=== PATIENT | male | born 1950 | race African-American/Black ===

== ENCOUNTER 2023-11-21 18:35 | Inpatient (IN) | payer MEDICARE ==
[~2023-11-21] VITALS: Ht 182.9 cm; Wt 102.8 kg
[2023-11-21 12:21] VITALS: BP 132/59; PULSE 77; RESP 17; TEMP 97.6; O2SAT 94
[~2023-11-21 18:35] MED LIST: AML5T PO; ASPI1TAB20 PO; ATOR-507 PO; BRIM0.2S17 LEFTEYE; CARV6.2551 PO; CLOP75TA70 PO; DORZ2SOL18 EACHEYE; DOXY-286 PO; GABA-339 PO; INS7030I SC; INSU100I69 SC; INSU50IN6 SC; METF-1145 PO; METO25TA93 PO; MID10T PO; PANT40TA2 PO; SIMV20TA20 PO; TORS20TA20 PO; VALS40TA2 PO
[2023-11-21 19:03] VITALS: PULSE 76; RESP 18; O2SAT 93
[2023-11-21] MEDS: IPRATROPIUM BROM 0.5 MG/2.5ML INH SOL NEB ONE (19:11)
[2023-11-21] MEDS: ALBUTEROL SULF 2.5 MG/0.5ML(0.5%) NEB SOLN NEB ONE (19:11)
[2023-11-21 19:33] LABS: Basophils # (auto) 0.1 10 ^3/uL (0-0.2); Eosinophils # (auto) 0.4 10 ^3/uL (0-0.8); Hemoglobin 8.6 g/dL (13.5-17.5); Lymphocytes # (auto) 1.1 10 ^3/uL (0.4-5.4)
[2023-11-21 19:34] LABS: Basophils % (auto) 1.1 % (0.0-2.0); Eosinophils % (auto) 6.4 % (0.0-7.0); Mean Corpuscular Hemoglobin 25.8 pg (28.0-32.0); Mean Corpuscular Hgb Conc. 31.8 g/dL (32.0-36.0); Mean Corpuscular Volume 81.2 fL (80.0-100.0); Monocytes # (auto) 0.3 10 ^3/uL (0-1.3); Monocytes % (auto) 5.2 % (0.0-12.0); Neutrophils # (auto) 4.8 10 ^3/uL (1.6-8.6); Neutrophils % (auto) 71.3 % (37.0-80.0); Nucleated Red Blood Cells % 0.2 %; Platelet Count (auto) 281 10^3/uL (140-450); Red Blood Cells 3.32 10^6/uL (4.5-5.90); Red Cell Distribution Width 18.8 % (11.8-14.3); White Blood Cell 6.7 10^3/uL (4.4-10.8)
[2023-11-21] MEDS: NITROGLYCERIN 2% OINT 1GM PKG TD ONE (19:35)
[2023-11-21 19:51] LABS: Alanine Aminotransferase 27 U/L (7-40); Alkaline Phosphatase 118 U/L (46-116); Anion Gap 11 (5-15); BUN/Creatinine Ratio 30.1 (10.0-20.0); Blood Urea Nitrogen 50 mg/dL (9-23); Calcium 8.4 mg/dL (8.7-10.4); Carbon Dioxide 21 mmol/L (20-30); Chloride 107 mmol/L (98-107); Glucose 203 mg/dL (74-106); Potassium 4.3 mmol/L (3.5-5.1); Sodium 139 mmol/L (136-145)
[2023-11-21 19:52] LABS: Albumin 3.9 g/dL (3.2-4.8); Aspartate Aminotransferase 15 U/L (13-40); Bilirubin, Total 0.4 mg/dL (0.2-1.0)
[2023-11-21 19:54] LABS: INR 1.03 (0.9-1.15); Partial Thromboplastin Time 28.2 SEC (24.5-34.5); Prothrombin Time 10.9 sec (9.3-11.8)
[2023-11-21] MEDS: methylPREDNISolone SOD SUCC 125 MG/2 ML VL IV ONE (19:55)
[2023-11-21] MEDS: levoFLOXacin 750MG 150 ML IV ONE (19:56)
[2023-11-21] MEDS: FUROSEMIDE 40 MG/4 ML VIAL IV ONE (20:30)
[2023-11-21 22:00] VITALS: PULSE 77; RESP 17; O2SAT 99
[2023-11-21] MEDS ORDERED: DEXTROSE (50%) 50ML SYRG IV PRN (22:00)
[2023-11-21] MEDS: ATORVASTATIN 20 MG TAB PO SCH (22:00)
[2023-11-21] MEDS: ACCU-CHEK COMFORT CURVE STRIP VI SCH (22:00)
[2023-11-21] MEDS: METOPROLOL TARTRATE 25 MG TAB PO SCH (22:00)
[2023-11-21] MEDS ORDERED: MORPHINE SULFATE INJ 2 MG/ml SYRG IV PRN (22:00)
[2023-11-21] MEDS: InsuLIN REG 1unit/0.01ml Soln (100units/ml) SC SCH (22:00)
[2023-11-21] MEDS: CARVEDILOL 3.125 MG TAB PO SCH (22:00)
[2023-11-21] MEDS ORDERED: NITROGLYCERIN 0.4 MG SL TAB SL PRN (22:00)
[2023-11-21 22:11] VITALS: BP 116/50; PULSE 98; RESP 24; O2SAT 92
[2023-11-22] VITALS (12 sets, daily range): BP systolic 107–132; BP diastolic 59–77; PULSE 69–81; RESP 18–24; TEMP 97.5–98.3; O2SAT 93–97
[2023-11-22 00:59] LABS: Urine Bacteria None Seen /hpf (None Seen)
[2023-11-22 01:14] LABS: Urine Blood Negative /uL (Negative); Urine Clarity Clear (Clear); Urine Color Light-Yellow (Yellow); Urine Hyaline Cast MANY /lpf (0 - 2); Urine Protein, UAD TRACE (Negative); Urine Specific Gravity 1.012 (1.001-1.035); Urine Urobilinogen Normal (Negative); Urine WBC <1 /hpf (0 - 3)
[2023-11-22] MEDS: ACETAMINOPHEN 325 MG TAB PO PRN (01:49)
[2023-11-22] MEDS: IPRATROPIUM BROM 0.5 MG/2.5ML INH SOL NEB PRN (06:17)
[2023-11-22] MEDS: ALBUTEROL SULF 2.5 MG/0.5ML(0.5%) NEB SOLN NEB PRN (06:17)
[2023-11-22] MEDS: FUROSEMIDE 20 MG/2 ML VIAL IV SCH ×2 (06:24→17:45)
[2023-11-22] MEDS: PANTOPRAZOLE 40 MG TAB PO SCH (06:24)
[2023-11-22 07:10] LABS: Basophils # (auto) 0 10 ^3/uL (0-0.2); Eosinophils # (auto) 0 10 ^3/uL (0-0.8); Hemoglobin 9.2 g/dL (13.5-17.5); Monocytes # (auto) 0 10 ^3/uL (0-1.3); Neutrophils # (auto) 3.6 10 ^3/uL (1.6-8.6)
[2023-11-22 07:12] LABS: Basophils % (auto) 0.4 % (0.0-2.0); Hematocrit 29.4 % (41.0-53.0); Lymphocytes # (auto) 0.3 10 ^3/uL (0.4-5.4); Lymphocytes % (auto) 8.4 % (10.0-50.0); Mean Corpuscular Hemoglobin 25.4 pg (28.0-32.0); Mean Corpuscular Hgb Conc. 31.3 g/dL (32.0-36.0); Mean Corpuscular Volume 81.1 fL (80.0-100.0); Monocytes % (auto) 1.1 % (0.0-12.0); Neutrophils % (auto) 90.1 % (37.0-80.0); Nucleated Red Blood Cells % 0.1 %; Platelet Count (auto) 297 10^3/uL (140-450); Red Blood Cells 3.62 10^6/uL (4.5-5.90); Red Cell Distribution Width 19.3 % (11.8-14.3)
[2023-11-22 07:26] LABS: Alanine Aminotransferase 26 U/L (7-40); Alkaline Phosphatase 113 U/L (46-116); Anion Gap 9 (5-15); Aspartate Aminotransferase 11 U/L (13-40); BUN/Creatinine Ratio 29.7 (10.0-20.0); Blood Urea Nitrogen 52 mg/dL (9-23); Calcium 8.6 mg/dL (8.7-10.4); Carbon Dioxide 22 mmol/L (20-30); Chloride 107 mmol/L (98-107); Glucose 281 mg/dL (74-106); Potassium 4.6 mmol/L (3.5-5.1); Sodium 138 mmol/L (136-145)
[2023-11-22 07:27] LABS: Bilirubin, Total 0.4 mg/dL (0.2-1.0); Total Protein 7.4 g/dL (5.7-8.2)
[2023-11-22] MEDS: CLOPIDOGREL BISULFATE 75 MG TAB PO SCH (10:00)
[2023-11-22] MEDS ORDERED: levoFLOXacin 500MG 100 ML IV SCH (10:00)
[2023-11-22] MEDS: amLODIPine BESYLATE 5 MG TAB PO SCH (10:01)
[2023-11-22] MEDS: cefTRIAXone 1GM/50ML D5W 50 ML IV ONE (18:00)
[2023-11-22] MEDS: ASPirin 81 mg TAB PO ONE (18:01)
[2023-11-22] MEDS: ENOXAPARIN SOD 40 MG/0.4 ML SYRINGE SC ONE (18:02)
[2023-11-22] MEDS: DOXYCYCLINE 100MG/250ML 250 ML IV ONE (18:53)
[2023-11-22] MEDS: MUPIROCIN 2% OINT 15gm or 22gm FOR MRSA NARES EACHNOSTRI SCH (22:00)
[2023-11-22] MEDS: DOXYCYCLINE 100MG/250ML 250 ML IV SCH (22:13)
[2023-11-22] MEDS: METOPROLOL TARTRATE 25 MG TAB PO SCH (22:15)
[2023-11-23] VITALS (16 sets, daily range): BP systolic 110–136; BP diastolic 50–81; PULSE 64–80; RESP 17–28; TEMP 97.4–98.1; O2SAT 92–99
[2023-11-23 02:59] LABS: COVID19 ANTIGEN SOFIA FIA NEGATIVE (NEGATIVE)
[2023-11-23 03:00] LABS: Rapid Influenza A Negative (Negative); Rapid Influenza B Negative (Negative)
[2023-11-23 06:05] LABS: Basophils # (auto) 0.1 10 ^3/uL (0-0.2); Lymphocytes # (auto) 0.8 10 ^3/uL (0.4-5.4); Monocytes # (auto) 0.6 10 ^3/uL (0-1.3); Red Cell Distribution Width 18.8 % (11.8-14.3); White Blood Cell 8.3 10^3/uL (4.4-10.8)
[2023-11-23 06:08] LABS: Basophils % (auto) 0.8 % (0.0-2.0); Eosinophils # (auto) 0.2 10 ^3/uL (0-0.8); Eosinophils % (auto) 2.2 % (0.0-7.0); Hematocrit 28.2 % (41.0-53.0); Hemoglobin 9.3 g/dL (13.5-17.5); Lymphocytes % (auto) 10.1 % (10.0-50.0); Mean Corpuscular Hemoglobin 26.9 pg (28.0-32.0); Mean Corpuscular Hgb Conc. 32.9 g/dL (32.0-36.0); Mean Corpuscular Volume 81.7 fL (80.0-100.0); Neutrophils # (auto) 6.6 10 ^3/uL (1.6-8.6); Neutrophils % (auto) 79.9 % (37.0-80.0); Nucleated Red Blood Cells % 0.2 %; Platelet Count (auto) 307 10^3/uL (140-450); Red Blood Cells 3.45 10^6/uL (4.5-5.90)
[2023-11-23 06:17] LABS: Anion Gap 6 (5-15); Carbon Dioxide 24 mmol/L (20-30); Chloride 110 mmol/L (98-107); Potassium 4.4 mmol/L (3.5-5.1); Sodium 140 mmol/L (136-145)
[2023-11-23 06:18] LABS: Calcium 9.1 mg/dL (8.7-10.4)
[2023-11-23 06:23] LABS: Blood Urea Nitrogen 54 mg/dL (9-23)
[2023-11-23 06:24] LABS: Magnesium 2.4 mg/dL (1.6-2.6)
[2023-11-23 06:37] LABS: Glucose 152 mg/dL (74-106)
[2023-11-23] MEDS: ONDANSETRON HCL 4 MG/2 ML VIAL IV PRN (09:00)
[2023-11-23] MEDS: cefTRIAXone 1GM/50ML D5W 50 ML IV SCH (09:00)
[2023-11-23] MEDS: ENOXAPARIN SOD 40 MG/0.4 ML SYRINGE SC SCH (10:12)
[2023-11-23] MEDS: ASPirin 81 mg TAB PO SCH (10:14)
[2023-11-23] MEDS: INSULIN LANTUS (GLARGINE) 1 /0.01ml (100units/ml) SC SCH (10:48)
[2023-11-23] MEDS: FUROSEMIDE 40 MG/4 ML VIAL IV SCH (14:55)
[2023-11-23] MEDS: metOLazone 5 MG TAB PO ONE (14:56)
[2023-11-23] MEDS ORDERED: FUROSEMIDE 40 MG/4 ML VIAL IV SCH (18:00)
[2023-11-23] MEDS: DOCUSATE SOD 100 MG CAP PO ONE (18:05)
[2023-11-23] MEDS: methylPREDNISolone SOD SUCC 40 MG/ML VL IV PRN (18:06)
[2023-11-23] MEDS: ALBUTEROL SULF 2.5 MG/0.5ML(0.5%) NEB SOLN NEB SCH (21:59)
[2023-11-23] MEDS: IPRATROPIUM BROM 0.5 MG/2.5ML INH SOL NEB SCH (22:00)
[2023-11-24] VITALS (22 sets, daily range): BP systolic 103–143; BP diastolic 42–93; PULSE 71–98; RESP 16–20; TEMP 97–98.3; O2SAT 10–99
[2023-11-24 05:49] LABS: Basophils # (auto) 0 10 ^3/uL (0-0.2); Basophils % (auto) 0.3 % (0.0-2.0); Eosinophils # (auto) 0 10 ^3/uL (0-0.8); Hemoglobin 9.6 g/dL (13.5-17.5); Lymphocytes # (auto) 0.2 10 ^3/uL (0.4-5.4); Monocytes # (auto) 0.1 10 ^3/uL (0-1.3); Nucleated Red Blood Cells % 0.1 %
[2023-11-24 05:51] LABS: Anion Gap 10 (5-15); Carbon Dioxide 25 mmol/L (20-30); Chloride 105 mmol/L (98-107); Potassium 3.7 mmol/L (3.5-5.1); Sodium 140 mmol/L (136-145)
[2023-11-24 05:52] LABS: Calcium 8.9 mg/dL (8.7-10.4)
[2023-11-24 05:54] LABS: Hematocrit 29.7 % (41.0-53.0); Lymphocytes % (auto) 3.8 % (10.0-50.0); Mean Corpuscular Hemoglobin 26.4 pg (28.0-32.0); Mean Corpuscular Hgb Conc. 32.4 g/dL (32.0-36.0); Mean Corpuscular Volume 81.4 fL (80.0-100.0); Neutrophils # (auto) 5.4 10 ^3/uL (1.6-8.6); Neutrophils % (auto) 94.9 % (37.0-80.0); Platelet Count (auto) 316 10^3/uL (140-450); Red Blood Cells 3.65 10^6/uL (4.5-5.90); Red Cell Distribution Width 18.8 % (11.8-14.3); White Blood Cell 5.7 10^3/uL (4.4-10.8)
[2023-11-24 05:57] LABS: BUN/Creatinine Ratio 32.2 (10.0-20.0); Blood Urea Nitrogen 58 mg/dL (9-23)
[2023-11-24 06:07] LABS: Glucose 302 mg/dL (74-106)
[2023-11-24] MEDS ORDERED: BRIMONIDINE 0.2% OPTH Soln 5ml EACHEYE ONE (10:15)
[2023-11-24] MEDS ORDERED: DORZOLAMIDE HCL 2% OPTH(EYE) SOL 10ML EACHEYE ONE (10:15)
[2023-11-24] MEDS: BRIMONIDINE 0.2% OPTH Soln 5ml EACHEYE SCH (10:32)
[2023-11-24] MEDS: DORZOLAMIDE HCL 2% OPTH(EYE) SOL 10ML EACHEYE SCH (10:33)
[2023-11-24] MEDS: INSULIN LANTUS (GLARGINE) 1 /0.01ml (100units/ml) SC ONE (11:18)
[2023-11-24] MEDS: IRON SUCROSE COMPLEX 100 ML IV SCH (12:00)
[2023-11-24] MEDS: metOLazone 5 MG TAB PO ONE (16:36)
[2023-11-24] MEDS ORDERED: DEXTROSE (50%) 50ML SYRG IV PRN (17:15)
[2023-11-24] MEDS: ACCU-CHEK COMFORT CURVE STRIP VI SCH (21:40)
[2023-11-24] MEDS: InsuLIN REG 1unit/0.01ml Soln (100units/ml) SC SCH (21:49)
[2023-11-25] VITALS (23 sets, daily range): BP systolic 110–138; BP diastolic 55–85; PULSE 65–119; RESP 18–21; TEMP 97.3–98.2; O2SAT 93–99
[2023-11-25] MEDS: InsuLIN REG 1unit/0.01ml Soln (100units/ml) SC SCH ×3 (06:25→22:25)
[2023-11-25] MEDS: metOLazone 5 MG TAB PO ONE (09:24)
[2023-11-25] MEDS: INSULIN LANTUS (GLARGINE) 1 /0.01ml (100units/ml) SC SCH (09:34)
[2023-11-25] MEDS ORDERED: INSULIN LANTUS (GLARGINE) 1 /0.01ml (100units/ml) SC SCH (10:00)
[2023-11-25 10:59] LABS: Chloride 100 mmol/L (98-107); Potassium 3.3 mmol/L (3.5-5.1)
[2023-11-25 11:00] LABS: Anion Gap 13 (5-15); Carbon Dioxide 22 mmol/L (20-30)
[2023-11-25 11:00] LABS: Base Excess -1.3 mmol/L (-2.0-3.0)
[2023-11-25 11:01] LABS: Calcium 9.2 mg/dL (8.7-10.4)
[2023-11-25 11:05] LABS: Glucose 244 mg/dL (74-106)
[2023-11-25 11:06] LABS: BUN/Creatinine Ratio 34.5 (10.0-20.0); Blood Urea Nitrogen 51 mg/dL (9-23); Magnesium 2.1 mg/dL (1.6-2.6)
[2023-11-25 11:07] LABS: Sodium 135 mmol/L (136-145)
[2023-11-25] MEDS: methylPREDNISolone SOD SUCC 40 MG/ML VL IV SCH (12:11)
[2023-11-25] MEDS: PANTOPRAZOLE 40 MG/10 ML VIAL INJ IV SCH (12:11)
[2023-11-25] MEDS ORDERED: POTASSIUM CHLORIDE 40 MEQ, LIDOCAINE 1% (LOCAL ANESTH.) 4 ML in SODIUM CHL 0.9% 250 ML IV ONE (15:45)
[2023-11-25] MEDS ORDERED: DEXTROSE (50%) 50ML SYRG IV PRN (15:45)
[2023-11-25] MEDS: INSULIN LANTUS (GLARGINE) 1 /0.01ml (100units/ml) SC ONE (15:45)
[2023-11-25] MEDS: ACCU-CHEK COMFORT CURVE STRIP VI SCH (16:23)
[2023-11-25] MEDS: POTASSIUM EFFERVESENT TAB 25 MEQ PO ONE (16:34)
[2023-11-25] MEDS: ENOXAPARIN SOD 100 MG/1 ML SYRINGE SC SCH (17:49)
[2023-11-25] MEDS: ATORVASTATIN 20 MG TAB PO SCH (21:51)
[2023-11-26] VITALS (21 sets, daily range): BP systolic 116–149; BP diastolic 57–63; PULSE 75–104; RESP 18–22; TEMP 97.9–98.3; O2SAT 94–100
[2023-11-26 06:26] LABS: Anion Gap 12 (5-15); Carbon Dioxide 20 mmol/L (20-30); Chloride 98 mmol/L (98-107); Potassium 3.6 mmol/L (3.5-5.1)
[2023-11-26 06:27] LABS: Calcium 9.2 mg/dL (8.7-10.4)
[2023-11-26 06:32] LABS: BUN/Creatinine Ratio 26.9 (10.0-20.0); Glucose 225 mg/dL (74-106)
[2023-11-26 06:33] LABS: Magnesium 2.4 mg/dL (1.6-2.6)
[2023-11-26 06:34] LABS: Blood Urea Nitrogen 39 mg/dL (9-23); Sodium 130 mmol/L (136-145)
[2023-11-26 06:57] LABS: Basophils # (auto) 0 10 ^3/uL (0-0.2); Basophils % (auto) 0.3 % (0.0-2.0); Eosinophils # (auto) 0 10 ^3/uL (0-0.8); Eosinophils % (auto) 0.4 % (0.0-7.0); Hematocrit 32.4 % (41.0-53.0); Hemoglobin 10.5 g/dL (13.5-17.5); Lymphocytes # (auto) 0.9 10 ^3/uL (0.4-5.4); Mean Corpuscular Hemoglobin 27.5 pg (28.0-32.0); Mean Corpuscular Hgb Conc. 32.2 g/dL (32.0-36.0); Mean Corpuscular Volume 85.4 fL (80.0-100.0); Monocytes # (auto) 0.5 10 ^3/uL (0-1.3); Neutrophils # (auto) 3.9 10 ^3/uL (1.6-8.6); Neutrophils % (auto) 72.3 % (37.0-80.0); Nucleated Red Blood Cells % 0.4 %; Platelet Count (auto) 297 10^3/uL (140-450); Red Cell Distribution Width 19.3 % (11.8-14.3); White Blood Cell 5.4 10^3/uL (4.4-10.8)
[2023-11-26] MEDS ORDERED: INSULIN LANTUS (GLARGINE) 1 /0.01ml (100units/ml) SC SCH (10:00)
[2023-11-26] MEDS: INSULIN LANTUS (GLARGINE) 1 /0.01ml (100units/ml) SC SCH (12:36)
[2023-11-26 18:49] LABS: Base Excess 3.9 mmol/L (-2.0-3.0)
[2023-11-27] VITALS (13 sets, daily range): BP systolic 129–135; BP diastolic 61–70; PULSE 59–87; RESP 16–18; TEMP 98–98.6; O2SAT 96–100
[2023-11-27 06:07] LABS: Anion Gap 9 (5-15); Carbon Dioxide 31 mmol/L (20-30); Chloride 93 mmol/L (98-107); Potassium 3.2 mmol/L (3.5-5.1); Sodium 133 mmol/L (136-145)
[2023-11-27 06:08] LABS: Calcium 9.6 mg/dL (8.7-10.4)
[2023-11-27 06:13] LABS: BUN/Creatinine Ratio 35.6 (10.0-20.0); Glucose 230 mg/dL (74-106)
[2023-11-27 06:14] LABS: Basophils # (auto) 0 10 ^3/uL (0-0.2); Eosinophils # (auto) 0 10 ^3/uL (0-0.8); Eosinophils % (auto) 0.2 % (0.0-7.0); Hemoglobin 10.8 g/dL (13.5-17.5); Lymphocytes # (auto) 0.9 10 ^3/uL (0.4-5.4); Neutrophils # (auto) 3.9 10 ^3/uL (1.6-8.6); Nucleated Red Blood Cells % 0.3 %
[2023-11-27 06:18] LABS: Basophils % (auto) 0.1 % (0.0-2.0); Hematocrit 32.4 % (41.0-53.0); Lymphocytes % (auto) 15.9 % (10.0-50.0); Mean Corpuscular Hemoglobin 26.6 pg (28.0-32.0); Mean Corpuscular Hgb Conc. 33.4 g/dL (32.0-36.0); Mean Corpuscular Volume 79.6 fL (80.0-100.0); Monocytes # (auto) 0.6 10 ^3/uL (0-1.3); Monocytes % (auto) 11.4 % (0.0-12.0); Neutrophils % (auto) 72.4 % (37.0-80.0); Platelet Count (auto) 315 10^3/uL (140-450); Red Blood Cells 4.07 10^6/uL (4.5-5.90); Red Cell Distribution Width 18.9 % (11.8-14.3); White Blood Cell 5.4 10^3/uL (4.4-10.8)
[2023-11-27 06:22] LABS: Blood Urea Nitrogen 58 mg/dL (9-23)
[2023-11-27] MEDS: INSULIN LANTUS (GLARGINE) 1 /0.01ml (100units/ml) SC SCH (10:00)
[2023-11-27] MEDS ORDERED: METO25TA93 PO (10:13)
[2023-11-27] MEDS ORDERED: MAGN400T40 PO (10:13)
[2023-11-27] MEDS ORDERED: FURO40TA4 PO (10:13)
[2023-11-27] MEDS ORDERED: LACT10PA2 PO (10:13)
[2023-11-27] MEDS ORDERED: INSU100I70 SC (10:13)
[2023-11-27] MEDS ORDERED: PRED20TA2 PO (10:13)
[2023-11-27] MEDS ORDERED: POTA-36 PO (10:13)
[2023-11-27] MEDS ORDERED: APIX5TAB PO (10:13)
[2023-11-27] MEDS ORDERED: ATOR40TA52 PO (10:13)
[2023-11-27] MEDS ORDERED: LEVA3NEB IN (10:13)
[2023-11-27] MEDS ORDERED: EMPA1TAB PO (10:13)
[2023-11-27] MEDS ORDERED: DULA1INJ SC (10:13)
[2023-11-27] MEDS ORDERED: LINA5TAB PO (10:13)
[2023-11-27] MEDS ORDERED: UMEC1AER IN (10:13)
[2023-11-27] MEDS ORDERED: METF-489 PO (10:14)
[2023-11-27] MEDS: POTASSIUM CHL 20 Meq TABLET PO ONE ×2 (10:19→10:20)
[2023-11-27] MEDS: FUROSEMIDE 40 MG/4 ML VIAL IV SCH (12:48)
[2023-11-27] MEDS: methylPREDNISolone SOD SUCC 40 MG/ML VL IV SCH (12:48)
== END 2023-11-27 17:04 | disposition home health service (06) | DRG 177 ==
LOC: ER 18:35 → EDBD 18:35 → TELE-EAST 22:07 → TELE 22:07 → TELE-EAST 23:46
PROVIDERS: ADMIT Internal Medicine; ATTEND Emergency Medicine
PROC: 5A0935A Assistance with Respiratory Ventilation, Less than 24 Consecutive Hours, High Flow/Velocity Cannula (ICD-10-PCS; principal; 2023-11-23)
PROC: 5A0935A Assistance with Respiratory Ventilation, Less than 24 Consecutive Hours, High Flow/Velocity Cannula (ICD-10-PCS; 2023-11-25)
DX: J15.69 Pneumonia due to other Gram-negative bacteria (principal); I50.23 Acute on chronic systolic (congestive) heart failure; J96.01 Acute respiratory failure with hypoxia; I13.0 Hypertensive heart and chronic kidney disease with heart failure and stage 1 through stage 4 chronic kidney disease, or unspecified chronic kidney disease; J44.1 Chronic obstructive pulmonary disease with (acute) exacerbation; J44.0 Chronic obstructive pulmonary disease with (acute) lower respiratory infection; N17.9 Acute kidney failure, unspecified; J15.9 Unspecified bacterial pneumonia; N18.9 Chronic kidney disease, unspecified; E11.22 Type 2 diabetes mellitus with diabetic chronic kidney disease; E11.51 Type 2 diabetes mellitus with diabetic peripheral angiopathy without gangrene; E78.5 Hyperlipidemia, unspecified; I48.91 Unspecified atrial fibrillation; Z20.822 Contact with and (suspected) exposure to COVID-19; E87.6 Hypokalemia; K59.00 Constipation, unspecified; I25.10 Atherosclerotic heart disease of native coronary artery without angina pectoris; E11.42 Type 2 diabetes mellitus with diabetic polyneuropathy; D50.9 Iron deficiency anemia, unspecified; Z95.1 Presence of aortocoronary bypass graft; Z99.81 Dependence on supplemental oxygen; Z88.0 Allergy status to penicillin; Z98.61 Coronary angioplasty status
CPT/HCPCS: 36415; 36600; 71045; 71250; 76604; 76705; 76775; 80048; 80053; 81001; 82728; 82805; 82962; 83036; 83540; 83550; 83605; 83735; 83880; 83930; 84443; 84484; 85025; 85045; 85610; 85730; 87081; 87426; 87804; 93005; 93306; 94640; 99291; G0378; J1756; J1815; J1956; J2001; J2405; J2470; J3490

== ENCOUNTER 2024-04-26 12:16 | Inpatient (IN) | payer MEDICARE ==
[~2024-04-26] VITALS: Ht 180.3 cm; Wt 103.0 kg
[~2024-04-26 12:16] MED LIST changes: +APIX5TAB PO; -ASPI1TAB20 PO; -ATOR-507 PO; +ATOR40TA52 PO; -CARV6.2551 PO; -DORZ2SOL18 EACHEYE; -DOXY-286 PO; +DULA1INJ SC; +EMPA1TAB PO; +FURO40TA4 PO; -GABA-339 PO; -INS7030I SC; -INSU100I69 SC; +INSU100I70 SC; -INSU50IN6 SC; +LACT10PA2 PO; +LEVA3NEB IN; +LINA5TAB PO; +MAGN400T40 PO; -METF-1145 PO; +METF-489 PO; -MID10T PO; -PANT40TA2 PO; +POTA-36 PO; +PRED20TA2 PO; -SIMV20TA20 PO; -TORS20TA20 PO; +UMEC1AER IN; -VALS40TA2 PO
--- NOTE | 2024-04-26 12:38 | ED.PDOC ---
History of Present Illness HPI Comments 73 year old male presents to the ED with a chief complaint of bilateral leg swelling. Patient states he has been experiencing swelling "for a while" is not able to state exact time. Patient has been treated at different ED but does not notice improvement. He states he changes dressing on his own, does not have a home health nurse. PMHx NV, CHF, CAD, COPD, HTN, DM, HLD. Denies chest pain, shortness of breath, dizziness, headache, blurry vision, fever, nausea, vomiting. No other symptoms or modifying factors present at this time. Chief Complaint: Wound Check Time Seen by MD: 12:13 Primary Care Provider: UNKNOWN Reviewed Notes: Medications, Allergies Allergies: Coded Allergies: Penicillins (Verified Allergy, Unknown, 04/01/23) Home Meds Active Scripts Metformin Hydrochloride (METFORMIN HCL ER) 500 Mg Tab, 1 TAB PO DAILY for 30 Days, #30 TAB 2 Refills Prov[facility] 11/27/23 Linagliptin Base (TRADJENTA) 5 Mg Tab, 1 TAB PO DAILY for 30 Days, #30 TAB 2 [facility]/27/23 Insulin Glargine-Yfgn (Insulin Glargine) 100 Unit/Ml Inj, 30 UNIT SC DAILY for 30 Days, #1 INJ 2 Refills Prov:[facility] 11/27/23 Dulaglutide (Trulicity) 0.75 Mg/0.5 Ml Inj, 0.75 MG SC QWEEKLY for 30 Days, #1 INJ 2 [facility] 11/27/23 Empagliflozin (Jardiance) 10 Mg Tab, 10 MG PO DAILY for 30 Days, #30 TAB 2 Refills Prov:[facility] 11/27/23 Apixaban Base (ELIQUIS) 5 Mg Tab, 5 MG PO BID for 30 Days, #60 TAB 2 Refills Prov:[facility] 11/27/23 Lactulose (Lactulose) 10 Gm Naif, 10 GM PO DAILY PRN for 7 Days, #1 PACK 0 Refills Prov:[facility] 11/27/23 Umeclidinium-Vilanterol (Anoro Ellipta 62.5-25 Mcg/INH) 1 Aer Aer, 1 AER IN DAILY for 30 Days, #1 AER 2 Refills Prov:[facility] 11/27/23 Levalbuterol HCl (Levalbuterol) 1.25 Mg/0.5 Ml Neb, 1.25 MG IN BID PRN for 30 Days, #2 INH 2 Refills Prov:[facility] 11/27/23 Atorvastatin Calcium (ATORVASTATIN CALCIUM) 40 Mg Tab, 80 MG PO DAILY for 30 Days, #60 TAB 2 Refills Prov:[facility] 11/27/23 Metoprolol Succinate (Metoprolol Succinate Er) 25 Mg Tab, 12.5 MG PO DAILY for 30 Days, #15 TAB 2 Refills Prov:[facility] 11/27/23 Magnesium Oxide (MAGNESIUM OXIDE) 400 Mg Tab, 1 TAB PO DAILY PRN for 30 Days, #30 TAB 0 Refills Prov:[facility] 11/27/23 Potassium Chloride (POTASSIUM CHLORIDE CR) 10 Meq Tb, 1 TAB PO DAILY PRN for 30 Days, #30 TAB 0 Refills Prov:[facility] 11/27/23 Furosemide (Furosemide) 40 Mg Tab, 40 MG PO BID PRN for 30 Days, #60 TAB 0 Refills Prov:[facility] 11/27/23 Prednisone (Prednisone) 20 Mg Tab, 20 MG PO DAILY for 2 Days, #2 MG 0 Refills Prov:[facility] 11/27/23 Reported Medications Brimonidine Tartrate (Brimonidine Tartrate) 0.2 % Daria, 1 DROP LEFTEYE TID for 30 Days, #10 3 Refills 11/24/23 Clopidogrel Bisulfate (CLOPIDOGREL) 75 Mg Tab, 1 TAB PO DAILY for 30 Days, #30 11/24/23 Amlodipine Besylate (NORVASC TABLET) 5 Mg Tb, 1 TAB PO BID for 30 Days 04/02/23 Information Source: Patient Mode of Arrival: Ambulatory Severity: Moderate Timing: Months Duration: Intermittent Prehospital treatment: None Past Medical History PAST MEDICAL HISTORY: CAD, CKF, COPD, DM, HTN, NV Surgical History: CABG, PTCA Family History Family History: Reviewed,noncontributory to illness Social History Smoker: Non-Smoker Alcohol: Denies ETOH Use Drugs: Denies Drug Use Lives In: [facility] Musculoskeletal: reports: others (bilateral leg swelling) Physical Exam General Appearance: Moderate Distress HEENT: Normal ENT Inspection, Pharynx Normal, TMs Normal Neck: Full Range of Motion, Non-Tender, Normal, Normal Inspection Respiratory: Chest Non-Tender, Lungs Clear, No Accessory Muscle Use, No Respiratory Distress, Normal Breath Sounds Cardiovascular: No Edema, No JVD, No Murmur, No Gallop, Normal Peripheral Pulses, Regular Rate/Rhythm Breast Exam: Deferred Gastrointestinal: No Organomegaly, Non Tender, No Pulsatile Mass, Normal Bowel Sounds, Soft Genitalia: Deferred Pelvic: Deferred Rectal: Deferred Extremities: No calf tenderness, Normal capillary refill, Normal inspection, Normal range of motion, Non-tender, No pedal edema Musculoskeletal : Apperance: Normal Neurologic: Alert, field marketing director II-XII nml as Tested, No Motor Deficits, Normal Affect, Normal Mood, No Sensory Deficits Cerebellar Function: Normal Reflexes: Normal Skin: Dry, Normal Color, Warm Peripheral Pulses: 3+ Radial (R), 3+ Radial (L) Lymphatic: No Adenopathy Was a procedure done? Was a procedure done?: No Differential Dx Considerations may include: Cellulitis Osteomyelitis X-Ray, Labs, Meds, VS Vital Signs Date Time Temp Pulse Resp B/P (MAP) Pulse Ox O2 Delivery O2 Flow Rate FiO2 04/26/24 12:28 98.2 60 18 112/56 (74) 98 Lab Test 04/26/24 13:35 Range/Units White Blood Count 8.9 4.4-10.8 10^3/uL Red Blood Count 3.62 L 4.5-5.90 10^6/uL Hemoglobin 9.0 L 13.5-17.5 g/dL Hematocrit 28.8 L 41.0-53.0 % Mean Corpuscular Volume 79.6 L 80.0-100.0 fL Mean Corpuscular Hemoglobin 24.8 L 28.0-32.0 pg Mean Corpuscular Hemoglobin Concent 31.1 L 32.0-36.0 g/dL Red Cell Distribution Width 24.8 H 11.8-14.3 % Platelet Count 294 140-450 10^3/uL Mean Platelet Volume 7.5 6.9-10.8 fL Neutrophils (%) (Auto) 85.1 H 37.0-80.0 % Lymphocytes (%) (Auto) 8.5 L 10.0-50.0 % Monocytes (%) (Auto) 4.3 0.0-12.0 % Eosinophils (%) (Auto) 1.7 0.0-7.0 % Basophils (%) (Auto) 0.4 0.0-2.0 % Neutrophils # (Auto) 7.6 1.6-8.6 10 ^3/uL Lymphocytes # (Auto) 0.8 0.4-5.4 10 ^3/uL Monocytes # (Auto) 0.4 0-1.3 10 ^3/uL Eosinophils # (Auto) 0.1 0-0.8 10 ^3/uL Basophils # (Auto) 0 0-0.2 10 ^3/uL Nucleated Red Blood Cells 0.1 % Sodium Level 142 136-145 mmol/L Potassium Level 5.6 *H 3.5-5.1 mmol/L Chloride Level 112 H 98-107 mmol/L Carbon Dioxide Level 22 20-31 mmol/L Anion Gap 8 5-15 Blood Urea Nitrogen 50 H 9-23 mg/dL Creatinine 1.26 0.700-1.30 mg/dL Glomerular Filtration Rate Calc 60 >90 mL/min BUN/Creatinine Ratio 39.7 H 10.0-20.0 Serum Glucose 155 H 74-106 mg/dL Lactic Acid Level 1.9 0.4-2.0 mmol/L Calcium Level 8.9 8.7-10.4 mg/dL Patient alert. Has a infection of bilateral feet. Sepsis workup. Blood pressure within normal limits. He is on oxygen. Establish intravenous access. Was given vancomycin. Was given clindamycin. Explained to the patient. Continue cardiac monitoring. Chest x-ray reviewed does show congestion. [place] [id number] Ph: [phone] DIAGNOSTIC IMAGING Diagnostic Imaging Report : [id number] Signed PATIENT: JON FRANKEL ACCT: [id number] UNIT: [id number] : 1950 LOC: ER ROOM / BED: / AGE / SEX: 73 / M ADM STATUS: REG ER SERVICE 1252 ORDERING PHYSICIAN: NATY LAKHANI MD PROCEDURE(s): CXRP - CHEST PORTABLE REASON: sob ORDER NUMBER(s): [id number], ACCESSION NUMBER(s): [id number] XY CHEST PORTABLE, HISTORY: sob COMPARISON: XY CHEST XRAY 1 VIEW on DOS: 11/26/23, XY CHEST PORTABLE on DOS: 11/21/23, XY CHEST PORTABLE on DOS: 04/02/23 XY CHEST XRAY 1 VIEW on DOS: 11/26/23, XY CHEST PORTABLE on DOS: 11/21/23, XY CHEST PORTABLE on DOS: 04/02/23 TECHNICAL DATA: 1 view of the chest was obtained. FINDINGS: Lines and tubes: None Cardiomediastinal silhouette: Enlarged Pulmonary vasculature: Prominent Lung expansion: normal Lung airspace: normal Lung interstitium: normal Pleura: normal Pneumothorax: no Bones: Unremarkable Other: no IMPRESSION: Cardiomegaly with mild pulmonary congestion. ATED BY: MCKAY COVARRUBIAS MD DICTATED DATE/TIME: 04/26/241313 SIGNED BY: MCKAY COVARRUBIAS MD SIGNED DATE/TIME: 04/26/241313 CC: Time of 1ST Reevaluation: 12:43 Reevaluation 1ST: Unchanged Patient Education/Counseling: Diagnosis, Treatment, Prognosis Family Education/Counseling: No Family Present Additional Information The following tests were ordered, and results were reviewed by me: BLOOD CULTURE, LA W/ REFLEX, CBC, XY CHEST, UA, BMP I reviewed and agreed with the following test results read by other providers: XY CHEST I discussed treatment and results with medical personnel and patient Departure 1 Departure Time of Disposition: 13:27 Impression: Primary Impression: Sepsis, unspecified organism Qualified Codes: A41.9 - Sepsis, unspecified organism Additional Impressions: Uncontrolled diabetes mellitus Qualified Codes: E13.65 - Other specified diabetes mellitus with hyper glycemia Diastolic heart failure Qualified Codes: I50.33 - Acute on chronic diastolic (congestive) heart failure Hyperkalemia Disposition: ADMITTED INPATIENT Admit to: Med Surg Condition: Guarded Critical Care Note Critical Care Time?: Yes (90 min-critical care time only) Critical care comment: Sepsis hyperkalemia Stability Stability form required: No Heart Score Heart Score: Heart Score Response (Comments) Value History Slightly Suspicious 0 EKG Normal 0 Age >65 2 Risk Factors >3 or Hx ASHD 2 Troponin Normal limit 0 Total 4 I personally scribed for NATY LAKHANI MD ([email or web address]) on 04/26/24 at 12:38. Electronically submitted by Idalia Doll ([email or web address]). I personally scribed for NATY LAKHANI MD ([email or web address]) on 04/26/24 at 13:12. Electronically submitted by Idalia Doll ([email or web address]). I personally scribed for NATY LAKHANI MD ([email or web address]) on 04/26/24 at 13:49. Electronically submitted by Idalia Doll ([email or web address]). NATY LAKHANI MD Apr 26, 2024 12:38
--- NOTE | 2024-04-26 13:17 | DVH ---
XY CHEST PORTABLE, HISTORY: sob COMPARISON: XY CHEST XRAY 1 VIEW on DOS: 11/26/23, XY CHEST PORTABLE on DOS: 11/21/23, XY CHEST PORTABLE on DOS: 04/02/23 XY CHEST XRAY 1 VIEW on DOS: 11/26/23, XY CHEST PORTABLE on DOS: 11/21/23, XY CHEST PORTABLE on DOS: 03/24 TECHNICAL DATA: 1 view of the chest was obtained. FINDINGS: Lines and tubes: None Cardiomediastinal silhouette: Enlarged Pulmonary vasculature: Prominent Lung expansion: normal Lung airspace: normal Lung interstitium: normal Pleura: normal Pneumothorax: no Bones: Unremarkable Other: no IMPRESSION: Cardiomegaly with mild pulmonary congestion.
[2024-04-26 14:01] LABS: Eosinophils % (auto) 1.7 % (0.0-7.0); Lymphocytes # (auto) 0.8 10 ^3/uL (0.4-5.4); Monocytes # (auto) 0.4 10 ^3/uL (0-1.3); Nucleated Red Blood Cells % 0.1 %; White Blood Cell 8.9 10^3/uL (4.4-10.8)
[2024-04-26 14:04] LABS: Basophils # (auto) 0 10 ^3/uL (0-0.2); Basophils % (auto) 0.4 % (0.0-2.0); Eosinophils # (auto) 0.1 10 ^3/uL (0-0.8); Hematocrit 28.8 % (41.0-53.0); Lymphocytes % (auto) 8.5 % (10.0-50.0); Mean Corpuscular Hemoglobin 24.8 pg (28.0-32.0); Mean Corpuscular Hgb Conc. 31.1 g/dL (32.0-36.0); Mean Corpuscular Volume 79.6 fL (80.0-100.0); Monocytes % (auto) 4.3 % (0.0-12.0); Neutrophils # (auto) 7.6 10 ^3/uL (1.6-8.6); Neutrophils % (auto) 85.1 % (37.0-80.0); Platelet Count (auto) 294 10^3/uL (140-450); Red Blood Cells 3.62 10^6/uL (4.5-5.90); Red Cell Distribution Width 24.8 % (11.8-14.3)
[2024-04-26 14:16] LABS: Sodium 142 mmol/L (136-145)
[2024-04-26 14:17] LABS: Anion Gap 8 (5-15); Calcium 8.9 mg/dL (8.7-10.4); Carbon Dioxide 22 mmol/L (20-31)
[2024-04-26 14:22] LABS: BUN/Creatinine Ratio 39.7 (10.0-20.0)
[2024-04-26 14:28] LABS: Chloride 112 mmol/L (98-107)
[2024-04-26 14:29] LABS: Blood Urea Nitrogen 50 mg/dL (9-23); Glucose 155 mg/dL (74-106); Potassium 5.6 mmol/L (3.5-5.1)
[2024-04-26] MEDS: ALBUTEROL SULF 2.5 MG/0.5ML(0.5%) NEB SOLN NEB ONE (15:11)
[2024-04-26] MEDS: SODIUM ZIRCONIUM CYCL 10 GM PAK PO ONE (16:49)
[2024-04-26] MEDS: VANCOMYCIN 1GM/250ML KIT 250 ML IV ONE (16:50)
[2024-04-26] MEDS: CLINDAMYCIN 600MG IV 50 ML IV ONE (18:47)
[2024-04-26] MEDS ORDERED: ACETAMINOPHEN 325 MG TAB PO PRN (19:00)
[2024-04-26] MEDS ORDERED: DEXTROSE (50%) 50ML SYRG IV PRN (19:00)
[2024-04-26] MEDS: CALCIUM GLUC 1,000mg/50ml-NS 50 ML IV ONE (22:18)
[2024-04-26] MEDS: SODIUM BICARB 8.4% 50Meq/50ml SYR INJ IV ONE (22:19)
[2024-04-26] MEDS: DEXTROSE (50%) 50ML SYRG IV ONE (22:19)
[2024-04-26] MEDS: FUROSEMIDE 20 MG/2 ML VIAL IV ONE (22:20)
[2024-04-26] MEDS: InsuLIN REG 1unit/0.01ml Soln (100units/ml) IV ONE (22:20)
--- NOTE | 2024-04-26 22:36 | DVHHP2 ---
History of Present Illness Reason for Visit: Shortness for breath History of Present Illness 73-year-old male with a history of congestive heart failure presents for evaluation of bilateral lower extremity swelling. Patient reports a one-week history of worsening bilateral lower extremity swelling with associated shortness for breath and chest tightness. Denies fever or chills. He states there is clear fluid seeping from wounds on bilateral lower extremities. Past Medical History Hypertension, mi, diabetes mellitus, COPD, chronic kidney disease, CAD Past Surgical History CABG and PTCA Family History Noncontributory Smoke: No ALCOHOL: none Drugs: None Lives: with Family Review of Systems Review of Systems Review of systems are currently negative otherwise addressed in HPI. Allergies: Coded Allergies: Penicillins (Verified Allergy, Unknown, 04/01/23) Medications Current Medications Medications Dose Ordered Sig/Erik Route Start Time Stop Time Status Last Admin Dose Admin Albuterol 2.5 mg Q6HPRN PRN NEB 04/26/24 19:00 Clopidogrel Bisulfate 75 mg DAILY PO 04/27/24 10:00 Amlodipine Besylate 5 mg DAILY PO 04/27/24 10:00 Apixaban 5 mg BID PO 04/26/24 22:00 Atorvastatin Calcium 80 mg HS PO 04/26/24 22:00 Empaglifozin 10 mg DAILY PO 04/27/24 10:00 Metoprolol Succinate 12.5 mg DAILY PO 04/27/24 10:00 Diagnostic Test (Pha) 1 strip Q6HR 04/27/24 00:00 Insulin Human Regular Q6HR SC 04/27/24 00:00 Dextrose 50 ml UD PRN IV 04/26/24 19:00 Ondansetron HCl 4 mg Q4HP PRN IV 04/26/24 19:00 Acetaminophen 650 mg Q6HP PRN PO 04/26/24 19:00 Exam Vital Signs Vital Signs Date Time Temp Pulse Resp B/P (MAP) Pulse Ox O2 Delivery O2 Flow Rate FiO2 04/26/24 22:26 98.5 71 18 94/59 (71) 95 98.5 04/26/24 16:12 Room Air 04/26/24 15:21 0 21 Exam Gen: 73-year-old male in mild distress. Skin: Warm, dry, normal color and texture, no rash. HEENT: Normocephalic atraumatic, mucous membranes moist and pink. Neck: Cervical and supraclavicular nodes normal without enlargement, trachea is midline, thyroid gland is normal without masses. Pulmonary: Clear to auscultation and percussion bilaterally. Cardiac: Regular rate and rhythm. No murmur Abdomen: Soft, nontender, nondistended, bowel sounds present all 4 quadrants, no guarding, no rigidity, no organomegaly. Extremities: No cyanosis, clubbing, bilateral lower extremity plus two edema weeping ulcers Neuro: Cranial nerves II through XII grossly intact, normal affect and speech, no focal motor deficits. Labs/Xrays ORDERING PHYSICIAN: ALONZO VILLA RESIDENT PROCEDURE(s): ECIDC - ECHO 2D MODE CARDIAC DOP REASON: chf ORDER NUMBER(s): [id number], ACCESSION NUMBER(s): [id number] APPROVED REPORT EXAM: Two-dimensional and M-mode echocardiogram with Doppler and color Doppler. Blood Pressure: 116/61 mmHg INDICATION chf DIMENSIONS LVDd 5.5 (3.8-5.7cm) LA (2D) 4.5 (1.9-4.0cm) Aortic Root 2.9 (2.0- 3.7cm) LVDs 4.3 (2.5-4.0cm) LA (MM) (1.9-4.0cm) Aortic Cusp Exc 1.6 (1.5- 2.0cm) EF (%) 42.3 (55-70%) Rt. Atrium 3.8 (1.9-4.0cm) Asc. Aorta cm IVSd 0.7 (0.7-1.1cm) RV (D) 4.8 (1.8-2.4cm) PWd 1.0 (0.7-1.1cm) Mitral Valve Mitral Mitral Stenosis E wave 0.95m/s MV Mean GR. mmHg A wave 0.60m/s MV Peak GR. 50mmHg E/A ratio 1.6 2D MVA cm2 DECEL Time 135ms PRESS 1/2 Time ms Aortic Valve Aortic Valve Aortic Stenosis V1 0.90m/s AO Mean GR. 2mmHg V2 1.18m/s AO Peak GR. 6mmHg Pulmonic Valve V2 0.65m/s Tricuspid Valve TR Velocity 1.85m/s RVSP 23mmHg Other Information Technically limited study due to body habitus. Conclusion SEVERE HYPOKINESIS OF ENTIRE LV ANTERIOR WALL AND APICAL WALL LV EJECTION FRACTION IS 35% AND IS REDUCED NORAML VALVES NO EFFUSION RVSP OF 23 MM OF HG SIGNED BY: HÉCTOR MARION MD SIGNED DATE/TIME: 11/22/23 1615 CC: ORDERING PHYSICIAN: NATY LAKHANI MD PROCEDURE(s): CXRP - CHEST PORTABLE REASON: sob ORDER NUMBER(s): [id number], ACCESSION NUMBER(s): [id number] XY CHEST PORTABLE, HISTORY: sob COMPARISON: XY CHEST XRAY 1 VIEW on DOS: 11/26/23, XY CHEST PORTABLE on DOS: 11/21/23, XY CHEST PORTABLE on DOS: 04/02/23 XY CHEST XRAY 1 VIEW on DOS: 11/26/23, XY CHEST PORTABLE on DOS: 11/21/23, XY CHEST PORTABLE on DOS: 04/02/23 TECHNICAL DATA: 1 view of the chest was obtained. FINDINGS: Lines and tubes: None Cardiomediastinal silhouette: Enlarged Pulmonary vasculature: Prominent Lung expansion: normal Lung airspace: normal Lung interstitium: normal Pleura: normal Pneumothorax: no Bones: Unremarkable Other: no IMPRESSION: Cardiomegaly with mild pulmonary congestion. Labs Test 04/26/24 18:40 04/26/24 13:35 Range/Units Potassium Level 4.3 3.5-5.1 mmol/L White Blood Count 8.9 4.4-10.8 10^3/uL Red Blood Count 3.62 L 4.5-5.90 10^6/uL Hemoglobin 9.0 L 13.5-17.5 g/dL Hematocrit 28.8 L 41.0-53.0 % Mean Corpuscular Volume 79.6 L 80.0-100.0 fL Mean Corpuscular Hemoglobin 24.8 L 28.0-32.0 pg Mean Corpuscular Hemoglobin Concent 31.1 L 32.0-36.0 g/dL Red Cell Distribution Width 24.8 H 11.8-14.3 % Platelet Count 294 140-450 10^3/uL Mean Platelet Volume 7.5 6.9-10.8 fL Neutrophils (%) (Auto) 85.1 H 37.0-80.0 % Lymphocytes (%) (Auto) 8.5 L 10.0-50.0 % Monocytes (%) (Auto) 4.3 0.0-12.0 % Eosinophils (%) (Auto) 1.7 0.0-7.0 % Basophils (%) (Auto) 0.4 0.0-2.0 % Neutrophils # (Auto) 7.6 1.6-8.6 10 ^3/uL Lymphocytes # (Auto) 0.8 0.4-5.4 10 ^3/uL Monocytes # (Auto) 0.4 0-1.3 10 ^3/uL Eosinophils # (Auto) 0.1 0-0.8 10 ^3/uL Basophils # (Auto) 0 0-0.2 10 ^3/uL Nucleated Red Blood Cells 0.1 % Sodium Level 142 136-145 mmol/L Chloride Level 112 H 98-107 mmol/L Carbon Dioxide Level 22 20-31 mmol/L Anion Gap 8 5-15 Blood Urea Nitrogen 50 H 9-23 mg/dL Creatinine 1.26 0.700-1.30 mg/dL Glomerular Filtration Rate Calc 60 >90 mL/min BUN/Creatinine Ratio 39.7 H 10.0-20.0 Serum Glucose 155 H 74-106 mg/dL Lactic Acid Level 1.9 0.4-2.0 mmol/L Calcium Level 8.9 8.7-10.4 mg/dL Assessment/Plan Assessment/Plan Assessment On chronic congestive heart failure Uncontrolled diabetes mellitus Hyperkalemia Venous stasis lower extremity ulcers History of [place] Status post CABG Plan Admit the patient to [facility] to the hospitalist Resume home medications Clindamycin Wound consult pending Continue treatment per orders. Plan discussed with: Patient My Orders Orders - ANNE MARIE BREWSTER AGACNGiovanny Procedure Category Date Status Time Albuterol Medneb PHA 04/26/24 In Process (Ventolin Medneb) 19:00 Clopidogrel Bisulfate PHA 04/27/24 In Process (Plavix) 10:00 Amlodipine Tablet PHA 04/27/24 In Process (Norvasc Tablet) 10:00 Apixaban (Eliquis) PHA 04/26/24 In Process 22:00 Atorvastatin (Lipitor) PHA 04/26/24 In Process 22:00 Empagliflozin PHA 04/27/24 In Process (Jardiance) 10:00 Metoprolol Xl PHA 04/27/24 In Process Succinate (Toprol Xl) 10:00 Basic Metabolic Panel LAB 04/27/24 Verified 04:00 Glucose Blood PHA 04/27/24 In Process (Accu-Chek Comfort 00:00 Insulin R (Human) PHA 04/27/24 In Process (Insulin R) 00:00 Dextrose 50% Syringe PHA 04/26/24 In Process 19:00 Admit ADMIT 04/26/24 Transmitted 18:54 Ondansetron Hcl PHA 04/26/24 In Process (Zofran) 19:00 Complete Blood Count LAB 04/27/24 Verified 04:00 Cardiac DIET 04/27/24 Transmitted Diet-2gna,Lofat,Lochol Breakfast Condition: Stable [place] 04/26/24 In Process 18:54 Acetaminophen Tablet PHA 04/26/24 In Process (Tylenol Tablet) 19:00 Bedrest With Bathroom [place] 04/26/24 In Process Privileg 18:54 * Wound Consult CONS 04/26/24 Verified B-Type Natriuretic LAB 04/26/24 Verified Peptide 22:31 Clindamycin Ivpb PHA 04/27/24 Verified Cleocin 06:00 Date of Service: Apr 26, 2024 Billing Provider: ANNE MARIE BREWSTER Common Visit Codes: [id number] INP/OBS CARE (HIGH) ANNE MARIE BREWSTER Apr 26, 2024 22:36
[2024-04-26] MEDS: APIXABAN 5 MG TAB PO SCH (22:46)
[2024-04-26] MEDS: ATORVASTATIN 20 MG TAB PO SCH (22:46)
[2024-04-26 22:53] VITALS: BP 94/59; PULSE 71; RESP 18; TEMP 98.5; O2SAT 95
[2024-04-26 23:00] VITALS: BP 108/53; PULSE 72; RESP 19; O2SAT 96
[2024-04-26 23:01] VITALS: RESP 16; O2SAT 98
[2024-04-27] VITALS (17 sets, daily range): BP systolic 91–111; BP diastolic 43–76; PULSE 68–90; RESP 17–24; TEMP 97.3–98.4; O2SAT 93–100
[2024-04-27] MEDS: ACCU-CHEK COMFORT CURVE STRIP VI SCH (00:06)
[2024-04-27] MEDS: InsuLIN REG 1unit/0.01ml Soln (100units/ml) SC SCH (00:07)
[2024-04-27 00:47] LABS: Urine Bacteria None Seen /hpf (None Seen)
[2024-04-27 01:01] LABS: Urine Blood Negative /uL (Negative); Urine Clarity Clear (Clear); Urine Color Light-Yellow (Yellow); Urine Protein, UAD TRACE (Negative); Urine Specific Gravity 1.018 (1.001-1.035); Urine Squamous Epithelial Cell FEW /hpf (<5); Urine Urobilinogen Normal (Negative); Urine WBC 2 /HPF (0-3)
[2024-04-27] MEDS: ALBUTEROL SULF 2.5 MG/0.5ML(0.5%) NEB SOLN NEB PRN (03:49)
[2024-04-27] MEDS: CLINDAMYCIN 600MG IV 50 ML IV SCH (05:21)
[2024-04-27 08:39] LABS: Basophils # (auto) 0.1 10 ^3/uL (0-0.2); Basophils % (auto) 0.8 % (0.0-2.0); Eosinophils # (auto) 0.1 10 ^3/uL (0-0.8); Eosinophils % (auto) 1.2 % (0.0-7.0); Hematocrit 26.8 % (41.0-53.0); Hemoglobin 8.1 g/dL (13.5-17.5); Lymphocytes # (auto) 0.5 10 ^3/uL (0.4-5.4); Lymphocytes % (auto) 5.3 % (10.0-50.0); Mean Corpuscular Hemoglobin 24.2 pg (28.0-32.0); Mean Corpuscular Hgb Conc. 30.3 g/dL (32.0-36.0); Mean Corpuscular Volume 79.7 fL (80.0-100.0); Monocytes # (auto) 0.4 10 ^3/uL (0-1.3); Monocytes % (auto) 4.6 % (0.0-12.0); Neutrophils # (auto) 8.1 10 ^3/uL (1.6-8.6); Neutrophils % (auto) 88.1 % (37.0-80.0); Nucleated Red Blood Cells % 0.1 %; Platelet Count (auto) 250 10^3/uL (140-450); Red Blood Cells 3.36 10^6/uL (4.5-5.90); Red Cell Distribution Width 24.7 % (11.8-14.3); White Blood Cell 9.3 10^3/uL (4.4-10.8)
[2024-04-27] MEDS: EMPAGLIFLOZIN 10 MG TAB PO SCH (08:52)
[2024-04-27] MEDS: CLOPIDOGREL BISULFATE 75 MG TAB PO SCH (08:52)
[2024-04-27] MEDS: amLODIPine BESYLATE 5 MG TAB PO SCH (08:55)
[2024-04-27] MEDS: METOPROLOL SUCCINATE XL 50 MG TAB PO SCH (08:55)
[2024-04-27 09:06] LABS: Anion Gap 9 (5-15); Potassium 4.9 mmol/L (3.5-5.1)
[2024-04-27 09:07] LABS: Calcium 8.7 mg/dL (8.7-10.4)
[2024-04-27 09:12] LABS: BUN/Creatinine Ratio 35.3 (10.0-20.0)
[2024-04-27 09:19] LABS: Blood Urea Nitrogen 47 mg/dL (9-23); Carbon Dioxide 19 mmol/L (20-31); Chloride 108 mmol/L (98-107); Glucose 292 mg/dL (74-106); Sodium 136 mmol/L (136-145)
--- NOTE | 2024-04-27 15:13 | DVHPN2 ---
Reviewed: Care Plan, H&P, Labs, Medications, Previous Orders, Radiology Changes from previous H/P or p: No Changes Objective Vitals Vital Signs Date Time Temp Pulse Resp B/P (MAP) Pulse Ox O2 Delivery O2 Flow Rate FiO2 04/27/24 13:00 98.1 84 20 104/76 (85) 93 98.1 04/27/24 09:47 Nasal Cannula 1.0 04/27/24 09:47 24 Intake/Output Intake and Output 04/27/24 07:00 Intake Total 1150 ml Output Total 200 ml Balance 950 ml Intake Oral 800 ml IV Total 350 ml Output Urine Total 200 ml Medications Current Medications Medications Dose Ordered Sig/Erik Route Start Time Stop Time Status Last Admin Dose Admin Albuterol 2.5 mg Q6HPRN PRN NEB 04/26/24 19:00 04/27/24 15:08 2.5 MG Clopidogrel Bisulfate 75 mg DAILY PO 04/27/24 10:00 04/27/24 08:52 75 MG Amlodipine Besylate 5 mg DAILY PO 04/27/24 10:00 04/27/24 08:55 5 MG Apixaban 5 mg BID PO 04/26/24 22:00 04/27/24 08:53 5 MG Atorvastatin Calcium 80 mg HS PO 04/26/24 22:00 04/26/24 22:46 80 MG Empaglifozin 10 mg DAILY PO 04/27/24 10:00 04/27/24 08:52 10 MG Metoprolol Succinate 12.5 mg DAILY PO 04/27/24 10:00 Diagnostic Test (Pha) 1 strip Q6HR 04/27/24 00:00 04/27/24 12:35 1 STRIP Insulin Human Regular Q6HR SC 04/27/24 00:00 04/27/24 12:35 6 UNITS Dextrose 50 ml UD PRN IV 04/26/24 19:00 Ondansetron HCl 4 mg Q4HP PRN IV 04/26/24 19:00 Acetaminophen 650 mg Q6HP PRN PO 04/26/24 19:00 Clindamycin Phosphate 50 ml @ 50 mls/hr Q8HR IV 04/27/24 06:00 04/27/24 05:21 50 MLS/HR Laboratory Results Laboratory Tests 04/27/24 07:24 Chemistry Test 04/27/24 07:24 Calcium Level 8.7 mg/dL (8.7-10.4) Urinalysis Test 04/26/24 23:07 Urine Color Light-yellow (Yellow) Urine Clarity Clear (Clear) Urine pH 5.0 (5.0-9.0) Urine Specific [place] 1.018 (1.001-1.035) Urine Protein Trace (Negative) H Urine Ketones Negative (Negative) Urine Blood Negative /uL (Negative) Urine Nitrite Negative (Negative) Urine Bilirubin Negative (Negative) Urine Urobilinogen Normal mg/dL (Negative) Urine Leukocyte Esterase Negative /uL (Negative) Urine RBC 1 /hpf (0 - 3) Urine Microscopic WBC 2 /HPF (0-3) Urine Squamous Epithelial Cells Few /hpf (<5) Urine Bacteria None seen /hpf (None Seen) Urine Glucose 1+ mg/dL (Normal) H Microbiology Microbiology Date/Time Source Procedure Growth Status 04/27/24 00:06 Nose MRSA Screen - Final Methicillin Resistant S.aureus Complete 04/26/24 13:35 Blood Blood Culture - Preliminary NO GROWTH AFTER 24 HOURS OF INCUBATION. Resulted Labs and/or images reviewed: Labs reviewed by me, Image(s) reviewed by me Assessment/Plan Assessment/Plan Acute hypoxic respiratory failure oxygen by nasal cannula Acute decompensated HFrEF, EF 35% Lasix 40 mg IV b.i.d., cardiology consult for Dr. Rodriguez Acute severe Strickland exacerbation: Med neb History of coronary artery disease status post PTCA Bilateral peripheral arterial disease status post iliac thrombectomy and stent placement AFib Hypertension Hypercholesterolemia Uncontrolled diabetes: Insulin sliding scale Diabetic peripheral neuropathy Severe Malnutrition Chronic Bilateral diabetic foot ulcers: Old cultures wound consult consult for Dr. Esteban Time spent 65 minutes Patient is full code Advanced care planning time 20 Plan discussed with: Patient Date of Service: Apr 27, 2024 Billing Provider: ELI FANG MD Common Visit Codes: [id number] CARE 30-74 MIN ELI FANG MD Apr 27, 2024 15:13
[2024-04-27] MEDS: FUROSEMIDE 40 MG/4 ML VIAL IV ONE (15:55)
[2024-04-27] MEDS: BRIMONIDINE 0.2% OPTH Soln 5ml EACHEYE SCH (16:06)
[2024-04-27] MEDS: DORZOLAMIDE HCL 2% OPTH(EYE) SOL 10ML LEFTEYE SCH (16:06)
--- NOTE | 2024-04-27 21:42 | DVHINCON2 ---
Date of service: Apr 27, 2024 Referring Physician Prateek Reason for Consultation CHF exacerbation History of Present Illness This is a 73 year old male with a PMH of CAD, CKF, COPD, DM, HTN, [place] who presented to the ED with complaints of bilateral leg swelling. Patient states he has been experiencing swelling "for a while" is not able to state exact time. Patient has been treated at different ED but does not notice improvement. He states he changes dressing on his own, does not have a home health nurse. Chest x-ray shows cardiomegaly with mild pulmonary congestion. HGB 9, HCT 28.8, K 5.6, BUN 50, BNP 1401. Patient was admitted to the hospital. Troponin today returned elevated at 1145 > 1089. I am asked to consult on this patient. Allergies: Coded Allergies: Penicillins (Verified Allergy, Unknown, 04/01/23) Home Meds Active Scripts Metformin Hydrochloride (METFORMIN HCL ER) 500 Mg Tab, 1 TAB PO DAILY for 30 Days, #30 TAB 2 Refills Prov:[facility]ZO [facility] 11/27/23 Linagliptin Base (TRADJENTA) 5 Mg Tab, 1 TAB PO DAILY for 30 Days, #30 TAB 2 Refills Prov:VILLAMIKE GarciaU [facility] 11/27/23 Insulin Glargine-Yfgn (Insulin Glargine) 100 Unit/Ml Inj, 30 UNIT SC DAILY for 30 Days, #1 INJ 2 Refills Prov:[facility]ALONZO [facility] 11/27/23 Dulaglutide (Trulicity) 0.75 Mg/0.5 Ml Inj, 0.75 MG SC QWEEKLY for 30 Days, #1 INJ 2 Refills Prov:[facility]ALONZO [facility] 11/27/23 Empagliflozin (Jardiance) 10 Mg Tab, 10 MG PO DAILY for 30 Days, #30 TAB 2 [facility] 11/27/23 Apixaban Base (ELIQUIS) 5 Mg Tab, 5 MG PO BID for 30 Days, #60 TAB 2 Refills Prov:[facility] 11/27/23 Lactulose (Lactulose) 10 Gm Naif, 10 GM PO DAILY PRN for 7 Days, #1 PACK 0 Refills Prov:ALONZO VILLA [facility] 11/27/23 Umeclidinium-Vilanterol (Anoro Ellipta 62.5-25 Mcg/INH) 1 Aer Aer, 1 AER IN DAILY for 30 Days, #1 AER 2 Refills Prov:ALONZO VILLA [facility] 11/27/23 Levalbuterol HCl (Levalbuterol) 1.25 Mg/0.5 Ml Neb, 1.25 MG IN BID PRN for 30 Days, #2 INH 2 [facility] 11/27/23 Atorvastatin Calcium (ATORVASTATIN CALCIUM) 40 Mg Tab, 80 MG PO DAILY for 30 Days, #60 TAB 2 [facility] 11/27/23 Metoprolol Succinate (Metoprolol Succinate Er) 25 Mg Tab, 12.5 MG PO DAILY for 30 Days, #15 TAB 2 Refills Prov:[facility] 11/27/23 Magnesium Oxide (MAGNESIUM OXIDE) 400 Mg Tab, 1 TAB PO DAILY PRN for 30 Days, #30 TAB 0 [facility] 11/27/23 Potassium Chloride (POTASSIUM CHLORIDE CR) 10 Meq Tb, 1 TAB PO DAILY PRN for 30 Days, #30 TAB 0 [facility] 11/27/23 Furosemide (Furosemide) 40 Mg Tab, 40 MG PO BID PRN for 30 Days, #60 TAB 0 Refills Prov:[facility] 11/27/23 Prednisone (Prednisone) 20 Mg Tab, 20 MG PO DAILY for 2 Days, #2 MG 0 Refills Prov:[facility] 11/27/23 Reported Medications Brimonidine Tartrate (Brimonidine Tartrate) 0.2 % Daria, 1 DROP LEFTEYE TID for 30 Days, #10 3 Refills 11/24/23 Clopidogrel Bisulfate (CLOPIDOGREL) 75 Mg Tab, 1 TAB PO DAILY for 30 Days, #30 11/24/23 Amlodipine Besylate (NORVASC TABLET) 5 Mg Tb, 1 TAB PO BID for 30 Days 04/02/23 Current Medications Current Medications Medications (Trade) Dose Ordered Sig/Erik Route PRN Reason Start Time Stop Time Status Last Admin Albuterol (Ventolin Medneb) 2.5 mg Q6HPRN PRN NEB SHORTNESS OF BREATH 04/26/24 19:00 04/27/24 15:08 Clopidogrel Bisulfate (Plavix) 75 mg DAILY PO 04/27/24 10:00 04/27/24 08:52 Amlodipine Besylate (Norvasc Tablet) 5 mg DAILY PO 04/27/24 10:00 04/27/24 08:55 Apixaban (Eliquis) 5 mg BID PO 04/26/24 22:00 04/27/24 08:53 Atorvastatin Calcium (Lipitor) 80 mg HS PO 04/26/24 22:00 04/26/24 22:46 Empaglifozin (Jardiance) 10 mg DAILY PO 04/27/24 10:00 04/27/24 08:52 Metoprolol Succinate (Toprol Xl) 12.5 mg DAILY PO 04/27/24 10:00 Diagnostic Test (Pha) (Accu-Chek Comfort Curve T) 1 strip Q6HR 04/27/24 00:00 04/27/24 12:35 Insulin Human Regular (InsuLIN R) Q6HR SC 04/27/24 00:00 04/27/24 12:35 Dextrose 50 ml UD PRN IV Blood Sugar LESS THAN 60 04/26/24 19:00 Ondansetron HCl (Zofran) 4 mg Q4HP PRN IV NAUSEA / VOMITING 04/26/24 19:00 Acetaminophen (Tylenol Tablet) 650 mg Q6HP PRN PO PAIN SCALE 1-3 OR TEMP>100.4 04/26/24 19:00 Clindamycin Phosphate 50 ml @ 50 mls/hr Q8HR IV 04/27/24 06:00 04/27/24 15:52 Furosemide (Lasix Injection) 40 mg BIDD IV 04/28/24 06:00 Dorzolamide HCl (Trusopt 2% Opthalmic) 1 drop BIDPC LEFTEYE 04/27/24 16:00 04/27/24 16:06 Brimonidine Tartrate (ALPHAGAN 0.2% OPTH Soln) 1 drop TID EACHEYE 04/27/24 16:00 04/27/24 16:06 Review of Systems Review of systems are currently negative otherwise addressed in HPI. Vital Signs Vital Signs Date Time Temp Pulse Resp B/P (MAP) Pulse Ox O2 Delivery O2 Flow Rate FiO2 04/27/24 17:00 98.4 87 20 109/53 (71) 95 98.4 04/27/24 15:08 Room Air 0.0 04/27/24 15:08 21 Physical Exam GENERAL: Awake, alert, oriented. LUNGS: Clear. CARDIOVASCULAR: Heart sounds are good. ABDOMEN: Soft. EXT: Bilateral lower extremity 2+ edema with weeping ulcers. Labs/Diagnostic Data Labs Test 04/27/24 17:15 04/27/24 16:12 04/27/24 07:24 04/26/24 23:07 Range/Units Troponin I High Sensitivity 1145 *H </=54 ng/L POC Glucose 112 H 70-106 mg/dl White Blood Count 9.3 4.4-10.8 10^3/uL Red Blood Count 3.36 L 4.5-5.90 10^6/uL Hemoglobin 8.1 L 13.5-17.5 g/dL Hematocrit 26.8 L 41.0-53.0 % Mean Corpuscular Volume 79.7 L 80.0-100.0 fL Mean Corpuscular Hemoglobin 24.2 L 28.0-32.0 pg Mean Corpuscular Hemoglobin Concent 30.3 L 32.0-36.0 g/dL Red Cell Distribution Width 24.7 H 11.8-14.3 % Platelet Count 250 140-450 10^3/uL Mean Platelet Volume 7.8 6.9-10.8 fL Neutrophils (%) (Auto) 88.1 H 37.0-80.0 % Lymphocytes (%) (Auto) 5.3 L 10.0-50.0 % Monocytes (%) (Auto) 4.6 0.0-12.0 % Eosinophils (%) (Auto) 1.2 0.0-7.0 % Basophils (%) (Auto) 0.8 0.0-2.0 % Neutrophils # (Auto) 8.1 1.6-8.6 10 ^3/uL Lymphocytes # (Auto) 0.5 0.4-5.4 10 ^3/uL Monocytes # (Auto) 0.4 0-1.3 10 ^3/uL Eosinophils # (Auto) 0.1 0-0.8 10 ^3/uL Basophils # (Auto) 0.1 0-0.2 10 ^3/uL Nucleated Red Blood Cells 0.1 % Sodium Level 136 # 136-145 mmol/L Potassium Level 4.9 3.5-5.1 mmol/L Chloride Level 108 H 98-107 mmol/L Carbon Dioxide Level 19 L 20-31 mmol/L Anion Gap 9 5-15 Blood Urea Nitrogen 47 H 9-23 mg/dL Creatinine 1.33 H 0.700-1.30 mg/dL Glomerular Filtration Rate Calc 56 >90 mL/min BUN/Creatinine Ratio 35.3 H 10.0-20.0 Serum Glucose 292 #H 74-106 mg/dL Calcium Level 8.7 8.7-10.4 mg/dL Urine Color Light-yellow Yellow Urine Clarity Clear Clear Urine pH 5.0 5.0-9.0 Urine Specific [place] 1.018 1.001-1.035 Urine Protein Trace H Negative Urine Ketones Negative Negative Urine Blood Negative Negative /uL Urine Nitrite Negative Negative Urine Bilirubin Negative Negative Urine Urobilinogen Normal Negative mg/dL Urine Leukocyte Esterase Negative Negative /uL Urine RBC 1 0 - 3 /hpf Urine Microscopic WBC 2 0-3 /HPF Urine Squamous Epithelial Cells Few <5 /hpf Urine Bacteria None seen None Seen /hpf Urine Glucose 1+ H Normal mg/dL Test 04/26/24 13:35 Range/Units Lactic Acid Level 1.9 0.4-2.0 mmol/L B-Type Natriuretic Peptide 1401.57 0-100 pg/mL Microbiology Date/Time Source Procedure Growth Status 04/27/24 00:06 Nose MRSA Screen - Final Methicillin Resistant S.aureus Complete 04/26/24 13:35 Blood Blood Culture - Preliminary NO GROWTH AFTER 24 HOURS OF INCUBATION. Resulted Assessment Acute hypoxic respiratory failure. Acute decompensated HFrEF, EF 35%. Elevated troponin. History of coronary artery disease status post PTCA. Bilateral peripheral arterial disease status post iliac thrombectomy and stent placement. A Fib. Hypertension. Hypercholesterolemia. Uncontrolled diabetes. Diabetic peripheral neuropathy. Severe malnutrition. Chronic bilateral diabetic foot ulcers. Plan/Recommendation I agree with your ongoing assessment and care of plan. Amlodipine. Eliquis. Lipitor, Plavix, Metoprolol. Diuretics with Lasix. IV antibiotics as ordered. Additional plan as per the hospital course. A total of 45 minutes was spent reviewing the patient record, examining the patient, making a diagnostic and therapeutic plan, discussing this plan with medical personnel, following up on diagnostic studies and following the patient for clinical stability excluding any and all procedures. At least 50% of this time was spent in direct, [id number] contact. Plan discussed with: Patient HÉCTOR MARION MD Apr 27, 2024 18:29
[2024-04-28] VITALS (19 sets, daily range): BP systolic 97–111; BP diastolic 41–54; PULSE 65–85; RESP 18–22; TEMP 97.5–98.3; O2SAT 92–100
[2024-04-28 05:36] LABS: Basophils # (auto) 0.1 10 ^3/uL (0-0.2); Eosinophils # (auto) 0.2 10 ^3/uL (0-0.8); Eosinophils % (auto) 2.3 % (0.0-7.0); Hematocrit 26.3 % (41.0-53.0); Monocytes # (auto) 0.4 10 ^3/uL (0-1.3); White Blood Cell 8.8 10^3/uL (4.4-10.8)
[2024-04-28 05:39] LABS: Basophils % (auto) 0.9 % (0.0-2.0); Hemoglobin 8.2 g/dL (13.5-17.5); Lymphocytes # (auto) 0.7 10 ^3/uL (0.4-5.4); Lymphocytes % (auto) 8.1 % (10.0-50.0); Mean Corpuscular Hemoglobin 24.3 pg (28.0-32.0); Mean Corpuscular Hgb Conc. 31.1 g/dL (32.0-36.0); Mean Corpuscular Volume 78.1 fL (80.0-100.0); Monocytes % (auto) 4.7 % (0.0-12.0); Neutrophils # (auto) 7.4 10 ^3/uL (1.6-8.6); Nucleated Red Blood Cells % 0.1 %; Platelet Count (auto) 281 10^3/uL (140-450); Red Blood Cells 3.37 10^6/uL (4.5-5.90)
[2024-04-28 05:43] LABS: Red Cell Distribution Width 24.1 % (11.8-14.3)
[2024-04-28 05:45] LABS: Alanine Aminotransferase 21 U/L (7-40); Albumin 3.5 g/dL (3.2-4.8); Alkaline Phosphatase 101 U/L (46-116); Anion Gap 9 (5-15); Aspartate Aminotransferase 15 U/L (13-40); BUN/Creatinine Ratio 33.3 (10.0-20.0); Bilirubin, Total 0.3 mg/dL (0.2-1.0); Calcium 8.9 mg/dL (8.7-10.4); Carbon Dioxide 21 mmol/L (20-31); Potassium 4.8 mmol/L (3.5-5.1); Sodium 138 mmol/L (136-145); Total Protein 6.5 g/dL (5.7-8.2)
[2024-04-28 05:50] LABS: Blood Urea Nitrogen 46 mg/dL (9-23); Chloride 108 mmol/L (98-107); Glucose 165 mg/dL (74-106)
[2024-04-28] MEDS: FUROSEMIDE 40 MG/4 ML VIAL IV SCH (06:00)
[2024-04-28 08:43] LABS: Anisocytosis Slight; Hypochromia Slight; Platelet Estimate Adequate
--- NOTE | 2024-04-28 09:48 | DVH ---
CHEST RADIOGRAPH Indication: RESPIRATORY FAILURE, WHEEZING Technique: Single frontal view of the chest was obtained COMPARISON: XY CHEST PORTABLE on DOS: 04/26/24, XY CHEST XRAY 1 VIEW on DOS: 11/26/23, XY CHEST PORTABLE on DOS: 11/21/23, XY CHEST PORTABLE on DOS: 04/02/23 FINDINGS: Lines and Tubes: None Lungs: Diffuse increased interstitial prominence. Pleura: No effusion. No pneumothorax. Cardiomediastinal contours: Cardiomegaly. Bones: Unremarkable IMPRESSION: Diffuse increased interstitial prominence may represent pulmonary vascular congestion . This is slig htly increased since 04/26/2024.
--- NOTE | 2024-04-28 13:52 | DVHPN2 ---
Reviewed: Care Plan, H&P, Labs, Medications, Previous Orders, Radiology Changes from previous H/P or p: No Changes Objective Vitals Vital Signs Date Time Temp Pulse Resp B/P (MAP) Pulse Ox O2 Delivery O2 Flow Rate FiO2 04/28/24 11:20 104/49 04/28/24 11:19 80 04/28/24 09:01 97.5 18 94 97.5 04/28/24 08:51 Nasal Cannula* 1 24 Intake/Output Intake and Output 04/28/24 07:00 Intake Total 1270 ml Output Total 1050 ml Balance 220 ml Intake Oral 1120 ml IV Total 150 ml Output Urine Total 1050 ml Medications Current Medications Medications Dose Ordered Sig/Erik Route Start Time Stop Time Status Last Admin Dose Admin Albuterol 2.5 mg Q6HPRN PRN NEB 04/26/24 19:00 04/28/24 08:51 2.5 MG Clopidogrel Bisulfate 75 mg DAILY PO 04/27/24 10:00 04/28/24 11:22 75 MG Amlodipine Besylate 5 mg DAILY PO 04/27/24 10:00 04/28/24 11:20 5 MG Apixaban 5 mg BID PO 04/26/24 22:00 04/28/24 11:22 5 MG Atorvastatin Calcium 80 mg HS PO 04/26/24 22:00 04/27/24 22:31 80 MG Empaglifozin 10 mg DAILY PO 04/27/24 10:00 04/28/24 12:18 10 MG Metoprolol Succinate 12.5 mg DAILY PO 04/27/24 10:00 04/28/24 11:19 12.5 MG Diagnostic Test (Pha) 1 strip Q6HR 04/27/24 00:00 04/28/24 12:09 1 STRIP Insulin Human Regular Q6HR SC 04/27/24 00:00 04/28/24 12:21 4 UNITS Dextrose 50 ml UD PRN IV 04/26/24 19:00 Ondansetron HCl 4 mg Q4HP PRN IV 04/26/24 19:00 Acetaminophen 650 mg Q6HP PRN PO 04/26/24 19:00 Clindamycin Phosphate 50 ml @ 50 mls/hr Q8HR IV 04/27/24 06:00 04/28/24 06:16 50 MLS/HR Furosemide 40 mg BIDD IV 04/28/24 06:00 Dorzolamide HCl 1 drop BIDPC LEFTEYE 04/27/24 16:00 04/28/24 11:17 1 DROP Brimonidine Tartrate 1 drop TID EACHEYE 04/27/24 16:00 04/28/24 06:09 1 DROP Laboratory Results Laboratory Tests 04/28/24 05:12 Chemistry Test 04/28/24 05:12 Albumin 3.5 g/dL (3.2-4.8) Calcium Level 8.9 mg/dL (8.7-10.4) Total Protein 6.5 g/dL (5.7-8.2) LFT Test 04/28/24 05:12 Alanine Aminotransferase (ALT) 21 U/L (7-40) Alkaline Phosphatase 101 U/L (46-116) Aspartate Amino Transferase (AST) 15 U/L (13-40) Total Bilirubin 0.3 mg/dL (0.2-1.0) Urinalysis Test 04/26/24 23:07 Urine Color Light-yellow (Yellow) Urine Clarity Clear (Clear) Urine pH 5.0 (5.0-9.0) Urine Specific [place] 1.018 (1.001-1.035) Urine Protein Trace (Negative) H Urine Ketones Negative (Negative) Urine Blood Negative /uL (Negative) Urine Nitrite Negative (Negative) Urine Bilirubin Negative (Negative) Urine Urobilinogen Normal mg/dL (Negative) Urine Leukocyte Esterase Negative /uL (Negative) Urine RBC 1 /hpf (0 - 3) Urine Microscopic WBC 2 /HPF (0-3) Urine Squamous Epithelial Cells Few /hpf (<5) Urine Bacteria None seen /hpf (None Seen) Urine Glucose 1+ mg/dL (Normal) H Microbiology Microbiology Date/Time Source Procedure Growth Status 04/27/24 00:06 Nose MRSA Screen - Final Methicillin Resistant S.aureus Complete 04/26/24 13:35 Blood Blood Culture - Preliminary NO GROWTH AFTER 24 HOURS OF INCUBATION. Resulted Labs and/or images reviewed: Labs reviewed by me, Image(s) reviewed by me Assessment/Plan Assessment/Plan Acute hypoxic respiratory failure oxygen by nasal cannula Acute decompensated HFrEF, EF 35% Lasix 40 mg IV b.i.d., cardiology consult for Dr. Rodriguez appreciated Acute severe COPD exacerbation: Med neb History of coronary artery disease status post PTCA Bilateral peripheral arterial disease status post iliac thrombectomy and stent placement AFib Hypertension Hypercholesterolemia Uncontrolled diabetes: Insulin sliding scale Diabetic peripheral neuropathy Severe Malnutrition Chronic Bilateral diabetic foot ulcers: Wound cultures wound consult consult for Dr. Esteban Time spent 55 minutes Patient is full code Advanced care planning time 20 mts Plan discussed with: Patient My Orders Orders - ELI FANG MD Procedure Category Date Status Time Furosemide Injection PHA 04/28/24 In Process (Lasix Injection) 06:00 *Podiatry Consult CONS 04/27/24 Transmitted Carlito([facility]) 15:29 * Cardiology Consult CONS 04/27/24 Transmitted 15:34 Complete Blood Count LAB 04/29/24 Verified 05:00 Complete Blood Count LAB 04/30/24 Verified 05:00 Complete Blood Count LAB 05/01/24 Verified 05:00 Complete Blood Count LAB 05/02/24 Verified 05:00 Complete Blood Count LAB 05/03/24 Verified 05:00 Comprehensive LAB 04/29/24 Verified Metabolic Panel 05:00 Comprehensive LAB 04/30/24 Verified Metabolic Panel 05:00 Comprehensive LAB 05/01/24 Verified Metabolic Panel 05:00 Comprehensive LAB 05/02/24 Verified Metabolic Panel 05:00 Comprehensive LAB 05/03/24 Verified Metabolic Panel 05:00 Dorzolamide 2% PHA 04/27/24 In Process Opthalmic (Trusopt 2% 16:00 Brimonidine 0.2% Opth PHA 04/27/24 In Process Soln (Alphagan 0.2 16:00 Cleanse Wound With ALLYSON 04/27/24 In Process Wound Clean 16:30 * Dietary Consult CONS 04/27/24 Transmitted 16:30 Wound Culture W/ Gs AMRIT 04/28/24 In Process 11:44 Wound Culture W/ Gs AMRIT 04/28/24 In Process 11:45 Date of Service: Apr 28, 2024 Billing Provider: ELI FANG MD Common Visit Codes: [id number] INP/OBS CARE(HIGH) ELI FANG MD Apr 28, 2024 13:52
--- NOTE | 2024-04-28 15:40 | DVHPN2 ---
Progress Note - Dictate Date Seen: Apr 28, 2024 Medical Necessity Reason Pt with a Central, PICC or Fol: No Subjective Patient was seen and evaluated in follow up. Patient is complaining of SOB and BLE swelling. Patient is on 2 LPM NC. HGB 8.2, HCT 26.3, BUN 46, WANT AD RECEIVER 1.38, GLUC 221. Chest x-ray shows diffuse increased interstitial prominence may represent pulmonary vascular congestion . T vital signs Vital Sign Date Time Temp Pulse Resp B/P (MAP) Pulse Ox O2 Delivery O2 Flow Rate FiO2 04/28/24 11:20 104/49 04/28/24 11:19 80 04/28/24 09:01 97.5 18 94 97.5 04/28/24 08:51 Nasal Cannula* 1 24 Total Intake and Output 04/27/24 04/27/24 04/28/24 15:00 23:00 07:00 Intake Total 820 ml 450 ml Output Total 800 ml 250 ml Balance 20 ml 200 ml medications Current Medications Medications Dose Ordered Sig/Erik Route Start Time Stop Time Status Last Admin Dose Admin Albuterol 2.5 mg Q6HPRN PRN NEB 04/26/24 19:00 04/28/24 08:51 2.5 MG Clopidogrel Bisulfate 75 mg DAILY PO 04/27/24 10:00 04/28/24 11:22 75 MG Amlodipine Besylate 5 mg DAILY PO 04/27/24 10:00 04/28/24 11:20 5 MG Apixaban 5 mg BID PO 04/26/24 22:00 04/28/24 11:22 5 MG Atorvastatin Calcium 80 mg HS PO 04/26/24 22:00 04/27/24 22:31 80 MG Empaglifozin 10 mg DAILY PO 04/27/24 10:00 04/28/24 12:18 10 MG Metoprolol Succinate 12.5 mg DAILY PO 04/27/24 10:00 04/28/24 11:19 12.5 MG Diagnostic Test (Pha) 1 strip Q6HR 04/27/24 00:00 04/28/24 12:09 1 STRIP Insulin Human Regular Q6HR SC 04/27/24 00:00 04/28/24 12:21 4 UNITS Dextrose 50 ml UD PRN IV 04/26/24 19:00 Ondansetron HCl 4 mg Q4HP PRN IV 04/26/24 19:00 Acetaminophen 650 mg Q6HP PRN PO 04/26/24 19:00 Clindamycin Phosphate 50 ml @ 50 mls/hr Q8HR IV 04/27/24 06:00 04/28/24 06:16 50 MLS/HR Furosemide 40 mg BIDD IV 04/28/24 06:00 Dorzolamide HCl 1 drop BIDPC LEFTEYE 04/27/24 16:00 04/28/24 11:17 1 DROP Brimonidine Tartrate 1 drop TID EACHEYE 04/27/24 16:00 04/28/24 06:09 1 DROP objective GENERAL: Awake, alert, oriented. LUNGS: Clear. CARDIOVASCULAR: Heart sounds are good. ABDOMEN: Soft. EXT: Bilateral lower extremity 2+ edema with weeping ulcers. laboratory and microbiology Laboratory Tests 04/28/24 05:12 Test 04/28/24 05:12 Range/Units Serum Glucose 165 #H 74-106 mg/dL Problem List Acute hypoxic respiratory failure. Acute decompensated HFrEF, EF 35%. Elevated troponin. History of coronary artery disease status post PTCA. Bilateral peripheral arterial disease status post iliac thrombectomy and stent placement. A Fib. Hypertension. Hypercholesterolemia. Uncontrolled diabetes. Diabetic peripheral neuropathy. Severe malnutrition. Chronic bilateral diabetic foot ulcers. Assessment/Plan Continued all current supportive medical care. Amlodipine. Eliquis. Lipitor, Plavix, Metoprolol. Diuretics with Lasix. IV antibiotics as ordered. Additional plan as per the hospital course. Plan discussed with: Patient HÉCTOR MARION MD Apr 28, 2024 14:15
--- NOTE | 2024-04-28 16:48 | DVHINCON2 ---
Date Seen: Apr 28, 2024 Reason for Consultation Bilateral leg wounds History of Present Illness 73-year-old male with a history of congestive heart failure presents for evaluation of bilateral lower extremity swelling. Patient reports a one-week history of worsening bilateral lower extremity swelling with associated shortness for breath and chest tightness. Denies fever or chills. He states there is clear fluid seeping from wounds on bilateral lower extremities. Past Medical History See H&P Past Surgical History See H&P Allergies: Coded Allergies: Penicillins (Verified Allergy, Unknown, 04/01/23) Home Meds Active Scripts Metformin Hydrochloride (METFORMIN HCL ER) 500 Mg Tab, 1 TAB PO DAILY for 30 Days, #30 TAB 2 Refills Prov:ALONZO VILLA [facility] 11/27/23 Linagliptin Base (TRADJENTA) 5 Mg Tab, 1 TAB PO DAILY for 30 Days, #30 TAB 2 Refills Prov:ALONZO VILLA [facility] 11/27/23 Insulin Glargine-Yfgn (Insulin Glargine) 100 Unit/Ml Inj, 30 UNIT SC DAILY for 30 Days, #1 INJ 2 Refills Prov:ALONZO VILLA [facility] 11/27/23 Dulaglutide (Trulicity) 0.75 Mg/0.5 Ml Inj, 0.75 MG SC QWEEKLY for 30 Days, #1 INJ 2 Refills Prov:ALONZO VILLA [facility] 11/27/23 Empagliflozin (Jardiance) 10 Mg Tab, 10 MG PO DAILY for 30 Days, #30 TAB 2 [facility]23 Apixaban Base (ELIQUIS) 5 Mg Tab, 5 MG PO BID for 30 Days, #60 TAB 2 Refills Prov:ALONZO VILLA [facility] 11/27/23 Lactulose (Lactulose) 10 Gm Naif, 10 GM PO DAILY PRN for 7 Days, #1 PACK 0 [facility]/23 Umeclidinium-Vilanterol (Anoro Ellipta 62.5-25 Mcg/INH) 1 Aer Aer, 1 AER IN DAILY for 30 Days, #1 AER 2 Refills Prov:ALONZO VILLA [facility] 11/27/23 Levalbuterol HCl (Levalbuterol) 1.25 Mg/0.5 Ml Neb, 1.25 MG IN BID PRN for 30 Days, #2 INH 2 Refills Prov:ALONZO VILL[facility] 11/27/23 Atorvastatin Calcium (ATORVASTATIN CALCIUM) 40 Mg Tab, 80 MG PO DAILY for 30 Days, #60 TAB 2 Refills Prov:ALONZO VILLA [facility] 11/27/23 Metoprolol Succinate (Metoprolol Succinate Er) 25 Mg Tab, 12.5 MG PO DAILY for 30 Days, #15 TAB 2 Refills Prov:ALONZO VILLA [facility] 11/27/23 Magnesium Oxide (MAGNESIUM OXIDE) 400 Mg Tab, 1 TAB PO DAILY PRN for 30 Days, #30 TAB 0 Refills Prov:ALONZO VILLA [facility] 11/27/23 Potassium Chloride (POTASSIUM CHLORIDE CR) 10 Meq Tb, 1 TAB PO DAILY PRN for 30 Days, #30 TAB 0 Refills Prov:ALONZO VILLA [facility] 11/27/23 Furosemide (Furosemide) 40 Mg Tab, 40 MG PO BID PRN for 30 Days, #60 TAB 0 [facility] 11/27/23 Prednisone (Prednisone) 20 Mg Tab, 20 MG PO DAILY for 2 Days, #2 MG 0 Refills Prov:ALONZO VILL[facility] 11/27/23 Reported Medications Brimonidine Tartrate (Brimonidine Tartrate) 0.2 % Daria, 1 DROP LEFTEYE TID for 30 Days, #10 3 Refills 11/24/23 Clopidogrel Bisulfate (CLOPIDOGREL) 75 Mg Tab, 1 TAB PO DAILY for 30 Days, #30 11/24/23 Amlodipine Besylate (NORVASC TABLET) 5 Mg Tb, 1 TAB PO BID for 30 Days 04/02/23 Current Medications Current Medications Medications (Trade) Dose Ordered Sig/Erik Route PRN Reason Start Time Stop Time Status Last Admin Furosemide (Lasix Injection) 40 mg BIDD IV 04/28/24 06:00 Vital Signs Vital Signs Date Time Temp Pulse Resp B/P (MAP) Pulse Ox O2 Delivery O2 Flow Rate FiO2 04/28/24 15:01 84 22 100 04/28/24 14:56 Nasal Cannula* 2 28 04/28/24 13:00 98.3 111/50 (70) 98.3 Physical Exam DERMATOLOGIC EXAM: - Skin is dry and cool to the touch dry bilaterally. - Nails 1-5 of the bilateral foot are thickened, discolored, dystrophic, and tender to palpate with subungual debris - Hair loss noted to bilateral feet - multiple venous ulcers on bilateral lower extremity with serous drainage VASCULAR EXAM: - DP and PT pulses are palpable bilaterally. - ATHLETIC COORDINATOR is brisk to all digits. - Feet are cool to touch compared to lower legs bilaterally. NEUROLOGIC EXAM: - Normal light touch sensation to the superficial peroneal, deep peroneal, sural, saphenous, and tibial nerve branches. - Protective sensation is diminished as tested with a 5.07 10g [place] bilaterally. MUSCULOSKELETAL EXAM: - No gross deformities - Muscle strength is 5/5 and active motion is pain-free and symmetrical bilaterally - No pain or crepitation with passive range of motion bilaterally to all major pedal joints Labs/Diagnostic Data Labs Test 04/28/24 11:58 04/28/24 05:12 04/27/24 21:00 04/26/24 23:07 Range/Units POC Glucose 221 H 70-106 mg/dl White Blood Count 8.8 4.4-10.8 10^3/uL Red Blood Count 3.37 L 4.5-5.90 10^6/uL Hemoglobin 8.2 L 13.5-17.5 g/dL Hematocrit 26.3 L 41.0-53.0 % Mean Corpuscular Volume 78.1 L 80.0-100.0 fL Mean Corpuscular Hemoglobin 24.3 L 28.0-32.0 pg Mean Corpuscular Hemoglobin Concent 31.1 L 32.0-36.0 g/dL Red Cell Distribution Width 24.1 H 11.8-14.3 % Platelet Count 281 140-450 10^3/uL Mean Platelet Volume 7.5 6.9-10.8 fL Neutrophils (%) (Auto) 84.0 H 37.0-80.0 % Lymphocytes (%) (Auto) 8.1 L 10.0-50.0 % Monocytes (%) (Auto) 4.7 0.0-12.0 % Eosinophils (%) (Auto) 2.3 0.0-7.0 % Basophils (%) (Auto) 0.9 0.0-2.0 % Neutrophils # (Auto) 7.4 1.6-8.6 10 ^3/uL Lymphocytes # (Auto) 0.7 0.4-5.4 10 ^3/uL Monocytes # (Auto) 0.4 0-1.3 10 ^3/uL Eosinophils # (Auto) 0.2 0-0.8 10 ^3/uL Basophils # (Auto) 0.1 0-0.2 10 ^3/uL Nucleated Red Blood Cells 0.1 % Platelet Estimate Adequate Hypochromasia (manual) Slight Anisocytosis (manual) Slight Microcytosis Slight Sodium Level 138 136-145 mmol/L Potassium Level 4.8 3.5-5.1 mmol/L Chloride Level 108 H 98-107 mmol/L Carbon Dioxide Level 21 20-31 mmol/L Anion Gap 9 5-15 Blood Urea Nitrogen 46 H 9-23 mg/dL Creatinine 1.38 H 0.700-1.30 mg/dL Glomerular Filtration Rate Calc 54 >90 mL/min BUN/Creatinine Ratio 33.3 H 10.0-20.0 Serum Glucose 165 #H 74-106 mg/dL Calcium Level 8.9 8.7-10.4 mg/dL Total Bilirubin 0.3 0.2-1.0 mg/dL Aspartate Amino Transferase (AST) 15 13-40 U/L Alanine Aminotransferase (ALT) 21 7-40 U/L Alkaline Phosphatase 101 46-116 U/L Total Protein 6.5 5.7-8.2 g/dL Albumin 3.5 3.2-4.8 g/dL Troponin I High Sensitivity 1037 *H </=54 ng/L Urine Color Light-yellow Yellow Urine Clarity Clear Clear Urine pH 5.0 5.0-9.0 Urine Specific [place] 1.018 1.001-1.035 Urine Protein Trace H Negative Urine Ketones Negative Negative Urine Blood Negative Negative /uL Urine Nitrite Negative Negative Urine Bilirubin Negative Negative Urine Urobilinogen Normal Negative mg/dL Urine Leukocyte Esterase Negative Negative /uL Urine RBC 1 0 - 3 /hpf Urine Microscopic WBC 2 0-3 /HPF Urine Squamous Epithelial Cells Few <5 /hpf Urine Bacteria None seen None Seen /hpf Urine Glucose 1+ H Normal mg/dL Test 04/26/24 13:35 Range/Units Lactic Acid Level 1.9 0.4-2.0 mmol/L B-Type Natriuretic Peptide 1401.57 0-100 pg/mL Microbiology Date/Time Source Procedure Growth Status 04/28/24 11:00 Leg Left Gram Stain - Final Resulted 04/28/24 11:00 Leg Left Wound Culture Pending Resulted 04/26/24 13:35 Blood Blood Culture - Preliminary NO GROWTH AFTER 48 HOURS OF INCUBATION. Resulted Problems(with codes): (1) Prerenal azotemia (2) Diabetes mellitus (3) Peripheral neuropathy (4) Physical deconditioning (5) Lower extremity weakness (6) CHF (congestive heart failure) (7) Pneumonia (8) COPD exacerbation (9) Hyperkalemia (10) Diastolic heart failure (11) Uncontrolled diabetes mellitus (12) Sepsis, unspecified organism Plan/Recommendation ASSESSMENT: Patient is a 73 year old seen on the floor for a worsening bilateral ulcer PLAN: - The patients chart was reviewed, clinical findings were discussed with the patient, the etiologies of the conditions were discussed in detail, and a treatment plan was agreed to at this time, with both oral and written instructions provided. - reviewed advanced imaging - reviwed labs - wounds appear to be superficial at this point - patients would benefit from compression therapy - will wrap his legs tomorrow - no surgical intervention at this point All questions were answered and concerns addressed to the patient's satisfaction. The patient was given the phone number to the clinic and was told how to make contact with the clinic should any concerns or questions arise. Patient understands that if any questions or concerns arise prior to the next appointment, we should be contacted immediately. FOLLOW-UP: Continue to follow while inpatient Plan discussed with: Patient Date of Service: Apr 28, 2024 Billing Provider: LUTHER SAUL DPM Common Visit Codes: CONSULT ONLY Consultation Codes: [id number] CONSULT <80MIN LUTHER SAUL DPM Apr 28, 2024 16:48
[2024-04-29] VITALS (16 sets, daily range): BP systolic 93–114; BP diastolic 33–77; PULSE 69–82; RESP 16–21; TEMP 96.8–97.9; O2SAT 73–100
[2024-04-29] MEDS: ONDANSETRON HCL 4 MG/2 ML VIAL IV PRN (01:35)
[2024-04-29 08:11] LABS: Basophils # (auto) 0.1 10 ^3/uL (0-0.2); Eosinophils # (auto) 0.1 10 ^3/uL (0-0.8); White Blood Cell 8.4 10^3/uL (4.4-10.8)
[2024-04-29 08:15] LABS: Basophils % (auto) 0.6 % (0.0-2.0); Eosinophils % (auto) 1.3 % (0.0-7.0); Hematocrit 26.9 % (41.0-53.0); Hemoglobin 8.3 g/dL (13.5-17.5); Lymphocytes # (auto) 0.7 10 ^3/uL (0.4-5.4); Lymphocytes % (auto) 8.9 % (10.0-50.0); Mean Corpuscular Hemoglobin 24.5 pg (28.0-32.0); Mean Corpuscular Volume 78.8 fL (80.0-100.0); Monocytes # (auto) 0.5 10 ^3/uL (0-1.3); Monocytes % (auto) 5.4 % (0.0-12.0); Neutrophils % (auto) 83.8 % (37.0-80.0); Nucleated Red Blood Cells % 0.4 %; Platelet Count (auto) 296 10^3/uL (140-450); Red Blood Cells 3.41 10^6/uL (4.5-5.90); Red Cell Distribution Width 24.3 % (11.8-14.3)
[2024-04-29 08:25] LABS: Alanine Aminotransferase 28 U/L (7-40); Albumin 3.7 g/dL (3.2-4.8); Anion Gap 10 (5-15); Aspartate Aminotransferase 27 U/L (13-40); BUN/Creatinine Ratio 33.1 (10.0-20.0); Carbon Dioxide 21 mmol/L (20-31); Chloride 107 mmol/L (98-107); Sodium 138 mmol/L (136-145)
[2024-04-29 08:26] LABS: Bilirubin, Total 0.5 mg/dL (0.2-1.0); Total Protein 6.7 g/dL (5.7-8.2)
[2024-04-29 08:30] LABS: Alkaline Phosphatase 160 U/L (46-116); Blood Urea Nitrogen 49 mg/dL (9-23); Glucose 136 mg/dL (74-106); Potassium 5.2 mmol/L (3.5-5.1)
[2024-04-29] MEDS: ALBUTEROL SULF 2.5 MG/0.5ML(0.5%) NEB SOLN NEB PRN (10:26)
--- NOTE | 2024-04-29 12:01 | DVH ---
CLINICAL INDICATION: 73 years old, Male; Rule out osteomyelitis. COMPARISON: MRI MRI L FOOT WO CONTRAST on DOS: 04/05/23 TECHNIQUE: Multiplanar, multisequence MRI of the left foot was performed without intravenous contrast . Contrast: None. INTERPRETATION: Bones: No evidence of acute fracture. There is no marrow replacing process to suggest osteomyelitis. Degenerative changes in the metatarsophalangeal joints in the midfoot. Hammertoe deformities noted. Soft tissues: There is diffuse intramuscular T2 hyperintensity. There is dorsal soft tissue edema. No fluid collection. No high-grade tendon or ligament injury. IMPRESSION: 1. No evidence of osteomyelitis. 2. Dorsal soft tissue edema which may reflect cellulitis in the appropriate clinical setting. 3. T2 hyperintensity throughout the intrinsic muscles of the foot which may reflect denervation or my ositis. HS:Y
--- NOTE | 2024-04-29 12:06 | DVH ---
CLINICAL INDICATION: 73 years old, Male; Ruled out osteomyelitis. COMPARISON: MRI of the right foot dated 04/05/2023 TECHNIQUE: Multiplanar, multisequence MRI of the right foot was performed without intravenous contras t. Contrast: None. INTERPRETATION: Bones: No evidence of acute fracture. There is no marrow replacing process to suggest osteomyelitis. Resection of the great toe proximal and distal phalanx. Forefoot and midfoot arthrosis. Soft tissues: There is dorsal soft tissue swelling. There is no fluid collection. There is T2 hyperi ntensity within the intrinsic muscles of the foot. No high-grade tendon or ligament injury. IMPRESSION: 1. No evidence of osteomyelitis in the right foot. 2. Dorsal soft tissue edema which may reflect cellulitis. 3. Degenerative changes in the forefoot and midfoot. HS:Y
--- NOTE | 2024-04-29 12:27 | DVHPN2 ---
Reviewed: Care Plan, H&P, Labs, Medications, Previous Orders, Radiology Changes from previous H/P or p: No Changes Objective Vitals Vital Signs Date Time Temp Pulse Resp B/P (MAP) Pulse Ox O2 Delivery O2 Flow Rate FiO2 04/29/24 10:32 75 16 100 04/29/24 10:26 Nasal Cannula 1.0 04/29/24 10:26 24 04/29/24 10:07 114/58 04/29/24 09:00 97.5 97.5 Intake/Output Intake and Output 04/29/24 07:00 Intake Total 1450 ml Output Total 1400 ml Balance 50 ml Intake Oral 1400 ml IV Total 50 ml Output Urine Total 1400 ml # Bowel Movements 1 Medications Current Medications Medications Dose Ordered Sig/Erik Route Start Time Stop Time Status Last Admin Dose Admin Clopidogrel Bisulfate 75 mg DAILY PO 04/27/24 10:00 04/29/24 10:07 75 MG Amlodipine Besylate 5 mg DAILY PO 04/27/24 10:00 04/29/24 10:07 5 MG Apixaban 5 mg BID PO 04/26/24 22:00 04/29/24 10:07 5 MG Atorvastatin Calcium 80 mg HS PO 04/26/24 22:00 04/28/24 22:27 80 MG Empaglifozin 10 mg DAILY PO 04/27/24 10:00 04/29/24 10:07 10 MG Metoprolol Succinate 12.5 mg DAILY PO 04/27/24 10:00 04/29/24 10:07 12.5 MG Diagnostic Test (Pha) 1 strip Q6HR 04/27/24 00:00 04/29/24 11:50 1 STRIP Insulin Human Regular Q6HR SC 04/27/24 00:00 04/29/24 11:50 3 UNITS Dextrose 50 ml UD PRN IV 04/26/24 19:00 Ondansetron HCl 4 mg Q4HP PRN IV 04/26/24 19:00 04/29/24 01:35 4 MG Acetaminophen 650 mg Q6HP PRN PO 04/26/24 19:00 Clindamycin Phosphate 50 ml @ 50 mls/hr Q8HR IV 04/27/24 06:00 04/29/24 06:28 50 MLS/HR Furosemide 40 mg BIDD IV 04/28/24 06:00 04/29/24 06:11 40 MG Dorzolamide HCl 1 drop BIDPC LEFTEYE 04/27/24 16:00 04/29/24 10:06 1 DROP Brimonidine Tartrate 1 drop TID EACHEYE 04/27/24 16:00 04/29/24 06:12 1 DROP Albuterol 2.5 mg Q4HPRN PRN NEB 04/29/24 08:45 04/29/24 10:26 2.5 MG Laboratory Results Laboratory Tests 04/29/24 07:13 Chemistry Test 04/29/24 07:13 Albumin 3.7 g/dL (3.2-4.8) Calcium Level 9.0 mg/dL (8.7-10.4) Total Protein 6.7 g/dL (5.7-8.2) LFT Test 04/29/24 07:13 Alanine Aminotransferase (ALT) 28 U/L (7-40) Alkaline Phosphatase 160 U/L (46-116) H Aspartate Amino Transferase (AST) 27 U/L (13-40) Total Bilirubin 0.5 mg/dL (0.2-1.0) Urinalysis Test 04/26/24 23:07 Urine Color Light-yellow (Yellow) Urine Clarity Clear (Clear) Urine pH 5.0 (5.0-9.0) Urine Specific [place] 1.018 (1.001-1.035) Urine Protein Trace (Negative) H Urine Ketones Negative (Negative) Urine Blood Negative /uL (Negative) Urine Nitrite Negative (Negative) Urine Bilirubin Negative (Negative) Urine Urobilinogen Normal mg/dL (Negative) Urine Leukocyte Esterase Negative /uL (Negative) Urine RBC 1 /hpf (0 - 3) Urine Microscopic WBC 2 /HPF (0-3) Urine Squamous Epithelial Cells Few /hpf (<5) Urine Bacteria None seen /hpf (None Seen) Urine Glucose 1+ mg/dL (Normal) H Microbiology Microbiology Date/Time Source Procedure Growth Status 04/28/24 11:00 Leg Left Gram Stain - Final Resulted 04/28/24 11:00 Leg Left Wound Culture Pending Resulted 04/26/24 13:35 Blood Blood Culture - Preliminary NO GROWTH AFTER 48 HOURS OF INCUBATION. Resulted Labs and/or images reviewed: Labs reviewed by me, Image(s) reviewed by me Assessment/Plan Assessment/Plan Acute hypoxic respiratory failure oxygen by nasal cannula Acute decompensated HFrEF, EF 35% Lasix 40 mg IV b.i.d., cardiology consult for Dr. Rodriguez appreciated Acute severe COPD exacerbation: Med neb History of coronary artery disease status post PTCA Bilateral peripheral arterial disease status post iliac thrombectomy and stent placement AFib MRSA screen positive: Bactroban screen ointment Hypertension Hypercholesterolemia Kidney injury secondary to dehydration: IV fluids Acute hyperkalemia potassium 5.2: Lokelma Uncontrolled diabetes: Insulin sliding scale Diabetic peripheral neuropathy Severe Malnutrition Chronic Bilateral diabetic foot ulcers: Wound cultures pending, wound consult consult for Dr. Esteban appreciated, no surgical intervention MRI bilateral feet negative for osteomyelitis, shows cellulitis Time spent 55 minutes Patient is full code Advanced care planning time 20 mts Plan discussed with: Patient My Orders Orders - ELI FANG MD Procedure Category Date Status Time Albuterol Medneb PHA 04/29/24 In Process (Ventolin Medneb) 08:45 Mri R Foot Wo Contrast MRI 04/29/24 Resulted 17:34 Mri L Foot Wo Contrast MRI 04/29/24 Resulted 17:34 Mupirocin 2% Oint PHA 04/29/24 Verified Mrsa Nares (Bactroban 22:00 Date of Service: Apr 29, 2024 Billing Provider: ELI FANG MD Common Visit Codes: [id number] INP/OBS CARE(HIGH) ELI FANG MD Apr 29, 2024 12:27
[2024-04-29] MEDS ORDERED: SODIUM CHLORIDE 0.9% 1,000 ML IV SCH (12:30)
[2024-04-29] MEDS: ALBUTEROL SULF 2.5 MG/0.5ML(0.5%) NEB SOLN NEB SCH (12:30)
--- NOTE | 2024-04-29 13:26 | DVHPN2 ---
Progress Note - Dictate Date Seen: Apr 29, 2024 Medical Necessity Reason Pt with a Central, PICC or Fol: No Subjective Patient was seen and evaluated in follow up. Patient is complaining of BLE swelling and drainage. Patient is on 1 LPM NC. HGB 8.3, HCT 26.9, K 5.2, BUN 49, PROFESSOR OF MUSICOLOGY 1.48. Right foot MRI shows no evidence of osteomyelitis in the right foot, dorsal soft tissue edema which may reflect cellulitis, degenerative changes in the forefoot and midfoot. Left foot MRI shows no evidence of osteomyelitis, dorsal soft tissue edema which may reflect cellulitis in the appropriate clinical setting. T2 hyperintensity throughout the intrinsic muscles of the foot which may reflect denervation or myositis. vital signs Vital Sign Date Time Temp Pulse Resp B/P (MAP) Pulse Ox O2 Delivery O2 Flow Rate FiO2 04/29/24 10:32 75 16 100 04/29/24 10:26 Nasal Cannula 1.0 04/29/24 10:26 24 04/29/24 10:07 114/58 04/29/24 09:00 97.5 97.5 Total Intake and Output 04/28/24 04/28/24 04/29/24 15:00 23:00 07:00 Intake Total 850 ml 600 ml Output Total 400 ml 1000 ml Balance 450 ml -400 ml medications Current Medications Medications Dose Ordered Sig/Erik Route Start Time Stop Time Status Last Admin Dose Admin Clopidogrel Bisulfate 75 mg DAILY PO 04/27/24 10:00 04/29/24 10:07 75 MG Amlodipine Besylate 5 mg DAILY PO 04/27/24 10:00 04/29/24 10:07 5 MG Apixaban 5 mg BID PO 04/26/24 22:00 04/29/24 10:07 5 MG Atorvastatin Calcium 80 mg HS PO 04/26/24 22:00 04/28/24 22:27 80 MG Empaglifozin 10 mg DAILY PO 04/27/24 10:00 04/29/24 10:07 10 MG Metoprolol Succinate 12.5 mg DAILY PO 04/27/24 10:00 04/29/24 10:07 12.5 MG Diagnostic Test (Pha) 1 strip Q6HR 04/27/24 00:00 04/29/24 11:50 1 STRIP Insulin Human Regular Q6HR SC 04/27/24 00:00 04/29/24 11:50 3 UNITS Dextrose 50 ml UD PRN IV 04/26/24 19:00 Ondansetron HCl 4 mg Q4HP PRN IV 04/26/24 19:00 04/29/24 01:35 4 MG Acetaminophen 650 mg Q6HP PRN PO 04/26/24 19:00 Clindamycin Phosphate 50 ml @ 50 mls/hr Q8HR IV 04/27/24 06:00 04/29/24 06:28 50 MLS/HR Furosemide 40 mg BIDD IV 04/28/24 06:00 04/29/24 06:11 40 MG Dorzolamide HCl 1 drop BIDPC LEFTEYE 04/27/24 16:00 04/29/24 10:06 1 DROP Brimonidine Tartrate 1 drop TID EACHEYE 04/27/24 16:00 04/29/24 06:12 1 DROP Albuterol 2.5 mg Q4HPRN PRN NEB 04/29/24 08:45 04/29/24 10:26 2.5 MG Mupirocin 1 applic BID EACHNOSTRI 04/29/24 22:00 05/04/24 21:59 UNV objective GENERAL: Awake, alert, oriented. LUNGS: Clear. CARDIOVASCULAR: Heart sounds are good. ABDOMEN: Soft. EXT: Bilateral lower extremity 2+ edema with weeping ulcers. laboratory and microbiology Laboratory Tests 04/29/24 07:13 Test 04/29/24 07:13 Range/Units Serum Glucose 136 H 74-106 mg/dL Problem List Acute hypoxic respiratory failure. Acute decompensated HFrEF, EF 35%. Elevated troponin. History of coronary artery disease status post PTCA. Bilateral peripheral arterial disease status post iliac thrombectomy and stent placement. A Fib. Hypertension. Hypercholesterolemia. Uncontrolled diabetes. Diabetic peripheral neuropathy. Severe malnutrition. Chronic bilateral diabetic foot ulcers. Assessment/Plan Continued all current supportive medical care. Amlodipine. Eliquis. Lipitor, Plavix, Metoprolol. Diuretics with Lasix. IV antibiotics as ordered. Additional plan as per the hospital course. Dietary Evaluation Review Comments: For promoting wound healing, recommend supplement his CCHO-60 diet with Clinimix that provides 42.5 g protein in amino acids form and 510 kcal for energy Expected Outcomes/Goals: better controlled DM and healed wound and Plan discussed with: Patient HÉCTOR MARION MD Apr 29, 2024 12:19
[2024-04-29] MEDS: SODIUM ZIRCONIUM CYCL 10 GM PAK PO ONE (14:30)
[2024-04-29] MEDS: SODIUM CHLORIDE 0.9% 1,000 ML IV ONE (14:30)
--- NOTE | 2024-04-29 17:21 | DVHPN2 ---
Subjective 73-year-old male with a history of congestive heart failure presents for evaluation of bilateral lower extremity swelling. Patient reports a one-week history of worsening bilateral lower extremity swelling with associated shortness for breath and chest tightness. Denies fever or chills. He states there is clear fluid seeping from wounds on bilateral lower extremities. Reviewed: Care Plan, H&P, Labs, Medications, Previous Orders, Radiology Changes from previous H/P or p: No Changes Objective Vitals Vital Signs Date Time Temp Pulse Resp B/P (MAP) Pulse Ox O2 Delivery O2 Flow Rate FiO2 04/29/24 13:50 78 16 100 04/29/24 13:44 Nasal Cannula 1.0 04/29/24 13:44 24 04/29/24 10:07 114/58 04/29/24 09:00 97.5 97.5 Intake/Output Intake and Output 04/29/24 07:00 Intake Total 1450 ml Output Total 1400 ml Balance 50 ml Intake Oral 1400 ml IV Total 50 ml Output Urine Total 1400 ml # Bowel Movements 1 Exam DERMATOLOGIC EXAM: - Skin is dry and cool to the touch dry bilaterally. - Nails 1-5 of the bilateral foot are thickened, discolored, dystrophic, and tender to palpate with subungual debris - Hair loss noted to bilateral feet - multiple venous ulcers on bilateral lower extremity with serous drainage VASCULAR EXAM: - DP and PT pulses are palpable bilaterally. - STUNNER AND SHACKLER is brisk to all digits. - Feet are cool to touch compared to lower legs bilaterally. NEUROLOGIC EXAM: - Normal light touch sensation to the superficial peroneal, deep peroneal, sural, saphenous, and tibial nerve branches. - Protective sensation is diminished as tested with a 5.07 10g [place] bilaterally. MUSCULOSKELETAL EXAM: - No gross deformities - Muscle strength is 5/5 and active motion is pain-free and symmetrical bilaterally - No pain or crepitation with passive range of motion bilaterally to all major pedal joints Medications Current Medications Medications Dose Ordered Sig/Erik Route Start Time Stop Time Status Last Admin Dose Admin Clopidogrel Bisulfate 75 mg DAILY PO 04/27/24 10:00 04/29/24 10:07 75 MG Amlodipine Besylate 5 mg DAILY PO 04/27/24 10:00 04/29/24 10:07 5 MG Apixaban 5 mg BID PO 04/26/24 22:00 04/29/24 10:07 5 MG Atorvastatin Calcium 80 mg HS PO 04/26/24 22:00 04/28/24 22:27 80 MG Empaglifozin 10 mg DAILY PO 04/27/24 10:00 04/29/24 10:07 10 MG Metoprolol Succinate 12.5 mg DAILY PO 04/27/24 10:00 04/29/24 10:07 12.5 MG Diagnostic Test (Pha) 1 strip Q6HR 04/27/24 00:00 04/29/24 11:50 1 STRIP Insulin Human Regular Q6HR SC 04/27/24 00:00 04/29/24 11:50 3 UNITS Dextrose 50 ml UD PRN IV 04/26/24 19:00 Ondansetron HCl 4 mg Q4HP PRN IV 04/26/24 19:00 04/29/24 01:35 4 MG Acetaminophen 650 mg Q6HP PRN PO 04/26/24 19:00 Clindamycin Phosphate 50 ml @ 50 mls/hr Q8HR IV 04/27/24 06:00 04/29/24 14:30 50 MLS/HR Furosemide 40 mg BIDD IV 04/28/24 06:00 04/29/24 06:11 40 MG Dorzolamide HCl 1 drop BIDPC LEFTEYE 04/27/24 16:00 04/29/24 10:06 1 DROP Brimonidine Tartrate 1 drop TID EACHEYE 04/27/24 16:00 04/29/24 14:30 1 DROP Mupirocin 1 applic BID EACHNOSTRI 04/29/24 22:00 05/04/24 21:59 Albuterol 2.5 mg Q4HR NEB 04/29/24 12:30 04/29/24 13:44 2.5 MG Laboratory Results Laboratory Tests 04/29/24 07:13 Chemistry Test 04/29/24 07:13 Albumin 3.7 g/dL (3.2-4.8) Calcium Level 9.0 mg/dL (8.7-10.4) Total Protein 6.7 g/dL (5.7-8.2) LFT Test 04/29/24 07:13 Alanine Aminotransferase (ALT) 28 U/L (7-40) Alkaline Phosphatase 160 U/L (46-116) H Aspartate Amino Transferase (AST) 27 U/L (13-40) Total Bilirubin 0.5 mg/dL (0.2-1.0) Urinalysis Test 04/26/24 23:07 Urine Color Light-yellow (Yellow) Urine Clarity Clear (Clear) Urine pH 5.0 (5.0-9.0) Urine Specific [place] 1.018 (1.001-1.035) Urine Protein Trace (Negative) H Urine Ketones Negative (Negative) Urine Blood Negative /uL (Negative) Urine Nitrite Negative (Negative) Urine Bilirubin Negative (Negative) Urine Urobilinogen Normal mg/dL (Negative) Urine Leukocyte Esterase Negative /uL (Negative) Urine RBC 1 /hpf (0 - 3) Urine Microscopic WBC 2 /HPF (0-3) Urine Squamous Epithelial Cells Few /hpf (<5) Urine Bacteria None seen /hpf (None Seen) Urine Glucose 1+ mg/dL (Normal) H Microbiology Microbiology Date/Time Source Procedure Growth Status 04/28/24 11:00 Leg Left Gram Stain - Final Resulted 04/28/24 11:00 Leg Left Wound Culture - Preliminary Resulted 04/26/24 13:35 Blood Blood Culture - Preliminary NO GROWTH AFTER 72 HOURS OF INCUBATION. Resulted Assessment/Plan Assessment/Plan ASSESSMENT: Patient is a 73 year old seen on the floor for a worsening bilateral ulcer PLAN: - The patients chart was reviewed, clinical findings were discussed with the patient, the etiologies of the conditions were discussed in detail, and a treatment plan was agreed to at this time, with both oral and written instructions provided. - reviewed advanced imaging - reviwed labs - wounds appear to be superficial at this point - patients would benefit from compression therapy - a 4 layer compression wrap was use on bilateral lower extremities - can be left for approximately 3-7 days - we will re-evaluate in a few days if he is still here All questions were answered and concerns addressed to the patient's satisfaction. The patient was given the phone number to the clinic and was told how to make contact with the clinic should any concerns or questions arise. Patient understands that if any questions or concerns arise prior to the next appointment, we should be contacted immediately. FOLLOW-UP: Continue to follow while inpatient Plan discussed with: Patient My Orders Orders - LUTHER SAUL DPM Procedure Category Date Status Time Communication Order ORDERS 04/29/24 Transmitted 17:00 Apply: [place] 04/29/24 In Process 17:00 Problem List: (1) Hyperkalemia (2) Diastolic heart failure (3) Uncontrolled diabetes mellitus (4) Sepsis, unspecified organism (5) Prerenal azotemia (6) Diabetes mellitus (7) CHF (congestive heart failure) (8) Peripheral neuropathy (9) Pneumonia (10) Physical deconditioning (11) COPD exacerbation (12) Lower extremity weakness Date of Service: Apr 29, 2024 Billing Provider: LUTHER SAUL DPM Common Visit Codes: [id number] INP/OBS CARE(HIGH) LUTHER SAUL DPM Apr 29, 2024 17:21
[2024-04-29] MEDS: MUPIROCIN 2% OINT 15gm or 22gm FOR MRSA NARES EACHNOSTRI SCH (22:17)
[2024-04-30] VITALS (17 sets, daily range): BP systolic 99–108; BP diastolic 42–64; PULSE 73–79; RESP 15–20; TEMP 97.3–98.2; O2SAT 90–100
[2024-04-30 08:47] LABS: Alanine Aminotransferase 36 U/L (7-40); Anion Gap 11 (5-15); BUN/Creatinine Ratio 27.4 (10.0-20.0); Calcium 9.1 mg/dL (8.7-10.4); Chloride 103 mmol/L (98-107); Potassium 4.7 mmol/L (3.5-5.1)
[2024-04-30 08:48] LABS: Albumin 3.7 g/dL (3.2-4.8); Aspartate Aminotransferase 28 U/L (13-40); Bilirubin, Total 0.4 mg/dL (0.2-1.0); Total Protein 6.7 g/dL (5.7-8.2)
[2024-04-30 08:51] LABS: Eosinophils # (auto) 0.1 10 ^3/uL (0-0.8); Eosinophils % (auto) 1.1 % (0.0-7.0); Hemoglobin 8.1 g/dL (13.5-17.5); Monocytes # (auto) 0.4 10 ^3/uL (0-1.3); Neutrophils # (auto) 6.6 10 ^3/uL (1.6-8.6); Nucleated Red Blood Cells % 0.4 %
[2024-04-30 08:53] LABS: Basophils # (auto) 0.1 10 ^3/uL (0-0.2); Basophils % (auto) 0.7 % (0.0-2.0); Hematocrit 25.9 % (41.0-53.0); Lymphocytes # (auto) 0.5 10 ^3/uL (0.4-5.4); Lymphocytes % (auto) 6.9 % (10.0-50.0); Mean Corpuscular Hemoglobin 24.7 pg (28.0-32.0); Mean Corpuscular Hgb Conc. 31.3 g/dL (32.0-36.0); Mean Corpuscular Volume 78.9 fL (80.0-100.0); Monocytes % (auto) 4.9 % (0.0-12.0); Neutrophils % (auto) 86.4 % (37.0-80.0); Platelet Count (auto) 302 10^3/uL (140-450); Red Blood Cells 3.28 10^6/uL (4.5-5.90); Red Cell Distribution Width 24.3 % (11.8-14.3); White Blood Cell 7.6 10^3/uL (4.4-10.8)
[2024-04-30 08:56] LABS: Alkaline Phosphatase 181 U/L (46-116); Blood Urea Nitrogen 43 mg/dL (9-23); Carbon Dioxide 19 mmol/L (20-31); Glucose 168 mg/dL (74-106); Sodium 133 mmol/L (136-145)
--- NOTE | 2024-04-30 11:37 | DVHPN2 ---
Reviewed: Care Plan, H&P, Labs, Medications, Previous Orders, Radiology Changes from previous H/P or p: No Changes Objective Vitals Vital Signs Date Time Temp Pulse Resp B/P (MAP) Pulse Ox O2 Delivery O2 Flow Rate FiO2 04/30/24 09:57 78 108/64 04/30/24 09:31 16 100 04/30/24 09:25 Nasal Cannula* 2 28 04/30/24 09:00 98.2 98.2 Intake/Output Intake and Output 04/30/24 07:00 Intake Total 1505 ml Output Total 2350 ml Balance -845 ml Intake Oral 1180 ml IV Total 325 ml Output Urine Total 2350 ml Medications Current Medications Medications Dose Ordered Sig/Erik Route Start Time Stop Time Status Last Admin Dose Admin Clopidogrel Bisulfate 75 mg DAILY PO 04/27/24 10:00 04/30/24 09:56 75 MG Amlodipine Besylate 5 mg DAILY PO 04/27/24 10:00 04/30/24 09:57 5 MG Apixaban 5 mg BID PO 04/26/24 22:00 04/30/24 09:56 5 MG Atorvastatin Calcium 80 mg HS PO 04/26/24 22:00 04/29/24 22:16 80 MG Empaglifozin 10 mg DAILY PO 04/27/24 10:00 04/30/24 09:56 10 MG Metoprolol Succinate 12.5 mg DAILY PO 04/27/24 10:00 04/30/24 09:57 12.5 MG Diagnostic Test (Pha) 1 strip Q6HR 04/27/24 00:00 04/30/24 05:53 1 STRIP Insulin Human Regular Q6HR SC 04/27/24 00:00 04/30/24 06:40 3 UNITS Dextrose 50 ml UD PRN IV 04/26/24 19:00 Ondansetron HCl 4 mg Q4HP PRN IV 04/26/24 19:00 04/29/24 18:27 4 MG Acetaminophen 650 mg Q6HP PRN PO 04/26/24 19:00 Furosemide 40 mg BIDD IV 04/28/24 06:00 04/29/24 17:42 40 MG Dorzolamide HCl 1 drop BIDPC LEFTEYE 04/27/24 16:00 04/30/24 09:56 1 DROP Brimonidine Tartrate 1 drop TID EACHEYE 04/27/24 16:00 04/30/24 05:51 1 DROP Mupirocin 1 applic BID EACHNOSTRI 04/29/24 22:00 05/04/24 21:59 04/29/24 22:17 1 APPLIC Albuterol 2.5 mg Q4HR NEB 04/29/24 12:30 04/30/24 09:25 2.5 MG Ertapenem 1 gm/ Sodium Chloride 50 ml @ 100 mls/hr DAILY IV 05/01/24 10:00 UNV Laboratory Results Laboratory Tests 04/30/24 07:45 Chemistry Test 04/30/24 07:45 Albumin 3.7 g/dL (3.2-4.8) Calcium Level 9.1 mg/dL (8.7-10.4) Total Protein 6.7 g/dL (5.7-8.2) LFT Test 04/30/24 07:45 Alanine Aminotransferase (ALT) 36 U/L (7-40) Alkaline Phosphatase 181 U/L (46-116) H Aspartate Amino Transferase (AST) 28 U/L (13-40) Total Bilirubin 0.4 mg/dL (0.2-1.0) Urinalysis Test 04/26/24 23:07 Urine Color Light-yellow (Yellow) Urine Clarity Clear (Clear) Urine pH 5.0 (5.0-9.0) Urine Specific [place] 1.018 (1.001-1.035) Urine Protein Trace (Negative) H Urine Ketones Negative (Negative) Urine Blood Negative /uL (Negative) Urine Nitrite Negative (Negative) Urine Bilirubin Negative (Negative) Urine Urobilinogen Normal mg/dL (Negative) Urine Leukocyte Esterase Negative /uL (Negative) Urine RBC 1 /hpf (0 - 3) Urine Microscopic WBC 2 /HPF (0-3) Urine Squamous Epithelial Cells Few /hpf (<5) Urine Bacteria None seen /hpf (None Seen) Urine Glucose 1+ mg/dL (Normal) H Microbiology Microbiology Date/Time Source Procedure Growth Status 04/28/24 11:00 Leg Left Gram Stain - Final Resulted 04/28/24 11:00 Leg Left Wound Culture - Preliminary Resulted 04/26/24 13:35 Blood Blood Culture - Preliminary NO GROWTH AFTER 72 HOURS OF INCUBATION. Resulted Labs and/or images reviewed: Labs reviewed by me, Image(s) reviewed by me Assessment/Plan Assessment/Plan Acute hypoxic respiratory failure oxygen by nasal cannula Acute decompensated HFrEF, EF 35% Lasix 40 mg IV b.i.d., cardiology consult for Dr. Rodriguez appreciated Acute severe COPD exacerbation: Med neb History of coronary artery disease status post PTCA Bilateral peripheral arterial disease status post iliac thrombectomy and stent placement AFib MRSA screen positive: Bactroban screen ointment Hypertension Hypercholesterolemia Kidney injury secondary to dehydration: IV fluids Acute hyperkalemia potassium 5.2: Lokelma Uncontrolled diabetes: Insulin sliding scale Diabetic peripheral neuropathy Severe Malnutrition Chronic Bilateral diabetic foot ulcers: Wound cultures growing Providencia stuartii, DC clindamycin start Invanz 1 g IV daily for four weeks, wound consult consult for Dr. Esteban appreciated, no surgical intervention compression dressings applied MRI bilateral feet negative for osteomyelitis, shows cellulitis Time spent 55 minutes Patient is full code Advanced care planning time 20 mts Plan discussed with: Patient My Orders Orders - ELI FANG MD Procedure Category Date Status Time Mupirocin 2% Oint PHA 04/29/24 In Process Mrsa Nares (Bactroban 22:00 Albuterol Medneb PHA 04/29/24 In Process (Ventolin Medneb) 12:30 Insert Midline ORDERS 04/30/24 Transmitted 11:28 Pt Request For Service PT 04/30/24 Logged 11:28 Ertapenem Sod Inj PHA 04/30/24 Logged (Invanz) 11:45 Ertapenem Sod Inj PHA 05/01/24 Logged (Invanz) 10:00 * Customer Technical Services Manager CONS 04/30/24 Transmitted Consult Date of Service: Apr 30, 2024 Billing Provider: ELI FANG MD Common Visit Codes: [id number] CARE 30-74 MIN ELI FANG MD Apr 30, 2024 11:37
--- NOTE | 2024-04-30 11:42 | DVHDS2 ---
Discharge Summary Date of Admission Apr 26, 2024 at 18:54 Date of Discharge: Apr 30, 2024 Admitting Diagnosis Foot infection both feet Wounds: Bilateral superficial wounds both feet Labs/Diagnostic Data: Laboratory Results Test 04/30/24 07:45 04/29/24 23:02 04/28/24 05:12 04/27/24 21:00 White Blood Count 7.6 10^3/uL (4.4-10.8) Red Blood Count 3.28 10^6/uL (4.5-5.90) Hemoglobin 8.1 g/dL (13.5-17.5) Hematocrit 25.9 % (41.0-53.0) Mean Corpuscular Volume 78.9 fL (80.0-100.0) Mean Corpuscular Hemoglobin 24.7 pg (28.0-32.0) Mean Corpuscular Hemoglobin Concent 31.3 g/dL (32.0-36.0) Red Cell Distribution Width 24.3 % (11.8-14.3) Platelet Count 302 10^3/uL (140-450) Mean Platelet Volume 7.7 fL (6.9-10.8) Neutrophils (%) (Auto) 86.4 % (37.0-80.0) Lymphocytes (%) (Auto) 6.9 % (10.0-50.0) Monocytes (%) (Auto) 4.9 % (0.0-12.0) Eosinophils (%) (Auto) 1.1 % (0.0-7.0) Basophils (%) (Auto) 0.7 % (0.0-2.0) Neutrophils # (Auto) 6.6 10 ^3/uL (1.6-8.6) Lymphocytes # (Auto) 0.5 10 ^3/uL (0.4-5.4) Monocytes # (Auto) 0.4 10 ^3/uL (0-1.3) Eosinophils # (Auto) 0.1 10 ^3/uL (0-0.8) Basophils # (Auto) 0.1 10 ^3/uL (0-0.2) Nucleated Red Blood Cells 0.4 % Sodium Level 133 mmol/L (136-145) Potassium Level 4.7 mmol/L (3.5-5.1) Chloride Level 103 mmol/L (98-107) Carbon Dioxide Level 19 mmol/L (20-31) Anion Gap 11 (5-15) Blood Urea Nitrogen 43 mg/dL (9-23) Creatinine 1.57 mg/dL (0.700-1.30) Glomerular Filtration Rate Calc 46 mL/min (>90) BUN/Creatinine Ratio 27.4 (10.0-20.0) Serum Glucose 168 mg/dL (74-106) Calcium Level 9.1 mg/dL (8.7-10.4) Total Bilirubin 0.4 mg/dL (0.2-1.0) Aspartate Amino Transferase (AST) 28 U/L (13-40) Alanine Aminotransferase (ALT) 36 U/L (7-40) Alkaline Phosphatase 181 U/L (46-116) Total Protein 6.7 g/dL (5.7-8.2) Albumin 3.7 g/dL (3.2-4.8) POC Glucose 159 mg/dl (70-106) Platelet Estimate Adequate Hypochromasia (manual) Slight Anisocytosis (manual) Slight Microcytosis Slight Troponin I High Sensitivity 1037 ng/L (</=54) Test 04/26/24 23:07 04/26/24 13:35 Urine Color Light-yellow (Yellow) Urine Clarity Clear (Clear) Urine pH 5.0 (5.0-9.0) Urine Specific [place] 1.018 (1.001-1.035) Urine Protein Trace (Negative) Urine Ketones Negative (Negative) Urine Blood Negative /uL (Negative) Urine Nitrite Negative (Negative) Urine Bilirubin Negative (Negative) Urine Urobilinogen Normal mg/dL (Negative) Urine Leukocyte Esterase Negative /uL (Negative) Urine RBC 1 /hpf (0 - 3) Urine Microscopic WBC 2 /HPF (0-3) Urine Squamous Epithelial Cells Few /hpf (<5) Urine Bacteria None seen /hpf (None Seen) Urine Glucose 1+ mg/dL (Normal) Lactic Acid Level 1.9 mmol/L (0.4-2.0) B-Type Natriuretic Peptide 1401.57 pg/mL (0-100) Other Laboratory Tests 04/30/24 07:45 Brief Hx & Hospital Course: 73-year-old male with multiple medical problems including CHF COPD coronary artery disease status post stents bilateral peripheral arterial disease status post iliac thrombectomy and stent placement AFib hypotension hypercholesterolemia uncontrolled diabetes diabetic neuropathy vasculopathy came in complaining of nonhealing bilateral diabetic foot ulcers. Patient also has a shortness of breaths secondary to the systolic congestive heart failure. Ejection fraction 35 percent placed on Lasix 40 mg IV b.i.d. cardiology consult by Dr. Rodriguez patient feels better . MRSA screen positive Bactroban nasal ointment applied. Patient was started on clindamycin for his bilateral diabetic foot infection MRI of the feet showed no osteomyelitis seen by podiatric Dr. Esteban applied pressure dressings. No surgical intervention needed. Wound cultures grew Providencia stuartii and placement Invanz 1 g IV daily for four weeks Patient will be discharged to half-way facility. Patient agreeable to the patient Consults/Reason for consult Podiatry Dr. Esteban Cardiology Dr. Rodriguez Operations or Procedures MRI of the feet Condition at Discharge: Fair Final Diagnosis/Problems List Acute hypoxic respiratory failure oxygen by nasal cannula Acute decompensated HFrEF, EF 35% Lasix 40 mg IV b.i.d., cardiology consult for Dr. Rodriguez appreciated Acute severe COPD exacerbation: Med neb History of coronary artery disease status post PTCA Bilateral peripheral arterial disease status post iliac thrombectomy and stent placement AFib MRSA screen positive: Bactroban screen ointment Hypertension Hypercholesterolemia Kidney injury secondary to dehydration: IV fluids Acute hyperkalemia potassium 5.2: Lokelma Uncontrolled diabetes: Insulin sliding scale Diabetic peripheral neuropathy Severe Malnutrition Chronic Bilateral diabetic foot ulcers: Wound cultures growing Providencia stuartii, DC clindamycin start Invanz 1 g IV daily for four weeks, wound consult consult for Dr. Esteban appreciated, no surgical intervention compression dressings applied MRI bilateral feet negative for osteomyelitis, shows cellulitis [facility]charge Disposition[facility] Facility Discharge Instruct/Medications Diet: Cardiac 2g Na,low cholest Activity: Light activity Follow Up/Referral: Follow up with the senior care Medications: Invanz 1 g IV daily for four weeks for bilateral foot infection 39 (Time taken for discharge summary 39 minutes) Discharge Statement: "Patient was advised to return to the ER or call 911 if any headaches, dizziness, shortness of breath, chest pain, abdominal pain, bleeding, fevers, or worsening of medical condition. Patient was counseled about treatment plan, medications, possible side effects, patientverbalized understanding. All questions were answered to the best of my ability. This discharge took greater then 30 minutes in planning, reviewing documentation, counseling the patient, and discussing with other team members." ASSESSMENT ASSESSMENT Hospital Course Marginal improvement Assessment Acute hypoxic respiratory failure oxygen by nasal cannula Acute decompensated HFrEF, EF 35% Lasix 40 mg IV b.i.d., cardiology consult for Dr. Rodriguez appreciated Acute severe COPD exacerbation: Med neb History of coronary artery disease status post PTCA Bilateral peripheral arterial disease status post iliac thrombectomy and stent placement AFib MRSA screen positive: Bactroban screen ointment Hypertension Hypercholesterolemia Kidney injury secondary to dehydration: IV fluids Acute hyperkalemia potassium 5.2: Lokelma Uncontrolled diabetes: Insulin sliding scale Diabetic peripheral neuropathy Severe Malnutrition Chronic Bilateral diabetic foot ulcers: Wound cultures growing Providencia stuartii, DC clindamycin start Invanz 1 g IV daily for four weeks, wound consult consult for Dr. Esteban appreciated, no surgical intervention compression dressings applied MRI bilateral feet negative for osteomyelitis, shows cellulitis Date of Service: Apr 30, 2024 Billing Provider: ELI FANG MD Common Visit Codes: [id number] DISCH DAY >30min ELI FANG MD Apr 30, 2024 11:42
[2024-04-30] MEDS: ERTAPENEM SOD INJ 1 GM in SODIUM CHL 0.9% 50 ML IV ONE (13:17)
--- NOTE | 2024-04-30 23:08 | DVHPN2 ---
Progress Note - Dictate Date Seen: Apr 30, 2024 Medical Necessity Reason Pt with a Central, PICC or Fol: No Subjective Patient was seen and evaluated in follow up. Patient has no new complaints at this time. Patient denies any cardiac symptoms. Patient is cardiac stable for discharge. vital signs Vital Sign Date Time Temp Pulse Resp B/P (MAP) Pulse Ox O2 Delivery O2 Flow Rate FiO2 04/30/24 09:57 78 108/64 04/30/24 09:31 16 100 04/30/24 09:25 Nasal Cannula* 2 28 04/30/24 09:00 98.2 98.2 Total Intake and Output 04/29/24 04/29/24 04/30/24 15:00 23:00 07:00 Intake Total 975 ml 530 ml Output Total 1200 ml 1150 ml Balance -225 ml -620 ml medications Current Medications Medications Dose Ordered Sig/Erik Route Start Time Stop Time Status Last Admin Dose Admin Clopidogrel Bisulfate 75 mg DAILY PO 04/27/24 10:00 04/30/24 09:56 75 MG Amlodipine Besylate 5 mg DAILY PO 04/27/24 10:00 04/30/24 09:57 5 MG Apixaban 5 mg BID PO 04/26/24 22:00 04/30/24 09:56 5 MG Atorvastatin Calcium 80 mg HS PO 04/26/24 22:00 04/29/24 22:16 80 MG Empaglifozin 10 mg DAILY PO 04/27/24 10:00 04/30/24 09:56 10 MG Metoprolol Succinate 12.5 mg DAILY PO 04/27/24 10:00 04/30/24 09:57 12.5 MG Diagnostic Test (Pha) 1 strip Q6HR 04/27/24 00:00 04/30/24 05:53 1 STRIP Insulin Human Regular Q6HR SC 04/27/24 00:00 04/30/24 06:40 3 UNITS Dextrose 50 ml UD PRN IV 04/26/24 19:00 Ondansetron HCl 4 mg Q4HP PRN IV 04/26/24 19:00 04/29/24 18:27 4 MG Acetaminophen 650 mg Q6HP PRN PO 04/26/24 19:00 Furosemide 40 mg BIDD IV 04/28/24 06:00 04/29/24 17:42 40 MG Dorzolamide HCl 1 drop BIDPC LEFTEYE 04/27/24 16:00 04/30/24 09:56 1 DROP Brimonidine Tartrate 1 drop TID EACHEYE 04/27/24 16:00 04/30/24 05:51 1 DROP Mupirocin 1 applic BID EACHNOSTRI 04/29/24 22:00 05/04/24 21:59 04/29/24 22:17 1 APPLIC Albuterol 2.5 mg Q4HR NEB 04/29/24 12:30 04/30/24 09:25 2.5 MG Ertapenem 1 gm/ Sodium Chloride 50 ml @ 100 mls/hr DAILY IV 05/01/24 10:00 objective GENERAL: Awake, alert, oriented. LUNGS: Clear. CARDIOVASCULAR: Heart sounds are good. ABDOMEN: Soft. EXT: Bilateral lower extremity 2+ edema with weeping ulcers. laboratory and microbiology Laboratory Tests 04/30/24 07:45 Test 04/30/24 07:45 Range/Units Serum Glucose 168 H 74-106 mg/dL Problem List Acute hypoxic respiratory failure. Acute decompensated HFrEF, EF 35%. Elevated troponin. History of coronary artery disease status post PTCA. Bilateral peripheral arterial disease status post iliac thrombectomy and stent placement. A Fib. Hypertension. Hypercholesterolemia. Uncontrolled diabetes. Diabetic peripheral neuropathy. Severe malnutrition. Chronic bilateral diabetic foot ulcers. Assessment/Plan Continued all current supportive medical care. Amlodipine. Eliquis. Lipitor, Plavix, Metoprolol. Diuretics with Lasix. IV antibiotics as ordered. Additional plan as per the hospital course. Dietary Evaluation Review Comments: For promoting wound healing, recommend supplement his CCHO-60 diet with Clinimix that provides 42.5 g protein in amino acids form and 510 kcal for energy Expected Outcomes/Goals: better controlled DM and healed wound and Plan discussed with: Patient HÉCTOR MARION MD Apr 30, 2024 12:30
[2024-05-01] MEDS ORDERED: ERTAPENEM SOD INJ 1 GM in SODIUM CHL 0.9% 50 ML IV SCH (10:00)
== END 2024-04-30 20:00 | DRG 637 ==
LOC: ER 12:18 → OVERFLOW 18:54 → WEST WING 22:58
PROVIDERS: ADMIT Nurse Practitioner; ATTEND Family Medicine
PROC: 05HA33Z Insertion of Infusion Device into Left Brachial Vein, Percutaneous Approach (ICD-10-PCS; principal; 2024-04-30)
PROC: B54NZZA Ultrasonography of Left Upper Extremity Veins, Guidance (ICD-10-PCS; 2024-04-30)
DX: E11.621 Type 2 diabetes mellitus with foot ulcer (principal); E43 Unspecified severe protein-calorie malnutrition; J96.01 Acute respiratory failure with hypoxia; I50.23 Acute on chronic systolic (congestive) heart failure; I13.0 Hypertensive heart and chronic kidney disease with heart failure and stage 1 through stage 4 chronic kidney disease, or unspecified chronic kidney disease; J44.1 Chronic obstructive pulmonary disease with (acute) exacerbation; J44.0 Chronic obstructive pulmonary disease with (acute) lower respiratory infection; L97.529 Non-pressure chronic ulcer of other part of left foot with unspecified severity; E11.65 Type 2 diabetes mellitus with hyperglycemia; E87.5 Hyperkalemia; E11.42 Type 2 diabetes mellitus with diabetic polyneuropathy; N18.9 Chronic kidney disease, unspecified; E11.22 Type 2 diabetes mellitus with diabetic chronic kidney disease; E11.51 Type 2 diabetes mellitus with diabetic peripheral angiopathy without gangrene; E86.0 Dehydration; I25.10 Atherosclerotic heart disease of native coronary artery without angina pectoris; I87.8 Other specified disorders of veins; E78.00 Pure hypercholesterolemia, unspecified; I48.91 Unspecified atrial fibrillation; L97.519 Non-pressure chronic ulcer of other part of right foot with unspecified severity; Z95.1 Presence of aortocoronary bypass graft; I25.2 Old myocardial infarction; Z88.0 Allergy status to penicillin; Z79.4 Long term (current) use of insulin; Z79.899 Other long term (current) drug therapy; Z68.31 Body mass index [BMI] 31.0-31.9, adult; Z95.5 Presence of coronary angioplasty implant and graft
CPT/HCPCS: 36415; 71045; 73718; 80048; 80053; 81001; 82962; 83605; 83880; 84132; 84484; 85025; 87040; 87077; 87081; 87186; 87205; 94640; 99291; 99292; G0378; J1335; J1815; J2405; J3490

== ENCOUNTER 2024-05-27 18:14 | Inpatient (IN) | payer MEDICARE ==
[~2024-05-27] VITALS: Ht 180.3 cm; Wt 91.7 kg
[~2024-05-27 18:14] MED LIST changes: +ALBU108A5 IN; +ATOR-507 PO; -BRIM0.2S17 LEFTEYE; +BRIM0.2S17 OP; +FURO1TAB77 PO; +GABA-1250 PO; +MAGN241.6 PO; +METF-372 PO; +PANT40TA57 PO; +POTA-211 PO; +PRED10TA PO; +SENN8.6T83 PO
--- NOTE | 2024-05-27 18:35 | ED.PDOC ---
History of Present Illness HPI Comments 74-year-old male came to emergency room by EMS for shortness a breath/dizziness. Per EMS, patient picked up at a group home facility, has history of hypertension, diabetes, dyslipidemia, CKD, CHF, COPD, chronic bilateral foot ulcers, status post cardiac stents. He is on home oxygen at 4 liters/minute. Was noted by caregivers that patient has been short of breath and dizzy. Noted also slurring of speech x1.5 day. No facial asymmetry noted. 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 Allergies: Coded Allergies: Penicillins (Verified Allergy, Unknown, 04/01/23) Home Meds Active Scripts Metformin Hydrochloride (METFORMIN HCL ER) 500 Mg Tab, 1 TAB PO DAILY for 30 Days, #30 TAB 2 Refills Prov:ALONZO VILLA [facility] 11/27/23 Linagliptin Base (TRADJENTA) 5 Mg Tab, 1 TAB PO DAILY for 30 Days, #30 TAB 2 [facility] 11/27/23 Insulin Glargine-Yfgn (Insulin Glargine) 100 Unit/Ml Inj, 30 UNIT SC DAILY for 30 Days, #1 INJ 2 Refills Prov:[facility] 11/27/23 Dulaglutide (Trulicity) 0.75 Mg/0.5 Ml Inj, 0.75 MG SC QWEEKLY for 30 Days, #1 INJ 2 Refills Prov:[facility] 11/27/23 Empagliflozin (Jardiance) 10 Mg Tab, 10 MG PO DAILY for 30 Days, #30 TAB 2 Refills Prov[facility] 11/27/23 Apixaban Base (ELIQUIS) 5 Mg Tab, 5 MG PO BID for 30 Days, #60 TAB 2 [facility] Lactulose (Lactulose) 10 Gm Naif, 10 GM PO DAILY PRN for 7 Days, #1 PACK 0 [facility] 11/27/23 Umeclidinium-Vilanterol (Anoro Ellipta 62.5-25 Mcg/INH) 1 Aer Aer, 1 AER IN DAILY for 30 Days, #1 AER 2 Refills Prov:ALONZO VILLA 11/27/23 Levalbuterol HCl (Levalbuterol) 1.25 Mg/0.5 Ml Neb, 1.25 MG IN BID PRN for 30 Days, #2 INH 2 Refills Prov:ALONZO VILLA [facility] 11/27/23 Atorvastatin Calcium (ATORVASTATIN CALCIUM) 40 Mg Tab, 80 MG PO DAILY for 30 Days, #60 TAB 2 Refills Prov:ALONZO VILLA [facility] 11/27/23 Metoprolol Succinate (Metoprolol Succinate Er) 25 Mg Tab, 12.5 MG PO DAILY for 30 Days, #15 TAB 2 Refills Prov:AOLNZO VILLA [facility] 11/27/23 Magnesium Oxide (MAGNESIUM OXIDE) 400 Mg Tab, 1 TAB PO DAILY PRN for 30 Days, #30 TAB 0 Refills Prov:ALONZO VILLA [facility] 11/27/23 Potassium Chloride (POTASSIUM CHLORIDE CR) 10 Meq Tb, 1 TAB PO DAILY PRN for 30 Days, #30 TAB 0 Refills Prov:ALONZO VILLA [facility] 11/27/23 Furosemide (Furosemide) 40 Mg Tab, 40 MG PO BID PRN for 30 Days, #60 TAB 0 Refills Prov:ALONZO VILLA [facility] 11/27/23 Prednisone (Prednisone) 20 Mg Tab, 20 MG PO DAILY for 2 Days, #2 MG 0 Refills Prov:ALONZO VILLA [facility] 11/27/23 Reported Medications Brimonidine Tartrate (Brimonidine Tartrate) 0.2 % Daria, 1 DROP LEFTEYE TID for 30 Days, #10 3 Refills 11/24/23 Clopidogrel Bisulfate (CLOPIDOGREL) 75 Mg Tab, 1 TAB PO DAILY for 30 Days, #30 11/24/23 Amlodipine Besylate (NORVASC TABLET) 5 Mg Tb, 1 TAB PO BID for 30 Days 04/02/23 Information Source: Patient, Emergency Med Personnel Mode of Arrival: EMS Severity: Moderate Timing: Hours Duration: Since onset Prehospital treatment: 12 Lead EKG, Accucheck, Oxygen Review of Systems REVIEW OF SYSTEMS: No fever, no chills, or fatigue HEENT: No sore throat, no earache, no congestion, no neck pain. Cardiac: No chest pain. No palpitations. Lungs: (+) shortness of breath, (+) cough. GI: No nausea, no vomiting, no diarrhea, no constipation, no abdominal pain : No dysuria, frequency, or urgency. No hematuria. Musculoskeletal: No joint pain , no joint swelling, no extremity edema. Skin: No rash, no itching. Neuro: No headache, (+) dizziness, no weakness (+) slurred speech Vital Signs Vital Signs Date Time Temp Pulse Resp B/P (MAP) Pulse Ox O2 Delivery O2 Flow Rate FiO2 05/27/24 21:58 116/70 05/27/24 20:25 18 95 Nasal Cannula* 5 40 05/27/24 19:30 97.0 75 97.0 Physical Exam General: Awake, alert and oriented. No acute distress. Skin: Skin in warm, dry and intact. Appropriate color for ethnicity. Nailbeds pink with no cyanosis. HEENT: The head is normocephalic and atraumatic. Conjunctivae are clear without exudates or hemorrhage. Sclera is non-icteric. EOM are intact. No signs of nystagmus. Eyelids are normal in appearance without swelling or lesions. Oral mucosa is pink and moist Neck: The neck is supple with normal range of motion. No JVD. Cardiac: Heart rate and rhythm are normal. No murmurs, gallops, or rubs are auscultated. Respiratory: No signs of respiratory distress. Lung sounds are clear in all lobes bilaterally without rales, ronchi, or wheezes. Abdominal: Abdomen is soft, non-tender with distention. Bowel sounds are present and normoactive in all four quadrants. Extremities: LE with RAPHAEL boot in place Neurological: The patient is awake, alert and oriented to person, place, and time with normal speech. Speech is clear. There is no facial asymmetry. Psychiatric: Appropriate mood and affect. Good judgement and insight. No visual or auditory hallucinations. Past Medical History PAST MEDICAL HISTORY: Anemia, CAD, CHF, CKF, COPD, DM, GERD, HTN, [place] Past Medical History (Other): Chronic bilateral diabetic foot ulcers Surgical History: PTCA Family History Family History: Reviewed,noncontributory to illness Social History Smoker: Non-Smoker Alcohol: Denies ETOH Use Drugs: Denies Drug Use Lives In: [facility] Was a procedure done? Was a procedure done?: No Differential Dx Considerations may include: Anemia, electrolyte imbalance, congestive heart failure, COPD, pneumonia, sepsis, urinary tract infection, CVA, ACS, PE, other X-Ray, Labs, Meds, VS Vital Signs Date Time Temp Pulse Resp B/P (MAP) Pulse Ox O2 Delivery O2 Flow Rate FiO2 05/27/24 21:58 116/70 05/27/24 20:25 18 95 Nasal Cannula* 5 40 05/27/24 20:25 95 Nasal Cannula* 5 40 05/27/24 19:30 Nasal Cannula* 6 44 05/27/24 19:30 97.0 75 12 100/49 (66) 95 97.0 05/27/24 18:20 98.8 75 20 106/58 (74) 94 Lab Test 05/27/24 19:32 05/27/24 18:38 Range/Units Troponin I High Sensitivity 21 22 </=54 ng/L White Blood Count 4.1 L 4.4-10.8 10^3/uL Red Blood Count 3.71 L 4.5-5.90 10^6/uL Hemoglobin 8.4 L 13.5-17.5 g/dL Hematocrit 28.0 L 41.0-53.0 % Mean Corpuscular Volume 75.4 L 80.0-100.0 fL Mean Corpuscular Hemoglobin 22.5 L 28.0-32.0 pg Mean Corpuscular Hemoglobin Concent 29.9 L 32.0-36.0 g/dL Red Cell Distribution Width 24.3 H 11.8-14.3 % Platelet Count 114 L 140-450 10^3/uL Mean Platelet Volume 8.6 6.9-10.8 fL Neutrophils (%) (Auto) 73.9 37.0-80.0 % Lymphocytes (%) (Auto) 15.2 10.0-50.0 % Monocytes (%) (Auto) 7.6 0.0-12.0 % Eosinophils (%) (Auto) 2.2 0.0-7.0 % Basophils (%) (Auto) 1.1 0.0-2.0 % Neutrophils # (Auto) 3.0 1.6-8.6 10 ^3/uL Lymphocytes # (Auto) 0.6 0.4-5.4 10 ^3/uL Monocytes # (Auto) 0.3 0-1.3 10 ^3/uL Eosinophils # (Auto) 0.1 0-0.8 10 ^3/uL Basophils # (Auto) 0 0-0.2 10 ^3/uL Nucleated Red Blood Cells 1.3 % Sodium Level 148 H 136-145 mmol/L Potassium Level 3.9 3.5-5.1 mmol/L Chloride Level 110 H 98-107 mmol/L Carbon Dioxide Level 28 20-31 mmol/L Anion Gap 10 5-15 Blood Urea Nitrogen 47 H 9-23 mg/dL Creatinine 1.71 H 0.700-1.30 mg/dL Glomerular Filtration Rate Calc 41 >90 mL/min BUN/Creatinine Ratio 27.5 H 10.0-20.0 Serum Glucose 86 74-106 mg/dL Lactic Acid Level 1.6 0.4-2.0 mmol/L Calcium Level 8.8 8.7-10.4 mg/dL Total Bilirubin 0.6 0.2-1.0 mg/dL Aspartate Amino Transferase (AST) 22 13-40 U/L Alanine Aminotransferase (ALT) 25 7-40 U/L Alkaline Phosphatase 122 H 46-116 U/L B-Type Natriuretic Peptide 1535.13 0-100 pg/mL Total Protein 6.4 5.7-8.2 g/dL Albumin 3.4 3.2-4.8 g/dL Current Medications Medications (Trade) Dose Ordered Sig/Erik Route Start Time Stop Time Status Last Admin Albuterol (Ventolin Medneb) 2.5 mg ONCE ONCE NEB 05/27/24 20:00 05/27/24 20:01 DC 05/27/24 20:25 Furosemide (Lasix Injection) 20 mg ONCE ONCE IV 05/27/24 21:15 05/27/24 21:16 DC 05/27/24 21:58 CT HEAD WITHOUT CONTRAST INDICATION: SLURRED SPEECH/DIZZINESS COMPARISON: None TECHNIQUE: CT of the head without intravenous contrast. RADIATION DOSE: CTDIvol: 61.12 mGy, DLP: 1101.95 mGy*cm FINDINGS: There is no evidence of intracranial hemorrhage, infarct, extra-axial collection, mass effect, midline shift, herniation or hydrocephalus. The ventricles, sulci and cisterns are age appropriate. The lazo-white differentiation is preserved. Visualized paranasal sinuses and mastoid air cells are clear. Soft tissues and osseous structures are unremarkable. IMPRESSION: No acute intracranial abnormality. CHEST RADIOGRAPH Indication: sob Technique: Single frontal view of the chest was obtained COMPARISON: XY CHEST XRAY 1 VIEW on DOS: 04/28/24, XY CHEST PORTABLE on DOS: 04/26/24, XY CHEST XRAY 1 VIEW on DOS: 11/26/23, XY CHEST PORTABLE on DOS: 11/21/23, XY CHEST PORTABLE on DOS: 04/02/23 FINDINGS: Lines and Tubes: None Lungs: Moderate interstitial pulmonary edema. Pleura: Small bilateral effusions. No pneumothorax. Cardiomediastinal contours: Cardiomegaly Bones: Unremarkable IMPRESSION: 1. Moderate interstitial pulmonary edema. 2. Small bilateral effusions. Time of 1ST Reevaluation: 18:28 Reevaluation 1ST: Unchanged Patient Education/Counseling: Diagnosis, Treatment Family Education/Counseling: No Family Present Departure 1 Departure Time of Disposition: 21:05 Impression: Primary Impression: CHF (congestive heart failure) Additional Impressions: Hypernatremia ANIVAL (acute kidney injury) Pulmonary edema Pleural effusion Disposition: ADMITTED INPATIENT Condition: Stable Comments 74-year-old male who presents to the emergency department with report of shortness of breath. He was noted to have slurred speech by correction staff which started 1-1/2 days ago. No slurred speech or neuro deficit noted on arrival to the emergency department. Extensive evaluation was performed in attempt to identify or rule out: (See differential diagnosis section) The following tests were ordered, and results were reviewed by me: (See diagnostic results section) The following test were independently interpreted by me: EKG, chest x-ray I reviewed and agreed with the following test results read by other providers: Chest x-ray I reviewed the following notes from the pt's past medical encounters: (None available at this time) Additional information was gathered from interviewing the following independent historians: EMS personnel Discussion of management or test interpretation with external physician/other qualified health care coordinator: N/A Addressed an acute or chronic illness that poses a threat to life or bodily function: Congestive heart failure, pulmonary edema, pleural effusion Decision regarding hospitalization or escalation of hospital level of care: Risk and benefits of admission for further treatment of patient's condition was considered. Due to patient's current clinical condition, high risk of decline and poor outcome if discharged and need for further inpatient management and monitoring, patient will be admitted to the hospital. Drug therapy requiring intensive monitoring for toxicity: IV furosemide Parenteral controlled substances: N/A Decision regarding elective major surgery with identified patient or procedure risk factors: N/A Decision regarding emergency major surgery: N/A Decision not to resuscitate or to de-escalate care because of poor prognosis: N/A Diagnosis or treatment significantly limited by social determinants of health: N/A Critical Care Note Critical Care Time?: No Stability Stability form required: No Heart Score Heart Score: Heart Score Response (Comments) Value History Moderate Suspicious 1 EKG Repolarization Disturb 1 Age >65 2 Risk Factors >3 or Hx ASHD 2 Troponin Normal limit 0 Total 6 I personally scribed for THIAGO WORKMAN MD ([email or web address]) on 05/27/24 at 18:34. Electronically submitted by David Grady ([employer]). I personally scribed for THIAGO WORKMAN MD ([email or web address]) on 05/27/24 at 21:02. Electronically submitted by David Grady ([employer]). THIAGO WORKMAN MD May 27, 2024 18:34
[2024-05-27 18:55] LABS: Eosinophils # (auto) 0.1 10 ^3/uL (0-0.8); Hemoglobin 8.4 g/dL (13.5-17.5); Nucleated Red Blood Cells % 1.3 %; White Blood Cell 4.1 10^3/uL (4.4-10.8)
[2024-05-27 18:57] LABS: Basophils # (auto) 0 10 ^3/uL (0-0.2); Basophils % (auto) 1.1 % (0.0-2.0); Eosinophils % (auto) 2.2 % (0.0-7.0); Lymphocytes # (auto) 0.6 10 ^3/uL (0.4-5.4); Lymphocytes % (auto) 15.2 % (10.0-50.0); Mean Corpuscular Hemoglobin 22.5 pg (28.0-32.0); Mean Corpuscular Hgb Conc. 29.9 g/dL (32.0-36.0); Mean Corpuscular Volume 75.4 fL (80.0-100.0); Monocytes # (auto) 0.3 10 ^3/uL (0-1.3); Monocytes % (auto) 7.6 % (0.0-12.0); Neutrophils % (auto) 73.9 % (37.0-80.0); Platelet Count (auto) 114 10^3/uL (140-450); Red Blood Cells 3.71 10^6/uL (4.5-5.90); Red Cell Distribution Width 24.3 % (11.8-14.3)
[2024-05-27 19:27] LABS: Alanine Aminotransferase 25 U/L (7-40); Albumin 3.4 g/dL (3.2-4.8); Anion Gap 10 (5-15); Aspartate Aminotransferase 22 U/L (13-40); BUN/Creatinine Ratio 27.5 (10.0-20.0); Bilirubin, Total 0.6 mg/dL (0.2-1.0); Calcium 8.8 mg/dL (8.7-10.4); Carbon Dioxide 28 mmol/L (20-31); Glucose 86 mg/dL (74-106); Potassium 3.9 mmol/L (3.5-5.1); Total Protein 6.4 g/dL (5.7-8.2)
[2024-05-27 19:31] LABS: Alkaline Phosphatase 122 U/L (46-116); Blood Urea Nitrogen 47 mg/dL (9-23); Chloride 110 mmol/L (98-107); Sodium 148 mmol/L (136-145)
--- NOTE | 2024-05-27 20:23 | DVH ---
CT HEAD WITHOUT CONTRAST INDICATION: SLURRED SPEECH/DIZZINESS COMPARISON: None TECHNIQUE: CT of the head without intravenous contrast. RADIATION DOSE: CTDIvol: 61.12 mGy, DLP: 1101.95 mGy*cm FINDINGS: There is no evidence of intracranial hemorrhage, infarct, extra-axial collection, mass effect, midli ne shift, herniation or hydrocephalus. The ventricles, sulci and cisterns are age appropriate. The lazo-white differentiation is preserved. Visualized paranasal sinuses and mastoid air cells are ermias r. Soft tissues and osseous structures are unremarkable. IMPRESSION: No acute intracranial abnormality.
[2024-05-27] MEDS: ALBUTEROL SULF 2.5 MG/0.5ML(0.5%) NEB SOLN NEB ONE (20:25)
--- NOTE | 2024-05-27 20:26 | DVH ---
CHEST RADIOGRAPH Indication: sob Technique: Single frontal view of the chest was obtained COMPARISON: XY CHEST XRAY 1 VIEW on DOS: 04/28/24, XY CHEST PORTABLE on DOS: 04/26/24, XY CHEST XRAY 1 EW on DOS: 11/26/23, XY CHEST PORTABLE on DOS: 11/21/23, XY CHEST PORTABLE on DOS: 04/02/23 FINDINGS: Lines and Tubes: None Lungs: Moderate interstitial pulmonary edema. Pleura: Small bilateral effusions. No pneumothorax. Cardiomediastinal contours: Cardiomegaly Bones: Unremarkable IMPRESSION: 1. Moderate interstitial pulmonary edema. 2. Small bilateral effusions.
[2024-05-27] MEDS: FUROSEMIDE 20 MG/2 ML VIAL IV ONE (21:58)
[2024-05-27] MEDS ORDERED: DOCUSATE SOD 100 MG CAP PO PRN (22:45)
[2024-05-27] MEDS ORDERED: HYDROcodone-ACET 5/325MG TAB PO PRN (22:45)
[2024-05-27] MEDS ORDERED: ONDANSETRON HCL 4 MG/2 ML VIAL IV PRN (22:45)
[2024-05-27] MEDS ORDERED: NITROGLYCERIN 0.4 MG SL TAB SL PRN (23:00)
[2024-05-27] MEDS ORDERED: DEXTROSE (50%) 50ML SYRG IV PRN (23:00)
[2024-05-27] MEDS ORDERED: MORPHINE SULFATE INJ 2 MG/ml SYRG IV PRN (23:00)
--- NOTE | 2024-05-27 23:00 | DVHHP2 ---
History of Present Illness Reason for Visit: Acute exacerbation of congestive heart failure History of Present Illness The patient is a 74-year-old male residing [facility] past medical history including CHF, COPD, DM, [place], and hypertension who presented to [facility] ED with complaint of dizziness. Patient reports symptoms progressively get worse with shortness of breaths, increased work of breathing, getting worse that prompted this visit. Patient was seen and evaluated in the ED, laboratory data shows WBC 4.1, hemoglobin 8.4, hematocrit 28.0, platelets 114, sodium 148, potassium 3.9, BUN 47, creatinine 1.71, GFR 41, glucose 86, troponin 22, BNP 1535.13, blood pressure 116/70, heart rate 75, temperature 97.6 F, O2 saturation 95% on oxygen. Chest x-ray revealing moderate interstitial pulmonary edema, small bilateral effusions. Patient was started on IV Lasix, please see medication orders section in the computer. On my assessment, patient denied chest pain, no headache, no dizziness, no diaphoresis, no abdominal pain, no diarrhea, no nausea, no vomiting, no fever, no chills. Patient was admitted for further evaluation and medical management. Past Medical History Anemia, CAD, CHF, CKF, COPD, DM, GERD, HTN, [place], Chronic bilateral diabetic foot ulcers Past Surgical History PTCA Family History Reviewed, noncontributory to the management of this case. Past Social History The patient lives at home, denies smoking, alcohol or illicit drugs abuse. Review of Systems Constitutional: Yes: Weakness; No: Fever, Chills, Sweats, Malaise, Other Eyes: No: Pain, Vision change, Conjunctivae inflammation, Eyelid inflammation, Other, Redness ENT: No: Ear pain, Ear discharge, Nose pain, Nose discharge, Nose congestion, Mouth pain, Mouth swelling, Throat pain, Throat swelling, Other Respiratory: Shortness of breath, Other (SOB at rest); No: Cough, Dry, SOB with excertion, Wheezing, Hemoptysis, Pleuritic Pain, Sputum, Wheezing Cardiovascular: No: Chest Pain, Palpitations, Orthopnea, Paroxysmal Noc. Dyspnea, Edema, Lt Headedness, Other Gastrointestinal: No: Nausea, Vomiting, Abdominal Pain, Diarrhea, Constipation, Melena, Hematochezia, Other Genitourinary: No Dysuria, No Frequency, No Incontinence, No Hematuria, No Retention, No Other Musculoskeletal: No: other, neck pain, shoulder pain, arm pain, back pain, hand pain, leg pain, foot pain Skin: No: Rash, Lesions, Jaundice, Bruising, Other Neurological: No: Weakness, Numbness, Incoordination, Change in speech, Confusion, Seizures, Other Allergies: Coded Allergies: Penicillins (Verified Allergy, Unknown, 04/01/23) Medications Current Medications Medications Dose Ordered Sig/Erik Route Start Time Stop Time Status Last Admin Dose Admin Atorvastatin Calcium 20 mg HS PO 05/28/24 22:00 Clopidogrel Bisulfate 75 mg DAILY PO 05/28/24 10:00 UNV Furosemide 40 mg DAILY IV 05/28/24 10:00 UNV Albuterol 2.5 mg Q4HPRN PRN NEB 05/27/24 22:45 Carvedilol 3.125 mg Q12HR PO 05/28/24 10:00 UNV Sodium Chloride 10 ml Q8HR IV 05/28/24 06:00 UNV Acetaminophen/ Hydrocodone Bitart 1 tab Q4HP PRN PO 05/27/24 22:45 UNV Ondansetron HCl 4 mg Q4HP PRN IV 05/27/24 22:45 UNV Docusate Sodium 100 mg BIDPRN PRN PO 05/27/24 22:45 UNV Acetaminophen 650 mg Q6HP PRN PO 05/27/24 22:45 Diagnostic Test (Pha) 1 strip ACHS 05/28/24 07:00 UNV Insulin Human Regular ACHS SC 05/28/24 07:00 UNV Dextrose 50 ml UD PRN IV 05/27/24 23:00 UNV Exam Vital Signs Vital Signs Date Time Temp Pulse Resp B/P (MAP) Pulse Ox O2 Delivery O2 Flow Rate FiO2 05/27/24 21:58 116/70 05/27/24 20:25 18 95 Nasal Cannula* 5 40 05/27/24 19:30 97.0 75 97.0 General Appearance: Alert, Oriented X3, Cooperative, No acute distress HEENT: Atraumatic, PERRLA, EOMI, Mucous membr. moist/pink Respiratory: Normal air movement, Other (Diminished breath sounds) Cardiovascular: Regular rate, Normal S1, Normal S2, No murmurs Abdominal: Normal bowel sounds, Soft, No tenderness, No hepatospenomegaly, No masses Extremities: No clubbing, No cyanosis, No edema, Normal pulses, No tenderness/swelling Skin: No rashes, No breakdown, No significant lesion Neuro: Normal speech, Normal tone, Sensation intact, Cranial nerves 3-12 NL, Reflexes 2+ Psych/Mental Status: Mental status NL, Mood NL Labs/Xrays Labs Test 05/27/24 19:32 05/27/24 18:38 Range/Units Troponin I High Sensitivity 21 </=54 ng/L White Blood Count 4.1 L 4.4-10.8 10^3/uL Red Blood Count 3.71 L 4.5-5.90 10^6/uL Hemoglobin 8.4 L 13.5-17.5 g/dL Hematocrit 28.0 L 41.0-53.0 % Mean Corpuscular Volume 75.4 L 80.0-100.0 fL Mean Corpuscular Hemoglobin 22.5 L 28.0-32.0 pg Mean Corpuscular Hemoglobin Concent 29.9 L 32.0-36.0 g/dL Red Cell Distribution Width 24.3 H 11.8-14.3 % Platelet Count 114 L 140-450 10^3/uL Mean Platelet Volume 8.6 6.9-10.8 fL Neutrophils (%) (Auto) 73.9 37.0-80.0 % Lymphocytes (%) (Auto) 15.2 10.0-50.0 % Monocytes (%) (Auto) 7.6 0.0-12.0 % Eosinophils (%) (Auto) 2.2 0.0-7.0 % Basophils (%) (Auto) 1.1 0.0-2.0 % Neutrophils # (Auto) 3.0 1.6-8.6 10 ^3/uL Lymphocytes # (Auto) 0.6 0.4-5.4 10 ^3/uL Monocytes # (Auto) 0.3 0-1.3 10 ^3/uL Eosinophils # (Auto) 0.1 0-0.8 10 ^3/uL Basophils # (Auto) 0 0-0.2 10 ^3/uL Nucleated Red Blood Cells 1.3 % Sodium Level 148 H 136-145 mmol/L Potassium Level 3.9 3.5-5.1 mmol/L Chloride Level 110 H 98-107 mmol/L Carbon Dioxide Level 28 20-31 mmol/L Anion Gap 10 5-15 Blood Urea Nitrogen 47 H 9-23 mg/dL Creatinine 1.71 H 0.700-1.30 mg/dL Glomerular Filtration Rate Calc 41 >90 mL/min BUN/Creatinine Ratio 27.5 H 10.0-20.0 Serum Glucose 86 74-106 mg/dL Lactic Acid Level 1.6 0.4-2.0 mmol/L Calcium Level 8.8 8.7-10.4 mg/dL Total Bilirubin 0.6 0.2-1.0 mg/dL Aspartate Amino Transferase (AST) 22 13-40 U/L Alanine Aminotransferase (ALT) 25 7-40 U/L Alkaline Phosphatase 122 H 46-116 U/L B-Type Natriuretic Peptide 1535.13 0-100 pg/mL Total Protein 6.4 5.7-8.2 g/dL Albumin 3.4 3.2-4.8 g/dL PATIENT: JON FRANKEL ACCT: [id number] UNIT: [id number] : 1950 LOC: ER ROOM / BED: / AGE / SEX: 74 / M ADM STATUS: REG ER SERVICE 1826 ORDERING PHYSICIAN: THIAGO WORKMAN MD PROCEDURE(s): HWOCT - HEAD WITHOUT CONTRAST REASON: SLURRED SPEECH/DIZZINESS ORDER NUMBER(s): [id number], ACCESSION NUMBER(s): [id number] CT HEAD WITHOUT CONTRAST INDICATION: SLURRED SPEECH/DIZZINESS COMPARISON: None TECHNIQUE: CT of the head without intravenous contrast. RADIATION DOSE: CTDIvol: 61.12 mGy, DLP: 1101.95 mGy*cm FINDINGS: There is no evidence of intracranial hemorrhage, infarct, extra-axial collection, mass effect, midline shift, herniation or hydrocephalus. The ventricles, sulci and cisterns are age appropriate. The lazo-white differentiation is preserved. Visualized paranasal sinuses and mastoid air cells are clear. Soft tissues and osseous structures are unremarkable. IMPRESSION: No acute intracranial abnormality. ORDERING PHYSICIAN: THIAGO WORKMAN MD PROCEDURE(s): CXR1 - CHEST XRAY 1 VIEW REASON: sob ORDER NUMBER(s): [id number], ACCESSION NUMBER(s): [id number] CHEST RADIOGRAPH Indication: sob Technique: Single frontal view of the chest was obtained COMPARISON: XY CHEST XRAY 1 VIEW on DOS: 04/28/24, XY CHEST PORTABLE on DOS: 04/26/24, XY CHEST XRAY 1 VIEW on DOS: 11/26/23, XY CHEST PORTABLE on DOS: 11/21/23, XY CHEST PORTABLE on DOS: 04/02/23 FINDINGS: Lines and Tubes: None Lungs: Moderate interstitial pulmonary edema. Pleura: Small bilateral effusions. No pneumothorax. Cardiomediastinal contours: Cardiomegaly Bones: Unremarkable IMPRESSION: 1. Moderate interstitial pulmonary edema. 2. Small bilateral effusions. Assessment/Plan Assessment/Plan Acute exacerbation of congestive heart failure Pleural effusion Hypernatremia ANIVAL (acute kidney injury) Pulmonary edema Plan 1. Admit to telemetry unit 2. Breathing treatment 3. Pain control management 4. Management of fluids and electrolytes 5. Consultation for Cardiology 6. Diagnostic tests chest x-ray 7. DVT prophylaxis-on Plavix 8. Repeat labs CBC, CMP in a.m. 9. Continue with current medical management 10. Treatment plan discussed with patient and RN. Patient verbalized understanding. Plan discussed with: Patient, Other (RN) My Orders Orders - SREEDHAR ESTRELLA DNP Procedure Category Date Status Time Consistent DIET 05/28/24 Transmitted Carb(Ccho)Diabetes Breakfast Atorvastatin (Lipitor) PHA 05/28/24 In Process 22:00 Clopidogrel Bisulfate PHA 05/28/24 Logged (Plavix) 10:00 Furosemide Injection PHA 05/28/24 Logged (Lasix Injection) 10:00 Albuterol Medneb PHA 05/27/24 In Process (Ventolin Medneb) 22:45 *Dr. Sara Angel -Da CONS 05/27/24 Transmitted Rosario 22:40 * Cardiology Consult CONS 05/27/24 Transmitted 22:40 Carvedilol Tablet PHA 05/28/24 Logged (Coreg Tablet) 10:00 Allergies ALLYSON 05/27/24 In Process 22:40 Code Status CODE 05/27/24 Transmitted 22:40 Sodium Chloride Lock PHA 05/28/24 Logged (Saline Lock Ns) 06:00 Oxygen Per Hour RT 05/27/24 Transmitted 22:40 Hydrocodone-Acet PHA 05/27/24 Logged 5/325mg Tab ([place] 22:45 Ondansetron Hcl PHA 05/27/24 Logged (Zofran) 22:45 Docusate Sodium PHA 05/27/24 Logged Capsule (Colace 22:45 Complete Blood Count LAB 05/28/24 Verified 04:00 Comprehensive LAB 05/28/24 Verified Metabolic Panel 04:00 Echo 2d Mode Cardiac US 05/27/24 Logged DOP 22:40 Condition: Serious ALLYSON 05/27/24 In Process 22:40 Acetaminophen Tablet PHA 05/27/24 In Process (Tylenol Tablet) 22:45 Bedrest With Bathroom ALLYSON 05/27/24 In Process Privileg 22:40 Sequential ALLYSON 05/27/24 In Process Compression Device Glucose Blood PHA 05/28/24 Logged (Accu-Chek Comfort 07:00 Insulin R (Human) PHA 05/28/24 Logged (Insulin R) 07:00 Dextrose 50% Syringe PHA 05/27/24 Logged 23:00 Problem List: (1) Acute exacerbation of congestive heart failure (2) Hypernatremia (3) Pleural effusion (4) Pulmonary edema (5) ANIVAL (acute kidney injury) Date of Service: May 27, 2024 Billing Provider: SREEDHAR ESTRELLA DNP Common Visit Codes: 80364-[id number] INP/OBS CARE (HIGH) SREEDHAR ESTRELLA DNP May 27, 2024 23:00
[2024-05-27 23:54] VITALS: O2SAT 93
[2024-05-28] VITALS (11 sets, daily range): BP systolic 97–110; BP diastolic 50–64; PULSE 61–90; RESP 12–20; TEMP 91.6–97; O2SAT 88–97
[2024-05-28] MEDS: ALBUTEROL SULF 2.5 MG/0.5ML(0.5%) NEB SOLN NEB PRN (04:49)
[2024-05-28 05:40] LABS: Eosinophils # (auto) 0.1 10 ^3/uL (0-0.8); Hemoglobin 8.1 g/dL (13.5-17.5); Mean Corpuscular Volume 76.2 fL (80.0-100.0); Monocytes # (auto) 0.3 10 ^3/uL (0-1.3); Red Cell Distribution Width 24.7 % (11.8-14.3)
[2024-05-28 05:41] LABS: Basophils # (auto) 0.1 10 ^3/uL (0-0.2); Basophils % (auto) 1.3 % (0.0-2.0); Eosinophils % (auto) 2.9 % (0.0-7.0); Hematocrit 26.4 % (41.0-53.0); Lymphocytes # (auto) 0.7 10 ^3/uL (0.4-5.4); Lymphocytes % (auto) 16.1 % (10.0-50.0); Mean Corpuscular Hemoglobin 23.3 pg (28.0-32.0); Mean Corpuscular Hgb Conc. 30.5 g/dL (32.0-36.0); Monocytes % (auto) 6.6 % (0.0-12.0); Neutrophils % (auto) 73.1 % (37.0-80.0); Nucleated Red Blood Cells % 1.5 %; Platelet Count (auto) 104 10^3/uL (140-450); Red Blood Cells 3.46 10^6/uL (4.5-5.90); White Blood Cell 4.1 10^3/uL (4.4-10.8)
[2024-05-28 05:57] LABS: Alanine Aminotransferase 24 U/L (7-40); Anion Gap 8 (5-15); Aspartate Aminotransferase 23 U/L (13-40); BUN/Creatinine Ratio 23.7 (10.0-20.0); Calcium 8.8 mg/dL (8.7-10.4); Carbon Dioxide 27 mmol/L (20-31); Potassium 3.6 mmol/L (3.5-5.1); Total Protein 6.7 g/dL (5.7-8.2)
[2024-05-28 05:58] LABS: Albumin 3.4 g/dL (3.2-4.8); Bilirubin, Total 0.5 mg/dL (0.2-1.0)
[2024-05-28 06:21] LABS: Alkaline Phosphatase 117 U/L (46-116); Blood Urea Nitrogen 42 mg/dL (9-23); Chloride 112 mmol/L (98-107); Glucose 112 mg/dL (74-106); Sodium 147 mmol/L (136-145)
[2024-05-28] MEDS: SODIUM CHLOR 0.9% PF (SALINE LOCK) 10ML VIAL/SYR IV SCH (06:49)
[2024-05-28] MEDS: LORazepam 2MG/ML-1ML VIAL IV PRN (06:59)
[2024-05-28] MEDS: InsuLIN REG 1unit/0.01ml Soln (100units/ml) SC SCH (07:00)
[2024-05-28] MEDS: ACCU-CHEK COMFORT CURVE STRIP VI SCH (07:02)
[2024-05-28] MEDS: FUROSEMIDE 40 MG/4 ML VIAL IV SCH (10:00)
[2024-05-28] MEDS: CLOPIDOGREL BISULFATE 75 MG TAB PO SCH (12:53)
[2024-05-28] MEDS: CARVEDILOL 3.125 MG TAB PO SCH (12:54)
[2024-05-28 14:05] LABS: Base Excess -0.3 mmol/L (-2.0-3.0)
--- NOTE | 2024-05-28 14:37 | DVHPN2 ---
Assessment/Plan Assessment/Plan Progress note 74 yo M with COPD HFrEF IDDM preiously admitted for cellulitis and diabetic foot on home iv abx invanz admitted for ams and heart failure exacerbation Physical exam somnolent, oriented x2 JVD jawline crackles diffuse s1 s2 rrr abdomen soft LE with alyssa bandage, cannot eval edema labs ekg imaging reviewed assessment and plan acute on chronic hypoxic respiratory failure COPD group E with exacerbation acute on chronic systolic heart failure ICM CAD s/p MELISSA PAD s/p iliac stents ANIVAL VMN Afib on eliquis HTN HLD IDDM foot ulcers and celulitis on invanz at home HFrEF EF 35% ANIVAL VMN cover with vanc and nae MRSA swab maintain spo2 >88 (pulse ox seems to be undermeasuring) resume juanita emeds hold anti htn c/w lasix maintain -2L monitor cr strict i o christina c/w AC avoid BEERS medication delirium prevaution diet cardiac dvt ppx on AC critical care time 45 mintues Plan discussed with: Patient, Spouse My Orders Orders - ARNIE ARREOLA MD Procedure Category Date Status Time Abg W/ Co-Ox RT 05/28/24 Logged 13:50 Date of Service: May 28, 2024 Billing Provider: ARNIE ARREOLA MD Common Visit Codes: [id number] CARE 30-74 MIN ARNIE ARREOLA MD May 28, 2024 14:36
[2024-05-28] MEDS: FUROSEMIDE 40 MG/4 ML VIAL IV ONE (15:29)
[2024-05-28] MEDS: methylPREDNISolone SOD SUCC 125 MG/2 ML VL IV ONE (15:29)
[2024-05-28] MEDS: ATORVASTATIN 20 MG TAB PO SCH (21:43)
[2024-05-28] MEDS: LINEZOLID 600MG/300ML 300 ML IV SCH (21:43)
[2024-05-28] MEDS: MEROPENEM 1GM IVPB 50 ML IV SCH (21:44)
[2024-05-28] MEDS: ENOXAPARIN SOD 100 MG/1 ML SYRINGE SC SCH (21:44)
[2024-05-29] VITALS (10 sets, daily range): BP systolic 104–144; BP diastolic 56–66; PULSE 72–89; RESP 15–20; TEMP 96.8–99.4; O2SAT 93–99
[2024-05-29 07:08] LABS: Anion Gap 11 (5-15); Carbon Dioxide 23 mmol/L (20-31)
[2024-05-29 07:14] LABS: BUN/Creatinine Ratio 25.8 (10.0-20.0)
[2024-05-29 07:15] LABS: Blood Urea Nitrogen 48 mg/dL (9-23); Calcium 8.6 mg/dL (8.7-10.4); Chloride 115 mmol/L (98-107); Glucose 128 mg/dL (74-106); Magnesium 2.7 mg/dL (1.6-2.6); Potassium 3.5 mmol/L (3.5-5.1); Sodium 149 mmol/L (136-145)
[2024-05-29 07:28] LABS: Phosphorus 5.8 mg/dL (2.4-5.1)
[2024-05-29 07:34] LABS: Hemoglobin 8.5 g/dL (13.5-17.5); Red Blood Cells 3.73 10^6/uL (4.5-5.90); White Blood Cell 2.7 10^3/uL (4.4-10.8)
[2024-05-29 07:36] LABS: Hematocrit 28.3 % (41.0-53.0); Mean Corpuscular Hemoglobin 22.7 pg (28.0-32.0); Mean Corpuscular Hgb Conc. 29.9 g/dL (32.0-36.0); Mean Corpuscular Volume 75.9 fL (80.0-100.0); Platelet Count (auto) 117 10^3/uL (140-450)
[2024-05-29 07:39] LABS: Red Cell Distribution Width 25.2 % (11.8-14.3)
[2024-05-29 07:40] LABS: Basophils % (manual) 0 (0.0-2.0); Blast Cells 0; Eosinophils % (manual) 0 (0-7); Metamyelocytes % 0; Myelocytes % 0; Promyelocytes % 0; Reactive Lymphocytes 0
[2024-05-29 08:20] LABS: Anisocytosis Moderate; Band Neutrophils % (manual) 2; Lymphocytes % (manual) 10 (10.0-50.0); Monocytes % (manual) 2 (0-12)
[2024-05-29 08:21] LABS: Hypochromia Moderate; Ovalocytes FEW; Platelet Estimate Decreased; Tear Drop Cells FEW
[2024-05-29] MEDS: predniSONE 20 MG TAB PO SCH (10:03)
--- NOTE | 2024-05-29 12:26 | DVHSR ---
APPROVED REPORT EXAM: LIMITED Two-dimensional and M-mode echocardiogram with Doppler and color Doppler. Blood Pressure: 95/62 mmHg INDICATION CHF exacerbation, unspecified RISK FACTORS Height: 5'11, Weight: 220 DIMENSIONS LVDd4.9 (3.8-5.7cm)LA (2D)5.0 (1.9-4.0cm)Aortic Root3.3 (2.0-3.7cm) LVDs3.8 (2.5-4.0cm)LA (MM) (1.9-4.0cm)Aortic Cusp Exc1.5 (1.5-2.0cm) EF (%) 25.0 (55-70%)Rt. Atrium4.9 (1.9-4.0cm)Asc. Aorta3.1 cm IVSd0.9 (0.7-1.1cm)RV (D)4.7 (1.8-2.4cm) PWd1.0 (0.7-1.1cm) Mitral Valve MitralMitral Stenosis E wave0.90m/sMV Mean GR.mmHg A wave0.59m/sMV Peak GR.52mmHg E/A ratio1.52D MVAcm2 DECEL [id number] 1/2 Timems Aortic Valve Aortic ValveAortic Stenosis V10.72m/Jevon Mean GR.2mmHg V20.99m/Jevon Peak GR.4mmHg LVOT Diameter2.2 (1.8-2.4cm)Doppler AVA2.76cm2 Pulmonic Valve V20.66m/s Tricuspid Valve TR Velocity2.61m/s [id number] Other Information Quality : Technically LimitedRhythm : Technically limited study due to pt moving my arm and moving Conclusion lvef 50% by visual estimate normal rv function left atrium enlarged no severe valve abnormalities noted normal pericardium aortic sclerosis
--- NOTE | 2024-05-29 13:16 | DVHPN2 ---
Subjective The patient is seen and examined at bedside. No complaint today. Minimal shortness for breath Reviewed: Care Plan, H&P, Labs, Medications, Previous Orders, Radiology Changes from previous H/P or p: No Changes Eyes: No Pain, No Vision change, No Conjunctivae inflammation, No Eyelid inflammation, No Other, No Redness ENT: No Ear pain, No Ear discharge, No Nose pain, No Nose discharge, No Nose congestion, No Mouth pain, No Mouth swelling, No Throat pain, No Throat swelling, No Other Cardiovascular: No Chest Pain, No Palpitations, No Orthopnea, No Paroxysmal Noc. Dyspnea, No Edema, No Lt Headedness, No Other Respiratory: No Cough, No Dry; Shortness of breath; No SOB with excertion, No Wheezing, No Hemoptysis, No Pleuritic Pain, No Sputum; Other (SOB at rest) Gastrointestinal: No Nausea, No Vomiting, No Abdominal Pain, No Diarrhea, No Constipation, No Melena, No Hematochezia, No Other Genitourinary: No Dysuria, No Frequency, No Incontinence, No Hematuria, No Retention, No Other Musculoskeletal: No other, No neck pain, No shoulder pain, No arm pain, No back pain, No hand pain, No leg pain, No foot pain Skin: No Rash, No Lesions, No Jaundice, No Bruising, No Other Objective Vitals Vital Signs Date Time Temp Pulse Resp B/P (MAP) Pulse Ox O2 Delivery O2 Flow Rate FiO2 05/29/24 08:00 80 18 94 Oxymizer 5 N/A 05/29/24 05:00 99.4 113/64 (80) 99.4 Intake/Output Intake and Output 05/29/24 07:00 Intake Total 350 ml Output Total 900 ml Balance -550 ml Intake IV Total 350 ml Output Urine Total 900 ml General Appearance: Alert, Oriented X3, Cooperative, No acute distress HEENT: Atraumatic, PERRLA, EOMI, Mucous membr. moist/pink Neck: Supple Lungs: Clear to auscultation, Normal air movement Cardiovascular: Regular rate, Normal S1, Normal S2, No murmurs, Gallops, Rubs Abdomen: Normal bowel sounds, Soft, No tenderness Neuro: Cranial nerves 3-12 NL Psych/Mental Status: Mental status NL Medications Current Medications Medications Dose Ordered Sig/Erik Route Start Time Stop Time Status Last Admin Dose Admin Atorvastatin Calcium 20 mg HS PO 05/28/24 22:00 05/28/24 21:43 20 MG Clopidogrel Bisulfate 75 mg DAILY PO 05/28/24 10:00 05/29/24 10:04 75 MG Albuterol 2.5 mg Q4HPRN PRN NEB 05/27/24 22:45 05/28/24 04:49 2.5 MG Sodium Chloride 10 ml Q8HR IV 05/28/24 06:00 05/29/24 05:19 10 ML Acetaminophen 650 mg Q6HP PRN PO 05/27/24 22:45 Diagnostic Test (Pha) 1 strip ACHS 05/28/24 07:00 05/29/24 12:03 1 STRIP Insulin Human Regular ACHS SC 05/28/24 07:00 05/29/24 12:04 2 UNITS Dextrose 50 ml UD PRN IV 05/27/24 23:00 Enoxaparin Sodium 100 mg Q12HR SC 05/28/24 22:00 05/29/24 10:04 100 MG Meropenem 50 ml @ 17 mls/hr Q12HR IV 05/28/24 22:00 05/29/24 10:02 17 MLS/HR Linezolid 300 ml @ 150 mls/hr Q12HR IV 05/28/24 22:00 05/29/24 10:03 150 MLS/HR Prednisone 40 mg DAILY PO 05/29/24 10:00 06/02/24 09:59 05/29/24 10:03 40 MG Laboratory Results Laboratory Tests 05/29/24 06:19 Chemistry Test 05/29/24 06:19 Calcium Level 8.6 mg/dL (8.7-10.4) L Magnesium Level 2.7 mg/dL (1.6-2.6) H Phosphorus Level 5.8 mg/dL (2.4-5.1) H Blood Gas Results Test 05/28/24 13:51 Arterial Blood pH 7.367 (7.350-7.450) FiO2 % 64.0 Labs and/or images reviewed: Labs reviewed by me Assessment/Plan Assessment/Plan acute on chronic hypoxic respiratory failure COPD with exacerbation acute on chronic systolic heart failure ICM CAD s/p MELISSA PAD s/p iliac stents ANIVAL VMN Afib on eliquis HTN HLD IDDM foot ulcers and celulitis on invanz at home HFrEF EF 35% ANIVAL VMN Continuing current management. Continuing with Lasix IV. Continuing to monitor strict in and out. Continuing with nebulizer. Continuing with IV antibiotic Merrem and Zyvox. Continuing with steroids. Continuing sliding scale insulin. Continuing with Eliquis. Continuing with hypertensive medication. This medical document was created using an electronic medical record system with [employer] computerized dictation system. Although this document has been carefully reviewed, there may still be some phonetic and typographical errors. These areas are purely typographical due to imperfections of the software programs, and do not reflect any compromise in the patient's medical care. Plan discussed with: Patient Date of Service: May 29, 2024 Billing Provider: CLIFF ROBERTSON MD Common Visit Codes: [id number] INP/OBS CARE(HIGH) CLIFF ROBERTSON MD May 29, 2024 13:16
[2024-05-29] MEDS: ACETAMINOPHEN 325 MG TAB PO PRN (21:38)
[2024-05-30] VITALS (12 sets, daily range): BP systolic 109–126; BP diastolic 50–68; PULSE 57–78; RESP 18–22; TEMP 97.5–98.4; O2SAT 91–98
--- NOTE | 2024-05-30 12:58 | DVHPN2 ---
Subjective The patient is seen and examined at bedside. Complain of shortness for breath. Reviewed: Care Plan, H&P, Labs, Medications, Previous Orders, Radiology Changes from previous H/P or p: No Changes Eyes: No Pain, No Vision change, No Conjunctivae inflammation, No Eyelid inflammation, No Other, No Redness ENT: No Ear pain, No Ear discharge, No Nose pain, No Nose discharge, No Nose congestion, No Mouth pain, No Mouth swelling, No Throat pain, No Throat swelling, No Other Cardiovascular: No Chest Pain, No Palpitations, No Orthopnea, No Paroxysmal Noc. Dyspnea, No Edema, No Lt Headedness, No Other Respiratory: No Cough, No Dry; Shortness of breath; No SOB with excertion, No Wheezing, No Hemoptysis, No Pleuritic Pain, No Sputum; Other (SOB at rest) Gastrointestinal: No Nausea, No Vomiting, No Abdominal Pain, No Diarrhea, No Constipation, No Melena, No Hematochezia, No Other Genitourinary: No Dysuria, No Frequency, No Incontinence, No Hematuria, No Retention, No Other Musculoskeletal: No other, No neck pain, No shoulder pain, No arm pain, No back pain, No hand pain, No leg pain, No foot pain Skin: No Rash, No Lesions, No Jaundice, No Bruising, No Other Objective Vitals Vital Signs Date Time Temp Pulse Resp B/P (MAP) Pulse Ox O2 Delivery O2 Flow Rate FiO2 05/30/24 08:01 78 18 94 Oxymizer 5 N/A 05/30/24 05:00 97.7 113/51 (71) 97.7 Intake/Output Intake and Output 05/30/24 07:00 Intake Total 1350 ml Output Total 1400 ml Balance -50 ml Intake Oral 650 ml IV Total 700 ml Output Urine Total 1400 ml General Appearance: Alert, Oriented X3, Cooperative, No acute distress HEENT: Atraumatic, PERRLA, EOMI, Mucous membr. moist/pink Neck: Supple Lungs: Clear to auscultation, Normal air movement Cardiovascular: Regular rate, Normal S1, Normal S2, No murmurs, Gallops, Rubs Abdomen: Normal bowel sounds, Soft, No tenderness Neuro: Cranial nerves 3-12 NL Psych/Mental Status: Mental status NL Medications Current Medications Medications Dose Ordered Sig/Erik Route Start Time Stop Time Status Last Admin Dose Admin Atorvastatin Calcium 20 mg HS PO 05/28/24 22:00 05/29/24 21:37 20 MG Clopidogrel Bisulfate 75 mg DAILY PO 05/28/24 10:00 05/30/24 10:40 75 MG Albuterol 2.5 mg Q4HPRN PRN NEB 05/27/24 22:45 05/28/24 04:49 2.5 MG Sodium Chloride 10 ml Q8HR IV 05/28/24 06:00 05/30/24 05:28 10 ML Acetaminophen 650 mg Q6HP PRN PO 05/27/24 22:45 05/29/24 21:38 650 MG Diagnostic Test (Pha) 1 strip ACHS 05/28/24 07:00 05/30/24 12:09 1 STRIP Insulin Human Regular ACHS SC 05/28/24 07:00 05/30/24 12:09 3 UNITS Dextrose 50 ml UD PRN IV 05/27/24 23:00 Enoxaparin Sodium 100 mg Q12HR SC 05/28/24 22:00 05/30/24 10:40 100 MG Meropenem 50 ml @ 17 mls/hr Q12HR IV 05/28/24 22:00 05/30/24 10:41 17 MLS/HR Linezolid 300 ml @ 150 mls/hr Q12HR IV 05/28/24 22:00 05/30/24 10:41 150 MLS/HR Prednisone 40 mg DAILY PO 05/29/24 10:00 06/02/24 09:59 05/30/24 10:40 40 MG Laboratory Results Laboratory Tests 05/29/24 06:19 Microbiology Microbiology Date/Time Source Procedure Growth Status 05/28/24 15:41 Nose MRSA Screen - Final Complete Labs and/or images reviewed: Labs reviewed by me Assessment/Plan Assessment/Plan acute on chronic hypoxic respiratory failure COPD with exacerbation acute on chronic systolic heart failure ICM CAD s/p MELISSA PAD s/p iliac stents ANIVAL VMN Afib on eliquis HTN HLD IDDM foot ulcers and celulitis on invanz at home HFrEF EF 35% ANIVAL VMN Continuing current management. Continuing with Lasix IV. Continuing to monitor strict in and out. Continuing with nebulizer. Continuing with IV antibiotic Merrem and Zyvox. Continuing with steroids. Continuing sliding scale insulin. Continuing with Eliquis. Continuing with hypertensive medication. Continuing wound care This medical document was created using an electronic medical record system with [employer] computerized dictation system. Although this document has been carefully reviewed, there may still be some phonetic and typographical errors. These areas are purely typographical due to imperfections of the software programs, and do not reflect any compromise in the patient's medical care. Plan discussed with: Patient My Orders Orders - CLIFF ROBERTSON MD Procedure Category Date Status Time Cleanse Wound With ALLYSON 05/29/24 In Process Wound Clean 11:00 Apply Barrier Cream ALLYSON 05/29/24 In Process 11:00 * Dietary Consult CONS 05/29/24 Transmitted 16:29 Date of Service: May 30, 2024 Billing Provider: CLIFF ROBERTSON MD Common Visit Codes: [id number] INP/OBS CARE(HIGH) CLIFF ROBERTSON MD May 30, 2024 12:58
[2024-05-31] VITALS (20 sets, daily range): BP systolic 103–109; BP diastolic 56–62; PULSE 53–106; RESP 18–24; TEMP 91.3–97.9; O2SAT 90–99
[2024-05-31 11:54] LABS: Basophils # (auto) 0 10 ^3/uL (0-0.2); Eosinophils # (auto) 0 10 ^3/uL (0-0.8); Hemoglobin 7.5 g/dL (13.5-17.5); Platelet Count (auto) 101 10^3/uL (140-450); Red Blood Cells 3.17 10^6/uL (4.5-5.90); White Blood Cell 4.9 10^3/uL (4.4-10.8)
[2024-05-31 11:57] LABS: Eosinophils % (auto) 0.2 % (0.0-7.0); Hematocrit 24.9 % (41.0-53.0); Lymphocytes # (auto) 0.5 10 ^3/uL (0.4-5.4); Lymphocytes % (auto) 9.6 % (10.0-50.0); Mean Corpuscular Hemoglobin 23.6 pg (28.0-32.0); Mean Corpuscular Volume 78.7 fL (80.0-100.0); Monocytes # (auto) 0.3 10 ^3/uL (0-1.3); Monocytes % (auto) 6.3 % (0.0-12.0); Neutrophils # (auto) 4.1 10 ^3/uL (1.6-8.6); Neutrophils % (auto) 83.9 % (37.0-80.0); Red Cell Distribution Width 25.8 % (11.8-14.3)
[2024-05-31 12:06] LABS: Alanine Aminotransferase 18 U/L (7-40); Albumin 3.2 g/dL (3.2-4.8); Alkaline Phosphatase 103 U/L (46-116); Anion Gap 6 (5-15); Aspartate Aminotransferase 20 U/L (13-40); BUN/Creatinine Ratio 33.3 (10.0-20.0); Bilirubin, Total 0.4 mg/dL (0.2-1.0); Calcium 8.7 mg/dL (8.7-10.4); Carbon Dioxide 28 mmol/L (20-31); Potassium 3.8 mmol/L (3.5-5.1); Sodium 148 mmol/L (136-145); Total Protein 6.3 g/dL (5.7-8.2)
[2024-05-31 12:07] LABS: Blood Urea Nitrogen 60 mg/dL (9-23); Chloride 114 mmol/L (98-107); Glucose 253 mg/dL (74-106)
[2024-05-31 12:23] LABS: Urine Bacteria None Seen /hpf (None Seen)
[2024-05-31 12:49] LABS: Urine Amorphous Crystal FEW /hpf (None Seen); Urine Blood 3+ /uL (Negative); Urine Mucus FEW (None Seen); Urine Protein, UAD 2+ (Negative); Urine Specific Gravity 1.007 (1.001-1.035); Urine Squamous Epithelial Cell None Seen /hpf (<5); Urine Urobilinogen Normal (Negative); Urine WBC 29 /HPF (0-3); Urine pH 5.5 (5.0-9.0)
[2024-05-31 12:51] LABS: Urine Clarity Cloudy (Clear); Urine Color Red (Yellow)
--- NOTE | 2024-05-31 14:15 | DVHPN2 ---
Assessment/Plan Assessment/Plan Progress note 74 yo M with COPD HFrEF IDDM preiously admitted for cellulitis and diabetic foot on home iv abx invanz admitted for ams and heart failure exacerbation seen today during rounds. still confused, per family not baseline. c/w abx. hypothermic started on last hugger, no other vitals concern Physical exam somnolent, oriented x2 JVD jawline crackles diffuse s1 s2 rrr abdomen soft LE with alyssa bandage, cannot eval edema labs ekg imaging reviewed assessment and plan acute on chronic hypoxic respiratory failure COPD group E with exacerbation acute on chronic systolic heart failure ICM CAD s/p MELISSA PAD s/p iliac stents ANIVAL VMN Afib on eliquis HTN HLD IDDM foot ulcers and celulitis on invanz at home HFrEF EF 35% gross hematuria cover with vanc and nae MRSA swab maintain spo2 >88 (pulse ox seems to be undermeasuring) resume juanita emeds hold anti htn c/w lasix maintain -2L monitor cr strict i o christina c/w AC avoid BEERS medication delirium prevaution follow UA, if persists will start CBI, send PSA diet cardiac dvt ppx on AC Plan discussed with: Patient My Orders Orders - ARNIE ARREOLA MD Procedure Category Date Status Time Blood Culture AMRIT 05/31/24 In Process 11:10 Date of Service: May 31, 2024 Billing Provider: ARNIE ARREOLA MD Common Visit Codes: [id number] INP/OBS CARE(HIGH) ARNIE ARREOLA MD May 31, 2024 14:15
[2024-06-01] VITALS (92 sets, daily range): BP systolic 88–131; BP diastolic 45–74; PULSE 60–97; RESP 16–60; TEMP 97.5–99; O2SAT 91–100
[2024-06-01] MEDS: MEROPENEM 1GM IVPB 50 ML IV SCH (00:51)
[2024-06-01] MEDS: MIDAZOLAM HCL 5 MG/ML-1ML VIAL ONE (02:02)
[2024-06-01] MEDS: MIDAZOLAM DRIP 50 mg/50mL 50 ML IV ONE (02:05)
[2024-06-01] MEDS: NOREPINEPHRINE 8 MG/250ML KIT 250 ML IV ONE (03:25)
[2024-06-01 03:36] LABS: Basophils # (auto) 0.1 10 ^3/uL (0-0.2); Eosinophils # (auto) 0 10 ^3/uL (0-0.8); Monocytes # (auto) 0.4 10 ^3/uL (0-1.3)
[2024-06-01 03:39] LABS: Basophils % (auto) 0.7 % (0.0-2.0); Eosinophils % (auto) 0.3 % (0.0-7.0); Hematocrit 25.3 % (41.0-53.0); Hemoglobin 7.7 g/dL (13.5-17.5); Lymphocytes # (auto) 1.6 10 ^3/uL (0.4-5.4); Lymphocytes % (auto) 17.8 % (10.0-50.0); Mean Corpuscular Hemoglobin 23.5 pg (28.0-32.0); Mean Corpuscular Hgb Conc. 30.4 g/dL (32.0-36.0); Mean Corpuscular Volume 77.2 fL (80.0-100.0); Monocytes % (auto) 4.7 % (0.0-12.0); Neutrophils % (auto) 76.5 % (37.0-80.0); Nucleated Red Blood Cells % 1.1 %; Platelet Count (auto) 126 10^3/uL (140-450); Red Blood Cells 3.27 10^6/uL (4.5-5.90); White Blood Cell 9.2 10^3/uL (4.4-10.8)
--- NOTE | 2024-06-01 03:39 | RESUS ---
CODE BLUE ASSESSSMENT History of Events History of Events: 74-year-old male came to emergency room by EMS for shortness a breath/dizziness. Per EMS, [facility], has history of hypertension, diabetes, dyslipidemia, CKD, CHF, COPD, chronic bilateral foot ulcers, status post cardiac stents. He is on home oxygen at 4 liters/minute. Was noted by caregivers that patient has been short of breath and dizzy. Noted also slurring of speech x1.5 day. No facial asymmetry noted. Blood sugar was 108, and saturating 96% at 4 liters/minute. Pt has been hypothermic since yesterday with periods of confusion, pt becomes agitated and pulls oxygen off. tonight pt pulled oxygen off and was found apnic. Initial Information Date: Jun 01, 2024 Time: [place]rest[place] Witnessed: No CPR started initial time: CPR started by whom: Hospital Staff Pre-Hospital Care: ACLS Type of arrest: Cardiac, Respiratory, Adult, Unwitnessed Spontaneous Respirations: No Pulse Present: No Monitoring: ECG, Pulse Oximetry, Telemetry Crash Cart Opened and Supplies: Yes Airway Ventilation Breathing at Onset: Apneic O2 Sat by Pulse Oximetry: 0 Oxygen Delivery Method: Ambu-Bag Time of first Assisted Ventila: : Intubation Time: Intubation Size: 8.0 cuffed Intubated by: NEY Intubation Attempts: 1 Intubated orally: Yes Intubated Nasaly: No Tube secured at: 24 CO2 indicator used: Yes Confirmation: Auscultation, Exhaled CO2, Chest X-ray Suctioning (Oral/Tracheal): No Circulation Circulation : Time: Pulse Rate (adult): 0 Blood Pressure Systolic: 0 Blood Pressure Diastolic: 0 Temperature (Fahrenheit): 97.6 Procedure - IV Procedure - IV : IV start time: IV Side: Left IV Location: Upper Arm Anterior IV Catheter Type: Mid-line IV Line Care: Saline Flush Comment PREVIOUSLY PLACED Medications & Response Medications and Responses : Medication Time: ADULT Medications Given ADULT: Epinephrine 1 mg, Sodium Bacarbinate 50 meq Route of Administration: IV Heart Rate: 0 EKG Rhythm: Asystole Blood Pressure Systolic: 0 Blood Pressure Diastolic: 0 Respiratory Rate: 0 O2 Sat by Pulse Oximetry: 0 EKG Rhythm: Asystole Comment PULSE CHECK AT 0256 ROSC, BP 151/80 HR 110 SAT 93% Pacing Pacer Pads Applied and Pacing: Yes Procedure - Strickland Catheter Urinary Catheter Type/Location: Uretheral (Strickland) Comment: PREVIOUSLY PLACED Nurses Notes [place] Coma Scale Eye Opening: None (1) [place] Coma Scale Verbal: None (1) [place] Coma Scale Motor: None (1) Pupil Reaction: Sluggish Bedside Blood Glucose: 125 EKG Rhythm: Sinus Tachycardia Time Code Ended Time Code Ended: 02:55 Post Arrest Status: Ventilated Outcome of code: Successful Family notified: Yes Attending called: Yes Code Team Present: NEY POWER PLANT INSPECTOR, JAS RN HS, NATALEE PIECE JOBBER CHARGE, REI PLANT OPERATIONS COORDINATOR, CONNER RN, MAURO RT, MERRY RT. Post Resuscitation Neurologica Pupil Size: 3 ROSC Time of ROSC: 02:55 Pt Meets Criteria for Therapeu: No Therapeutic Hyperthermia Start: No JAS ANDERSON Jun 01, 2024 03:39
[2024-06-01 03:43] LABS: Red Cell Distribution Width 25.4 % (11.8-14.3)
--- NOTE | 2024-06-01 03:45 | DVH ---
CHEST RADIOGRAPH Indication: S/P INTUBATION Technique: Single frontal view of the chest was obtained Comparison: XY CHEST XRAY 1 VIEW on DOS: 05/27/24, XY CHEST XRAY 1 VIEW on DOS: 04/28/24, XY CHEST PORTAB LE on DOS: 04/26/24 IMPRESSION: The heart appears prominent in size. Bilateral interstitial and alveolar airspace opacities have wors ened. Endotracheal tube tip in satisfactory position. No sizable effusion or pneumothorax.
[2024-06-01 03:52] LABS: INR 1.14 (0.9-1.15); Partial Thromboplastin Time 30.2 SEC (24.5-34.5); Prothrombin Time 11.9 sec (9.3-11.8)
[2024-06-01 04:01] LABS: Base Excess 0.2 mmol/L (-2.0-3.0)
[2024-06-01] MEDS: MIDAZOLAM DRIP 50 mg/50mL 50 ML IV SCH (04:58)
[2024-06-01] MEDS: NOREPINEPHRINE 8 MG/250ML KIT 250 ML IV SCH (05:01)
[2024-06-01 05:22] LABS: Alanine Aminotransferase 23 U/L (7-40); Albumin 2.9 g/dL (3.2-4.8); Alkaline Phosphatase 120 U/L (46-116); Anion Gap 11 (5-15); Aspartate Aminotransferase 34 U/L (13-40); BUN/Creatinine Ratio 37.7 (10.0-20.0); Blood Urea Nitrogen 66 mg/dL (9-23); Calcium 8.4 mg/dL (8.7-10.4); Carbon Dioxide 25 mmol/L (20-31); Chloride 113 mmol/L (98-107); Glucose 163 mg/dL (74-106); Potassium 3.7 mmol/L (3.5-5.1); Sodium 149 mmol/L (136-145); Total Protein 5.6 g/dL (5.7-8.2)
[2024-06-01 05:23] LABS: Bilirubin, Total 0.6 mg/dL (0.2-1.0)
[2024-06-01 07:05] LABS: Lactic Acid w/Reflex 2.2 mmol/L (0.4-2.0)
[2024-06-01 08:12] LABS: Platelet Estimate Decreased
[2024-06-01 08:13] LABS: Anisocytosis Moderate; Hypochromia Moderate; Ovalocytes FEW; Tear Drop Cells FEW
[2024-06-01] MEDS: PROPOFOL 100 ML IV SCH (09:00)
--- NOTE | 2024-06-01 09:07 | CONS ---
Pharmacy Clinical Information: CQM HF. Patient became hemodynamically unstable (code blue), and was subsequ ently intubated. The most recent hemoglobin A1c that [facility] has a record of is 8.8% on 11/22/23; a more recent level might be beneficial to draw to assess the severity of the diabetes and whether another agent should be considered. Patient is also on an SGLT2-I which will also decrease A1c. Initiating metformin may not be an option as patient eGFR is is between 30 and 45 and currently has elevated lactic acid levels. Adding another antihyperglycemic medication should be done at the discretion of the primary care provider. EMMA ALVA PHARMACIST Jun 01, 2024 09:07
--- NOTE | 2024-06-01 10:18 | DVHPN2 ---
Assessment/Plan Assessment/Plan Progress note 74 yo M with COPD HFrEF IDDM preiously admitted for cellulitis and diabetic foot on home iv abx invanz admitted for ams and heart failure exacerbation seen today during rounds. overnight became confused, removed oxymizer, became hypoxic and had PEA arrest?, down time 2 minutes with 1 epi to ROSC. Intubated and sedated, on mechanical ventilation. Physical exam sedated and intubated, on mechanical ventilation mechanical breath soudns L pupil with defect, seems baseline cough + gag + s1 s2 rrr abdomen soft LE with alyssa bandage, cannot eval edema labs ekg imaging reviewed assessment and plan acute on chronic hypoxic respiratory failure req mechanical ventilation distributive shock COPD group E with exacerbation acute on chronic systolic heart failure ICM CAD s/p MELISSA PAD s/p iliac stents ANIVAL VMN Afib on eliquis HTN HLD IDDM foot ulcers and celulitis on invanz at home HFrEF EF 35% gross hematuria resolving likely traumatic c/w mechanical vent c/w pressor maintain map >70 c/w sedation meintain RAAS -3 prop and fent c/w with linezolid and nae MRSA swab maintain spo2 >90 hold anti htn c/w lasix maintain -1L monitor cr strict i o christina c/w therapeutic lovenox avoid BEERS medication delirium precaution diet jevity dvt ppx on AC gi ppx protonix critical care time 87 minutes Plan discussed with: Spouse My Orders Orders - ARNIE ARREOLA MD Procedure Category Date Status Time Blood Culture AMRIT 05/31/24 In Process 11:10 Vitamin B1 (Thiamine) LAB 05/31/24 In Process 14:17 Meropenem 1gm Ivpb PHA 06/01/24 In Process (Merrem 1gm/ Ns) 01:00 Furosemide Injection PHA 06/01/24 In Process (Lasix Injection) 10:00 *Consult CONS 06/01/24 Transmitted / 08:54 Propofol (Diprivan) PHA 06/01/24 In Process 09:00 Date of Service: Jun 01, 2024 Billing Provider: ARNIE ARREOLA MD Common Visit Codes: [id number] CARE 30-74 MIN, [id number] CARE-EACH +30MIN ARNIE ARREOLA MD Jun 01, 2024 10:18
[2024-06-01] MEDS ORDERED: ATROPINE SULF 1 MG/10ml SYR IV ONE (10:42)
--- NOTE | 2024-06-01 11:03 | ECG ---
[facility] Test Date: 2024-06-01 Test Time: 03:31:13 Pat Name: JON FRANKEL Department: icu Room: [address] [place] [address] A Gender: M Disease Case Manager: RYAN : 1950 Requested By: ANNE MARIE BREWSTER Order Number: [id number] Reading MD: Acosta Meléndez Measurements Intervals Patten Rate: 93 P: 22 NC: 210 QRS: 76 QRSD: 101 T: -11 QT: 392 QTc: 488 Interpretive Statements Sinus rhythm Borderline prolonged NC interval Anterior infarct, old Minimal ST depression, anterolateral leads Baseline wander in lead(s) V3 Electronically Signed On 06-02-2024 16:31:09 PDT by Acosta Meléndez Please click the below link to view image of tracing.
[2024-06-01] MEDS: FUROSEMIDE 40 MG/4 ML VIAL IV SCH (11:05)
[2024-06-01] MEDS: fentaNYL Drip 2500mCg/250mlNS 250 ML IV SCH (11:21)
--- NOTE | 2024-06-01 20:01 | DVHNC2 ---
Intubation Indication: Respiratory Insufficiency, Altered Mental Status, Airway Protection Prep: Preoxygenation Pretreated with: Analgesia, Sedation Medicated with: Succinylcholine Intubation Approach: Orotracheal Informed consent obtained: No (Emergent intubation) Risks/benefits/alt described: No Date of Service: Jun 01, 2024 Billing Provider: ANNE MARIE BREWSTER Common Visit Codes: PROCEDURE ONLY Procedure Codes: [id number] ANNE MARIE BREWSTER Jun 01, 2024 20:01
[2024-06-01] MEDS: methylPREDNISolone SOD SUCC 40 MG/ML VL IV SCH (21:09)
--- NOTE | 2024-06-01 23:40 | DVHINCON2 ---
Date of service: Jun 01, 2024 Referring Physician Bob Bhatt MD Reason for Consultation Acute on chronic hypoxic respiratory failure requiring mechanical ventilator, COPD. History of Present Illness A 74-year-old man who resides at [facility] with multiple past medical history including COPD, CHF, diabetes mellitus, IA, and hypertension who presented to ED on 05/27/24 with complaint of dizziness. Patient reported symptoms progressively worsening with shortness of breath, increased work of breathing, getting worse that prompted this visit. ED workup shows WBC 4.1, hemoglobin 8.4, hematocrit 28.0, platelets 114, sodium 148, potassium 3.9, BUN 47, creatinine 1.71, GFR 41, glucose 86, troponin 22, BNP 1535.13. Vitals notable for BP 116/70, heart rate 75, temperature 97.6 F, O2 saturation 95% on oxygen. Chest x-ray revealing moderate interstitial pulmonary edema and small bilateral effusions. Patient was admitted for further care. Pulmonary consultation is requested for evaluation and management of acute on chronic hypoxic respiratory failure requiring vent. Review of Systems: 14-point review of systems negative unless otherwise noted above. Past Medical History: COPD, anemia, CAD, CHF, chronic kidney disease, DM, GERD, hypertension, IA, chronic bilateral diabetic foot ulcers Past Surgical History: PTCA Medications: Reviewed. Allergies: Penicillins. Family History: No family history of premature CAD. No family history of lung disorders. Social History: Nonsmoker. No alcohol or illicit drug use. Allergies: Coded Allergies: Penicillins (Verified Allergy, Unknown, 04/01/23) Home Meds Reported Medications Prednisone (Prednisone) 10 Mg Tab, 1 TAB PO DAILY for 30 Days, #30 05/31/24 Gabapentin (Gabapentin) 300 Mg Cap, 1 CAP PO TID for 30 Days, #90 05/31/24 Pantoprazole Sodium Sesquihydr (Pantoprazole Sodium Dr) 40 Mg Tab, 1 TAB PO DAILY for 30 Days, #30 05/31/24 Senna (Senna-Time) 8.6 Mg Tab, 1 TAB PO BID PRN for FOR CONSTIPATION for 50 Days, #100 05/31/24 Albuterol Sulfate (Albuterol Sulfate Hfa) 108 Mcg/Act Aer, 2 PUFF IN Q4HR PRN for 30 Days, #17 05/31/24 Potassium Chloride (Klor-Con 10) 10 Meq Tab, 1 TAB PO DAILY for 30 Days, #30 05/31/24 Metoprolol Succinate (Metoprolol Succinate Er) 25 Mg Tab, 0.5 TAB PO DAILY for 30 Days, #15 05/31/24 Metformin Hydrochloride (Metformin Hcl) 1,000 Mg Tab, 1 TAB PO BID for 30 Days, #60 05/31/24 Magnesium Oxide (mg Supplement (Magnesium-Oxide) 400 Mg Tab, 1 TAB PO DAILY for 30 Days, #30 05/31/24 Furosemide (Furosemide 80 mg) 1 Tab Tab, 1 TAB PO BID for 30 Days, #60 05/31/24 Empagliflozin (Jardiance) 10 Mg Tab, 1 TAB PO QAM for 30 Days, #30 05/31/24 Atorvastatin Calcium (Lipitor) 40 Mg Tab, 1 TAB PO DAILY for 30 Days, #30 05/31/24 Brimonidine Tartrate (Brimonidine Tartrate) 0.2 % Daria, 1 DROP OP Q8HR for 30 Days, #10 3 Refills INSTILL 1 DROP INTO AFFECTED EYE EVERY 8 HOURS. 11/24/23 Clopidogrel Bisulfate (CLOPIDOGREL) 75 Mg Tab, 1 TAB PO DAILY for 30 Days, #30 11/24/23 Current Medications Current Medications Medications (Trade) Dose Ordered Sig/Erik Route PRN Reason Start Time Stop Time Status Last Admin Meropenem 50 ml @ 17 mls/hr Q12H IV 06/01/24 01:00 06/01/24 13:24 Midazolam HCl 50 ml @ 1 mls/hr Q24H IV 06/01/24 03:15 06/01/24 08:58 DC 06/01/24 04:58 Fentanyl Citrate 250 ml @ 2.5 mls/hr Q24H IV 06/01/24 03:15 06/01/24 11:21 Norepinephrine Bitartrate 250 ml @ 3.75 mls/hr Q24H IV 06/01/24 04:30 06/01/24 05:01 Furosemide (Lasix Injection) 40 mg DAILY IV 06/01/24 10:00 06/01/24 11:05 Propofol 100 ml @ 3.057 mls/ hr Q24H IV 06/01/24 09:00 06/01/24 16:58 Methylprednisolone Sodium Succinate (Solu Medrol) 40 mg BID IV 06/01/24 22:00 06/01/24 21:09 Pantoprazole Sodium (Protonix) 40 mg DAILY IV 06/02/24 10:00 Vital Signs Vital Signs Date Time Temp Pulse Resp B/P (MAP) Pulse Ox O2 Delivery O2 Flow Rate FiO2 06/01/24 22:45 98.1 65 18 126/66 (86) 98 208.6 06/01/24 22:17 30 06/01/24 20:00 Mechanical Ventilator+ 06/01/24 08:00 0 Physical Exam Gen.: Patient lying in bed in medical ICU. Sedated, intubated on mechanical ventilator. Head: Normocephalic, atraumatic. Eyes: PERRLA. Ears: Normal external anatomy. Throat: Endotracheal tube and orogastric tube in place. Neck: Supple, trachea midline. Chest: Transmitted breath sounds bilaterally. Decreased air entry bilaterally. No wheezing. Bibasilar crackles. Cardiovascular: Positive S1, positive S2. Regular rate and rhythm. Abdomen: Positive bowel sounds in all 4 quadrants. Soft, nontender, nondistended. : Strickland in place. Normal external genitalia. Rectal: Deferred. Skin: Warm, dry. Intact. Extremities: 2+ radial pulses bilaterally. No lower extremity edema. Neuro: Sedated. Labs/Diagnostic Data Labs Test 06/01/24 21:07 06/01/24 11:02 06/01/24 03:39 06/01/24 03:22 Range/Units POC Glucose 132 H 70-106 mg/dl Lactic Acid Level 1.7 0.4-2.0 mmol/L Blood Gas Specimen Type Arterial Blood Gas Sample Site Left radial Blood Gas Patient Temperature 37.0 Arterial Blood Date Drawn [id number] Arterial Blood pH 7.416 7.350-7.450 Arterial Blood Partial Pressure CO2 39.4 35.0-48.0 mmHg Arterial Blood Partial Pressure O2 182.0 H 83.0-108.0 mmHg Arterial Blood HCO3 24.8 21.0-28.0 mmol/L Arterial Blood Oxygen Saturation 99.4 H 94.0-98.0 % Arterial Blood Base Excess 0.2 -2.0-3.0 mmol/L Arterial Blood Oxyhemoglobin 97.2 94.0-98.0 % Arterial Blood Carboxyhemoglobin 1.9 H 0.5-1.5 % Arterial Blood Methemoglobin 0.3 0.0-1.5 % Kit Test Modified Blood Gas Total Hemoglobin 8.10 L 13.5-17.5 g/dL Blood Gas Set Respiration Rate 18.0 Blood Gas Modality Vent - ac FiO2 % 100.0 Blood Gas Tidal Volume 550.0 Blood Gas PEEP or CPAP 5.0 White Blood Count 9.2 # 4.4-10.8 10^3/uL Red Blood Count 3.27 L 4.5-5.90 10^6/uL Hemoglobin 7.7 L 13.5-17.5 g/dL Hematocrit 25.3 L 41.0-53.0 % Mean Corpuscular Volume 77.2 L 80.0-100.0 fL Mean Corpuscular Hemoglobin 23.5 L 28.0-32.0 pg Mean Corpuscular Hemoglobin Concent 30.4 L 32.0-36.0 g/dL Red Cell Distribution Width 25.4 H 11.8-14.3 % Platelet Count 126 L 140-450 10^3/uL Mean Platelet Volume 8.3 6.9-10.8 fL Neutrophils (%) (Auto) 76.5 37.0-80.0 % Lymphocytes (%) (Auto) 17.8 10.0-50.0 % Monocytes (%) (Auto) 4.7 0.0-12.0 % Eosinophils (%) (Auto) 0.3 0.0-7.0 % Basophils (%) (Auto) 0.7 0.0-2.0 % Neutrophils # (Auto) 7.0 1.6-8.6 10 ^3/uL Lymphocytes # (Auto) 1.6 0.4-5.4 10 ^3/uL Monocytes # (Auto) 0.4 0-1.3 10 ^3/uL Eosinophils # (Auto) 0 0-0.8 10 ^3/uL Basophils # (Auto) 0.1 0-0.2 10 ^3/uL Nucleated Red Blood Cells 1.1 % Platelet Estimate Decreased Hypochromasia (manual) Moderate Anisocytosis (manual) Moderate Microcytosis Slight Tear Drop Cells Few Ovalocytes Few Prothrombin Time 11.9 H 9.3-11.8 sec Prothrombin Time INR 1.14 0.9-1.15 Activated Partial Thromboplast Time 30.2 24.5-34.5 SEC Sodium Level 149 H 136-145 mmol/L Potassium Level 3.7 3.5-5.1 mmol/L Chloride Level 113 H 98-107 mmol/L Carbon Dioxide Level 25 20-31 mmol/L Anion Gap 11 5-15 Blood Urea Nitrogen 66 H 9-23 mg/dL Creatinine 1.75 H 0.700-1.30 mg/dL Glomerular Filtration Rate Calc 40 >90 mL/min BUN/Creatinine Ratio 37.7 H 10.0-20.0 Serum Glucose 163 H 74-106 mg/dL Calcium Level 8.4 L 8.7-10.4 mg/dL Total Bilirubin 0.6 0.2-1.0 mg/dL Aspartate Amino Transferase (AST) 34 13-40 U/L Alanine Aminotransferase (ALT) 23 7-40 U/L Alkaline Phosphatase 120 H 46-116 U/L Troponin I High Sensitivity 25 </=54 ng/L Total Protein 5.6 L 5.7-8.2 g/dL Albumin 2.9 L 3.2-4.8 g/dL Test 05/31/24 16:31 05/31/24 11:30 05/31/24 11:13 05/29/24 06:19 Range/Units Vitamin B12 Level 1017 H 211-911 pg/mL Thyroid Stimulating Hormone (TSH) 3.84 0.55-4.78 uIU/mL Treponema pallidum Antibody Non-reactive Negative HIV (1&2) Antibody Negative Negative Urine Color Red H Yellow Urine Clarity Cloudy H Clear Urine pH 5.5 5.0-9.0 Urine Specific Gila 1.007 1.001-1.035 Urine Protein 2+ H Negative Urine Ketones Negative Negative Urine Blood 3+ H Negative /uL Urine Nitrite Negative Negative Urine Bilirubin Negative Negative Urine Urobilinogen Normal Negative mg/dL Urine Leukocyte Esterase 2+ Negative /uL Urine RBC 162 0 - 3 /hpf Urine Microscopic WBC 29 H 0-3 /HPF Urine Squamous Epithelial Cells None seen <5 /hpf Urine Amorphous Crystals Few None Seen /hpf Urine Bacteria None seen None Seen /hpf Urine Mucus Few None Seen Urine Glucose 3+ H Normal mg/dL Differential Total Cells Counted 100.0 100 Neutrophils % (Manual) 86 H 37.0-80.0 Band Neutrophils % (Manual) 2 Lymphocytes % (Manual) 10 10.0-50.0 Monocytes % (Manual) 2 0-12 Eosinophils % (Manual) 0 0-7 Basophils % (Manual) 0 0.0-2.0 Metamyelocytes % (manual) 0 Myelocytes % (Manual) 0 Promyelocytes % (Manual) 0 Blast Cells % (Manual) 0 Reactive Lymphocytes 0 Poikilocytosis (manual) Slight Phosphorus Level 5.8 H 2.4-5.1 mg/dL Magnesium Level 2.7 H 1.6-2.6 mg/dL Test 05/28/24 13:51 05/27/24 18:38 Range/Units Blood Gas Liter Flow 8.00 B-Type Natriuretic Peptide 1535.13 0-100 pg/mL Microbiology Date/Time Source Procedure Growth Status 06/01/24 03:30 Nose MRSA Screen - Final Complete 05/31/24 13:20 Blood Blood Culture - Preliminary NO GROWTH AFTER 24 HOURS OF INCUBATION. Resulted Assessment Impression: Acute on chronic hypoxic respiratory failure On mechanical ventilator S/p cardiac arrest Shock Acute CHF exacerbation Cellulitis Chronic obstructive pulmonary disease Diabetes mellitus type II Obesity Plan: s/p intubation on mechanical ventilator. CXR image and report reviewed. Devices in place. Bilateral interstitial and alveolar airspace opacities have worsened. No pneumothorax. No pleural effusion. ABG reviewed, compensated; pO2 of 182. On AC mode; RR 18, VT 550, PEEP 5, FiO2 30% Titrate FIO2 to keep O2 saturation above 90%. VAP bundle. Daily ABG and CXR while intubated Sedate for ventilator synchrony Continue antibiotics. F/u cultures. On pressors for hemodynamic support Levophed 2 mcg/min Titrate to keep mean arterial pressure greater than 65 mmHg. Wound care Diurese as tolerated w/ Lasix Monitor renal function Monitor electrolytes. Supplement as necessary. Monitor ins and outs. Maintain euvolemia. Follow up Nephrology recommendations Accu-Cheks, ISS PRN. Diet and lifestyle modifications for weight reduction Obesity - complicates all care GI prophylaxis. DVT prophylaxis. Prognosis: Poor given patient's multiple co-morbidities. Condition: Critical Rest of plan per hospitalist and other consultants. A total of 35 minutes of critical care time was spent reviewing the patient record, examining the patient, making a diagnostic and therapeutic plan, discussing this plan with the medical personnel, following up on diagnostic studies and following the patient for clinical stability excluding any and all procedures. At least 50% of this time was spent in direct, [id number] contact. Thank you, Dr. Bhatt, for allowing me to participate in this patient's care. Further recommendations will depend on the patient's clinical course. Please do not hesitate to contact me if you have any questions or concerns. This medical document was created using an electronic medical record system with [employer] dictation system. Although these documentations are being carefully reviewed, there may still be some phonetic and typographical changes. The errors are purely typographical, due to imperfection on the software pro gram, and do not reflect any compromise in the patient's medical care. Plan discussed with: Other (STEFFANY Monsivais/Anh, Dr. Bhatt) MIRIAM DERAS MD Jun 01, 2024 23:40
[2024-06-02] VITALS (101 sets, daily range): BP systolic 84–136; BP diastolic 36–87; PULSE 58–92; RESP 12–19; TEMP 97.9–99; O2SAT 93–100
[2024-06-02 03:47] LABS: Basophils # (auto) 0 10 ^3/uL (0-0.2); Eosinophils # (auto) 0 10 ^3/uL (0-0.8); Lymphocytes # (auto) 0.3 10 ^3/uL (0.4-5.4); Monocytes # (auto) 0.1 10 ^3/uL (0-1.3)
[2024-06-02 03:53] LABS: Basophils % (auto) 0.2 % (0.0-2.0); Eosinophils % (auto) 0.1 % (0.0-7.0); Hematocrit 29.4 % (41.0-53.0); Hemoglobin 8.9 g/dL (13.5-17.5); Lymphocytes % (auto) 3.3 % (10.0-50.0); Mean Corpuscular Hemoglobin 23.1 pg (28.0-32.0); Mean Corpuscular Hgb Conc. 30.2 g/dL (32.0-36.0); Mean Corpuscular Volume 76.7 fL (80.0-100.0); Neutrophils % (auto) 95.4 % (37.0-80.0); Nucleated Red Blood Cells % 0.4 %; Platelet Count (auto) 145 10^3/uL (140-450); Red Blood Cells 3.83 10^6/uL (4.5-5.90); White Blood Cell 10.5 10^3/uL (4.4-10.8)
[2024-06-02 04:00] LABS: Anion Gap 11 (5-15); Carbon Dioxide 28 mmol/L (20-31)
[2024-06-02 04:06] LABS: Calcium 8.5 mg/dL (8.7-10.4); Chloride 112 mmol/L (98-107); Glucose 206 mg/dL (74-106); Potassium 3.4 mmol/L (3.5-5.1); Sodium 151 mmol/L (136-145)
[2024-06-02 04:07] LABS: Magnesium 2.4 mg/dL (1.6-2.6)
[2024-06-02 04:08] LABS: Phosphorus 3.1 mg/dL (2.4-5.1)
[2024-06-02 04:26] LABS: BUN/Creatinine Ratio 31.2 (10.0-20.0); Blood Urea Nitrogen 48 mg/dL (9-23)
[2024-06-02 04:52] LABS: Anisocytosis Moderate; Hypochromia Moderate; Platelet Estimate Adequate
[2024-06-02 04:53] LABS: Ovalocytes FEW; Stomatocytes Few
--- NOTE | 2024-06-02 05:12 | DVH ---
EXAM: XR Chest, 1 View CLINICAL INDICATION: interval changes and line placements TECHNIQUE: Frontal view of the chest. COMPARISON: XY CHEST XRAY 1 VIEW on DOS: 06/01/24, XY CHEST XRAY 1 VIEW on DOS: 05/27/24, XY CHEST XRA Y 1 VIEW on DOS: 04/28/24, XY CHEST PORTABLE on DOS: 04/26/24, XY CHEST XRAY 1 VIEW on DOS: 11/26/23 FINDINGS: LUNGS AND PLEURAL SPACES: Increased congestion and edema. No pneumothorax. HEART: Unremarkable. No cardiomegaly. MEDIASTINUM: Unremarkable. Normal mediastinal contour. BONES/JOINTS: Unremarkable. No acute fracture. TUBES, LINES AND DEVICES: Stable tubes and lines. OTHER FINDINGS: . . IMPRESSION: Increased congestion and edema.
--- NOTE | 2024-06-02 05:13 | DVH ---
EXAM: XR Chest, 1 View CLINICAL INDICATION: NG tube placement TECHNIQUE: Frontal view of the chest. COMPARISON: XY CHEST XRAY 1 VIEW on DOS: 06/01/24, XY CHEST XRAY 1 VIEW on DOS: 05/27/24, XY CHEST XRA Y 1 VIEW on DOS: 04/28/24, XY CHEST PORTABLE on DOS: 04/26/24, XY CHEST XRAY 1 VIEW on DOS: 11/26/23 FINDINGS: LUNGS AND PLEURAL SPACES: See below. HEART: Cardiomegaly with mild congestion. MEDIASTINUM: Unremarkable. Normal mediastinal contour. BONES/JOINTS: Unremarkable. No acute fracture. TUBES, LINES AND DEVICES: Stable tubes and lines. OTHER FINDINGS: No significant change from the prior exam. . IMPRESSION: 1. Cardiomegaly with mild congestion. 2. No significant change from the prior exam.
[2024-06-02 06:51] LABS: Base Excess 1.9 mmol/L (-2.0-3.0)
[2024-06-02] MEDS ORDERED: POTASSIUM CHL 20MEQ/100ML 100 ML IV SCH (09:30)
[2024-06-02] MEDS: PANTOPRAZOLE 40 MG/10 ML VIAL INJ IV SCH (10:28)
[2024-06-02] MEDS: NOREPINEPHRINE 8 MG/250ML KIT 250 ML IV SCH (10:30)
--- NOTE | 2024-06-02 10:48 | DVHNC2 ---
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: Attending Physician Indication: Hypotension Room prepared for procedure: Yes Aquatics Manager performed hand hygien: Yes Maximal sterile barrier precau: Mask/Eye shield, Sterile gown, Cap, Sterlie gloves, Large sterlie drape Skin Preparation: Chlorhexidine gluconate Skin preparation completely dr: Yes Insertion site: Right, Internal jugular Central line catheter type: [id number] dialysis Number of lumens: 3 Post Assessment: Chest X-Ray, Proper placement, No Pneumothorax Informed consent obtained: Yes Risks/benefits/alt described: Yes Date of Service: Jun 02, 2024 Billing Provider: ARNIE ARREOLA MD Common Visit Codes: PROCEDURE ONLY Procedure Codes: [id number] NON-TUNNEL CV CATH ARNIE ARREOLA MD Jun 02, 2024 10:48
--- NOTE | 2024-06-02 11:14 | DVH ---
EXAM: XY CHEST PORTABLE Indication: central line placement Technique: Frontal view of the chest. Comparison: XY CHEST XRAY 1 VIEW on DOS: 06/02/24, XY CHEST XRAY 1 VIEW on DOS: 06/01/24, XY CHEST XRAY 1 VIEW on DOS: 06/01/24, XY CHEST XRAY 1 VIEW on DOS: 05/27/24, XY CHEST XRAY 1 VIEW on DOS: 04/28/24 FINDINGS: Lines and Tubes: Endotracheal tube projects 4.1 cm above the lissette. Enteric tube tip projects over the expected region of the stomach. Right central venous catheter tip projects over the superior dhaval a cava. Lungs: Diffuse multifocal consolidative opacities. Pleura: Possible small left pleural effusion. No pneumothorax. Cardiomediastinal contours: Cardiomegaly. Bones: No acute osseous abnormality. IMPRESSION: Cardiomegaly with multifocal consolidative opacities. Small left pleural effusion. Lines and tubes i n appropriate position.
[2024-06-02] MEDS: POTASSIUM CHL 20MEQ/50ML 50 ML IV SCH (11:23)
--- NOTE | 2024-06-02 14:50 | MEDREC ---
[facility] Intervention Section I [facility] Intervention: Review courses of therapy (PRELIMINARY RESPIRATORY CULTURE POSITIVE FOR YEAST - PLEASE CONSIDER ADDING ANTIFUNGAL AGENT ) CAYDEN DELGADO PHARMACIST Jun 02, 2024 14:50
--- NOTE | 2024-06-02 15:09 | DVHPN2 ---
Assessment/Plan Assessment/Plan Progress note 74 yo M with COPD HFrEF IDDM preiously admitted for cellulitis and diabetic foot on home iv abx invanz admitted for ams and heart failure exacerbation seen today during rounds. on minimal vent setting, placed central line. bleeding from REJ peripheral, placed surgicel. Physical exam sedated and intubated, on mechanical ventilation mechanical breath soudns L pupil with defect, seems baseline cough + gag + s1 s2 rrr abdomen soft LE with alyssa bandage, cannot eval edema labs ekg imaging reviewed assessment and plan acute on chronic hypoxic respiratory failure req mechanical ventilation distributive shock COPD group E with exacerbation acute on chronic systolic heart failure ICM CAD s/p MELISSA PAD s/p iliac stents ANIVAL VMN Afib on eliquis HTN HLD IDDM foot ulcers and celulitis on invanz at home HFrEF EF 35% gross hematuria resolving likely traumatic c/w mechanical vent c/w pressor maintain map >70 c/w sedation meintain RAAS -3 prop and fent c/w with linezolid and nae MRSA swab maintain spo2 >90 hold anti htn c/w lasix maintain -1L monitor cr strict i o christina c/w therapeutic lovenox avoid BEERS medication delirium precaution diet nepro dvt ppx on AC gi ppx protonix critical care time 100 minutes Plan discussed with: Other My Orders Orders - ARNIE ARREOLA MD Procedure Category Date Status Time Npo Except For ALLYSON 06/01/24 In Process Medications 15:59 Free Water ALLYSON 06/02/24 In Process 09:27 Norepinephrine 8 PHA 06/02/24 In Process Mg/250ml Kit 10:30 Blood Culture AMRIT 06/02/24 In Process 10:32 Chest Portable XY 06/02/24 Resulted 10:37 Nutritional PHA 06/02/24 In Process Supplements (Nepro 13:00 Date of Service: Jun 02, 2024 Billing Provider: ARNIE ARREOLA MD Common Visit Codes: [id number] CARE 30-74 MIN, [id number] CARE-EACH +30MIN ARNIE ARREOLA MD Jun 02, 2024 15:09
[2024-06-02] MEDS: Nepro With Carb Steady 1 Liter Bottle GT SCH (16:00)
[2024-06-02] MEDS: FREE WATER GT SCH (18:06)
--- NOTE | 2024-06-02 21:03 | DVHPN2 ---
Progress Note - Dictate Date Seen: Jun 02, 2024 Medical Necessity Reason Pt with a Central, PICC or Fol: Yes The following are medically ne: Christina Catheter Reason for christina catheter: Strict I&O Subjective Patient seen and examined at bedside. Sedated, intubated on mechanical ventilator. Overnight events reviewed vital signs Vital Sign Date Time Temp Pulse Resp B/P (MAP) Pulse Ox O2 Delivery O2 Flow Rate FiO2 06/02/24 20:15 63 18 114/53 (73) 100 30 06/02/24 19:15 97.9 208.2 06/02/24 18:00 Mechanical Ventilator+ 06/01/24 08:00 0 Total Intake and Output 06/01/24 06/01/24 06/02/24 15:00 23:00 07:00 Intake Total 392.50 ml 535.355 ml 345.837 ml Output Total 2970 ml 1250 ml Balance 392.50 ml -2434.645 ml -904.163 ml medications Current Medications Medications Dose Ordered Sig/Erik Route Start Time Stop Time Status Last Admin Dose Admin Atorvastatin Calcium 20 mg HS PO 05/28/24 22:00 06/01/24 21:08 20 MG Clopidogrel Bisulfate 75 mg DAILY PO 05/28/24 10:00 06/02/24 11:03 75 MG Sodium Chloride 10 ml Q8HR IV 05/28/24 06:00 06/02/24 16:00 10 ML Diagnostic Test (Pha) 1 strip ACHS 05/28/24 07:00 06/02/24 18:04 1 STRIP Insulin Human Regular ACHS SC 05/28/24 07:00 06/02/24 18:04 3 UNITS Dextrose 50 ml UD PRN IV 05/27/24 23:00 Enoxaparin Sodium 100 mg Q12HR SC 05/28/24 22:00 06/02/24 11:03 100 MG Linezolid 300 ml @ 150 mls/hr Q12HR IV 05/28/24 22:00 06/02/24 10:28 150 MLS/HR Meropenem 50 ml @ 17 mls/hr Q12H IV 06/01/24 01:00 06/02/24 13:01 17 MLS/HR Fentanyl Citrate 250 ml @ 2.5 mls/hr Q24H IV 06/01/24 03:15 06/02/24 07:01 15 MLS/HR Furosemide 40 mg DAILY IV 06/01/24 10:00 06/02/24 10:29 40 MG Propofol 100 ml @ 3.057 mls/ hr Q24H IV 06/01/24 09:00 06/02/24 18:10 15.285 MLS/HR Methylprednisolone Sodium Succinate 40 mg BID IV 06/01/24 22:00 06/02/24 10:27 40 MG Pantoprazole Sodium 40 mg DAILY IV 06/02/24 10:00 06/02/24 10:28 40 MG Potassium Chloride 100 ml @ 50 mls/hr Q2H IV 06/02/24 09:30 06/02/24 13:29 Cancel Norepinephrine Bitartrate 250 ml @ 1.875 mls/ hr Q24H IV 06/02/24 10:30 Enteral Nutritional Formula 1,000 ml 40ML/HR GT 06/02/24 13:00 06/02/24 16:00 1,000 ML Purified Water 300 ml Q4HR GT 06/02/24 18:00 06/02/24 18:06 300 ML objective Gen.: Patient lying in bed in medical ICU. Sedated, intubated on mechanical ventilator. Head: Normocephalic, atraumatic. Eyes: PERRLA. Ears: Normal external anatomy. Throat: Endotracheal tube and orogastric tube in place. Neck: Supple, trachea midline. Chest: Transmitted breath sounds bilaterally. Decreased air entry bilaterally. No wheezing. Bibasilar crackles. Cardiovascular: Positive S1, positive S2. Regular rate and rhythm. Abdomen: Positive bowel sounds in all 4 quadrants. Soft, nontender, nondistended. : Christina in place. Normal external genitalia. Rectal: Deferred. Skin: Warm, dry. Intact. Extremities: 2+ radial pulses bilaterally. No lower extremity edema. Neuro: Sedated. laboratory and microbiology Laboratory Tests 06/02/24 03:05 Test 06/02/24 03:05 Range/Units Serum Glucose 206 H 74-106 mg/dL Assessment/Plan Impression: Acute on chronic hypoxic respiratory failure On mechanical ventilator S/p cardiac arrest Shock Acute CHF exacerbation Cellulitis Chronic obstructive pulmonary disease Diabetes mellitus type II Obesity Events: Remains on vent support On AC mode; RR 18, VT 550, PEEP 5, FiO2 30% Sedated on Propofol, Fentanyl On pressors for hemodynamic support Levophed 2 mcg/min Titrate to keep mean arterial pressure greater than 65 mmHg. Hemorrhage noted from right IJ site. Monitor hemoglobin - currently 8.9 g/dL Continue antibiotics Wound care. Monitor renal function Monitor electrolytes. Supplement as necessary. Hypokalemia, supplemented. Monitor ins and outs. ABG reviewed, notable for alkalemia CXR reviewed, demonstrates cardiomegaly with multifocal consolidative opacities. Small left pleural effusion. Devices in place. Labs and imaging reviewed. Rest of plan as noted below. Plan: s/p intubation on mechanical ventilator. CXR image and report reviewed. Devices in place. Bilateral interstitial and alveolar airspace opacities have worsened. No pneumothorax. No pleural effusion. ABG reviewed, compensated; pO2 of 182. On AC mode; RR 18, VT 550, PEEP 5, FiO2 30% Titrate FIO2 to keep O2 saturation above 90%. VAP bundle. Daily ABG and CXR while intubated Sedate for ventilator synchrony Continue antibiotics. F/u cultures. On pressors for hemodynamic support Titrate to keep mean arterial pressure greater than 65 mmHg. Wound care Diurese as tolerated w/ Lasix Monitor renal function Monitor electrolytes. Supplement as necessary. Monitor ins and outs. Maintain euvolemia. Nephrology recommendations appreciated Accu-Cheks, ISS PRN. Diet and lifestyle modifications for weight reduction Obesity - complicates all care GI prophylaxis. DVT prophylaxis. Prognosis: Poor given patient's multiple co-morbidities. Condition: Critical Rest of plan per hospitalist and other consultants. A total of 35 minutes of critical care time was spent reviewing the patient record, examining the patient, making a diagnostic and therapeutic plan, discussing this plan with the medical personnel, following up on diagnostic studies and following the patient for clinical stability excluding any and all procedures. At least 50% of this time was spent in direct, [id number] contact. Thank you, Dr. Bhatt, for allowing me to participate in this patient's care. Further recommendations will depend on the patient's clinical course. Please do not hesitate to contact me if you have any questions or concerns. This medical document was created using an electronic medical record system with [employer] system. Although these documentations are being carefully reviewed, there may still be some phonetic and typographical changes. The errors are purely typographical, due to imperfection on the software program, and do not reflect any compromise in the patient's medical care. Dietary Evaluation Review Recommendations by RD: Protein Supplementation Comments: 1) Lion is NOT approriate d/t kidney function 2) Consult nephrology d/t elevated renal panel 3) Initiate Glucerna tid d/t poor PO intake 4) Continue to monitor I&O, labs, and skin integrity Expected Outcomes/Goals: 1) appetite and labs to improve 2) wound to improve 3) f/u in 5 days Plan discussed with: Other (STEFFANY Waters) Critical Care Time(min): 35 MIRIAM DERAS MD Jun 02, 2024 21:03
[2024-06-03] VITALS (105 sets, daily range): BP systolic 96–132; BP diastolic 47–76; PULSE 54–97; RESP 15–20; TEMP 97.9–98.8; O2SAT 96–100
[2024-06-03 04:13] LABS: Basophils # (auto) 0 10 ^3/uL (0-0.2); Basophils % (auto) 0.1 % (0.0-2.0); Eosinophils # (auto) 0 10 ^3/uL (0-0.8); Lymphocytes # (auto) 0.3 10 ^3/uL (0.4-5.4)
[2024-06-03 04:14] LABS: Eosinophils % (auto) 0.1 % (0.0-7.0); Hematocrit 28.9 % (41.0-53.0); Hemoglobin 9.1 g/dL (13.5-17.5); Lymphocytes % (auto) 4.7 % (10.0-50.0); Mean Corpuscular Hemoglobin 24.1 pg (28.0-32.0); Mean Corpuscular Hgb Conc. 31.4 g/dL (32.0-36.0); Mean Corpuscular Volume 76.7 fL (80.0-100.0); Monocytes # (auto) 0.1 10 ^3/uL (0-1.3); Monocytes % (auto) 2.4 % (0.0-12.0); Neutrophils # (auto) 5.4 10 ^3/uL (1.6-8.6); Neutrophils % (auto) 92.7 % (37.0-80.0); Nucleated Red Blood Cells % 0.9 %; Platelet Count (auto) 155 10^3/uL (140-450); Red Blood Cells 3.77 10^6/uL (4.5-5.90); Red Cell Distribution Width 26.4 % (11.8-14.3); White Blood Cell 5.9 10^3/uL (4.4-10.8)
[2024-06-03 04:33] LABS: Anion Gap 7 (5-15); Carbon Dioxide 28 mmol/L (20-31)
[2024-06-03 04:38] LABS: BUN/Creatinine Ratio 30.4 (10.0-20.0)
[2024-06-03 04:39] LABS: Magnesium 2.4 mg/dL (1.6-2.6)
[2024-06-03 04:40] LABS: Blood Urea Nitrogen 42 mg/dL (9-23); Calcium 8.3 mg/dL (8.7-10.4); Chloride 113 mmol/L (98-107); Glucose 253 mg/dL (74-106); Phosphorus 3.4 mg/dL (2.4-5.1); Potassium 3.4 mmol/L (3.5-5.1); Sodium 148 mmol/L (136-145)
[2024-06-03 05:13] LABS: Ovalocytes FEW
[2024-06-03 05:14] LABS: Anisocytosis Slight; Hypochromia Moderate; Target Cell FEW
[2024-06-03 05:17] LABS: Platelet Estimate Adequate; Tear Drop Cells FEW
--- NOTE | 2024-06-03 05:31 | DVH ---
EXAM: XR Chest, 1 View CLINICAL INDICATION: ACUTE RESP FAILURE TECHNIQUE: Frontal view of the chest. COMPARISON: XY CHEST PORTABLE on DOS: 06/02/24, XY CHEST XRAY 1 VIEW on DOS: 06/02/24, XY CHEST XRAY 1 VIEW on DOS: 06/01/24, XY CHEST XRAY 1 VIEW on DOS: 06/01/24, XY CHEST XRAY 1 VIEW on DOS: 05/27/24 FINDINGS: LUNGS AND PLEURAL SPACES: See below. HEART: Cardiomegaly with pulmonary congestion and edema. Superimposed pneumonia cannot be excluded. MEDIASTINUM: Unremarkable. Normal mediastinal contour. BONES/JOINTS: Unremarkable. No acute fracture. TUBES, LINES AND DEVICES: Stable tubes and lines. OTHER FINDINGS: . IMPRESSION: Cardiomegaly with pulmonary congestion and edema. Superimposed pneumonia cannot be excluded.
[2024-06-03] MEDS: POTASSIUM CHL 20MEQ/50ML 50 ML IV ONE ×2 (06:23→23:33)
[2024-06-03 07:09] LABS: Base Excess 1.7 mmol/L (-2.0-3.0)
[2024-06-03] MEDS ORDERED: EUCERIN CREAM 2OZ TUBE TOP SCH (10:00)
[2024-06-03] MEDS: methylPREDNISolone SOD SUCC 125 MG/2 ML VL IV ONE (10:38)
[2024-06-03] MEDS: FUROSEMIDE 40 MG/4 ML VIAL IV ONE (10:38)
[2024-06-03] MEDS: EUCERIN CREAM 2OZ TUBE TOP SCH (15:13)
--- NOTE | 2024-06-03 15:46 | DVHPN2 ---
Assessment/Plan Assessment/Plan Progress note 74 yo M with COPD HFrEF IDDM preiously admitted for cellulitis and diabetic foot on home iv abx invanz admitted for ams and heart failure exacerbation seen today during rounds. minimal pressor and vent setting. daily SAT SBT, c/w diuresis maintain - 1 to 2L doubling lasix Physical exam sedated and intubated, on mechanical ventilation mechanical breath soudns L pupil with defect, seems baseline cough + gag + s1 s2 rrr abdomen soft LE with alyssa bandage, cannot eval edema labs ekg imaging reviewed assessment and plan acute on chronic hypoxic respiratory failure req mechanical ventilation distributive shock COPD group E with exacerbation acute on chronic systolic heart failure ICM CAD s/p MELISSA PAD s/p iliac stents ANIVAL VMN Afib on eliquis HTN HLD IDDM foot ulcers and celulitis on invanz at home HFrEF EF 35% gross hematuria resolving likely traumatic c/w mechanical vent c/w pressor maintain map >70 c/w sedation meintain RAAS -3 prop and fent c/w with linezolid and nae MRSA swab maintain spo2 >90 hold anti htn c/w lasix maintain -1L monitor cr strict i o christina c/w therapeutic lovenox avoid BEERS medication delirium precaution daily SAT SBT diet nepro dvt ppx on AC gi ppx protonix critical care time 55 minutes Plan discussed with: Other My Orders Orders - ARNIE ARREOLA MD Procedure Category Date Status Time Free Water PHA 06/02/24 In Process 18:00 Central Line Insertion BD 06/02/24 Transmitted 10:00 Cpap Trial For Am ORDERS 06/03/24 Transmitted 08:45 Cpap/Sed Vacation Med ORDERS 06/03/24 Transmitted Weaning 08:45 Furosemide Injection PHA 06/03/24 In Process (Lasix Injection) 18:00 Skin Protectants, PHA 06/03/24 In Process Misc. (Eucerin Cream) 10:00 Methylprednisolone PHA 06/03/24 In Process Sod Succ (Solu Medrol 22:00 Date of Service: Jun 03, 2024 Billing Provider: ARNIE ARREOLA MD Common Visit Codes: [id number] CARE 30-74 MIN ARNIE ARREOLA MD Jun 03, 2024 15:46
[2024-06-03] MEDS: FUROSEMIDE 40 MG/4 ML VIAL IV SCH (17:47)
[2024-06-03] MEDS: QUEtiapine FUMARATE 25 MG TAB NG SCH (22:00)
[2024-06-03] MEDS: methylPREDNISolone SOD SUCC 125 MG/2 ML VL IV SCH (22:20)
[2024-06-03] MEDS: MEROPENEM 1GM IVPB 50 ML IV SCH (22:20)
[2024-06-03] MEDS: INSULIN LANTUS (GLARGINE) 1 /0.01ml (100units/ml) SC SCH (22:25)
--- NOTE | 2024-06-03 23:26 | DVHPN2 ---
Progress Note - Dictate Date Seen: Jun 03, 2024 Medical Necessity Reason Pt with a Central, PICC or Fol: Yes The following are medically ne: Christina Catheter Reason for christina catheter: Strict I&O Subjective Patient seen and examined at bedside. Sedated, intubated on mechanical ventilator. Overnight events reviewed vital signs Vital Sign Date Time Temp Pulse Resp B/P (MAP) Pulse Ox O2 Delivery O2 Flow Rate FiO2 06/03/24 22:21 58 18 119/53 (75) 100 30 06/03/24 19:48 Mechanical Ventilator+ 06/03/24 18:45 98.1 208.6 06/01/24 08:00 0 Total Intake and Output 06/02/24 06/02/24 06/03/24 15:00 23:00 07:00 Intake Total 343.080 ml 895.1575 ml 2442.2802 ml Output Total 1800 ml 1250 ml Balance 343.080 ml -904.8425 ml 1192.2802 ml medications Current Medications Medications Dose Ordered Sig/Erik Route Start Time Stop Time Status Last Admin Dose Admin Atorvastatin Calcium 20 mg HS PO 05/28/24 22:00 06/03/24 22:21 20 MG Clopidogrel Bisulfate 75 mg DAILY PO 05/28/24 10:00 06/03/24 09:18 75 MG Sodium Chloride 10 ml Q8HR IV 05/28/24 06:00 06/03/24 22:20 10 ML Diagnostic Test (Pha) 1 strip ACHS 05/28/24 07:00 06/03/24 22:22 1 STRIP Insulin Human Regular ACHS SC 05/28/24 07:00 06/03/24 22:34 6 UNITS Dextrose 50 ml UD PRN IV 05/27/24 23:00 Enoxaparin Sodium 100 mg Q12HR SC 05/28/24 22:00 06/03/24 22:21 100 MG Linezolid 300 ml @ 150 mls/hr Q12HR IV 05/28/24 22:00 06/03/24 21:07 150 MLS/HR Fentanyl Citrate 250 ml @ 2.5 mls/hr Q24H IV 06/01/24 03:15 06/03/24 15:57 10 MLS/HR Propofol 100 ml @ 3.057 mls/ hr Q24H IV 06/01/24 09:00 06/03/24 22:35 15.285 MLS/HR Pantoprazole Sodium 40 mg DAILY IV 06/02/24 10:00 06/03/24 09:18 40 MG Potassium Chloride 100 ml @ 50 mls/hr Q2H IV 06/02/24 09:30 06/02/24 13:29 Cancel Norepinephrine Bitartrate 250 ml @ 1.875 mls/ hr Q24H IV 06/02/24 10:30 Enteral Nutritional Formula 1,000 ml 40ML/HR GT 06/02/24 13:00 06/02/24 16:00 1,000 ML Purified Water 300 ml Q4HR GT 06/02/24 18:00 06/03/24 22:21 300 ML Furosemide 40 mg BIDD IV 06/03/24 18:00 06/03/24 17:47 40 MG Multi-Ingredient Ointment 1 applic BID TOP 06/03/24 10:00 06/03/24 22:22 1 APPLIC Methylprednisolone Sodium Succinate 40 mg BID IV 06/03/24 22:00 06/03/24 22:20 40 MG Insulin Glargine 5 units HS SC 06/03/24 22:00 06/03/24 22:25 5 UNITS Meropenem 50 ml @ 17 mls/hr Q8HR IV 06/03/24 22:00 06/03/24 22:20 17 MLS/HR Quetiapine Fumarate 25 mg BID NG 06/03/24 22:00 Dexmedetomidine HCl 400 mcg/ Dextrose 100 ml @ 5.075 mls/ hr [id number] IV 06/03/24 16:45 objective Gen.: Patient lying in bed in medical ICU. Sedated, intubated on mechanical ventilator. Head: Normocephalic, atraumatic. Eyes: PERRLA. Ears: Normal external anatomy. Throat: Endotracheal tube and orogastric tube in place. Neck: Supple, trachea midline. Chest: Transmitted breath sounds bilaterally. Decreased air entry bilaterally. No wheezing. Bibasilar crackles. Cardiovascular: Positive S1, positive S2. Regular rate and rhythm. Abdomen: Positive bowel sounds in all 4 quadrants. Soft, nontender, nondistended. : Christina in place. Normal external genitalia. Rectal: Deferred. Skin: Warm, dry. Intact. Extremities: 2+ radial pulses bilaterally. No lower extremity edema. Neuro: Sedated. laboratory and microbiology Laboratory Tests 06/03/24 21:05 06/03/24 03:00 Test 06/03/24 03:00 Range/Units Serum Glucose 253 H 74-106 mg/dL Assessment/Plan Impression: Acute on chronic hypoxic respiratory failure On mechanical ventilator S/p cardiac arrest Shock Acute CHF exacerbation Cellulitis Chronic obstructive pulmonary disease Diabetes mellitus type II Obesity Events: Remains on vent support On AC mode; RR 18, VT 550, PEEP 5, FiO2 30% Sedated on Propofol, Fentanyl Patient failed CPAP. Will attempt this PM. On pressors for hemodynamic support Levophed 1 mcg/min Titrate to keep mean arterial pressure greater than 65 mmHg. Monitor right IJ site for bleeding. Monitor hemoglobin - trended up to 9.1 g/dL Continue antibiotics Wound care. Monitor renal function Monitor electrolytes. Supplement as necessary. Potassium supplementation Monitor ins and outs. ABG reviewed, notable for alkalemia CXR reviewed, demonstrates cardiomegaly with pulmonary congestion and edema. Superimposed pneumonia cannot be excluded. Devices in place. Labs and imaging reviewed. Rest of plan as noted below. Plan: s/p intubation on mechanical ventilator. On AC mode; RR 18, VT 550, PEEP 5, FiO2 30% Titrate FIO2 to keep O2 saturation above 90%. VAP bundle. Daily ABG and CXR while intubated Sedate for ventilator synchrony Continue antibiotics. F/u cultures. On pressors for hemodynamic support Titrate to keep mean arterial pressure greater than 65 mmHg. Wound care Diurese as tolerated w/ Lasix Monitor renal function Monitor electrolytes. Supplement as necessary. Monitor ins and outs. Maintain euvolemia. Nephrology recommendations appreciated Accu-Cheks, ISS PRN. Diet and lifestyle modifications for weight reduction Obesity - complicates all care GI prophylaxis. DVT prophylaxis. Prognosis: Poor given patient's multiple co-morbidities. Condition: Critical Rest of plan per hospitalist and other consultants. A total of 35 minutes of critical care time was spent reviewing the patient record, examining the patient, making a diagnostic and therapeutic plan, discussing this plan with the medical personnel, following up on diagnostic studies and following the patient for clinical stability excluding any and all procedures. At least 50% of this time was spent in direct, [id number] contact. Thank you, Dr. Bhatt, for allowing me to participate in this patient's care. Further recommendations will depend on the patient's clinical course. Please do not hesitate to contact me if you have any questions or concerns. This medical document was created using an electronic medical record system with [employer] dictation system. Although these documentations are being carefully reviewed, there may still be some phonetic and typographical changes. The errors are purely typographical, due to imperfection on the software program, and do not reflect any compromise in the patient's medical care. Dietary Evaluation Review Recommendations by RD: Protein Supplementation Comments: 1) Lion is NOT approriate d/t kidney function 2) Consult nephrology d/t elevated renal panel 3) Initiate Glucerna tid d/t poor PO intake 4) Continue to monitor I&O, labs, and skin integrity Expected Outcomes/Goals: 1) appetite and labs to improve 2) wound to improve 3) f/u in 5 days Plan discussed with: Other (STEFFANY Bergman) Critical Care Time(min): 35 MIRIAM DERAS MD Jun 03, 2024 23:26
[2024-06-04] VITALS (103 sets, daily range): BP systolic 96–127; BP diastolic 46–75; PULSE 48–91; RESP 12–20; TEMP 97.9–98.8; O2SAT 95–100
--- NOTE | 2024-06-04 00:29 | DVHINCON2 ---
Date of service: Jun 03, 2024 Referring Physician Titus Reason for Consultation Frequent ectopy History of Present Illness This is a 74 year old male with a PMH of hypertension, diabetes, dyslipidemia, CKD, CHF, COPD, chronic bilateral foot ulcer who was brought in by EMS from [facility] on 05/27/24 due to complaints of SOB and dizziness. Initial chest x-ray showed moderate interstitial pulmonary edema, small bilateral effusions. Patietn was hypoxic and placed on 5 LPM NC. Patient was admitted for cellulitis and diabetic foot. Echocardiogram from 05/28/24 shows EF of 50% with aortic sclerosis. The patient became hypothermic on 05/31 with periods of confusion. The patient became agitated and pulling off oxygen. Patient pulled his oxygen off and was found apneic. The patient was intubated for airway protection on 06/01/2024. Patient was started on vasopressors for hemodynamic support. Today the patient developed frequent ectopy and therefore I am asked to consult on this patient. Allergies: Coded Allergies: Penicillins (Verified Allergy, Unknown, 04/01/23) Home Meds Reported Medications Prednisone (Prednisone) 10 Mg Tab, 1 TAB PO DAILY for 30 Days, #30 05/31/24 Gabapentin (Gabapentin) 300 Mg Cap, 1 CAP PO TID for 30 Days, #90 05/31/24 Pantoprazole Sodium Sesquihydr (Pantoprazole Sodium Dr) 40 Mg Tab, 1 TAB PO DAILY for 30 Days, #30 05/31/24 Senna (Senna-Time) 8.6 Mg Tab, 1 TAB PO BID PRN for FOR CONSTIPATION for 50 Days, #100 05/31/24 Albuterol Sulfate (Albuterol Sulfate Hfa) 108 Mcg/Act Aer, 2 PUFF IN Q4HR PRN for 30 Days, #17 05/31/24 Potassium Chloride (Klor-Con 10) 10 Meq Tab, 1 TAB PO DAILY for 30 Days, #30 05/31/24 Metoprolol Succinate (Metoprolol Succinate Er) 25 Mg Tab, 0.5 TAB PO DAILY for 30 Days, #15 05/31/24 Metformin Hydrochloride (Metformin Hcl) 1,000 Mg Tab, 1 TAB PO BID for 30 Days, #60 05/31/24 Magnesium Oxide (mg Supplement (Magnesium-Oxide) 400 Mg Tab, 1 TAB PO DAILY for 30 Days, #30 05/31/24 Furosemide (Furosemide 80 mg) 1 Tab Tab, 1 TAB PO BID for 30 Days, #60 05/31/24 Empagliflozin (Jardiance) 10 Mg Tab, 1 TAB PO QAM for 30 Days, #30 05/31/24 Atorvastatin Calcium (Lipitor) 40 Mg Tab, 1 TAB PO DAILY for 30 Days, #30 05/31/24 Brimonidine Tartrate (Brimonidine Tartrate) 0.2 % Daria, 1 DROP OP Q8HR for 30 Days, #10 3 Refills INSTILL 1 DROP INTO AFFECTED EYE EVERY 8 HOURS. 11/24/23 Clopidogrel Bisulfate (CLOPIDOGREL) 75 Mg Tab, 1 TAB PO DAILY for 30 Days, #30 11/24/23 Current Medications Current Medications Medications (Trade) Dose Ordered Sig/Erik Route PRN Reason Start Time Stop Time Status Last Admin Furosemide (Lasix Injection) 40 mg BIDD IV 06/03/24 18:00 06/03/24 17:47 Multi-Ingredient Ointment (Eucerin Cream) 1 applic DAILY TOP 06/03/24 10:00 06/03/24 10:20 DC Multi-Ingredient Ointment (Eucerin Cream) 1 applic BID TOP 06/03/24 10:00 06/03/24 22:22 Methylprednisolone Sodium Succinate (Solu Medrol) 40 mg BID IV 06/03/24 22:00 06/03/24 22:20 Insulin Glargine (Lantus) 5 units HS SC 06/03/24 22:00 06/03/24 22:25 Meropenem 50 ml @ 17 mls/hr Q8HR IV 06/03/24 22:00 06/03/24 22:20 Quetiapine Fumarate (SEROquel TABLET) 25 mg BID NG 06/03/24 22:00 Dexmedetomidine HCl 400 mcg/ Dextrose 100 ml @ 5.075 mls/ hr [id number] IV 06/03/24 16:45 Review of Systems Unable to review as patient is intubated on ventilator Vital Signs Vital Signs Date Time Temp Pulse Resp B/P (MAP) Pulse Ox O2 Delivery O2 Flow Rate FiO2 06/03/24 23:30 97.9 63 18 104/57 (73) 100 208.2 06/03/24 22:21 30 06/03/24 19:48 Mechanical Ventilator+ Physical Exam GENERAL: Intubated on ventilator. LUNGS: Decreased breath sounds. CARDIOVASCULAR: Heart sounds are good. ABDOMEN: Soft. Labs/Diagnostic Data Labs Test 06/03/24 21:21 06/03/24 21:05 06/03/24 07:01 06/03/24 03:00 Range/Units POC Glucose 267 H 70-106 mg/dl Potassium Level 3.5 3.5-5.1 mmol/L Magnesium Level 2.3 1.6-2.6 mg/dL Blood Gas Specimen Type Arterial Blood Gas Sample Site Right radial Blood Gas Patient Temperature 37.0 Arterial Blood Date Drawn [id number] Arterial Blood pH 7.510 H 7.350-7.450 Arterial Blood Partial Pressure CO2 31.2 L 35.0-48.0 mmHg Arterial Blood Partial Pressure O2 93.7 83.0-108.0 mmHg Arterial Blood HCO3 24.3 21.0-28.0 mmol/L Arterial Blood Oxygen Saturation 97.0 94.0-98.0 % Arterial Blood Base Excess 1.7 -2.0-3.0 mmol/L Arterial Blood Oxyhemoglobin 95.4 94.0-98.0 % Arterial Blood Carboxyhemoglobin 1.4 0.5-1.5 % Arterial Blood Methemoglobin 0.3 0.0-1.5 % Kit Test Modified Blood Gas Total Hemoglobin 10.10 L 13.5-17.5 g/dL Blood Gas Set Respiration Rate 18.0 Blood Gas Modality Vent - ac FiO2 % 30.0 Blood Gas Tidal Volume 550.0 Blood Gas PEEP or CPAP 5.0 White Blood Count 5.9 # 4.4-10.8 10^3/uL Red Blood Count 3.77 L 4.5-5.90 10^6/uL Hemoglobin 9.1 L 13.5-17.5 g/dL Hematocrit 28.9 L 41.0-53.0 % Mean Corpuscular Volume 76.7 L 80.0-100.0 fL Mean Corpuscular Hemoglobin 24.1 L 28.0-32.0 pg Mean Corpuscular Hemoglobin Concent 31.4 L 32.0-36.0 g/dL Red Cell Distribution Width 26.4 H 11.8-14.3 % Platelet Count 155 140-450 10^3/uL Mean Platelet Volume 8.7 6.9-10.8 fL Neutrophils (%) (Auto) 92.7 H 37.0-80.0 % Lymphocytes (%) (Auto) 4.7 L 10.0-50.0 % Monocytes (%) (Auto) 2.4 0.0-12.0 % Eosinophils (%) (Auto) 0.1 0.0-7.0 % Basophils (%) (Auto) 0.1 0.0-2.0 % Neutrophils # (Auto) 5.4 1.6-8.6 10 ^3/uL Lymphocytes # (Auto) 0.3 L 0.4-5.4 10 ^3/uL Monocytes # (Auto) 0.1 0-1.3 10 ^3/uL Eosinophils # (Auto) 0 0-0.8 10 ^3/uL Basophils # (Auto) 0 0-0.2 10 ^3/uL Nucleated Red Blood Cells 0.9 % Platelet Estimate Adequate Hypochromasia (manual) Moderate Anisocytosis (manual) Slight Microcytosis Slight Target Cells Few Tear Drop Cells Few Ovalocytes Few Sodium Level 148 H 136-145 mmol/L Chloride Level 113 H 98-107 mmol/L Carbon Dioxide Level 28 20-31 mmol/L Anion Gap 7 5-15 Blood Urea Nitrogen 42 H 9-23 mg/dL Creatinine 1.38 H 0.700-1.30 mg/dL Glomerular Filtration Rate Calc 53 >90 mL/min BUN/Creatinine Ratio 30.4 H 10.0-20.0 Serum Glucose 253 H 74-106 mg/dL Calcium Level 8.3 L 8.7-10.4 mg/dL Phosphorus Level 3.4 2.4-5.1 mg/dL Test 06/02/24 03:05 06/01/24 11:02 06/01/24 03:22 05/31/24 16:31 Range/Units Stomatocytes Few [place] Cells Few Lactic Acid Level 1.7 0.4-2.0 mmol/L Prothrombin Time 11.9 H 9.3-11.8 sec Prothrombin Time INR 1.14 0.9-1.15 Activated Partial Thromboplast Time 30.2 24.5-34.5 SEC Total Bilirubin 0.6 0.2-1.0 mg/dL Aspartate Amino Transferase (AST) 34 13-40 U/L Alanine Aminotransferase (ALT) 23 7-40 U/L Alkaline Phosphatase 120 H 46-116 U/L Troponin I High Sensitivity 25 </=54 ng/L Total Protein 5.6 L 5.7-8.2 g/dL Albumin 2.9 L 3.2-4.8 g/dL Test 05/31/24 11:30 05/31/24 11:13 05/29/24 06:19 05/28/24 13:51 Range/Units Vitamin B12 Level 1017 H 211-911 pg/mL Thyroid Stimulating Hormone (TSH) 3.84 0.55-4.78 uIU/mL Treponema pallidum Antibody Non-reactive Negative HIV (1&2) Antibody Negative Negative Urine Color Red H Yellow Urine Clarity Cloudy H Clear Urine pH 5.5 5.0-9.0 Urine Specific [place] 1.007 1.001-1.035 Urine Protein 2+ H Negative Urine Ketones Negative Negative Urine Blood 3+ H Negative /uL Urine Nitrite Negative Negative Urine Bilirubin Negative Negative Urine Urobilinogen Normal Negative mg/dL Urine Leukocyte Esterase 2+ Negative /uL Urine RBC 162 0 - 3 /hpf Urine Microscopic WBC 29 H 0-3 /HPF Urine Squamous Epithelial Cells None seen <5 /hpf Urine Amorphous Crystals Few None Seen /hpf Urine Bacteria None seen None Seen /hpf Urine Mucus Few None Seen Urine Glucose 3+ H Normal mg/dL Differential Total Cells Counted 100.0 100 Neutrophils % (Manual) 86 H 37.0-80.0 Band Neutrophils % (Manual) 2 Lymphocytes % (Manual) 10 10.0-50.0 Monocytes % (Manual) 2 0-12 Eosinophils % (Manual) 0 0-7 Basophils % (Manual) 0 0.0-2.0 Metamyelocytes % (manual) 0 Myelocytes % (Manual) 0 Promyelocytes % (Manual) 0 Blast Cells % (Manual) 0 Reactive Lymphocytes 0 Poikilocytosis (manual) Slight Blood Gas Liter Flow 8.00 Test 05/27/24 18:38 Range/Units B-Type Natriuretic Peptide 1535.13 0-100 pg/mL Microbiology Date/Time Source Procedure Growth Status 06/02/24 10:58 Blood Blood Culture - Preliminary NO GROWTH AFTER 24 HOURS OF INCUBATION. Resulted 06/01/24 03:40 Trachea Gram Stain - Final Resulted 06/01/24 03:40 Trachea Respiratory Culture - Preliminary Resulted Assessment Acute on chronic hypoxic respiratory failure. COPD with exacerbation. Acute on chronic systolic heart failure. CAD s/p MELISSA. PAD s/p iliac stents. ANIVAL VMN. A fib on Eliquis. HTN. HLD. IDDM. Foot ulcers and cellulitis. HFrEF EF 35%. Gross hematuria. Plan/Recommendation I agree with your ongoing assessment and care of plan. Lipitor, Plavix. DVT prophylactics. Diuretics with Lasix. IV antibiotics as ordered. Vasopressors for hemodynamic support. GI prophylactics. Additional plan as per the hospital course. Critical care time of 90 minutes provided to include time spent evaluation of patient at bedside, when appropriate patient/family education for diagnosis, treatment plan, review of pertinent medical information and discussion of care with specialty providers and PCP. Mechanical ventilator parameters, treatment and adjustments have personally been reviewed by me and treatment plan by research nurse practitioner has also been reviewed. Plan discussed with: Other HÉCTOR MARION MD Jun 04, 2024 00:29
[2024-06-04 04:09] LABS: Basophils # (auto) 0 10 ^3/uL (0-0.2); Eosinophils # (auto) 0 10 ^3/uL (0-0.8); Hemoglobin 8.3 g/dL (13.5-17.5)
[2024-06-04 04:11] LABS: Basophils % (auto) 0.2 % (0.0-2.0); Hematocrit 26.7 % (41.0-53.0); Lymphocytes # (auto) 0.4 10 ^3/uL (0.4-5.4); Lymphocytes % (auto) 5.1 % (10.0-50.0); Mean Corpuscular Hemoglobin 23.7 pg (28.0-32.0); Mean Corpuscular Hgb Conc. 31.2 g/dL (32.0-36.0); Mean Corpuscular Volume 75.9 fL (80.0-100.0); Monocytes # (auto) 0.2 10 ^3/uL (0-1.3); Neutrophils # (auto) 6.3 10 ^3/uL (1.6-8.6); Neutrophils % (auto) 91.7 % (37.0-80.0); Nucleated Red Blood Cells % 0.5 %; Platelet Count (auto) 169 10^3/uL (140-450); Red Blood Cells 3.52 10^6/uL (4.5-5.90); White Blood Cell 6.9 10^3/uL (4.4-10.8)
[2024-06-04 04:23] LABS: Anion Gap 8 (5-15); Carbon Dioxide 29 mmol/L (20-31)
[2024-06-04 04:28] LABS: Calcium 8.3 mg/dL (8.7-10.4); Chloride 110 mmol/L (98-107); Sodium 147 mmol/L (136-145)
[2024-06-04 04:29] LABS: BUN/Creatinine Ratio 31.6 (10.0-20.0); Blood Urea Nitrogen 43 mg/dL (9-23); Glucose 275 mg/dL (74-106)
[2024-06-04 04:30] LABS: Magnesium 2.3 mg/dL (1.6-2.6)
[2024-06-04 04:31] LABS: Phosphorus 3.4 mg/dL (2.4-5.1)
--- NOTE | 2024-06-04 05:39 | DVH ---
EXAM: XR Chest, 1 View CLINICAL INDICATION: recheck pulmonary congestion TECHNIQUE: Frontal view of the chest. COMPARISON: XY CHEST PORTABLE on DOS: 06/03/24, XY CHEST PORTABLE on DOS: 06/02/24, XY CHEST XRAY 1 V IEW on DOS: 06/02/24, XY CHEST XRAY 1 VIEW on DOS: 06/01/24, XY CHEST XRAY 1 VIEW on DOS: 06/01/24 FINDINGS: LUNGS AND PLEURAL SPACES: See below. HEART: Cardiomegaly with pulmonary congestion and edema. Superimposed pneumonia cannot be excluded. MEDIASTINUM: Unremarkable. Normal mediastinal contour. BONES/JOINTS: Unremarkable. No acute fracture. TUBES, LINES AND DEVICES: Right internal jugular central venous catheter tip in the superior vena c crow. The endotracheal tube (ETT) is in satisfactory position. Enteric tube tip in the stomach. OTHER FINDINGS: . IMPRESSION: Cardiomegaly with pulmonary congestion and edema. Superimposed pneumonia cannot be excluded.
[2024-06-04 06:05] LABS: Anisocytosis Moderate; Hypochromia Moderate; Ovalocytes FEW; Platelet Estimate Adequate; Target Cell FEW; Tear Drop Cells FEW
[2024-06-04 10:37] LABS: Base Excess 3.1 mmol/L (-2.0-3.0)
[2024-06-04] MEDS: acetaZOLAMIDE SODIUM 500 MG VL IV SCH (11:43)
--- NOTE | 2024-06-04 16:25 | DVHPN2 ---
Assessment/Plan Assessment/Plan Progress note 74 yo M with COPD HFrEF IDDM preiously admitted for cellulitis and diabetic foot on home iv abx invanz admitted for ams and heart failure exacerbation seen today during rounds. minimal pressor and vent setting. daily SAT SBT, c/w diuresis maintain - 1 to 2L adding metolazone. seroquel as patient difficult to titrate off sedation Physical exam sedated and intubated, on mechanical ventilation mechanical breath soudns L pupil with defect, seems baseline cough + gag + s1 s2 rrr abdomen soft LE with alyssa bandage, cannot eval edema labs ekg imaging reviewed assessment and plan acute on chronic hypoxic respiratory failure req mechanical ventilation distributive shock COPD group E with exacerbation acute on chronic systolic heart failure ICM CAD s/p MELISSA PAD s/p iliac stents ANIVAL VMN Afib on eliquis HTN HLD IDDM foot ulcers and celulitis on invanz at home HFrEF EF 35% gross hematuria resolving likely traumatic c/w mechanical vent c/w pressor maintain map >70 c/w sedation meintain RAAS -3 prop and fent c/w with linezolid and nae MRSA swab maintain spo2 >90 hold anti htn c/w lasix maintain -1L monitor cr strict i o christina c/w therapeutic lovenox avoid BEERS medication delirium precaution daily SAT SBT diet nepro dvt ppx on AC gi ppx protonix critical care time 51 minutes Plan discussed with: Other My Orders Orders - ARNIE ARREOLA MD Procedure Category Date Status Time D5w 5% (Dextrose 5%) PHA 06/03/24 In Process W/Dexmedetomidine 16:45 Communication Order ORDERS 06/04/24 Transmitted 08:23 Acetazolamide PHA 06/04/24 In Process Injection (Diamox 10:00 Date of Service: Jun 04, 2024 Billing Provider: ARNIE ARREOLA MD Common Visit Codes: [id number] CARE 30-74 MIN ARNIE ARREOLA MD Jun 04, 2024 16:25
[2024-06-04 21:03] LABS: Magnesium 2.2 mg/dL (1.6-2.6)
[2024-06-04 21:04] LABS: Phosphorus 3.8 mg/dL (2.4-5.1)
[2024-06-04 21:13] LABS: Potassium 3.2 mmol/L (3.5-5.1)
--- NOTE | 2024-06-04 22:21 | DVHPN2 ---
Progress Note - Dictate Date Seen: Jun 04, 2024 Medical Necessity Reason Pt with a Central, PICC or Fol: Yes The following are medically ne: Christina Catheter Reason for christina catheter: Strict I&O Subjective Patient was seen and evaluated in follow-up in the ICU. Patient is intubated and sedated on ventilator. 30% FiO2. Patient failed CPAP trial yesterday. HGB 8.3, HCT 26.7, NA 147, CL 110, BUN 43, BUCCARO 1.36, GLUC 267. Chest x-ray shows cardiomegaly with pulmonary congestion and edema. vital signs Vital Sign Date Time Temp Pulse Resp B/P (MAP) Pulse Ox O2 Delivery O2 Flow Rate FiO2 06/04/24 10:39 58 18 121/59 (79) 100 30 06/04/24 08:00 Mechanical Ventilator+ 06/04/24 07:00 98.4 209.1 Total Intake and Output 06/03/24 06/03/24 06/04/24 15:00 23:00 07:00 Intake Total 568.285 ml 1265.271 ml 1047.120 ml Output Total 1300 ml 1600 ml Balance 568.285 ml -34.729 ml -552.880 ml medications Current Medications Medications Dose Ordered Sig/Erik Route Start Time Stop Time Status Last Admin Dose Admin Atorvastatin Calcium 20 mg HS PO 05/28/24 22:00 06/03/24 22:21 20 MG Clopidogrel Bisulfate 75 mg DAILY PO 05/28/24 10:00 06/04/24 09:10 75 MG Sodium Chloride 10 ml Q8HR IV 05/28/24 06:00 06/04/24 06:49 10 ML Diagnostic Test (Pha) 1 strip ACHS 05/28/24 07:00 06/04/24 06:49 1 STRIP Insulin Human Regular ACHS SC 05/28/24 07:00 06/04/24 11:10 6 UNITS Dextrose 50 ml UD PRN IV 05/27/24 23:00 Enoxaparin Sodium 100 mg Q12HR SC 05/28/24 22:00 06/04/24 09:10 100 MG Linezolid 300 ml @ 150 mls/hr Q12HR IV 05/28/24 22:00 06/04/24 09:10 150 MLS/HR Fentanyl Citrate 250 ml @ 2.5 mls/hr Q24H IV 06/01/24 03:15 06/03/24 15:57 10 MLS/HR Propofol 100 ml @ 3.057 mls/ hr Q24H IV 06/01/24 09:00 06/04/24 02:25 15.285 MLS/HR Pantoprazole Sodium 40 mg DAILY IV 06/02/24 10:00 06/04/24 09:10 40 MG Potassium Chloride 100 ml @ 50 mls/hr Q2H IV 06/02/24 09:30 06/02/24 13:29 Cancel Norepinephrine Bitartrate 250 ml @ 1.875 mls/ hr Q24H IV 06/02/24 10:30 06/04/24 01:33 1.875 MLS/HR Enteral Nutritional Formula 1,000 ml 40ML/HR GT 06/02/24 13:00 06/02/24 16:00 1,000 ML Purified Water 300 ml Q4HR GT 06/02/24 18:00 06/04/24 01:34 300 ML Furosemide 40 mg BIDD IV 06/03/24 18:00 06/04/24 06:48 40 MG Multi-Ingredient Ointment 1 applic BID TOP 06/03/24 10:00 06/04/24 09:12 1 APPLIC Methylprednisolone Sodium Succinate 40 mg BID IV 06/03/24 22:00 06/04/24 09:09 40 MG Insulin Glargine 5 units HS SC 06/03/24 22:00 06/03/24 22:25 5 UNITS Meropenem 50 ml @ 17 mls/hr Q8HR IV 06/03/24 22:00 06/04/24 06:49 17 MLS/HR Quetiapine Fumarate 25 mg BID NG 06/03/24 22:00 06/04/24 10:02 25 MG Dexmedetomidine HCl 400 mcg/ Dextrose 100 ml @ 5.075 mls/ hr [id number] IV 06/03/24 16:45 Acetazolamide Sodium 500 mg Q12HR IV 06/04/24 10:00 06/05/24 09:59 objective GENERAL: Intubated on ventilator. LUNGS: Decreased breath sounds. CARDIOVASCULAR: Heart sounds are good. ABDOMEN: Soft. laboratory and microbiology Laboratory Tests 06/04/24 03:15 Test 06/04/24 03:15 Range/Units Serum Glucose 275 H 74-106 mg/dL Problem List Acute on chronic hypoxic respiratory failure. COPD with exacerbation. Acute on chronic systolic heart failure. CAD s/p MELISSA. PAD s/p iliac stents. ANIVAL VMN. A fib on Eliquis. HTN. HLD. IDDM. Foot ulcers and cellulitis. HFrEF EF 35%. Gross hematuria. Assessment/Plan Continued all current supportive medical care. Lipitor, Plavix. DVT prophylactics. Diuretics with Lasix. IV antibiotics as ordered. Vasopressors for hemodynamic support. GI prophylactics. Additional plan as per the hospital course. Critical care time of 45 minutes provided to include time spent evaluation of patient at bedside, when appropriate patient/family education for diagnosis, treatment plan, review of pertinent medical information and discussion of care with specialty providers and PCP. Mechanical ventilator parameters, treatment and adjustments have personally been reviewed by me and treatment plan by film archivist has also been reviewed. Dietary Evaluation Review Recommendations by RD: Protein Supplementation Comments: 1) Lion is NOT approriate d/t kidney function 2) Consult nephrology d/t elevated renal panel 3) Initiate Glucerna tid d/t poor PO intake 4) Continue to monitor I&O, labs, and skin integrity Expected Outcomes/Goals: 1) appetite and labs to improve 2) wound to improve 3) f/u in 5 days Plan discussed with: HÉCTOR Nolasco MD Jun 04, 2024 11:31
--- NOTE | 2024-06-04 22:58 | DVHPN2 ---
Progress Note - Dictate Date Seen: Jun 04, 2024 Medical Necessity Reason Pt with a Central, PICC or Fol: Yes The following are medically ne: Christina Catheter Reason for christina catheter: Strict I&O Subjective Patient seen and examined at bedside. Sedated, intubated on mechanical ventilator. Overnight events reviewed vital signs Vital Sign Date Time Temp Pulse Resp B/P (MAP) Pulse Ox O2 Delivery O2 Flow Rate FiO2 06/04/24 22:26 114/57 06/04/24 22:17 80 18 98 30 06/04/24 18:00 Mechanical Ventilator+ 06/04/24 16:45 98.1 208.6 Total Intake and Output 06/03/24 06/03/24 06/04/24 15:00 23:00 07:00 Intake Total 568.285 ml 1265.271 ml 1047.120 ml Output Total 1300 ml 1600 ml Balance 568.285 ml -34.729 ml -552.880 ml medications Current Medications Medications Dose Ordered Sig/Erik Route Start Time Stop Time Status Last Admin Dose Admin Atorvastatin Calcium 20 mg HS PO 05/28/24 22:00 06/04/24 21:54 20 MG Sodium Chloride 10 ml Q8HR IV 05/28/24 06:00 06/04/24 22:05 10 ML Diagnostic Test (Pha) 1 strip ACHS 05/28/24 07:00 06/04/24 22:17 1 STRIP Insulin Human Regular ACHS SC 05/28/24 07:00 06/04/24 22:22 2 UNITS Dextrose 50 ml UD PRN IV 05/27/24 23:00 Linezolid 300 ml @ 150 mls/hr Q12HR IV 05/28/24 22:00 06/04/24 22:17 150 MLS/HR Fentanyl Citrate 250 ml @ 2.5 mls/hr Q24H IV 06/01/24 03:15 06/04/24 22:02 7.5 MLS/HR Propofol 100 ml @ 3.057 mls/ hr Q24H IV 06/01/24 09:00 06/04/24 22:26 6.114 MLS/HR Pantoprazole Sodium 40 mg DAILY IV 06/02/24 10:00 06/04/24 09:10 40 MG Potassium Chloride 100 ml @ 50 mls/hr Q2H IV 06/02/24 09:30 06/02/24 13:29 Cancel Norepinephrine Bitartrate 250 ml @ 1.875 mls/ hr Q24H IV 06/02/24 10:30 06/04/24 01:33 1.875 MLS/HR Enteral Nutritional Formula 1,000 ml 40ML/HR GT 06/02/24 13:00 06/02/24 16:00 1,000 ML Purified Water 300 ml Q4HR GT 06/02/24 18:00 06/04/24 22:05 300 ML Furosemide 40 mg BIDD IV 06/03/24 18:00 06/04/24 18:01 40 MG Multi-Ingredient Ointment 1 applic BID TOP 06/03/24 10:00 06/04/24 22:17 1 APPLIC Methylprednisolone Sodium Succinate 40 mg BID IV 06/03/24 22:00 06/04/24 21:53 40 MG Insulin Glargine 5 units HS SC 06/03/24 22:00 06/04/24 22:23 5 UNITS Meropenem 50 ml @ 17 mls/hr Q8HR IV 06/03/24 22:00 06/04/24 21:42 17 MLS/HR Quetiapine Fumarate 25 mg BID NG 06/03/24 22:00 06/04/24 21:54 25 MG Dexmedetomidine HCl 400 mcg/ Dextrose 100 ml @ 5.075 mls/ hr [id number] IV 06/03/24 16:45 Acetazolamide Sodium 500 mg Q12HR IV 06/04/24 10:00 06/05/24 09:59 06/04/24 21:57 500 MG Enoxaparin Sodium 30 mg DAILY SC 06/05/24 10:00 objective Gen.: Patient lying in bed in medical ICU. Sedated, intubated on mechanical ventilator. Head: Normocephalic, atraumatic. Eyes: PERRLA. Ears: Normal external anatomy. Throat: Endotracheal tube and orogastric tube in place. Neck: Supple, trachea midline. Chest: Transmitted breath sounds bilaterally. Decreased air entry bilaterally. No wheezing. Bibasilar crackles. Cardiovascular: Positive S1, positive S2. Regular rate and rhythm. Abdomen: Positive bowel sounds in all 4 quadrants. Soft, nontender, nondistended. : Christina in place. Normal external genitalia. Rectal: Deferred. Skin: Warm, dry. Intact. Extremities: 2+ radial pulses bilaterally. No lower extremity edema. Neuro: Sedated. laboratory and microbiology Laboratory Tests 06/04/24 20:12 06/04/24 03:15 Test 06/04/24 03:15 Range/Units Serum Glucose 275 H 74-106 mg/dL Assessment/Plan Impression: Acute on chronic hypoxic respiratory failure On mechanical ventilator S/p cardiac arrest Shock Acute CHF exacerbation Cellulitis Chronic obstructive pulmonary disease Diabetes mellitus type II Obesity Events: Remains on vent support On AC mode; RR 18, VT 550, PEEP 5, FiO2 30% Sedated on Propofol, Fentanyl On pressors for hemodynamic support Levophed 1 mcg/min Titrate to keep mean arterial pressure greater than 65 mmHg. Monitor hemoglobin - trended down to 8.3 g/dL Continue antibiotics Wound care. Diurese as tolerated w/ Lasix Monitor renal function Monitor electrolytes. Supplement as necessary. Potassium supplementation Monitor ins and outs. Started Diamox SBT/BETZAIDA. CPAP once patient is awake. ABG reviewed, notable for alkalemia CXR reviewed, demonstrates cardiomegaly with pulmonary congestion and edema. Superimposed pneumonia cannot be excluded. Devices in place. Labs and imaging reviewed. Rest of plan as noted below. Plan: s/p intubation on mechanical ventilator. On AC mode; RR 18, VT 550, PEEP 5, FiO2 30% Titrate FIO2 to keep O2 saturation above 90%. VAP bundle. Daily ABG and CXR while intubated Sedate for ventilator synchrony Continue antibiotics. F/u cultures. On pressors for hemodynamic support Titrate to keep mean arterial pressure greater than 65 mmHg. Wound care Diurese as tolerated w/ Lasix Monitor renal function Monitor electrolytes. Supplement as necessary. Monitor ins and outs. Maintain euvolemia. Nephrology recommendations appreciated Accu-Cheks, ISS PRN. Diet and lifestyle modifications for weight reduction Obesity - complicates all care GI prophylaxis. DVT prophylaxis. Prognosis: Poor given patient's multiple co-morbidities. Condition: Critical Rest of plan per hospitalist and other consultants. A total of 35 minutes of critical care time was spent reviewing the patient record, examining the patient, making a diagnostic and therapeutic plan, discussing this plan with the medical personnel, following up on diagnostic studies and following the patient for clinical stability excluding any and all procedures. At least 50% of this time was spent in direct, [id number] contact. Thank you, Dr. Bhatt, for allowing me to participate in this patient's care. Further recommendations will depend on the patient's clinical course. Please do not hesitate to contact me if you have any questions or concerns. This medical document was created using an electronic medical record system with [employer] dictation system. Although these documentations are being carefully reviewed, there may still be some phonetic and typographical changes. The errors are purely typographical, due to imperfection on the software program, and do not reflect any compromise in the patient's medical care. Dietary Evaluation Review Recommendations by RD: Protein Supplementation Comments: 1) Lion is NOT approriate d/t kidney function 2) Consult nephrology d/t elevated renal panel 3) Initiate Glucerna tid d/t poor PO intake 4) Continue to monitor I&O, labs, and skin integrity Expected Outcomes/Goals: 1) appetite and labs to improve 2) wound to improve 3) f/u in 5 days Plan discussed with: Other (RN Madalyn) Critical Care Time(min): 35 MIRIAM DERAS MD Jun 04, 2024 22:58
[2024-06-05] VITALS (107 sets, daily range): BP systolic 93–152; BP diastolic 45–86; PULSE 41–118; RESP 10–24; TEMP 98.1–99.7; O2SAT 94–100
[2024-06-05] MEDS: POTASSIUM CHL 20MEQ/50ML 50 ML IV ONE (00:11)
--- NOTE | 2024-06-05 05:46 | DVH ---
CHEST RADIOGRAPH Indication: re-check pulmonary congestion Technique: Single frontal view of the chest was obtained COMPARISON: XY CHEST PORTABLE on DOS: 06/04/24, XY CHEST PORTABLE on DOS: 06/03/24, XY CHEST PORTABLE o n DOS: 06/02/24, XY CHEST XRAY 1 VIEW on DOS: 06/02/24, XY CHEST XRAY 1 VIEW on DOS: 06/01/24 FINDINGS: Lines and Tubes: Right central venous catheter, endotracheal tube and enteric catheter in satisfactor y position. Lungs: Patchy bilateral airspace disease. Pleura: No effusion. No pneumothorax. Cardiomediastinal contours: Cardiomegaly Bones: Unremarkable IMPRESSION: Lines and tubes in satisfactory position. No significant interval change.
[2024-06-05 07:58] LABS: Base Excess 1.5 mmol/L (-2.0-3.0)
[2024-06-05] MEDS: ENOXAPARIN SOD 30 MG/0.3 ML SYRINGE SC SCH (09:07)
--- NOTE | 2024-06-05 11:10 | DVHPN2 ---
Subjective Patient chemically sedated Reviewed: Care Plan, H&P, Labs, Medications, Previous Orders, Radiology Changes from previous H/P or p: No Changes General: Per HPI Eyes: No Pain, No Vision change, No Conjunctivae inflammation, No Eyelid inflammation, No Other, No Redness ENT: No Ear pain, No Ear discharge, No Nose pain, No Nose discharge, No Nose congestion, No Mouth pain, No Mouth swelling, No Throat pain, No Throat swelling, No Other Cardiovascular: No Chest Pain, No Palpitations, No Orthopnea, No Paroxysmal Noc. Dyspnea, No Edema, No Lt Headedness, No Other Respiratory: No Cough, No Dry; Shortness of breath; No SOB with excertion, No Wheezing, No Hemoptysis, No Pleuritic Pain, No Sputum; Other (SOB at rest) Gastrointestinal: No Nausea, No Vomiting, No Abdominal Pain, No Diarrhea, No Constipation, No Melena, No Hematochezia, No Other Genitourinary: No Dysuria, No Frequency, No Incontinence, No Hematuria, No Retention, No Other Musculoskeletal: No other, No neck pain, No shoulder pain, No arm pain, No back pain, No hand pain, No leg pain, No foot pain Skin: No Rash, No Lesions, No Jaundice, No Bruising, No Other Objective Vitals Vital Signs Date Time Temp Pulse Resp B/P (MAP) Pulse Ox O2 Delivery O2 Flow Rate FiO2 06/05/24 10:30 98.4 58 18 96/52 (67) 98 209.1 06/05/24 10:00 Mechanical Ventilator+ 30 30 Intake/Output Intake and Output 06/05/24 07:00 Intake Total 2899.791 ml Output Total 3800 ml Balance -900.209 ml Intake Oral 950 ml IV Total 1949.791 ml Output Urine Total 3800 ml General Appearance: mild distress, Other (Chemically sedated) HEENT: Atraumatic, PERRLA, EOMI, Mucous membr. moist/pink Neck: Supple Lungs: Clear to auscultation, Normal air movement, Other (Mechanical ventilation) Cardiovascular: Regular rate, Normal S1, Normal S2, No murmurs, Gallops, Rubs Abdomen: Normal bowel sounds, Soft, No tenderness Musculoskeletal: Normal sensory function, Normal motor function Neuro: Cranial nerves 3-12 NL Skin: Dry, Intact, Wounds (See nurse notes and pictures) Psych/Mental Status: Mental status NL Medications Current Medications Medications Dose Ordered Sig/Erik Route Start Time Stop Time Status Last Admin Dose Admin Atorvastatin Calcium 20 mg HS PO 05/28/24 22:00 06/04/24 21:54 20 MG Sodium Chloride 10 ml Q8HR IV 05/28/24 06:00 06/05/24 05:32 10 ML Diagnostic Test (Pha) 1 strip ACHS 05/28/24 07:00 06/05/24 06:55 1 STRIP Insulin Human Regular ACHS SC 05/28/24 07:00 06/05/24 06:56 4 UNITS Dextrose 50 ml UD PRN IV 05/27/24 23:00 Linezolid 300 ml @ 150 mls/hr Q12HR IV 05/28/24 22:00 06/05/24 09:06 150 MLS/HR Fentanyl Citrate 250 ml @ 2.5 mls/hr Q24H IV 06/01/24 03:15 06/04/24 22:02 7.5 MLS/HR Propofol 100 ml @ 3.057 mls/ hr Q24H IV 06/01/24 09:00 06/04/24 22:26 6.114 MLS/HR Pantoprazole Sodium 40 mg DAILY IV 06/02/24 10:00 06/05/24 09:02 40 MG Potassium Chloride 100 ml @ 50 mls/hr Q2H IV 06/02/24 09:30 06/02/24 13:29 Cancel Norepinephrine Bitartrate 250 ml @ 1.875 mls/ hr Q24H IV 06/02/24 10:30 06/04/24 01:33 1.875 MLS/HR Enteral Nutritional Formula 1,000 ml 40ML/HR GT 06/02/24 13:00 06/02/24 16:00 1,000 ML Purified Water 300 ml Q4HR GT 06/02/24 18:00 06/05/24 05:31 300 ML Furosemide 40 mg BIDD IV 06/03/24 18:00 06/05/24 05:25 40 MG Multi-Ingredient Ointment 1 applic BID TOP 06/03/24 10:00 06/05/24 09:07 1 APPLIC Methylprednisolone Sodium Succinate 40 mg BID IV 06/03/24 22:00 06/05/24 09:04 40 MG Insulin Glargine 5 units HS SC 06/03/24 22:00 06/04/24 22:23 5 UNITS Meropenem 50 ml @ 17 mls/hr Q8HR IV 06/03/24 22:00 06/05/24 05:25 17 MLS/HR Quetiapine Fumarate 25 mg BID NG 06/03/24 22:00 06/04/24 21:54 25 MG Dexmedetomidine HCl 400 mcg/ Dextrose 100 ml @ 5.075 mls/ hr [id number] IV 06/03/24 16:45 06/05/24 09:05 5.075 MLS/HR Enoxaparin Sodium 30 mg DAILY SC 06/05/24 10:00 06/05/24 09:07 30 MG Laboratory Results Laboratory Tests 06/04/24 03:15 06/04/24 20:12 Chemistry Test 06/04/24 20:12 Magnesium Level 2.2 mg/dL (1.6-2.6) Phosphorus Level 3.8 mg/dL (2.4-5.1) Urinalysis Test 05/31/24 11:13 Urine Color Red (Yellow) H Urine Clarity Cloudy (Clear) H Urine pH 5.5 (5.0-9.0) Urine Specific [place] 1.007 (1.001-1.035) Urine Protein 2+ (Negative) H Urine Ketones Negative (Negative) Urine Blood 3+ /uL (Negative) H Urine Nitrite Negative (Negative) Urine Bilirubin Negative (Negative) Urine Urobilinogen Normal mg/dL (Negative) Urine Leukocyte Esterase 2+ /uL (Negative) Urine RBC 162 /hpf (0 - 3) Urine Microscopic WBC 29 /HPF (0-3) H Urine Squamous Epithelial Cells None seen /hpf (<5) Urine Amorphous Crystals Few /hpf (None Seen) Urine Bacteria None seen /hpf (None Seen) Urine Mucus Few (None Seen) Urine Glucose 3+ mg/dL (Normal) H Blood Gas Results Test 06/05/24 07:34 Arterial Blood pH 7.432 (7.350-7.450) FiO2 % 30.0 Microbiology Microbiology Date/Time Source Procedure Growth Status 06/02/24 10:58 Blood Blood Culture - Preliminary NO GROWTH AFTER 48 HOURS OF INCUBATION. Resulted 06/01/24 03:40 Trachea Gram Stain - Final Complete 06/01/24 03:40 Respiratory Culture - Final Presumptive Allison albicans Complete Labs and/or images reviewed: Labs reviewed by me, Image(s) reviewed by me Assessment/Plan Assessment/Plan Impression: -status post in-house cardiopulmonary arrest -acute hypoxic respiratory failure with mechanical ventilation -acute on chronic systolic heart failure -diabetes mellitus -peripheral neuropathy -metabolic encephalopathy -bilateral lower extremity cellulitis -CKD stage IIIb Plan: -patient has had multiple bouts of failed spontaneous breathing trials. Reported apneic periods today. -CT scan of the head -regular insulin sliding scale with Lantus -bronchodilators -ICS, IV Solu-Medrol -Precedex for sedation -continue empiric antibiotic therapy -repeat labs, chest x-ray, ABG in a.m. -long discussion made with the patient's family who were bedside. Discussed patient's failed weaning attempts and current plan of care. They verbalized understanding. Critical care time spent with patient discussing and formulating plan of care: 90 minutes. This does not include time spent performing procedures. This medical document was created using an electronic medical record system with [employer] dictation system. Although this document has been carefully reviewed, there may still be some phonetic and typographical errors. These areas are purely typographical due to imperfections of the software programs, and do not reflect any compromise in the patient's medical care. Plan discussed with: Patient, Son, Other (RN) My Orders Orders - YVONNE GARCIA NP Procedure Category Date Status Time Basic Metabolic Panel LAB 06/05/24 Logged 08:23 Basic Metabolic Panel LAB 06/06/24 Verified 05:00 Basic Metabolic Panel LAB 06/07/24 Verified 05:00 Basic Metabolic Panel LAB 06/08/24 Verified 05:00 Complete Blood Count LAB 06/06/24 Verified 05:00 Complete Blood Count LAB 06/07/24 Verified 05:00 Complete Blood Count LAB 06/08/24 Verified 05:[address] 06/05/24 Verified 10:56 Date of Service: Jun 05, 2024 Billing Provider: YVONNE GARCIA NP Common Visit Codes: [id number] CARE 30-74 MIN, [id number] CARE-EACH +30MIN YVONNE GARCIA NP Jun 05, 2024 11:10
--- NOTE | 2024-06-05 12:05 | DVH ---
EXAM: CT Head Without Intravenous Contrast CLINICAL INDICATION: S/P CPR with anoxic damage TECHNIQUE: Axial computed tomography images of the head/brain without intravenous contrast. This CT exam was performed using one or more of the following dose reduction techniques: automated exposure control, adjustment of the mA and/or kV according to patient size, and/or use of iterative reconstru ction technique. CONTRAST: RADIATION DOSE: CTDIvol = 65.54 mGy, DLP = 1291.23 mGy-cm COMPARISON: CT HEAD WITHOUT CONTRAST on DOS: 05/27/24 FINDINGS: BRAIN AND EXTRA-AXIAL SPACES: The cerebral and cerebellar sulci are prominent consistent with brain atrophy. No acute intracranial hemorrhage, midline shift or mass effect. If symptoms persist, furth er evaluation with MRI is recommended. No significant white matter disease. BONES/JOINTS: Unremarkable. No acute fracture. SOFT TISSUES: Unremarkable. SINUSES: Unremarkable as visualized. No acute sinusitis. MASTOID AIR CELLS: Unremarkable as visualized. No mastoid effusion. OTHER FINDINGS: . . IMPRESSION: 1. Generalized brain atrophy. 2. No acute intracranial hemorrhage, midline shift or mass effect. If symptoms persist, further eval uation with MRI is recommended. No hemorrhage
[2024-06-05 13:53] LABS: Potassium 3.6 mmol/L (3.5-5.1)
[2024-06-05 13:54] LABS: Anion Gap 9 (5-15); Carbon Dioxide 26 mmol/L (20-31)
[2024-06-05 13:55] LABS: Calcium 8.1 mg/dL (8.7-10.4); Chloride 110 mmol/L (98-107); Sodium 145 mmol/L (136-145)
[2024-06-05 13:59] LABS: BUN/Creatinine Ratio 30.4 (10.0-20.0)
[2024-06-05 14:01] LABS: Blood Urea Nitrogen 38 mg/dL (9-23); Glucose 222 mg/dL (74-106)
--- NOTE | 2024-06-05 14:20 | MEDREC ---
[facility] Intervention Section I [facility] Intervention: Review courses of therapy (The Final Respiratory culture (Trachea) showed Presumptive Allison albicans. Please consider adding an antifungal agent if clinically appropriate) PRECIOUS GRACE Jun 05, 2024 14:20
[2024-06-05] MEDS: DOPamine 1600MCG/ML D5W 250 ML IV ONE (15:36)
--- NOTE | 2024-06-05 16:07 | DVHPN2 ---
Progress Note - Dictate Date Seen: Jun 05, 2024 Medical Necessity Reason Pt with a Central, PICC or Fol: Yes The following are medically ne: Christina Catheter Reason for christina catheter: Strict I&O Subjective *Inspector And Hand Packager rounds* Patient seen and examined Overnight events reviewed vital signs Vital Sign Date Time Temp Pulse Resp B/P (MAP) Pulse Ox O2 Delivery O2 Flow Rate FiO2 06/05/24 15:36 42 18 117/51 (73) 99 30 06/05/24 14:02 Mechanical Ventilator+ 06/05/24 10:30 98.4 209.1 Total Intake and Output 06/04/24 06/04/24 06/05/24 15:00 23:00 07:00 Intake Total 519.0 ml 716.314 ml 1664.477 ml Output Total 1350 ml 700 ml 1750 ml Balance -831.0 ml 16.314 ml -85.523 ml medications Current Medications Medications Dose Ordered Sig/Erik Route Start Time Stop Time Status Last Admin Dose Admin Atorvastatin Calcium 20 mg HS PO 05/28/24 22:00 06/04/24 21:54 20 MG Sodium Chloride 10 ml Q8HR IV 05/28/24 06:00 06/05/24 14:17 10 ML Diagnostic Test (Pha) 1 strip ACHS 05/28/24 07:00 06/05/24 11:59 1 STRIP Insulin Human Regular ACHS SC 05/28/24 07:00 06/05/24 11:58 4 UNITS Dextrose 50 ml UD PRN IV 05/27/24 23:00 Linezolid 300 ml @ 150 mls/hr Q12HR IV 05/28/24 22:00 06/05/24 09:06 150 MLS/HR Fentanyl Citrate 250 ml @ 2.5 mls/hr Q24H IV 06/01/24 03:15 06/04/24 22:02 7.5 MLS/HR Propofol 100 ml @ 3.057 mls/ hr Q24H IV 06/01/24 09:00 06/05/24 12:13 6.114 MLS/HR Pantoprazole Sodium 40 mg DAILY IV 06/02/24 10:00 06/05/24 09:02 40 MG Potassium Chloride 100 ml @ 50 mls/hr Q2H IV 06/02/24 09:30 06/02/24 13:29 Cancel Norepinephrine Bitartrate 250 ml @ 1.875 mls/ hr Q24H IV 06/02/24 10:30 06/04/24 01:33 1.875 MLS/HR Enteral Nutritional Formula 1,000 ml 40ML/HR GT 06/02/24 13:00 06/02/24 16:00 1,000 ML Purified Water 300 ml Q4HR GT 06/02/24 18:00 06/05/24 05:31 300 ML Furosemide 40 mg BIDD IV 06/03/24 18:00 06/05/24 05:25 40 MG Multi-Ingredient Ointment 1 applic BID TOP 06/03/24 10:00 06/05/24 09:07 1 APPLIC Methylprednisolone Sodium Succinate 40 mg BID IV 06/03/24 22:00 06/05/24 09:04 40 MG Insulin Glargine 5 units HS SC 06/03/24 22:00 06/04/24 22:23 5 UNITS Meropenem 50 ml @ 17 mls/hr Q8HR IV 06/03/24 22:00 06/05/24 14:18 17 MLS/HR Quetiapine Fumarate 25 mg BID NG 06/03/24 22:00 06/05/24 12:56 25 MG Dexmedetomidine HCl 400 mcg/ Dextrose 100 ml @ 5.075 mls/ hr [id number] IV 06/03/24 16:45 06/05/24 09:05 5.075 MLS/HR Enoxaparin Sodium 30 mg DAILY SC 06/05/24 10:00 06/05/24 09:07 30 MG laboratory and microbiology Laboratory Tests 06/05/24 13:01 06/04/24 03:15 Test 06/05/24 13:01 Range/Units Serum Glucose 222 H 74-106 mg/dL Assessment/Plan Impression Acute hypoxemic respiratory failure S/p cardiac arrest Chronic legs wounds COPD Patient seen and examined in ICU Events On mechanical ventilation S/p intubation PEEP 5, FiO2 30% Fails weaning trials due to agitation and delirium Labs and imaging reviewed Initial CT unremarkable - 05/27/24 ABG reviewed Management Vent support Titrate to maintain sats 90% or above Sedation for vent synchrony Continue antibiotics F/u cultures Bronchodilators Discontinue steroids Monitor renal function Monitor electrolytes Supplement as needed Pressors as needed for hemodynamic support To maintain a mean arterial pressure of [address] of the head to rule out acute abnormalities Consult neurology DVT prophylaxis Critical care time 35 minutes Dietary Evaluation Review Recommendations by RD: Protein Supplementation Comments: 1) Lion is NOT approriate d/t kidney function 2) Consult nephrology d/t elevated renal panel 3) Initiate Glucerna tid d/t poor PO intake 4) Continue to monitor I&O, labs, and skin integrity Expected Outcomes/Goals: 1) appetite and labs to improve 2) wound to improve 3) f/u in 5 days Plan discussed with: Other (Rn) DOMENICO MADDEN MD Jun 05, 2024 16:07
[2024-06-05] MEDS: DOPamine 1600MCG/ML D5W 250 ML IV SCH (16:50)
--- NOTE | 2024-06-05 22:22 | DVHPN2 ---
Progress Note - Dictate Date Seen: Jun 05, 2024 Medical Necessity Reason Pt with a Central, PICC or Fol: Yes The following are medically ne: Christina Catheter Reason for christina catheter: Strict I&O Subjective Patient was seen and evaluated in follow up in the ICU. Patient is intubated and sedated on ventilator. 30% FiO2. Family is at bedside. BUN 38. CT brain shows generalized brain atrophy. No acute intracranial hemorrhage, midline shift or mass effect. Chest x-ray shows patchy bilateral airspace disease and cardiomegaly. vital signs Vital Sign Date Time Temp Pulse Resp B/P (MAP) Pulse Ox O2 Delivery O2 Flow Rate FiO2 06/05/24 19:35 62 18 135/78 96 30 06/05/24 18:30 98.8 209.8 06/05/24 18:04 Mechanical Ventilator+ Total Intake and Output 06/04/24 06/04/24 06/05/24 14:59 22:59 06:59 Intake Total 526.5 ml 560.9 ml 1714.402 ml Output Total 1350 ml 700 ml 1750 ml Balance -823.5 ml -139.1 ml -35.598 ml medications Current Medications Medications Dose Ordered Sig/Erik Route Start Time Stop Time Status Last Admin Dose Admin Atorvastatin Calcium 20 mg HS PO 05/28/24 22:00 06/04/24 21:54 20 MG Sodium Chloride 10 ml Q8HR IV 05/28/24 06:00 06/05/24 14:17 10 ML Diagnostic Test (Pha) 1 strip ACHS 05/28/24 07:00 06/05/24 17:09 1 STRIP Insulin Human Regular ACHS SC 05/28/24 07:00 06/05/24 17:09 3 UNITS Dextrose 50 ml UD PRN IV 05/27/24 23:00 Linezolid 300 ml @ 150 mls/hr Q12HR IV 05/28/24 22:00 06/05/24 09:06 150 MLS/HR Fentanyl Citrate 250 ml @ 2.5 mls/hr Q24H IV 06/01/24 03:15 06/04/24 22:02 7.5 MLS/HR Propofol 100 ml @ 3.057 mls/ hr Q24H IV 06/01/24 09:00 06/05/24 12:13 6.114 MLS/HR Pantoprazole Sodium 40 mg DAILY IV 06/02/24 10:00 06/05/24 09:02 40 MG Potassium Chloride 100 ml @ 50 mls/hr Q2H IV 06/02/24 09:30 06/02/24 13:29 Cancel Norepinephrine Bitartrate 250 ml @ 1.875 mls/ hr Q24H IV 06/02/24 10:30 06/04/24 01:33 1.875 MLS/HR Enteral Nutritional Formula 1,000 ml 40ML/HR GT 06/02/24 13:00 06/02/24 16:00 1,000 ML Purified Water 300 ml Q4HR GT 06/02/24 18:00 06/05/24 05:31 300 ML Furosemide 40 mg BIDD IV 06/03/24 18:00 06/05/24 17:11 40 MG Multi-Ingredient Ointment 1 applic BID TOP 06/03/24 10:00 06/05/24 09:07 1 APPLIC Insulin Glargine 5 units HS SC 06/03/24 22:00 06/04/24 22:23 5 UNITS Meropenem 50 ml @ 17 mls/hr Q8HR IV 06/03/24 22:00 06/05/24 14:18 17 MLS/HR Quetiapine Fumarate 25 mg BID NG 06/03/24 22:00 06/05/24 12:56 25 MG Dexmedetomidine HCl 400 mcg/ Dextrose 100 ml @ 5.075 mls/ hr [id number] IV 06/03/24 16:45 06/05/24 09:05 5.075 MLS/HR Enoxaparin Sodium 30 mg DAILY SC 06/05/24 10:00 06/05/24 09:07 30 MG Dopamine HCl/ Dextrose 250 ml @ 7.2 mls/hr Q24H IV 06/05/24 16:30 06/05/24 16:50 7.2 MLS/HR objective GENERAL: Intubated on ventilator. LUNGS: Decreased breath sounds. CARDIOVASCULAR: Heart sounds are good. ABDOMEN: Soft. laboratory and microbiology Laboratory Tests 06/05/24 13:01 06/04/24 03:15 Test 06/05/24 13:01 Range/Units Serum Glucose 222 H 74-106 mg/dL Problem List Acute on chronic hypoxic respiratory failure. COPD with exacerbation. Acute on chronic systolic heart failure. CAD s/p MELISSA. PAD s/p iliac stents. ANIVAL VMN. A fib on Eliquis. HTN. HLD. IDDM. Foot ulcers and cellulitis. HFrEF EF 35%. Gross hematuria. Assessment/Plan Continued all current supportive medical care. Lipitor, Plavix. DVT prophylactics. Diuretics with Lasix. IV antibiotics as ordered. Vasopressors for hemodynamic support. GI prophylactics. Additional plan as per the hospital course. Critical care time of 45 minutes provided to include time spent evaluation of patient at bedside, when appropriate patient/family education for diagnosis, treatment plan, review of pertinent medical information and discussion of care with specialty providers and PCP. Mechanical ventilator parameters, treatment and adjustments have personally been reviewed by me and treatment plan by notch grinder has also been reviewed. Dietary Evaluation Review Recommendations by RD: Protein Supplementation Comments: 1) Lion is NOT approriate d/t kidney function 2) Consult nephrology d/t elevated renal panel 3) Initiate Glucerna tid d/t poor PO intake 4) Continue to monitor I&O, labs, and skin integrity Expected Outcomes/Goals: 1) appetite and labs to improve 2) wound to improve 3) f/u in 5 days Plan discussed with: HÉCTOR Nolasco MD Jun 05, 2024 20:07
[2024-06-06] VITALS (87 sets, daily range): BP systolic 65–151; BP diastolic 35–80; PULSE 70–186; RESP 8–24; TEMP 98.9–100.4; O2SAT 83–100
[2024-06-06 03:40] LABS: Basophils # (auto) 0 10 ^3/uL (0-0.2); Eosinophils # (auto) 0.1 10 ^3/uL (0-0.8); Mean Corpuscular Hemoglobin 22.6 pg (28.0-32.0)
[2024-06-06 03:43] LABS: Basophils % (auto) 0.2 % (0.0-2.0); Eosinophils % (auto) 0.5 % (0.0-7.0); Hematocrit 31.4 % (41.0-53.0); Hemoglobin 9.4 g/dL (13.5-17.5); Lymphocytes # (auto) 1.6 10 ^3/uL (0.4-5.4); Lymphocytes % (auto) 14.3 % (10.0-50.0); Mean Corpuscular Volume 75.2 fL (80.0-100.0); Monocytes # (auto) 0.5 10 ^3/uL (0-1.3); Monocytes % (auto) 4.6 % (0.0-12.0); Neutrophils # (auto) 9.1 10 ^3/uL (1.6-8.6); Neutrophils % (auto) 80.4 % (37.0-80.0); Nucleated Red Blood Cells % 0.3 %; Platelet Count (auto) 175 10^3/uL (140-450); Red Blood Cells 4.18 10^6/uL (4.5-5.90); White Blood Cell 11.3 10^3/uL (4.4-10.8)
[2024-06-06 04:04] LABS: Anion Gap 10 (5-15); Carbon Dioxide 26 mmol/L (20-31)
[2024-06-06 04:09] LABS: Calcium 8.2 mg/dL (8.7-10.4); Chloride 110 mmol/L (98-107); Potassium 3.2 mmol/L (3.5-5.1); Sodium 146 mmol/L (136-145)
[2024-06-06 04:10] LABS: BUN/Creatinine Ratio 30.8 (10.0-20.0)
[2024-06-06 04:12] LABS: Blood Urea Nitrogen 37 mg/dL (9-23); Glucose 143 mg/dL (74-106)
[2024-06-06 04:35] LABS: Red Cell Distribution Width 25.2 % (11.8-14.3)
[2024-06-06 06:11] LABS: Anisocytosis Moderate; Platelet Estimate Adequate
[2024-06-06 06:12] LABS: Hypochromia Slight
[2024-06-06 07:17] LABS: Base Excess 0.4 mmol/L (-2.0-3.0)
--- NOTE | 2024-06-06 07:27 | DVHPN2 ---
Subjective Patient chemically sedated Reviewed: Care Plan, H&P, Labs, Medications, Previous Orders, Radiology Changes from previous H/P or p: No Changes General: Per HPI Eyes: No Pain, No Vision change, No Conjunctivae inflammation, No Eyelid inflammation, No Other, No Redness ENT: No Ear pain, No Ear discharge, No Nose pain, No Nose discharge, No Nose congestion, No Mouth pain, No Mouth swelling, No Throat pain, No Throat swelling, No Other Cardiovascular: No Chest Pain, No Palpitations, No Orthopnea, No Paroxysmal Noc. Dyspnea, No Edema, No Lt Headedness, No Other Respiratory: No Cough, No Dry; Shortness of breath; No SOB with excertion, No Wheezing, No Hemoptysis, No Pleuritic Pain, No Sputum; Other (SOB at rest) Gastrointestinal: No Nausea, No Vomiting, No Abdominal Pain, No Diarrhea, No Constipation, No Melena, No Hematochezia, No Other Genitourinary: No Dysuria, No Frequency, No Incontinence, No Hematuria, No Retention, No Other Musculoskeletal: No other, No neck pain, No shoulder pain, No arm pain, No back pain, No hand pain, No leg pain, No foot pain Skin: No Rash, No Lesions, No Jaundice, No Bruising, No Other Objective Vitals Vital Signs Date Time Temp Pulse Resp B/P (MAP) Pulse Ox O2 Delivery O2 Flow Rate FiO2 06/06/24 07:01 99.7 85 15 104/42 (62) 95 211.5 06/06/24 04:29 30 06/06/24 04:01 Mechanical Ventilator+ Intake/Output Intake and Output 06/06/24 07:00 Intake Total 1850.202 ml Output Total 4250 ml Balance -2399.798 ml IV Total 1650.202 ml Tube Feeding 140 ml Other 60 ml Output Urine Total 4250 ml General Appearance: mild distress, Other (Chemically sedated) HEENT: Atraumatic, PERRLA, EOMI, Mucous membr. moist/pink Neck: Supple Lungs: Clear to auscultation, Normal air movement, Other (Mechanical ventilation) Cardiovascular: Regular rate, Normal S1, Normal S2, No murmurs, Gallops, Rubs Abdomen: Normal bowel sounds, Soft, No tenderness Musculoskeletal: Normal sensory function, Normal motor function Neuro: Cranial nerves 3-12 NL Skin: Dry, Intact, Wounds (See nurse notes and pictures) Psych/Mental Status: Other (Sedated) Medications Current Medications Medications Dose Ordered Sig/Erik Route Start Time Stop Time Status Last Admin Dose Admin Atorvastatin Calcium 20 mg HS PO 05/28/24 22:00 06/05/24 22:28 20 MG Sodium Chloride 10 ml Q8HR IV 05/28/24 06:00 06/06/24 06:43 10 ML Diagnostic Test (Pha) 1 strip ACHS 05/28/24 07:00 06/06/24 06:43 1 STRIP Insulin Human Regular ACHS SC 05/28/24 07:00 06/05/24 22:26 3 UNITS Dextrose 50 ml UD PRN IV 05/27/24 23:00 Linezolid 300 ml @ 150 mls/hr Q12HR IV 05/28/24 22:00 06/05/24 22:28 150 MLS/HR Fentanyl Citrate 250 ml @ 2.5 mls/hr Q24H IV 06/01/24 03:15 06/05/24 22:18 10 MLS/HR Propofol 100 ml @ 3.057 mls/ hr Q24H IV 06/01/24 09:00 06/05/24 22:07 12.228 MLS/HR Pantoprazole Sodium 40 mg DAILY IV 06/02/24 10:00 06/05/24 09:02 40 MG Potassium Chloride 100 ml @ 50 mls/hr Q2H IV 06/02/24 09:30 06/02/24 13:29 Cancel Norepinephrine Bitartrate 250 ml @ 1.875 mls/ hr Q24H IV 06/02/24 10:30 06/04/24 01:33 1.875 MLS/HR Enteral Nutritional Formula 1,000 ml 40ML/HR GT 06/02/24 13:00 06/02/24 16:00 1,000 ML Purified Water 300 ml Q4HR GT 06/02/24 18:00 06/06/24 06:56 300 ML Furosemide 40 mg BIDD IV 06/03/24 18:00 06/06/24 06:47 40 MG Multi-Ingredient Ointment 1 applic BID TOP 06/03/24 10:00 06/05/24 22:29 1 APPLIC Insulin Glargine 5 units HS SC 06/03/24 22:00 06/05/24 22:27 5 UNITS Meropenem 50 ml @ 17 mls/hr Q8HR IV 06/03/24 22:00 06/06/24 06:38 17 MLS/HR Quetiapine Fumarate 25 mg BID NG 06/03/24 22:00 06/05/24 22:27 25 MG Dexmedetomidine HCl 400 mcg/ Dextrose 100 ml @ 5.075 mls/ hr [id number] IV 06/03/24 16:45 06/05/24 09:05 5.075 MLS/HR Enoxaparin Sodium 30 mg DAILY SC 06/05/24 10:00 06/05/24 09:07 30 MG Dopamine HCl/ Dextrose 250 ml @ 7.2 mls/hr Q24H IV 06/05/24 16:30 06/05/24 16:50 7.2 MLS/HR Laboratory Results Laboratory Tests 06/06/24 03:12 Chemistry Test 06/05/24 13:01 06/06/24 03:12 Calcium Level 8.1 mg/dL (8.7-10.4) L 8.2 mg/dL (8.7-10.4) L Urinalysis Test 05/31/24 11:13 Urine Color Red (Yellow) H Urine Clarity Cloudy (Clear) H Urine pH 5.5 (5.0-9.0) Urine Specific [place] 1.007 (1.001-1.035) Urine Protein 2+ (Negative) H Urine Ketones Negative (Negative) Urine Blood 3+ /uL (Negative) H Urine Nitrite Negative (Negative) Urine Bilirubin Negative (Negative) Urine Urobilinogen Normal mg/dL (Negative) Urine Leukocyte Esterase 2+ /uL (Negative) Urine RBC 162 /hpf (0 - 3) Urine Microscopic WBC 29 /HPF (0-3) H Urine Squamous Epithelial Cells None seen /hpf (<5) Urine Amorphous Crystals Few /hpf (None Seen) Urine Bacteria None seen /hpf (None Seen) Urine Mucus Few (None Seen) Urine Glucose 3+ mg/dL (Normal) H Blood Gas Results Test 06/05/24 07:34 06/06/24 07:04 Arterial Blood pH 7.432 (7.350-7.450) 7.463 (7.350-7.450) FiO2 % 30.0 30.0 Microbiology Microbiology Date/Time Source Procedure Growth Status 06/02/24 10:58 Blood Blood Culture - Preliminary NO GROWTH AFTER 72 HOURS OF INCUBATION. Resulted 06/01/24 03:40 Trachea Gram Stain - Final Complete 06/01/24 03:40 Respiratory Culture - Final Presumptive Allison albicans Complete Labs and/or images reviewed: Labs reviewed by me, Image(s) reviewed by me Assessment/Plan Assessment/Plan Impression: -status post in-house cardiopulmonary arrest -acute hypoxic respiratory failure with mechanical ventilation -acute on chronic systolic heart failure -diabetes mellitus -peripheral neuropathy -metabolic encephalopathy -bilateral lower extremity cellulitis -CKD stage IIIb Plan: Events: CT head negative. Pressors off. Dopamine started for ? bradycardia. Lalison in sputum -SBT today. Please wean off sedation. -regular insulin sliding scale with Lantus -bronchodilators -ICS, IV Solu-Medrol -Precedex for sedation -continue empiric antibiotic therapy, add Diflucan -repeat labs, chest x-ray, ABG in a.m. Critical care time spent with patient discussing and formulating plan of care: 90 minutes. This does not include time spent performing procedures. This medical document was created using an electronic medical record system with [employer] dictation system. Although this document has been carefully reviewed, there may still be some phonetic and typographical errors. These areas are purely typographical due to imperfections of the software programs, and do not reflect any compromise in the patient's medical care. Plan discussed with: Patient, Other (RN) My Orders Orders - YVONNE GARCIA NP Procedure Category Date Status Time Basic Metabolic Panel LAB 06/07/24 Verified 05:00 Basic Metabolic Panel LAB 06/08/24 Verified 05:00 Complete Blood Count LAB 06/07/24 Verified 05:00 Complete Blood Count LAB 06/08/24 Verified 05:[address] 06/05/24 Resulted 10:56 Free Water PHA 06/06/24 Logged 12:00 Furosemide Injection PHA 06/06/24 Logged (Lasix Injection) 10:00 Potassium Effervesent PHA 06/06/24 Logged Tab (Klor-Con/Ef) 07:30 Fluconazole Ivpb PHA 06/06/24 Transmitted Diflucan 10:00 Date of Service: Jun 06, 2024 Billing Provider: YVONNE GARCIA NP Common Visit Codes: 92406-LTDWBEHC CARE 30-74 MIN YVONNE GARCIA NP Jun 06, 2024 07:27
[2024-06-06] MEDS: POTASSIUM EFFERVESENT TAB 25 MEQ GT ONE (07:51)
[2024-06-06 08:07] LABS: Vitamin B1, Whole Blood 97.3 nmol/L (66.5-200.0)
[2024-06-06] MEDS: FLUCONAZOLE 200MG/100ML 100 ML IV SCH (09:12)
--- NOTE | 2024-06-06 11:00 | DVHPN2 ---
Progress Note - Dictate Date Seen: Jun 06, 2024 Medical Necessity Reason Pt with a Central, PICC or Fol: Yes The following are medically ne: Christina Catheter Reason for christina catheter: Strict I&O Subjective *White Washer Piler rounds* Patient seen and examined Overnight events reviewed vital signs Vital Sign Date Time Temp Pulse Resp B/P (MAP) Pulse Ox O2 Delivery O2 Flow Rate FiO2 06/06/24 09:58 71 11 112/78 (89) 100 30 06/06/24 09:52 Mechanical Ventilator+ 06/06/24 07:01 99.7 211.5 Total Intake and Output 06/05/24 06/05/24 06/06/24 15:00 23:00 07:00 Intake Total 135.862 ml 203.768 ml 1355.996 ml Output Total 1850 ml 2400 ml Balance 135.862 ml -1646.232 ml -1044.004 ml medications Current Medications Medications Dose Ordered Sig/Erik Route Start Time Stop Time Status Last Admin Dose Admin Atorvastatin Calcium 20 mg HS PO 05/28/24 22:00 06/05/24 22:28 20 MG Sodium Chloride 10 ml Q8HR IV 05/28/24 06:00 06/06/24 06:43 10 ML Diagnostic Test (Pha) 1 strip ACHS 05/28/24 07:00 06/06/24 06:43 1 STRIP Insulin Human Regular ACHS SC 05/28/24 07:00 06/05/24 22:26 3 UNITS Dextrose 50 ml UD PRN IV 05/27/24 23:00 Linezolid 300 ml @ 150 mls/hr Q12HR IV 05/28/24 22:00 06/06/24 09:13 150 MLS/HR Fentanyl Citrate 250 ml @ 2.5 mls/hr Q24H IV 06/01/24 03:15 06/05/24 22:18 10 MLS/HR Propofol 100 ml @ 3.057 mls/ hr Q24H IV 06/01/24 09:00 06/05/24 22:07 12.228 MLS/HR Pantoprazole Sodium 40 mg DAILY IV 06/02/24 10:00 06/06/24 09:13 40 MG Potassium Chloride 100 ml @ 50 mls/hr Q2H IV 06/02/24 09:30 06/02/24 13:29 Cancel Norepinephrine Bitartrate 250 ml @ 1.875 mls/ hr Q24H IV 06/02/24 10:30 06/04/24 01:33 1.875 MLS/HR Enteral Nutritional Formula 1,000 ml 40ML/HR GT 06/02/24 13:00 06/02/24 16:00 1,000 ML Multi-Ingredient Ointment 1 applic BID TOP 06/03/24 10:00 06/06/24 09:13 1 APPLIC Insulin Glargine 5 units HS SC 06/03/24 22:00 06/05/24 22:27 5 UNITS Meropenem 50 ml @ 17 mls/hr Q8HR IV 06/03/24 22:00 06/06/24 06:38 17 MLS/HR Quetiapine Fumarate 25 mg BID NG 06/03/24 22:00 06/05/24 22:27 25 MG Dexmedetomidine HCl 400 mcg/ Dextrose 100 ml @ 5.075 mls/ hr [id number] IV 06/03/24 16:45 06/06/24 07:35 5.075 MLS/HR Enoxaparin Sodium 30 mg DAILY SC 06/05/24 10:00 06/06/24 09:13 30 MG Dopamine HCl/ Dextrose 250 ml @ 7.2 mls/hr Q24H IV 06/05/24 16:30 06/05/24 16:50 7.2 MLS/HR Purified Water 200 ml Q6HR GT 06/06/24 12:00 Furosemide 40 mg DAILY IV 06/07/24 10:00 Fluconazole 100 ml @ 100 mls/hr DAILY IV 06/06/24 10:00 06/06/24 09:12 100 MLS/HR laboratory and microbiology Laboratory Tests 06/06/24 03:12 Test 06/06/24 03:12 Range/Units Serum Glucose 143 H 74-106 mg/dL Assessment/Plan Impression Acute hypoxemic respiratory failure S/p cardiac arrest Chronic legs wounds COPD Patient seen and examined in ICU Events On mechanical ventilation S/p intubation PEEP 5, FiO2 30% F not awake CT brain no acute abnormalities pt tolerating PS ventilation Labs and imaging reviewed Initial CT unremarkable - 05/27/24 ABG reviewed Management Vent support Titrate to maintain sats 90% or above off sedation Continue antibiotics F/u cultures Bronchodilators Discontinue steroids Monitor renal function Monitor electrolytes Supplement as needed Pressors as needed for hemodynamic support To maintain a mean arterial pressure of 65 mmHg DVT prophylaxis Critical care time 35 minutes Dietary Evaluation Review Recommendations by RD: Protein Supplementation Comments: 1) Lion is NOT approriate d/t kidney function 2) Consult nephrology d/t elevated renal panel 3) Initiate Glucerna tid d/t poor PO intake 4) Continue to monitor I&O, labs, and skin integrity Expected Outcomes/Goals: 1) appetite and labs to improve 2) wound to improve 3) f/u in 5 days Plan discussed with: Other (rn) DOMENICO MADDEN MD Jun 06, 2024 11:00
[2024-06-06] MEDS: FREE WATER GT SCH (12:00)
[2024-06-06 14:16] LABS: Base Excess -1.9 mmol/L (-2.0-3.0)
--- NOTE | 2024-06-06 20:13 | DVHPN2 ---
Progress Note - Dictate Date Seen: Jun 06, 2024 Medical Necessity Reason Pt with a Central, PICC or Fol: Yes The following are medically ne: Christina Catheter Reason for christina catheter: Strict I&O Subjective Patient was seen and evaluated in follow up in the ICU. Patient has been successfully extubated. Patient is on 10 L via mask. Patient is complaining of SOB. WBC 11.3, HGB 9.4, HCT 31.4, NA 146, K 3.2, CL 110, BUN 37, CA 8.2. vital signs Vital Sign Date Time Temp Pulse Resp B/P (MAP) Pulse Ox O2 Delivery O2 Flow Rate FiO2 06/06/24 17:31 99/51 06/06/24 15:39 80 06/06/24 15:39 18 96 Mechanical Ventilator+ 30 30 06/06/24 13:29 10.0 06/06/24 11:00 100.0 212.0 Total Intake and Output 06/05/24 06/05/24 06/06/24 15:00 23:00 07:00 Intake Total 135.862 ml 203.768 ml 1363.196 ml Output Total 1850 ml 2400 ml Balance 135.862 ml -1646.232 ml -1036.804 ml medications Current Medications Medications Dose Ordered Sig/Erik Route Start Time Stop Time Status Last Admin Dose Admin Atorvastatin Calcium 20 mg HS PO 05/28/24 22:00 06/05/24 22:28 20 MG Sodium Chloride 10 ml Q8HR IV 05/28/24 06:00 06/06/24 17:13 10 ML Diagnostic Test (Pha) 1 strip ACHS 05/28/24 07:00 06/06/24 17:29 1 STRIP Insulin Human Regular ACHS SC 05/28/24 07:00 06/06/24 17:22 2 UNITS Dextrose 50 ml UD PRN IV 05/27/24 23:00 Linezolid 300 ml @ 150 mls/hr Q12HR IV 05/28/24 22:00 06/06/24 09:13 150 MLS/HR Fentanyl Citrate 250 ml @ 2.5 mls/hr Q24H IV 06/01/24 03:15 06/05/24 22:18 10 MLS/HR Propofol 100 ml @ 3.057 mls/ hr Q24H IV 06/01/24 09:00 06/05/24 22:07 12.228 MLS/HR Pantoprazole Sodium 40 mg DAILY IV 06/02/24 10:00 06/06/24 09:13 40 MG Potassium Chloride 100 ml @ 50 mls/hr Q2H IV 06/02/24 09:30 06/02/24 13:29 Cancel Norepinephrine Bitartrate 250 ml @ 1.875 mls/ hr Q24H IV 06/02/24 10:30 06/04/24 01:33 1.875 MLS/HR Enteral Nutritional Formula 1,000 ml 40ML/HR GT 06/02/24 13:00 06/02/24 16:00 1,000 ML Multi-Ingredient Ointment 1 applic BID TOP 06/03/24 10:00 06/06/24 09:13 1 APPLIC Insulin Glargine 5 units HS SC 06/03/24 22:00 06/05/24 22:27 5 UNITS Meropenem 50 ml @ 17 mls/hr Q8HR IV 06/03/24 22:00 06/06/24 17:10 17 MLS/HR Quetiapine Fumarate 25 mg BID NG 06/03/24 22:00 06/05/24 22:27 25 MG Dexmedetomidine HCl 400 mcg/ Dextrose 100 ml @ 5.075 mls/ hr [id number] IV 06/03/24 16:45 06/06/24 07:35 5.075 MLS/HR Enoxaparin Sodium 30 mg DAILY SC 06/05/24 10:00 06/06/24 09:13 30 MG Dopamine HCl/ Dextrose 250 ml @ 7.2 mls/hr Q24H IV 06/05/24 16:30 06/06/24 17:31 7.2 MLS/HR Purified Water 200 ml Q6HR GT 06/06/24 12:00 Furosemide 40 mg DAILY IV 06/07/24 10:00 Fluconazole 100 ml @ 100 mls/hr DAILY IV 06/06/24 10:00 06/06/24 09:12 100 MLS/HR objective GENERAL: Awake, alert, oriented. LUNGS: Decreased breath sounds. CARDIOVASCULAR: Heart sounds are good. ABDOMEN: Soft. laboratory and microbiology Laboratory Tests 06/06/24 03:12 Test 06/06/24 03:12 Range/Units Serum Glucose 143 H 74-106 mg/dL Problem List Acute on chronic hypoxic respiratory failure. COPD with exacerbation. Acute on chronic systolic heart failure. CAD s/p MELISSA. PAD s/p iliac stents. ANIVAL VMN. A fib on Eliquis. HTN. HLD. IDDM. Foot ulcers and cellulitis. HFrEF EF 35%. Gross hematuria. Assessment/Plan Continued all current supportive medical care. Lipitor, Plavix. DVT prophylactics. Diuretics with Lasix. IV antibiotics as ordered. Vasopressors for hemodynamic support. GI prophylactics. Additional plan as per the hospital course. Critical care time of 45 minutes provided to include time spent evaluation of patient at bedside, when appropriate patient/family education for diagnosis, treatment plan, review of pertinent medical information and discussion of care with specialty providers and PCP. Dietary Evaluation Review Recommendations by RD: Protein Supplementation Comments: 1) Lion is NOT approriate d/t kidney function 2) Consult nephrology d/t elevated renal panel 3) Initiate Glucerna tid d/t poor PO intake 4) Continue to monitor I&O, labs, and skin integrity Expected Outcomes/Goals: 1) appetite and labs to improve 2) wound to improve 3) f/u in 5 days Plan discussed with: Patient HÉCTOR MARION MD Jun 06, 2024 18:36
[2024-06-07] VITALS (93 sets, daily range): BP systolic 95–158; BP diastolic 37–95; PULSE 48–148; RESP 8–21; TEMP 97.5–99; O2SAT 65–100
[2024-06-07 03:52] LABS: Basophils # (auto) 0 10 ^3/uL (0-0.2); Basophils % (auto) 0.2 % (0.0-2.0); Eosinophils # (auto) 0.3 10 ^3/uL (0-0.8); White Blood Cell 11.6 10^3/uL (4.4-10.8)
[2024-06-07 03:55] LABS: Anion Gap 7 (5-15); Carbon Dioxide 27 mmol/L (20-31); Hematocrit 27.4 % (41.0-53.0); Hemoglobin 8.5 g/dL (13.5-17.5); Lymphocytes # (auto) 1.1 10 ^3/uL (0.4-5.4); Lymphocytes % (auto) 9.2 % (10.0-50.0); Mean Corpuscular Hemoglobin 23.7 pg (28.0-32.0); Mean Corpuscular Hgb Conc. 30.9 g/dL (32.0-36.0); Mean Corpuscular Volume 76.6 fL (80.0-100.0); Monocytes # (auto) 0.5 10 ^3/uL (0-1.3); Monocytes % (auto) 4.3 % (0.0-12.0); Neutrophils # (auto) 9.7 10 ^3/uL (1.6-8.6); Neutrophils % (auto) 83.3 % (37.0-80.0); Platelet Count (auto) 147 10^3/uL (140-450); Potassium 3.9 mmol/L (3.5-5.1); Red Blood Cells 3.58 10^6/uL (4.5-5.90); Red Cell Distribution Width 25.5 % (11.8-14.3)
[2024-06-07] MEDS: ONDANSETRON HCL 4 MG/2 ML VIAL IV PRN (03:57)
[2024-06-07 04:11] LABS: Blood Urea Nitrogen 30 mg/dL (9-23); Calcium 8.1 mg/dL (8.7-10.4); Chloride 112 mmol/L (98-107); Glucose 108 mg/dL (74-106); Sodium 146 mmol/L (136-145)
[2024-06-07 05:35] LABS: Ovalocytes FEW
[2024-06-07 05:36] LABS: Anisocytosis Slight; Hypochromia Slight; Platelet Estimate Decreased
[2024-06-07] MEDS: MEROPENEM 1GM IVPB 50 ML IV SCH (08:18)
[2024-06-07] MEDS: FUROSEMIDE 40 MG/4 ML VIAL IV SCH (10:05)
--- NOTE | 2024-06-07 10:18 | DVH ---
EXAM: XY CHEST PORTABLE Indication: pain Technique: Single frontal view of the chest was obtained Comparison: XY CHEST PORTABLE on DOS: 06/05/24, XY CHEST PORTABLE on DOS: 06/04/24, XY CHEST PORTABLE o n DOS: 06/03/24, XY CHEST PORTABLE on DOS: 06/02/24, XY CHEST XRAY 1 VIEW on DOS: 06/02/24 FINDINGS: Lines and Tubes: Right internal jugular central venous catheter tip projects over the superior vena c crow. Lungs: Bibasilar opacities. Pleura: Small right and trace left pleural effusion. No pneumothorax. Cardiomediastinal contours: Cardiomegaly. Bones: No acute osseous abnormality. IMPRESSION: Cardiomegaly with pulmonary edema and bibasilar opacities. Possible small right and trace left pleur al effusion.
[2024-06-07 10:41] LABS: INR 1.03 (0.9-1.15); Partial Thromboplastin Time 30.2 SEC (24.5-34.5); Prothrombin Time 10.9 sec (9.3-11.8)
--- NOTE | 2024-06-07 10:47 | DVHINCON2 ---
Date of service: Jun 07, [address] Deleon Reason for Consultation Delirium History of Present Illness Mr. Leon is a 74 years old right-handed gentleman with a history of hypertension, diabetes, coronary artery disease, heart attack, congestive heart failure, peripheral arterial disease, he was admitted to the [facility] on 05/27/2024 with a chief complaint of dizziness. At this time, he was awake, oriented to person, place, he knows year, reasonable social skills, but morning and evening nurses in stated the patient was confused, combative, at that time, he is 2-point restraint I saw him on 04/02/2023 for bilateral leg weakness He was admitted to the telemetry, but he coded for 2 minutes on 06/01/2024, he was intubated and transferred to the ICU; he was extubated on 06/06/24 after appropriate treatment and improvement. Since he was intubated, the patient was noticed to be confused, combative and agitated On 04/01/2023, after waking up in the morning, when he was trying to go to bathroom, he fell down and not able to get up because of weakness to both legs, but the patient denies confusion/ALOC, associated pain, bowel/bladder control problem, back pain. he report that the weakness in the legs has had no improvement He has had a numbness in the tingling in both feet since [id number], in 01/2023, 1 day he had burning in both feet because he did not feel the water temperature in his bath tub. He was chronic wound in the legs UDS, 04/02/2023: Negative Urinalysis, 05/31/2024: UTI WBC/Hb/PLT/MCV, 06/07/2024: 11.6/8.5/147/76.6 Na, 05/27/24: 148, 05/28/2024: 147, 05/29/2024: 149, 06/02/2024: 151, 06/04/2024: 147, 06/06/2024: 146, 06/07/2024: 146 BUNs/CR, 05/27/2024: 47/1.71, 05/29/2024: 48/1.86, 06/01/2024: 66/1.75 06/04/2024: 43/1.36, 06/07/2024: 30/1.07 Liver function tests, 05/27/2024: Unremarkable TG/CHO L/LDL/HDL, 03/2023: 190/212/131/38, Vitamin B12, 05/31/2024: 1017 TSH, 04/03/2023: 1.81, 05/2024: 3.84 Chest x-ray, 06/01/2024: The heart appears prominent in size. Bilateral in terstitial and alveolar airspace opacities have worsened. Endotracheal tube tip in satisfactory position. No sizable effusion or pneumothorax (S/P INTUBATION) CT head, 06/05/2024: 1. Generalized brain atrophy. 2. No acute intracranial hemorrhage, midline shift or mass effect. If symptoms persist, further evaluation with MRI is recommended. MRI head, 04/02/2023: No evidence of acute infarction, intracranial hemorrhage, mass effect or hydrocephalus MRI left foot, 04/05/2023: No definitive evidence of osteomyelitis. Subchondral cystic changes involving the dorsal surface of the third tarsometatarsal joint MRI right foot, 04/05/2023: Multilevel degenerative changes. No definitive evidence of osteomyelitis. Soft tissue edema or inflammatory/infectious changes along the plantar surface of the foot Past Medical History Hypertension, diabetes, coronary artery disease, heart attack, congestive heart failure, peripheral arterial disease Past Surgical History CABG, cataract surgery, right foot toe amputation, angioplasty with stenting Family History Heart attack, cancer Social History He was a tobacco smoker, no history of alcohol recreational substance abuse Allergies: Coded Allergies: Penicillins (Verified Allergy, Unknown, 04/01/23) Home Meds Reported Medications Prednisone (Prednisone) 10 Mg Tab, 1 TAB PO DAILY for 30 Days, #30 05/31/24 Gabapentin (Gabapentin) 300 Mg Cap, 1 CAP PO TID for 30 Days, #90 05/31/24 Pantoprazole Sodium Sesquihydr (Pantoprazole Sodium Dr) 40 Mg Tab, 1 TAB PO DAILY for 30 Days, #30 05/31/24 Senna (Senna-Time) 8.6 Mg Tab, 1 TAB PO BID PRN for FOR CONSTIPATION for 50 Days, #100 05/31/24 Albuterol Sulfate (Albuterol Sulfate Hfa) 108 Mcg/Act Aer, 2 PUFF IN Q4HR PRN for 30 Days, #17 05/31/24 Potassium Chloride (Klor-Con 10) 10 Meq Tab, 1 TAB PO DAILY for 30 Days, #30 05/31/24 Metoprolol Succinate (Metoprolol Succinate Er) 25 Mg Tab, 0.5 TAB PO DAILY for 30 Days, #15 05/31/24 Metformin Hydrochloride (Metformin Hcl) 1,000 Mg Tab, 1 TAB PO BID for 30 Days, #60 05/31/24 Magnesium Oxide (mg Supplement (Magnesium-Oxide) 400 Mg Tab, 1 TAB PO DAILY for 30 Days, #30 05/31/24 Furosemide (Furosemide 80 mg) 1 Tab Tab, 1 TAB PO BID for 30 Days, #60 05/31/24 Empagliflozin (Jardiance) 10 Mg Tab, 1 TAB PO QAM for 30 Days, #30 05/31/24 Atorvastatin Calcium (Lipitor) 40 Mg Tab, 1 TAB PO DAILY for 30 Days, #30 05/31/24 Brimonidine Tartrate (Brimonidine Tartrate) 0.2 % Daria, 1 DROP OP Q8HR for 30 Days, #10 3 Refills INSTILL 1 DROP INTO AFFECTED EYE EVERY 8 HOURS. 11/24/23 Clopidogrel Bisulfate (CLOPIDOGREL) 75 Mg Tab, 1 TAB PO DAILY for 30 Days, #30 11/24/23 Current Medications Current Medications Medications (Trade) Dose Ordered Sig/Erik Route PRN Reason Start Time Stop Time Status Last Admin Purified Water 200 ml Q6HR GT 06/06/24 12:00 Furosemide (Lasix Injection) 40 mg DAILY IV 06/07/24 10:00 06/07/24 10:05 Ondansetron HCl (Zofran) 4 mg Q6HPRN PRN IV NAUSEA / VOMITING 06/07/24 03:45 06/07/24 03:57 Meropenem 50 ml @ 17 mls/hr Q8HR IV 06/07/24 09:00 06/07/24 08:18 Linezolid 300 ml @ 150 mls/hr Q12H IV 06/07/24 12:00 Review of Systems As above, the other system negative Vital Signs Vital Signs Date Time Temp Pulse Resp B/P (MAP) Pulse Ox O2 Delivery O2 Flow Rate FiO2 06/07/24 10:05 121/49 06/07/24 08:00 11 98 Nasal Cannula* 4 36 06/07/24 08:00 83 06/07/24 06:45 98.1 208.6 Physical Exam GENERAL EXAM: General: the patient is well developed and nourished. No acute distress. HEENT: Normocephalic, neck is supple, no carotid bruits. No mass RESPIRATORY: Normal respiratory effort with symmetrical lung expansion. Lungs clear to auscultation. CARDIOVASCULAR: Regular rate and rhythm with no murmurs. S1, S2. ABDOMEN: Soft, nontender, normal bowel sound NEUROLOGICAL: MENTAL STATUS: Awake and alert. Oriented to person, place, SPEECH, LANGUAGE, HIGHER CORTICAL FUNCTION: no aphasia or dysathria. CRANIAL NERVES: #2: Intact visual san to confrontation. The optic discs were sharp #3,4,6: Pupils are equal, round and reactive. EOMs full and conjugate. #5: Facial sensation intact in all three divisions bilaterally. Mandibular strength intact. #7: Facial muscles symmetrical and strength intact. #8: Hearing grossly normal to voice. #9,10: Uvula and soft palate rise in the midline. Swallow and voice are normal. #11: Trapezius and sternomastoid strength intact bilaterally. #12: Tongue midline. No fasciculations or atrophy. SENSATION: Sensation to touch and pinprick is diminished in the lower extremities MOTOR: Normal tone in the upper and lower extremity. Normal muscle bulk. No fasciculations. No abnormal movements or posturing. Muscle strength of the major groups in the extremities is 5/5. REFLEXES: Deep tendon reflexes are symmetric diminished. No pathological reflexes. CEREBELLAR/COORDINATION: Deferred Labs/Diagnostic Data Labs Test 06/07/24 10:00 06/07/24 03:07 06/06/24 22:29 06/06/24 11:12 Range/Units White Blood Count 11.6 H 4.4-10.8 10^3/uL Red Blood Count 3.58 L 4.5-5.90 10^6/uL Hemoglobin 8.5 L 13.5-17.5 g/dL Hematocrit 27.4 #L 41.0-53.0 % Mean Corpuscular Volume 76.6 L 80.0-100.0 fL Mean Corpuscular Hemoglobin 23.7 L 28.0-32.0 pg Mean Corpuscular Hemoglobin Concent 30.9 L 32.0-36.0 g/dL Red Cell Distribution Width 25.5 H 11.8-14.3 % Platelet Count 147 140-450 10^3/uL Mean Platelet Volume 9.1 6.9-10.8 fL Neutrophils (%) (Auto) 83.3 H 37.0-80.0 % Lymphocytes (%) (Auto) 9.2 L 10.0-50.0 % Monocytes (%) (Auto) 4.3 0.0-12.0 % Eosinophils (%) (Auto) 3.0 0.0-7.0 % Basophils (%) (Auto) 0.2 0.0-2.0 % Neutrophils # (Auto) 9.7 H 1.6-8.6 10 ^3/uL Lymphocytes # (Auto) 1.1 0.4-5.4 10 ^3/uL Monocytes # (Auto) 0.5 0-1.3 10 ^3/uL Eosinophils # (Auto) 0.3 0-0.8 10 ^3/uL Basophils # (Auto) 0 0-0.2 10 ^3/uL Nucleated Red Blood Cells 0.0 % Platelet Estimate Decreased Hypochromasia (manual) Slight Anisocytosis (manual) Slight Microcytosis Slight Ovalocytes Few Schistocytes Few Sodium Level 146 H 136-145 mmol/L Potassium Level 3.9 3.5-5.1 mmol/L Chloride Level 112 H 98-107 mmol/L Carbon Dioxide Level 27 20-31 mmol/L Anion Gap 7 5-15 Blood Urea Nitrogen 30 H 9-23 mg/dL Creatinine 1.07 0.700-1.30 mg/dL Glomerular Filtration Rate Calc 72 >90 mL/min BUN/Creatinine Ratio 28.0 H 10.0-20.0 Serum Glucose 108 H 74-106 mg/dL Calcium Level 8.1 L 8.7-10.4 mg/dL POC Glucose 94 70-106 mg/dl Blood Gas Specimen Type Arterial Blood Gas Sample Site Right radial Blood Gas Patient Temperature 37.0 Arterial Blood Date Drawn [id number] Arterial Blood pH 7.402 7.350-7.450 Arterial Blood Partial Pressure CO2 37.0 35.0-48.0 mmHg Arterial Blood Partial Pressure O2 71.2 L 83.0-108.0 mmHg Arterial Blood HCO3 22.5 21.0-28.0 mmol/L Arterial Blood Oxygen Saturation 91.7 L 94.0-98.0 % Arterial Blood Base Excess -1.9 -2.0-3.0 mmol/L Arterial Blood Oxyhemoglobin 91.0 L 94.0-98.0 % Arterial Blood Carboxyhemoglobin 0.6 0.5-1.5 % Arterial Blood Methemoglobin 0.2 0.0-1.5 % Kit Test Modified Blood Gas Total Hemoglobin 10.70 L 13.5-17.5 g/dL Blood Gas Modality Vent - cpap Blood Gas Spontaneous Rate 11 FiO2 % 30.0 Blood Gas Spontaneous Tidal Volume 408 Blood Gas Inspiratory Pressure 16.0 Blood Gas Pressure Support 8 Blood Gas PEEP or CPAP 5.0 Bl Gas Inspiratory/Expiratory Ratio 1:4.0 Specimen Drawn By el rt Test 06/06/24 07:04 06/04/24 20:12 06/04/24 03:15 06/02/24 03:05 Range/Units Blood Gas Set Respiration Rate 18.0 Blood Gas Tidal Volume 550.0 Phosphorus Level 3.8 2.4-5.1 mg/dL Magnesium Level 2.2 1.6-2.6 mg/dL Target Cells Few Tear Drop Cells Few Stomatocytes Few Farideh Cells Few Test 06/01/24 11:02 06/01/24 03:22 05/31/24 16:31 05/31/24 11:30 Range/Units Lactic Acid Level 1.7 0.4-2.0 mmol/L Total Bilirubin 0.6 0.2-1.0 mg/dL Aspartate Amino Transferase (AST) 34 13-40 U/L Alanine Aminotransferase (ALT) 23 7-40 U/L Alkaline Phosphatase 120 H 46-116 U/L Troponin I High Sensitivity 25 </=54 ng/L Total Protein 5.6 L 5.7-8.2 g/dL Albumin 2.9 L 3.2-4.8 g/dL Vitamin B1 Level 97.3 66.5-200.0 nmol/L Vitamin B12 Level 1017 H 211-911 pg/mL Thyroid Stimulating Hormone (TSH) 3.84 0.55-4.78 uIU/mL Treponema pallidum Antibody Non-reactive Negative HIV (1&2) Antibody Negative Negative Test 05/31/24 11:13 05/29/24 06:19 05/28/24 13:51 05/27/24 18:38 Range/Units Urine Color Red H Yellow Urine Clarity Cloudy H Clear Urine pH 5.5 5.0-9.0 Urine Specific [place] 1.007 1.001-1.035 Urine Protein 2+ H Negative Urine Ketones Negative Negative Urine Blood 3+ H Negative /uL Urine Nitrite Negative Negative Urine Bilirubin Negative Negative Urine Urobilinogen Normal Negative mg/dL Urine Leukocyte Esterase 2+ Negative /uL Urine RBC 162 0 - 3 /hpf Urine Microscopic WBC 29 H 0-3 /HPF Urine Squamous Epithelial Cells None seen <5 /hpf Urine Amorphous Crystals Few None Seen /hpf Urine Bacteria None seen None Seen /hpf Urine Mucus Few None Seen Urine Glucose 3+ H Normal mg/dL Differential Total Cells Counted 100.0 100 Neutrophils % (Manual) 86 H 37.0-80.0 Band Neutrophils % (Manual) 2 Lymphocytes % (Manual) 10 10.0-50.0 Monocytes % (Manual) 2 0-12 Eosinophils % (Manual) 0 0-7 Basophils % (Manual) 0 0.0-2.0 Metamyelocytes % (manual) 0 Myelocytes % (Manual) 0 Promyelocytes % (Manual) 0 Blast Cells % (Manual) 0 Reactive Lymphocytes 0 Poikilocytosis (manual) Slight Blood Gas Liter Flow 8.00 B-Type Natriuretic Peptide 1535.13 0-100 pg/mL Microbiology Date/Time Source Procedure Growth Status 06/02/24 10:58 Blood Blood Culture - Preliminary NO GROWTH AFTER 72 HOURS OF INCUBATION. Resulted 06/01/24 03:40 Trachea Gram Stain - Final Complete 06/01/24 03:40 Respiratory Culture - Final Presumptive Allison albicans Complete Assessment Altered mental status Hypoxic encephalopathy Metabolic encephalopathy Pneumonia Hypoxic respiratory failure Peripheral neuropathy Peripheral arterial disease Chronic wound Plan/Recommendation Monitoring Supportive treatment ICU care EEG Consider released the restraint if he improves Haldol for agitation IV antibiotics Oxygen DVT prophylaxis GI prophylaxis More recommendation per clinical course Progress: Poor This medical document was created using an electronic medical record system with [employer] dictation system. Although this document has been carefully reviewed, there may still be some phonetic and typographical errors. These areas are purely typographical due to imperfections of the software programs, and do not reflect any compromise in the patient's medical care. Plan discussed with: Other CRISTIN CRAWFORD MD Jun 07, 2024 10:47
--- NOTE | 2024-06-07 12:54 | DVHPN2 ---
Progress Note - Dictate Date Seen: Jun 07, 2024 Medical Necessity Reason Pt with a Central, PICC or Fol: Yes The following are medically ne: Christina Catheter Reason for christina catheter: Strict I&O Subjective Patient was seen and evaluated in follow up in the ICU. No overnight events. Patient is on 4 LPM NC. Patient scheduled for PPM insertion. EEG was not able to be completed this morning as patient was noncompliant. WBC 11.6, HGB 8.5, HCT 27.4, NA 146, BUN 30, CA 8.1. vital signs Vital Sign Date Time Temp Pulse Resp B/P (MAP) Pulse Ox O2 Delivery O2 Flow Rate FiO2 06/07/24 10:05 121/49 06/07/24 08:00 11 98 Nasal Cannula* 4 36 06/07/24 08:00 83 06/07/24 06:45 98.1 208.6 Total Intake and Output 06/06/24 06/06/24 06/07/24 15:00 23:00 07:00 Intake Total 88.050 ml 107.4 ml 399 ml Output Total 1200 ml 900 ml Balance 88.050 ml -1092.6 ml -501 ml medications Current Medications Medications Dose Ordered Sig/Reik Route Start Time Stop Time Status Last Admin Dose Admin Atorvastatin Calcium 20 mg HS PO 05/28/24 22:00 06/05/24 22:28 20 MG Sodium Chloride 10 ml Q8HR IV 05/28/24 06:00 06/07/24 06:24 10 ML Diagnostic Test (Pha) 1 strip ACHS 05/28/24 07:00 06/06/24 22:37 1 STRIP Insulin Human Regular ACHS SC 05/28/24 07:00 06/06/24 17:22 2 UNITS Dextrose 50 ml UD PRN IV 05/27/24 23:00 Fentanyl Citrate 250 ml @ 2.5 mls/hr Q24H IV 06/01/24 03:15 06/05/24 22:18 10 MLS/HR Propofol 100 ml @ 3.057 mls/ hr Q24H IV 06/01/24 09:00 06/05/24 22:07 12.228 MLS/HR Pantoprazole Sodium 40 mg DAILY IV 06/02/24 10:00 06/07/24 10:05 40 MG Potassium Chloride 100 ml @ 50 mls/hr Q2H IV 06/02/24 09:30 06/02/24 13:29 Cancel Norepinephrine Bitartrate 250 ml @ 1.875 mls/ hr Q24H IV 06/02/24 10:30 06/04/24 01:33 1.875 MLS/HR Enteral Nutritional Formula 1,000 ml 40ML/HR GT 06/02/24 13:00 06/02/24 16:00 1,000 ML Multi-Ingredient Ointment 1 applic BID TOP 06/03/24 10:00 06/07/24 10:05 1 APPLIC Insulin Glargine 5 units HS SC 06/03/24 22:00 06/05/24 22:27 5 UNITS Quetiapine Fumarate 25 mg BID NG 06/03/24 22:00 06/05/24 22:27 25 MG Dexmedetomidine HCl 400 mcg/ Dextrose 100 ml @ 5.075 mls/ hr [id number] IV 06/03/24 16:45 06/06/24 07:35 5.075 MLS/HR Enoxaparin Sodium 30 mg DAILY SC 06/05/24 10:00 06/06/24 09:13 30 MG Dopamine HCl/ Dextrose 250 ml @ 7.2 mls/hr Q24H IV 06/05/24 16:30 06/06/24 17:31 7.2 MLS/HR Purified Water 200 ml Q6HR GT 06/06/24 12:00 Furosemide 40 mg DAILY IV 06/07/24 10:00 06/07/24 10:05 40 MG Fluconazole 100 ml @ 100 mls/hr DAILY IV 06/06/24 10:00 06/07/24 10:05 100 MLS/HR Ondansetron HCl 4 mg Q6HPRN PRN IV 06/07/24 03:45 06/07/24 03:57 4 MG Meropenem 50 ml @ 17 mls/hr Q8HR IV 06/07/24 09:00 06/07/24 08:18 17 MLS/HR Linezolid 300 ml @ 150 mls/hr Q12H IV 06/07/24 12:00 objective GENERAL: Awake, alert, oriented. LUNGS: Decreased breath sounds. CARDIOVASCULAR: Heart sounds are good. ABDOMEN: Soft. laboratory and microbiology Laboratory Tests 06/07/24 03:07 Test 3/17/25 03:07 Range/Units Serum Glucose 108 H 74-106 mg/dL Problem List Acute on chronic hypoxic respiratory failure. COPD with exacerbation. Acute on chronic systolic heart failure. CAD s/p MELISSA. PAD s/p iliac stents. ANIVAL VMN. A fib on Eliquis. HTN. HLD. IDDM. Foot ulcers and cellulitis. HFrEF EF 35%. Gross hematuria. Assessment/Plan Continued all current supportive medical care. Lipitor. DVT prophylactics. Diuretics with Lasix. IV antibiotics as ordered. Vasopressors for hemodynamic support. GI prophylactics. Additional plan as per the hospital course. Critical care time of 45 minutes provided to include time spent evaluation of patient at bedside, when appropriate patient/family education for diagnosis, treatment plan, review of pertinent medical information and discussion of care with specialty providers and PCP. Dietary Evaluation Review Recommendations by RD: Protein Supplementation Comments: 1) Lion is NOT approriate d/t kidney function 2) Consult nephrology d/t elevated renal panel 3) Initiate Glucerna tid d/t poor PO intake 4) Continue to monitor I&O, labs, and skin integrity Expected Outcomes/Goals: 1) appetite and labs to improve 2) wound to improve 3) f/u in 5 days Plan discussed with: Patient HÉCTOR MARION MD Jun 07, 2024 12:54
[2024-06-07] MEDS: LINEZOLID 600MG/300ML 300 ML IV SCH (13:01)
--- NOTE | 2024-06-07 14:05 | DVHPN2 ---
Assessment/Plan Assessment/Plan Progress note 74 yo M with COPD HFrEF IDDM preiously admitted for cellulitis and diabetic foot on home iv abx invanz admitted for ams and heart failure exacerbation. patient removed oxymizer and had cardiac arrest, 2 minutes downtime s/p intubation and pressors. seen today during rounds. extubated yesterday. seen by cardio, for PPM placement today. still oriented to self only, was previously on snf for AMS and iv abx Physical exam alert, oriented to self coarse breath soudns L pupil coloboma s1 s2 rrr abdomen soft LE with alyssa bandage, cannot eval edema moving UE, on mittens labs ekg imaging reviewed assessment and plan acute on chronic hypoxic respiratory failure req mechanical ventilation distributive shock COPD group E with exacerbation acute on chronic systolic heart failure s/p cardiac arrest ICM CAD s/p MELISSA PAD s/p iliac stents ANIVAL VMN Afib on eliquis HTN HLD IDDM foot ulcers and celulitis on invanz at home HFrEF EF 35% gross hematuria 2/2 traumatic christina resolved symptomatic ryan? dementia? seen by cardio, for pacemaker on dopamine drip, dc after ppm c/w with linezolid and nae MRSA swab maintain spo2 >90 hold anti htn c/w lasix maintain -1L monitor cr strict i o christina c/w therapeutic lovenox avoid BEERS medication delirium precaution daily SAT SBT speech eval diet npo dvt ppx on AC gi ppx protonix critical care time 44 minutes Plan discussed with: Patient My Orders Orders - ARNIE ARREOLA MD Procedure Category Date Status Time Meropenem 1gm Ivpb PHA 06/07/24 In Process (Merrem 1gm/ Ns) 09:00 Linezolid 600mg/300ml PHA 06/07/24 In Process (Zyvox) 12:00 Date of Service: Jun 07, 2024 Billing Provider: ARNIE ARREOLA MD Common Visit Codes: [id number] CARE 30-74 MIN ARNIE ARREOLA MD Jun 07, 2024 14:05
[2024-06-07] MEDS ORDERED: HALOPERIDOL LACTATE 5 MG/ML INJ VIAL IM PRN (21:45)
--- NOTE | 2024-06-07 22:51 | DVHPN2 ---
Progress Note - Dictate Date Seen: Jun 07, 2024 Medical Necessity Reason Pt with a Central, PICC or Fol: Yes The following are medically ne: Christina Catheter Reason for christina catheter: Strict I&O Subjective Patient seen and examined at bedside. S/p extubation, currently on supplemental oxygen Overnight events reviewed. vital signs Vital Sign Date Time Temp Pulse Resp B/P (MAP) Pulse Ox O2 Delivery O2 Flow Rate FiO2 06/07/24 22:02 124/59 06/07/24 18:30 98.8 95 12 209.8 06/07/24 18:00 100 06/07/24 18:00 Nasal Cannula* 4 36 Total Intake and Output 06/06/24 06/06/24 06/07/24 15:00 23:00 07:00 Intake Total 88.050 ml 107.4 ml 406.2 ml Output Total 1200 ml 900 ml Balance 88.050 ml -1092.6 ml -493.8 ml medications Current Medications Medications Dose Ordered Sig/Erik Route Start Time Stop Time Status Last Admin Dose Admin Atorvastatin Calcium 20 mg HS PO 05/28/24 22:00 06/07/24 21:39 20 MG Sodium Chloride 10 ml Q8HR IV 05/28/24 06:00 06/07/24 21:41 10 ML Diagnostic Test (Pha) 1 strip ACHS 05/28/24 07:00 06/07/24 21:41 1 STRIP Insulin Human Regular ACHS SC 05/28/24 07:00 06/07/24 18:13 2 UNITS Dextrose 50 ml UD PRN IV 05/27/24 23:00 Fentanyl Citrate 250 ml @ 2.5 mls/hr Q24H IV 06/01/24 03:15 06/05/24 22:18 10 MLS/HR Propofol 100 ml @ 3.057 mls/ hr Q24H IV 06/01/24 09:00 06/05/24 22:07 12.228 MLS/HR Pantoprazole Sodium 40 mg DAILY IV 06/02/24 10:00 06/07/24 10:05 40 MG Potassium Chloride 100 ml @ 50 mls/hr Q2H IV 06/02/24 09:30 06/02/24 13:29 Cancel Norepinephrine Bitartrate 250 ml @ 1.875 mls/ hr Q24H IV 06/02/24 10:30 06/04/24 01:33 1.875 MLS/HR Enteral Nutritional Formula 1,000 ml 40ML/HR GT 06/02/24 13:00 06/02/24 16:00 1,000 ML Multi-Ingredient Ointment 1 applic BID TOP 06/03/24 10:00 06/07/24 21:47 1 APPLIC Insulin Glargine 5 units HS SC 06/03/24 22:00 06/05/24 22:27 5 UNITS Quetiapine Fumarate 25 mg BID NG 06/03/24 22:00 06/07/24 21:40 25 MG Dexmedetomidine HCl 400 mcg/ Dextrose 100 ml @ 5.075 mls/ hr [id number] IV 06/03/24 16:45 06/06/24 07:35 5.075 MLS/HR Enoxaparin Sodium 30 mg DAILY SC 06/05/24 10:00 06/06/24 09:13 30 MG Dopamine HCl/ Dextrose 250 ml @ 7.2 mls/hr Q24H IV 06/05/24 16:30 06/07/24 22:02 7.2 MLS/HR Purified Water 200 ml Q6HR GT 06/06/24 12:00 Furosemide 40 mg DAILY IV 06/07/24 10:00 06/07/24 10:05 40 MG Fluconazole 100 ml @ 100 mls/hr DAILY IV 06/06/24 10:00 06/07/24 10:05 100 MLS/HR Ondansetron HCl 4 mg Q6HPRN PRN IV 06/07/24 03:45 06/07/24 03:57 4 MG Meropenem 50 ml @ 17 mls/hr Q8HR IV 06/07/24 09:00 06/07/24 21:39 17 MLS/HR Linezolid 300 ml @ 150 mls/hr Q12H IV 06/07/24 12:00 06/07/24 13:01 150 MLS/HR Haloperidol Lactate 2.5 mg Q8HP PRN IM 06/07/24 21:45 objective Gen.: Patient lying in bed in no apparent distress. On supplemental oxygen. Head: Normocephalic, atraumatic. Eyes: EOMI/PERRLA. Ears: Normal hearing. Normal anatomy. Neck/trachea: Trachea midline, supple. Nose: Normal external anatomy. Mouth: Moist mucous membranes. Chest: Decreased air entry bilaterally. No wheezing or rhonchi. Cardiovascular: Positive S1, positive S2. Regular rate and rhythm. Abdomen: Positive bowel sounds in all 4 quadrants. Soft, non-tender, non- distended. : Deferred. Rectal: Deferred. Skin: Warm, dry. Intact. Extremities: 2+ radial pulses bilaterally. No lower extremity edema. Neuro: Awake, alert, oriented x3. No gross motor or sensory deficits. Cranial nerves II through XII intact. Gait not assessed. laboratory and microbiology Laboratory Tests 06/07/24 03:07 Test 06/07/24 03:07 Range/Units Serum Glucose 108 H 74-106 mg/dL Assessment/Plan Impression: Acute on chronic hypoxic respiratory failure On mechanical ventilator S/p cardiac arrest Shock Acute CHF exacerbation Cellulitis Chronic obstructive pulmonary disease Diabetes mellitus type II Obesity Events: S/p extubation yesterday Currently on 4 LPM NC Taper O2 as tolerated On pressors for hemodynamic support Dopamine at 2 mcg/min Titrate to keep mean arterial pressure greater than 65 mmHg. Continue antibiotics Continue antifungals Wound care. Monitor hemoglobin - trended down to 8.5 g/dL Head of bed elevation Aspiration precautions Follow up Cardiology recommendations. Diurese as tolerated w/ Lasix Monitor renal function Monitor electrolytes. Supplement as necessary. Monitor ins and outs. Labs and imaging reviewed. Rest of plan as noted below. Plan: S/p extubation on 06/06/24 Continue supplemental oxygen Titrate to keep sats above 90% Continue antibiotics. F/u cultures. On pressors for hemodynamic support Titrate to keep mean arterial pressure greater than 65 mmHg. Wound care Diurese as tolerated w/ Lasix Monitor renal function Monitor electrolytes. Supplement as necessary. Monitor ins and outs. Maintain euvolemia. Nephrology recommendations appreciated Accu-Cheks, ISS PRN. Diet and lifestyle modifications for weight reduction Obesity - complicates all care GI prophylaxis. DVT prophylaxis. Prognosis: Poor given patient's multiple co-morbidities. Condition: Critical Rest of plan per hospitalist and other consultants. A total of 35 minutes of critical care time was spent reviewing the patient record, examining the patient, making a diagnostic and therapeutic plan, discussing this plan with the medical personnel, following up on diagnostic studies and following the patient for clinical stability excluding any and all procedures. At least 50% of this time was spent in direct, [id number] contact. Thank you, Dr. Bhatt, for allowing me to participate in this patient's care. Further recommendations will depend on the patient's clinical course. Please do not hesitate to contact me if you have any questions or concerns. This medical document was created using an electronic medical record system with [employer] system. Although these documentations are being carefully reviewed, there may still be some phonetic and typographical changes. The errors are purely typographical, due to imperfection on the software program, and do not reflect any compromise in the patient's medical care. Dietary Evaluation Review Recommendations by RD: Protein Supplementation Comments: 1) Lion is NOT approriate d/t kidney function 2) Consult nephrology d/t elevated renal panel 3) Initiate Glucerna tid d/t poor PO intake 4) Continue to monitor I&O, labs, and skin integrity Expected Outcomes/Goals: 1) appetite and labs to improve 2) wound to improve 3) f/u in 5 days Plan discussed with: Other (STEFFANY Hood) Critical Care Time(min): 35 MIRIAM DERAS MD Jun 07, 2024 22:51
[2024-06-08] VITALS (55 sets, daily range): BP systolic 94–143; BP diastolic 41–71; PULSE 62–126; RESP 7–23; TEMP 97.9–98.8; O2SAT 75–100
[2024-06-08 03:50] LABS: Hemoglobin 8.8 g/dL (13.5-17.5); Red Blood Cells 3.75 10^6/uL (4.5-5.90)
[2024-06-08 03:52] LABS: Basophils # (auto) 0 10 ^3/uL (0-0.2); Basophils % (auto) 0.1 % (0.0-2.0); Eosinophils # (auto) 0.2 10 ^3/uL (0-0.8); Eosinophils % (auto) 1.6 % (0.0-7.0); Hematocrit 29.5 % (41.0-53.0); Lymphocytes % (auto) 7.4 % (10.0-50.0); Mean Corpuscular Hemoglobin 23.5 pg (28.0-32.0); Mean Corpuscular Hgb Conc. 29.8 g/dL (32.0-36.0); Mean Corpuscular Volume 78.9 fL (80.0-100.0); Monocytes # (auto) 0.5 10 ^3/uL (0-1.3); Neutrophils # (auto) 11.3 10 ^3/uL (1.6-8.6); Neutrophils % (auto) 86.9 % (37.0-80.0); Platelet Count (auto) 134 10^3/uL (140-450); Red Cell Distribution Width 24.7 % (11.8-14.3)
[2024-06-08 04:04] LABS: Potassium 3.8 mmol/L (3.5-5.1)
[2024-06-08 04:05] LABS: Anion Gap 8 (5-15); Carbon Dioxide 26 mmol/L (20-31)
[2024-06-08 04:10] LABS: Blood Urea Nitrogen 20 mg/dL (9-23)
[2024-06-08 04:11] LABS: Magnesium 1.9 mg/dL (1.6-2.6)
[2024-06-08 04:12] LABS: Calcium 8.3 mg/dL (8.7-10.4); Chloride 113 mmol/L (98-107); Glucose 157 mg/dL (74-106); Phosphorus 2.5 mg/dL (2.4-5.1); Sodium 147 mmol/L (136-145)
[2024-06-08 05:14] LABS: Anisocytosis Slight; Hypochromia Slight; Ovalocytes FEW
[2024-06-08 05:15] LABS: Platelet Estimate Decreased
--- NOTE | 2024-06-08 08:33 | DVHPN2 ---
Progress Note - Dictate Date Seen: Jun 08, 2024 Medical Necessity Reason Pt with a Central, PICC or Fol: Yes The following are medically ne: Christina Catheter Reason for christina catheter: Strict I&O Subjective Mr. Leon is a 74 years old right-handed gentleman with a history of hypertension, diabetes, coronary artery disease, heart attack, congestive heart failure, peripheral arterial disease, he was admitted to the [facility] on 05/27/2024 with a chief complaint of dizziness. I have seen and examined the patient, I have discussed with his nurse, he is awake, oriented to person, place, he knows year, reasonable social skills, but he was not always cooperative UDS, 04/02/2023: Negative Urinalysis, 05/31/2024: UTI WBC/Hb/PLT/MCV, 06/07/2024: 11.6/8.5/147/76.6 Na, 05/27/24: 148, 05/28/2024: 147, 05/29/2024: 149, 06/02/2024: 151, 06/04/2024: 147, 06/06/2024: 146, 06/07/2024: 146 BUNs/CR, 05/27/2024: 47/1.71, 05/29/2024: 48/1.86, 06/01/2024: 66/1.75 06/04/2024: 43/1.36, 06/07/2024: 30/1.07 Liver function tests, 05/27/2024: Unremarkable TG/CHO L/LDL/HDL, 03/2023: 190/212/131/38, Vitamin B12, 05/31/2024: 1017 TSH, 04/03/2023: 1.81, 05/2024: 3.84 Chest x-ray, 06/01/2024: The heart appears prominent in size. Bilateral interstitial and alveolar airspace opacities have worsened. Endotracheal tube tip in satisfactory position. No sizable effusion or pneumothorax (S/P INTUBATION) CT head, 06/05/2024: 1. Generalized brain atrophy. 2. No acute intracranial hemorrhage, midline shift or mass effect. If symptoms persist, further evaluation with MRI is recommended. MRI head, 04/02/2023: No evidence of acute infarction, intracranial hemorrhage, mass effect or hydrocephalus MRI left foot, 04/05/2023: No definitive evidence of osteomyelitis. Subchondral cystic changes involving the dorsal surface of the third tarsometatarsal joint MRI right foot, 04/05/2023: Multilevel degenerative changes. No definitive evidence of osteomyelitis. Soft tissue edema or inflammatory/infectious changes along the plantar surface of the foot vital signs Vital Sign Date Time Temp Pulse Resp B/P (MAP) Pulse Ox O2 Delivery O2 Flow Rate FiO2 06/08/24 07:30 98.1 79 9 133/64 (87) 97 208.6 06/08/24 06:00 Nasal Cannula* 4 36 Total Intake and Output 06/07/24 06/07/24 06/08/24 15:00 23:00 07:00 Intake Total 457.6 ml 153.6 ml 491.6 ml Output Total 1800 ml 550 ml Balance 457.6 ml -1646.4 ml -58.4 ml medications Current Medications Medications Dose Ordered Sig/Erik Route Start Time Stop Time Status Last Admin Dose Admin Atorvastatin Calcium 20 mg HS PO 05/28/24 22:00 06/07/24 21:39 20 MG Sodium Chloride 10 ml Q8HR IV 05/28/24 06:00 06/08/24 06:17 10 ML Diagnostic Test (Pha) 1 strip ACHS 05/28/24 07:00 06/08/24 06:17 1 STRIP Insulin Human Regular ACHS SC 05/28/24 07:00 06/08/24 06:28 2 UNITS Dextrose 50 ml UD PRN IV 05/27/24 23:00 Fentanyl Citrate 250 ml @ 2.5 mls/hr Q24H IV 06/01/24 03:15 06/05/24 22:18 10 MLS/HR Propofol 100 ml @ 3.057 mls/ hr Q24H IV 06/01/24 09:00 06/05/24 22:07 12.228 MLS/HR Pantoprazole Sodium 40 mg DAILY IV 06/02/24 10:00 06/07/24 10:05 40 MG Potassium Chloride 100 ml @ 50 mls/hr Q2H IV 06/02/24 09:30 06/02/24 13:29 Cancel Norepinephrine Bitartrate 250 ml @ 1.875 mls/ hr Q24H IV 06/02/24 10:30 06/04/24 01:33 1.875 MLS/HR Enteral Nutritional Formula 1,000 ml 40ML/HR GT 06/02/24 13:00 06/02/24 16:00 1,000 ML Multi-Ingredient Ointment 1 applic BID TOP 06/03/24 10:00 06/07/24 21:47 1 APPLIC Insulin Glargine 5 units HS SC 06/03/24 22:00 06/07/24 23:49 5 UNITS Quetiapine Fumarate 25 mg BID NG 06/03/24 22:00 06/07/24 21:40 25 MG Dexmedetomidine HCl 400 mcg/ Dextrose 100 ml @ 5.075 mls/ hr [id number] IV 06/03/24 16:45 06/06/24 07:35 5.075 MLS/HR Enoxaparin Sodium 30 mg DAILY SC 06/05/24 10:00 06/06/24 09:13 30 MG Dopamine HCl/ Dextrose 250 ml @ 7.2 mls/hr Q24H IV 06/05/24 16:30 06/07/24 22:02 7.2 MLS/HR Purified Water 200 ml Q6HR GT 06/06/24 12:00 Furosemide 40 mg DAILY IV 06/07/24 10:00 06/07/24 10:05 40 MG Fluconazole 100 ml @ 100 mls/hr DAILY IV 06/06/24 10:00 06/07/24 10:05 100 MLS/HR Ondansetron HCl 4 mg Q6HPRN PRN IV 06/07/24 03:45 06/07/24 03:57 4 MG Meropenem 50 ml @ 17 mls/hr Q8HR IV 06/07/24 09:00 06/08/24 06:17 17 MLS/HR Linezolid 300 ml @ 150 mls/hr Q12H IV 06/07/24 12:00 06/07/24 23:52 150 MLS/HR Haloperidol Lactate 2.5 mg Q8HP PRN IM 06/07/24 21:45 objective General: the patient is well developed and nourished. No acute distress. MENTAL STATUS: Subjective SPEECH, LANGUAGE, HIGHER CORTICAL FUNCTION: no aphasia or dysathria. CRANIAL NERVES: Left surgical pupil, left pupil is slightly bigger than the right side. EOMs full and conjugate. No ptosis, abnormal vascular dilatation or skin secretion in the left face. Facial sensation intact in all three divisions bilaterally. Mandibular strength intact. Facial muscles symmetrical and strength intact. SENSATION: Sensation to touch and pinprick is diminished in the lower extremities MOTOR: Normal tone in the upper and lower extremity. Normal muscle bulk. No fasciculations. No abnormal movements or posturing. Muscle strength of the major groups in the extremities is 5/5. REFLEXES: Deep tendon reflexes are symmetric diminished. No pathological reflexes. CEREBELLAR/COORDINATION: Deferred laboratory and microbiology Laboratory Tests 06/08/24 03:08 Test 06/08/24 03:08 Range/Units Serum Glucose 157 H 74-106 mg/dL Problem List Altered mental status Hypoxic encephalopathy Metabolic encephalopathy Pneumonia Hypoxic respiratory failure Peripheral neuropathy Peripheral arterial disease Chronic wounds Assessment/Plan Monitoring Supportive treatment ICU care EEG Haldol for agitation IV antibiotics Oxygen DVT prophylaxis GI prophylaxis More recommendation per clinical course This medical document was created using an electronic medical record system with [employer] dictation system. Although this document has been carefully reviewed, there may still be some phonetic and typographical errors. These areas are purely typographical due to imperfections of the software programs, and do not reflect any compromise in the patient's medical care. Prognosis poor Dietary Evaluation Review Recommendations by RD: Protein Supplementation Comments: 1) Lion is NOT approriate d/t kidney function 2) Consult nephrology d/t elevated renal panel 3) Initiate Glucerna tid d/t poor PO intake 4) Continue to monitor I&O, labs, and skin integrity Expected Outcomes/Goals: 1) appetite and labs to improve 2) wound to improve 3) f/u in 5 days Plan discussed with: Other CRISTIN CRAWFORD MD Jun 08, 2024 08:33
[2024-06-08] MEDS ORDERED: VANCOMYCIN PER PHARMACY 0 MG IV SCH (09:15)
--- NOTE | 2024-06-08 09:22 | DVHPN2 ---
Assessment/Plan Assessment/Plan Progress note 74 yo M with COPD HFrEF IDDM preiously admitted for cellulitis and diabetic foot on home iv abx invanz admitted for ams and heart failure exacerbation. patient removed oxymizer and had cardiac arrest, 2 minutes downtime s/p intubation and pressors. no extubated, on o2 supp. had runs of vtach and bradycardia. seen by cardio, planned for PPM. seen today during rounds. telemetry reviewed, no significant event. pending PPM placement, dopa can be discontinued after and plan to transfer to telemetry. seen by speech yesterday. can resume diet after procedure Physical exam alert, oriented to self coarse breath soudns L pupil coloboma s1 s2 rrr abdomen soft LE with alyssa bandage, cannot eval edema moving UE, on mittens labs ekg imaging telemetry reviewed assessment and plan acute on chronic hypoxic respiratory failure req mechanical ventilation distributive shock COPD group E with exacerbation acute on chronic systolic heart failure s/p cardiac arrest ICM CAD s/p MELISSA PAD s/p iliac stents ANIVAL VMN Afib on eliquis HTN HLD IDDM foot ulcers and celulitis on invanz at home HFrEF EF 35% gross hematuria 2/2 traumatic christina resolved symptomatic ryan? dementia? thrombocytopenia 2/2 linezolid? seen by cardio, for pacemaker on dopamine drip, dc after ppm c/w with nae, add vanc dc linezolid as platelet trending down MRSA swab maintain spo2 >90 hold anti htn c/w lasix maintain -1L monitor cr strict i o christina c/w therapeutic lovenox avoid BEERS medication delirium precaution speech eval done ss for placement after PPM diet npo dvt ppx on AC gi ppx protonix critical care time 46 minutes Plan discussed with: Other My Orders Orders - ARNIE ARREOLA MD Procedure Category Date Status Time Vancomycin Per PHA 06/08/24 Pending Pharmacy 09:15 Vancomycin 1gm/250ml PHA 06/08/24 In Process Kit 09:15 Date of Service: Jun 08, 2024 Billing Provider: ARNIE ARREOLA MD Common Visit Codes: 19964-[id number] CARE 30-74 MIN ARNIE ARREOLA MD Jun 08, 2024 09:22
[2024-06-08] MEDS: VANCOMYCIN 1GM/250ML KIT 250 ML IV SCH (10:25)
--- NOTE | 2024-06-08 22:42 | DVHPN2 ---
Progress Note - Dictate Date Seen: Jun 08, 2024 Medical Necessity Reason Pt with a Central, PICC or Fol: Yes The following are medically ne: Christina Catheter Reason for christina catheter: Strict I&O Subjective Patient was seen and evaluated in follow up in the ICU. Patient is on 4 LPM NC. Patient was seen by speech yesterday, started on pureed diet. Patient is scheduled for PPM placement on Sunday 06/11. WBC 13, HGB 8.8, HCT 29.5, NA 147, CA 8.3. vital signs Vital Sign Date Time Temp Pulse Resp B/P (MAP) Pulse Ox O2 Delivery O2 Flow Rate FiO2 06/08/24 20:00 83 13 100 Nasal Cannula* 4 36 06/08/24 20:00 98.1 111/57 (75) 208.6 Total Intake and Output 06/07/24 06/07/24 06/08/24 15:00 23:00 07:00 Intake Total 457.6 ml 153.6 ml 491.6 ml Output Total 1800 ml 550 ml Balance 457.6 ml -1646.4 ml -58.4 ml medications Current Medications Medications Dose Ordered Sig/Erik Route Start Time Stop Time Status Last Admin Dose Admin Atorvastatin Calcium 20 mg HS PO 05/28/24 22:00 06/08/24 22:26 20 MG Sodium Chloride 10 ml Q8HR IV 05/28/24 06:00 06/08/24 22:30 10 ML Diagnostic Test (Pha) 1 strip ACHS 05/28/24 07:00 06/08/24 22:27 1 STRIP Insulin Human Regular ACHS SC 05/28/24 07:00 06/08/24 06:28 2 UNITS Dextrose 50 ml UD PRN IV 05/27/24 23:00 Pantoprazole Sodium 40 mg DAILY IV 06/02/24 10:00 06/08/24 10:25 40 MG Potassium Chloride 100 ml @ 50 mls/hr Q2H IV 06/02/24 09:30 06/02/24 13:29 Cancel Enteral Nutritional Formula 1,000 ml 40ML/HR GT 06/02/24 13:00 06/02/24 16:00 1,000 ML Multi-Ingredient Ointment 1 applic BID TOP 06/03/24 10:00 06/08/24 11:43 1 APPLIC Insulin Glargine 5 units HS SC 06/03/24 22:00 06/07/24 23:49 5 UNITS Quetiapine Fumarate 25 mg BID NG 06/03/24 22:00 06/08/24 22:26 25 MG Enoxaparin Sodium 30 mg DAILY SC 06/05/24 10:00 06/08/24 16:41 30 MG Dopamine HCl/ Dextrose 250 ml @ 7.2 mls/hr Q24H IV 06/05/24 16:30 06/07/24 22:02 7.2 MLS/HR Purified Water 200 ml Q6HR GT 06/06/24 12:00 Furosemide 40 mg DAILY IV 06/07/24 10:00 06/08/24 10:26 40 MG Fluconazole 100 ml @ 100 mls/hr DAILY IV 06/06/24 10:00 06/08/24 14:52 100 MLS/HR Ondansetron HCl 4 mg Q6HPRN PRN IV 06/07/24 03:45 06/07/24 03:57 4 MG Meropenem 50 ml @ 17 mls/hr Q8HR IV 06/07/24 09:00 06/08/24 22:31 17 MLS/HR Haloperidol Lactate 2.5 mg Q8HP PRN IM 06/07/24 21:45 Vancomycin HCl 0 ml @ 0 mls/hr UD IV 06/08/24 09:15 Vancomycin HCl 250 ml @ 250 mls/hr Q12H IV 06/09/24 10:00 objective GENERAL: Awake, alert, oriented. LUNGS: Decreased breath sounds. CARDIOVASCULAR: Heart sounds are good. ABDOMEN: Soft. laboratory and microbiology Laboratory Tests 06/08/24 03:08 Test 06/08/24 03:08 Range/Units Serum Glucose 157 H 74-106 mg/dL Problem List Acute on chronic hypoxic respiratory failure. COPD with exacerbation. Acute on chronic systolic heart failure. CAD s/p MELISSA. PAD s/p iliac stents. ANIVAL VMN. A fib on Eliquis. HTN. HLD. IDDM. Foot ulcers and cellulitis. HFrEF EF 35%. Gross hematuria. Assessment/Plan Continued all current supportive medical care. Lipitor. DVT prophylactics. Diuretics with Lasix. IV antibiotics as ordered. Vasopressors for hemodynamic support. GI prophylactics. Additional plan as per the hospital course. Critical care time of 45 minutes provided to include time spent evaluation of patient at bedside, when appropriate patient/family education for diagnosis, treatment plan, review of pertinent medical information and discussion of care with specialty providers and PCP. Dietary Evaluation Review Recommendations by RD: Protein Supplementation Comments: 1) Lion is NOT approriate d/t kidney function 2) Consult nephrology d/t elevated renal panel 3) Initiate Glucerna tid d/t poor PO intake 4) Continue to monitor I&O, labs, and skin integrity Expected Outcomes/Goals: 1) appetite and labs to improve 2) wound to improve 3) f/u in 5 days Plan discussed with: Patient HÉCTOR MARION MD Jun 08, 2024 22:42
--- NOTE | 2024-06-08 23:36 | DVHPN2 ---
Progress Note - Dictate Date Seen: Jun 08, 2024 Medical Necessity Reason Pt with a Central, PICC or Fol: Yes The following are medically ne: Christina Catheter Reason for christina catheter: Strict I&O Subjective Patient seen and examined at bedside. Remains on supplemental oxygen Overnight events reviewed. vital signs Vital Sign Date Time Temp Pulse Resp B/P (MAP) Pulse Ox O2 Delivery O2 Flow Rate FiO2 06/08/24 23:32 11 99 Nasal Cannula* 4 36 06/08/24 23:00 98.8 82 124/63 (83) 209.8 Total Intake and Output 06/07/24 06/07/24 06/08/24 15:00 23:00 07:00 Intake Total 457.6 ml 153.6 ml 491.6 ml Output Total 1800 ml 550 ml Balance 457.6 ml -1646.4 ml -58.4 ml medications Current Medications Medications Dose Ordered Sig/Erik Route Start Time Stop Time Status Last Admin Dose Admin Atorvastatin Calcium 20 mg HS PO 05/28/24 22:00 06/08/24 22:26 20 MG Sodium Chloride 10 ml Q8HR IV 05/28/24 06:00 06/08/24 22:30 10 ML Diagnostic Test (Pha) 1 strip ACHS 05/28/24 07:00 06/08/24 22:27 1 STRIP Insulin Human Regular ACHS SC 05/28/24 07:00 06/08/24 06:28 2 UNITS Dextrose 50 ml UD PRN IV 05/27/24 23:00 Pantoprazole Sodium 40 mg DAILY IV 06/02/24 10:00 06/08/24 10:25 40 MG Potassium Chloride 100 ml @ 50 mls/hr Q2H IV 06/02/24 09:30 06/02/24 13:29 Cancel Enteral Nutritional Formula 1,000 ml 40ML/HR GT 06/02/24 13:00 06/02/24 16:00 1,000 ML Multi-Ingredient Ointment 1 applic BID TOP 06/03/24 10:00 06/08/24 22:00 1 APPLIC Insulin Glargine 5 units HS SC 06/03/24 22:00 06/07/24 23:49 5 UNITS Quetiapine Fumarate 25 mg BID NG 06/03/24 22:00 06/08/24 22:26 25 MG Enoxaparin Sodium 30 mg DAILY SC 06/05/24 10:00 06/08/24 16:41 30 MG Dopamine HCl/ Dextrose 250 ml @ 7.2 mls/hr Q24H IV 06/05/24 16:30 06/07/24 22:02 7.2 MLS/HR Purified Water 200 ml Q6HR GT 06/06/24 12:00 Furosemide 40 mg DAILY IV 06/07/24 10:00 06/08/24 10:26 40 MG Fluconazole 100 ml @ 100 mls/hr DAILY IV 06/06/24 10:00 06/08/24 14:52 100 MLS/HR Ondansetron HCl 4 mg Q6HPRN PRN IV 06/07/24 03:45 06/07/24 03:57 4 MG Meropenem 50 ml @ 17 mls/hr Q8HR IV 06/07/24 09:00 06/08/24 22:31 17 MLS/HR Haloperidol Lactate 2.5 mg Q8HP PRN IM 06/07/24 21:45 Vancomycin HCl 0 ml @ 0 mls/hr UD IV 06/08/24 09:15 Vancomycin HCl 250 ml @ 250 mls/hr Q12H IV 06/09/24 10:00 objective Gen.: Patient lying in bed in no apparent distress. On supplemental oxygen. Head: Normocephalic, atraumatic. Eyes: EOMI/PERRLA. Ears: Normal hearing. Normal anatomy. Neck/trachea: Trachea midline, supple. Nose: Normal external anatomy. Mouth: Moist mucous membranes. Chest: Decreased air entry bilaterally. No wheezing or rhonchi. Cardiovascular: Positive S1, positive S2. Regular rate and rhythm. Abdomen: Positive bowel sounds in all 4 quadrants. Soft, non-tender, non- distended. : Deferred. Rectal: Deferred. Skin: Warm, dry. Intact. Extremities: 2+ radial pulses bilaterally. No lower extremity edema. Neuro: Awake, alert, oriented x3. No gross motor or sensory deficits. Cranial nerves II through XII intact. Gait not assessed. laboratory and microbiology Laboratory Tests 06/08/24 03:08 Test 06/08/24 03:08 Range/Units Serum Glucose 157 H 74-106 mg/dL Assessment/Plan Impression: Acute on chronic hypoxic respiratory failure S/p cardiac arrest Shock Acute CHF exacerbation Cellulitis Chronic obstructive pulmonary disease Diabetes mellitus type II Obesity Events: Remains on 2 LPM NC Taper O2 as tolerated Patient desaturated during daytime when off oxygen. On pressors for hemodynamic support Dopamine at 2 mcg/min Titrate to keep mean arterial pressure greater than 65 mmHg. Plan to obtain EEG today. Continue antibiotics - vancomycin Continue antifungals Wound care. Diet - puree w/ nectar thick liquids. Monitor hemoglobin - stable at 8.8 g/dL Head of bed elevation Aspiration precautions Plan for Micra pacemaker on Friday Cardiology recommendations appreciated Diurese as tolerated w/ Lasix Monitor renal function Monitor electrolytes. Supplement as necessary. Monitor ins and outs. Labs and imaging reviewed. Rest of plan as noted below. Plan: S/p extubation on 06/06/24 Continue supplemental oxygen Titrate to keep sats above 92% Continue antibiotics. F/u cultures. On pressors for hemodynamic support Titrate to keep mean arterial pressure greater than 65 mmHg. Wound care Diurese as tolerated w/ Lasix Monitor renal function Monitor electrolytes. Supplement as necessary. Monitor ins and outs. Maintain euvolemia. Nephrology recommendations appreciated Accu-Cheks, ISS PRN. Diet and lifestyle modifications for weight reduction Obesity - complicates all care GI prophylaxis. DVT prophylaxis. Prognosis: Poor given patient's multiple co-morbidities. Condition: Critical Rest of plan per hospitalist and other consultants. A total of 35 minutes of critical care time was spent reviewing the patient record, examining the patient, making a diagnostic and therapeutic plan, discussing this plan with the medical personnel, following up on diagnostic studies and following the patient for clinical stability excluding any and all procedures. At least 50% of this time was spent in direct, [id number] contact. Thank you, Dr. Bhatt, for allowing me to participate in this patient's care. Further recommendations will depend on the patient's clinical course. Please do not hesitate to contact me if you have any questions or concerns. This medical document was created using an electronic medical record system with [employer] dictation system. Although these documentations are being carefully reviewed, there may still be some phonetic and typographical changes. The errors are purely typographical, due to imperfection on the software program, and do not reflect any compromise in the patient's medical care. Dietary Evaluation Review Recommendations by RD: Protein Supplementation Comments: 1) Lion is NOT approriate d/t kidney function 2) Consult nephrology d/t elevated renal panel 3) Initiate Glucerna tid d/t poor PO intake 4) Continue to monitor I&O, labs, and skin integrity Expected Outcomes/Goals: 1) appetite and labs to improve 2) wound to improve 3) f/u in 5 days Plan discussed with: Other (STEFFANY Hood) Critical Care Time(min): 35 MIRIAM DERAS MD Jun 08, 2024 23:36
[2024-06-09] VITALS (26 sets, daily range): BP systolic 96–136; BP diastolic 43–74; PULSE 73–92; RESP 10–19; TEMP 98–99.3; O2SAT 91–100
[2024-06-09 03:55] LABS: Basophils # (auto) 0 10 ^3/uL (0-0.2); Eosinophils # (auto) 0.3 10 ^3/uL (0-0.8); Eosinophils % (auto) 2.9 % (0.0-7.0); Lymphocytes # (auto) 0.9 10 ^3/uL (0.4-5.4); Mean Corpuscular Volume 74.9 fL (80.0-100.0); Monocytes # (auto) 0.4 10 ^3/uL (0-1.3); Neutrophils # (auto) 9.4 10 ^3/uL (1.6-8.6)
[2024-06-09 03:59] LABS: Basophils % (auto) 0.3 % (0.0-2.0); Hematocrit 24.2 % (41.0-53.0); Hemoglobin 7.4 g/dL (13.5-17.5); Mean Corpuscular Hgb Conc. 30.7 g/dL (32.0-36.0); Monocytes % (auto) 3.8 % (0.0-12.0); Nucleated Red Blood Cells % 0.1 %; Platelet Count (auto) 166 10^3/uL (140-450); Red Blood Cells 3.23 10^6/uL (4.5-5.90)
[2024-06-09 04:03] LABS: Potassium 3.6 mmol/L (3.5-5.1)
[2024-06-09 04:04] LABS: Anion Gap 7 (5-15); Carbon Dioxide 28 mmol/L (20-31)
[2024-06-09 04:09] LABS: Blood Urea Nitrogen 18 mg/dL (9-23)
[2024-06-09 04:10] LABS: Calcium 8.6 mg/dL (8.7-10.4); Chloride 115 mmol/L (98-107); Glucose 68 mg/dL (74-106); Magnesium 1.8 mg/dL (1.6-2.6); Red Cell Distribution Width 24.2 % (11.8-14.3); Sodium 150 mmol/L (136-145)
[2024-06-09 04:48] LABS: Anisocytosis Moderate; Hypochromia Slight; Ovalocytes MODERATE; Platelet Estimate Adequate; Target Cell FEW
--- NOTE | 2024-06-09 09:29 | DVHPN2 ---
Assessment/Plan Assessment/Plan Progress note 74 yo M with COPD HFrEF IDDM preiously admitted for cellulitis and diabetic foot on home iv abx invanz admitted for ams and heart failure exacerbation. patient removed oxymizer and had cardiac arrest, 2 minutes downtime s/p intubation and pressors. no extubated, on o2 supp. had runs of vtach and bradycardia. seen by cardio, planned for PPM. seen today during rounds. telemetry reviewed, no significant event. discussed with cardio, will turn off dopa and transfer to telemetry. increase seroquel Physical exam alert, oriented to self coarse breath soudns L pupil coloboma s1 s2 rrr abdomen soft LE with alyssa bandage, cannot eval edema moving UE, on mittens labs ekg imaging telemetry reviewed assessment and plan acute on chronic hypoxic respiratory failure req mechanical ventilation distributive shock COPD group E with exacerbation acute on chronic systolic heart failure s/p cardiac arrest ICM CAD s/p MELISSA PAD s/p iliac stents ANIVAL VMN Afib on eliquis HTN HLD IDDM foot ulcers and celulitis on invanz at home HFrEF EF 35% gross hematuria 2/2 traumatic christina resolved sinus node dysfunction dementia? thrombocytopenia 2/2 linezolid? seen by cardio, for pacemaker on dopamine drip, dc after ppm c/w with nae, add vanc dc linezolid as platelet trending down MRSA swab maintain spo2 >90 hold anti htn c/w lasix maintain -1L monitor cr strict i o christina c/w therapeutic lovenox avoid BEERS medication delirium precaution speech eval done ss for placement after PPM diet npo dvt ppx on AC gi ppx protonix critical care time 42 minutes Plan discussed with: Patient My Orders Orders - ARNIE ARREOLA MD Procedure Category Date Status Time Vancomycin,Trough LAB 06/11/24 Verified 09:00 Vancomycin Per [facility] 06/11/24 In Process Pharmacy Protoc 10:00 Vancomycin 1gm/250ml PHA 06/09/24 In Process Kit 10:00 Date of Service: Jun 09, 2024 Billing Provider: ARNIE ARREOLA MD Common Visit Codes: [id number] CARE 30-74 MIN ARNIE ARREOLA MD Jun 09, 2024 09:29
--- NOTE | 2024-06-09 10:44 | DVHPN2 ---
Progress Note - Dictate Date Seen: Jun 09, 2024 Medical Necessity Reason Pt with a Central, PICC or Fol: Yes The following are medically ne: Christina Catheter Reason for christina catheter: Strict I&O Subjective Mr. Leon is a 74 years old right-handed gentleman with a history of hypertension, diabetes, coronary artery disease, heart attack, congestive heart failure, peripheral arterial disease, he was admitted to the [facility] on 05/27/2024 with a chief complaint of dizziness. I have seen and examined the patient, I have discussed with his nurse, he is more confused, he is awake, oriented to person only, not cooperative UDS, 04/02/2023: Negative Urinalysis, 05/31/2024: UTI WBC/Hb/PLT/MCV, 06/07/2024: 11.6/8.5/147/76.6 Na, 05/27/24: 148, 05/28/2024: 147, 05/29/2024: 149, 06/02/2024: 151, 06/04/2024: 147, 06/06/2024: 146, 06/07/2024: 146 BUNs/CR, 05/27/2024: 47/1.71, 05/29/2024: 48/1.86, 06/01/2024: 66/1.75 06/04/2024: 43/1.36, 06/07/2024: 30/1.07 Liver function tests, 05/27/2024: Unremarkable TG/CHO L/LDL/HDL, 03/2023: 190/212/131/38, Vitamin B12, 05/31/2024: 1017 TSH, 04/03/2023: 1.81, 05/2024: 3.84 Chest x-ray, 06/01/2024: The heart appears prominent in size. Bilateral interstitial and alveolar airspace opacities have worsened. Endotracheal tube tip in satisfactory position. No sizable effusion or pneumothorax (S/P INTUBATION) CT head, 06/05/2024: 1. Generalized brain atrophy. 2. No acute intracranial hemorrhage, midline shift or mass effect. If symptoms persist, further evaluation with MRI is recommended. MRI head, 04/02/2023: No evidence of acute infarction, intracranial hemorrhage, mass effect or hydrocephalus MRI left foot, 04/05/2023: No definitive evidence of osteomyelitis. Subchondral cystic changes involving the dorsal surface of the third tarsometatarsal joint MRI right foot, 04/05/2023: Multilevel degenerative changes. No definitive evidence of osteomyelitis. Soft tissue edema or inflammatory/infectious changes along the plantar surface of the foot vital signs Vital Sign Date Time Temp Pulse Resp B/P (MAP) Pulse Ox O2 Delivery O2 Flow Rate FiO2 06/09/24 06:00 87 06/09/24 06:00 10 97 Nasal Cannula* 4 36 06/09/24 05:53 102/48 06/09/24 05:00 98.8 209.8 Total Intake and Output 06/08/24 06/08/24 06/09/24 15:00 23:00 07:00 Intake Total 557.6 ml 424.4 ml 80.4 ml Output Total 1450 ml 500 ml Balance 557.6 ml -1025.6 ml -419.6 ml medications Current Medications Medications Dose Ordered Sig/Erik Route Start Time Stop Time Status Last Admin Dose Admin Atorvastatin Calcium 20 mg HS PO 05/28/24 22:00 06/08/24 22:26 20 MG Sodium Chloride 10 ml Q8HR IV 05/28/24 06:00 06/09/24 05:50 10 ML Diagnostic Test (Pha) 1 strip ACHS 05/28/24 07:00 06/09/24 06:23 1 STRIP Insulin Human Regular ACHS SC 05/28/24 07:00 06/08/24 06:28 2 UNITS Dextrose 50 ml UD PRN IV 05/27/24 23:00 Pantoprazole Sodium 40 mg DAILY IV 06/02/24 10:00 06/08/24 10:25 40 MG Potassium Chloride 100 ml @ 50 mls/hr Q2H IV 06/02/24 09:30 06/02/24 13:29 Cancel Multi-Ingredient Ointment 1 applic BID TOP 06/03/24 10:00 06/08/24 22:00 1 APPLIC Insulin Glargine 5 units HS SC 06/03/24 22:00 06/07/24 23:49 5 UNITS Enoxaparin Sodium 30 mg DAILY SC 06/05/24 10:00 06/08/24 16:41 30 MG Furosemide 40 mg DAILY IV 06/07/24 10:00 06/08/24 10:26 40 MG Fluconazole 100 ml @ 100 mls/hr DAILY IV 06/06/24 10:00 06/08/24 14:52 100 MLS/HR Ondansetron HCl 4 mg Q6HPRN PRN IV 06/07/24 03:45 06/07/24 03:57 4 MG Meropenem 50 ml @ 17 mls/hr Q8HR IV 06/07/24 09:00 06/09/24 05:50 17 MLS/HR Haloperidol Lactate 2.5 mg Q8HP PRN IM 06/07/24 21:45 Vancomycin HCl 0 ml @ 0 mls/hr UD IV 06/08/24 09:15 Vancomycin HCl 250 ml @ 250 mls/hr Q12H IV 06/09/24 10:00 Quetiapine Fumarate 50 mg BID NG 06/09/24 10:00 UNV objective General: the patient is well developed and nourished. No acute distress. MENTAL STATUS: Subjective SPEECH, LANGUAGE, HIGHER CORTICAL FUNCTION: no aphasia or dysathria. CRANIAL NERVES: Left surgical pupil, left pupil is slightly bigger than the right side. EOMs full and conjugate. No ptosis, abnormal vascular dilatation or skin secretion in the left face. Facial sensation intact in all three divisions bilaterally. Mandibular strength intact. Facial muscles symmetrical and strength intact. SENSATION: Sensation to touch and pinprick is diminished in the lower extremities MOTOR: Normal tone in the upper and lower extremity. Normal muscle bulk. No fasciculations. No abnormal movements or posturing. Muscle strength of the major groups in the extremities is 5/5. REFLEXES: Deep tendon reflexes are symmetric diminished. No pathological reflexes. CEREBELLAR/COORDINATION: Deferred laboratory and microbiology Laboratory Tests 06/09/24 03:00 Test 06/09/24 03:00 Range/Units Serum Glucose 68 L 74-106 mg/dL Problem List Altered mental status Hypoxic encephalopathy Metabolic encephalopathy Pneumonia Hypoxic respiratory failure Peripheral neuropathy Peripheral arterial disease Chronic wounds Assessment/Plan Monitoring Supportive treatment ICU care D/C EEG Haldol 5 mg IM Q 8 hours for agitation IV antibiotics Oxygen DVT prophylaxis GI prophylaxis More recommendation per clinical course This medical document was created using an electronic medical record system with [employer] system. Although this document has been carefully reviewed, there may still be some phonetic and typographical errors. These areas are purely typographical due to imperfections of the software programs, and do not reflect any compromise in the patient's medical care. Prognosis poor Dietary Evaluation Review Recommendations by RD: Protein Supplementation Comments: 1) Lion is NOT approriate d/t kidney function 2) Consult nephrology d/t elevated renal panel 3) Initiate Glucerna tid d/t poor PO intake 4) Continue to monitor I&O, labs, and skin integrity Expected Outcomes/Goals: 1) appetite and labs to improve 2) wound to improve 3) f/u in 5 days Plan discussed with: Other CRISTIN CRAWFORD MD Jun 09, 2024 10:44
[2024-06-09] MEDS: VANCOMYCIN 1GM/250ML KIT 250 ML IV SCH (11:07)
[2024-06-09] MEDS: HALOPERIDOL LACTATE 5 MG/ML INJ VIAL IM PRN (11:56)
[2024-06-09] MEDS: QUEtiapine FUMARATE 25 MG TAB NG SCH (11:56)
--- NOTE | 2024-06-09 15:48 | DVHPN2 ---
Progress Note - Dictate Date Seen: Jun 09, 2024 Medical Necessity Reason Pt with a Central, PICC or Fol: Yes The following are medically ne: Christina Catheter Reason for christina catheter: Strict I&O Subjective Patient was seen and evaluated in follow up in the ICU. Patient is on 4 LPM NC. Patient is confused and agitated, only oriented to person. Patient is refusing EEG at this time. vital signs Vital Sign Date Time Temp Pulse Resp B/P (MAP) Pulse Ox O2 Delivery O2 Flow Rate FiO2 06/09/24 12:30 120/60 06/09/24 10:30 16 96 Nasal Cannula* 4 36 06/09/24 10:30 73 06/09/24 05:00 98.8 209.8 Total Intake and Output 06/08/24 06/08/24 06/09/24 15:00 23:00 07:00 Intake Total 557.6 ml 424.4 ml 80.4 ml Output Total 1450 ml 500 ml Balance 557.6 ml -1025.6 ml -419.6 ml medications Current Medications Medications Dose Ordered Sig/Erik Route Start Time Stop Time Status Last Admin Dose Admin Atorvastatin Calcium 20 mg HS PO 05/28/24 22:00 06/08/24 22:26 20 MG Sodium Chloride 10 ml Q8HR IV 05/28/24 06:00 06/09/24 05:50 10 ML Diagnostic Test (Pha) 1 strip ACHS 05/28/24 07:00 06/09/24 11:25 1 STRIP Insulin Human Regular ACHS SC 05/28/24 07:00 06/08/24 06:28 2 UNITS Dextrose 50 ml UD PRN IV 05/27/24 23:00 Pantoprazole Sodium 40 mg DAILY IV 06/02/24 10:00 06/09/24 11:07 40 MG Potassium Chloride 100 ml @ 50 mls/hr Q2H IV 06/02/24 09:30 06/02/24 13:29 Cancel Multi-Ingredient Ointment 1 applic BID TOP 06/03/24 10:00 06/09/24 11:08 1 APPLIC Insulin Glargine 5 units HS SC 06/03/24 22:00 06/07/24 23:49 5 UNITS Enoxaparin Sodium 30 mg DAILY SC 06/05/24 10:00 06/09/24 11:08 30 MG Furosemide 40 mg DAILY IV 06/07/24 10:00 06/09/24 12:30 40 MG Fluconazole 100 ml @ 100 mls/hr DAILY IV 06/06/24 10:00 06/09/24 12:30 100 MLS/HR Ondansetron HCl 4 mg Q6HPRN PRN IV 06/07/24 03:45 06/07/24 03:57 4 MG Meropenem 50 ml @ 17 mls/hr Q8HR IV 06/07/24 09:00 06/09/24 05:50 17 MLS/HR Vancomycin HCl 0 ml @ 0 mls/hr UD IV 06/08/24 09:15 Vancomycin HCl 250 ml @ 250 mls/hr Q12H IV 06/09/24 10:00 06/09/24 11:07 250 MLS/HR Quetiapine Fumarate 50 mg BID NG 06/09/24 10:00 06/09/24 11:56 50 MG Haloperidol Lactate 5 mg Q8HP PRN IM 06/09/24 10:45 06/09/24 11:56 5 MG objective GENERAL: Awake, altered. LUNGS: Decreased breath sounds. CARDIOVASCULAR: Heart sounds are good. ABDOMEN: Soft. laboratory and microbiology Laboratory Tests 06/09/24 03:00 Test 06/09/24 03:00 Range/Units Serum Glucose 68 L 74-106 mg/dL Problem List Acute on chronic hypoxic respiratory failure. COPD with exacerbation. Acute on chronic systolic heart failure. CAD s/p MELISSA. PAD s/p iliac stents. ANIVAL VMN. A fib on Eliquis. HTN. HLD. IDDM. Foot ulcers and cellulitis. HFrEF EF 35%. Gross hematuria. Assessment/Plan Continued all current supportive medical care. Lipitor. DVT prophylactics. Diuretics with Lasix. IV antibiotics as ordered. Vasopressors for hemodynamic support. GI prophylactics. Additional plan as per the hospital course. Critical care time of 45 minutes provided to include time spent evaluation of patient at bedside, when appropriate patient/family education for diagnosis, treatment plan, review of pertinent medical information and discussion of care with specialty providers and PCP. Dietary Evaluation Review Recommendations by RD: Protein Supplementation Comments: 1) Lion is NOT approriate d/t kidney function 2) Consult nephrology d/t elevated renal panel 3) Initiate Glucerna tid d/t poor PO intake 4) Continue to monitor I&O, labs, and skin integrity Expected Outcomes/Goals: 1) appetite and labs to improve 2) wound to improve 3) f/u in 5 days Plan discussed with: HÉCTOR Nolasco MD Jun 09, 2024 13:35
--- NOTE | 2024-06-09 22:35 | DVHPN2 ---
Progress Note - Dictate Date Seen: Jun 09, 2024 Medical Necessity Reason Pt with a Central, PICC or Fol: Yes The following are medically ne: Christina Catheter Reason for christina catheter: Strict I&O Subjective Patient seen and examined at bedside. Remains on supplemental oxygen Overnight events reviewed. vital signs Vital Sign Date Time Temp Pulse Resp B/P (MAP) Pulse Ox O2 Delivery O2 Flow Rate FiO2 06/09/24 18:00 81 06/09/24 18:00 104/52 (69) 96 06/09/24 18:00 12 Nasal Cannula* 4 36 06/09/24 11:00 98.2 208.8 Total Intake and Output 06/08/24 06/08/24 06/09/24 15:00 23:00 07:00 Intake Total 557.6 ml 424.4 ml 87.6 ml Output Total 1450 ml 500 ml Balance 557.6 ml -1025.6 ml -412.4 ml medications Current Medications Medications Dose Ordered Sig/Erik Route Start Time Stop Time Status Last Admin Dose Admin Atorvastatin Calcium 20 mg HS PO 05/28/24 22:00 06/09/24 22:25 20 MG Sodium Chloride 10 ml Q8HR IV 05/28/24 06:00 06/09/24 22:24 10 ML Diagnostic Test (Pha) 1 strip ACHS 05/28/24 07:00 06/09/24 22:26 1 STRIP Insulin Human Regular ACHS SC 05/28/24 07:00 06/08/24 06:28 2 UNITS Dextrose 50 ml UD PRN IV 05/27/24 23:00 Pantoprazole Sodium 40 mg DAILY IV 06/02/24 10:00 06/09/24 11:07 40 MG Potassium Chloride 100 ml @ 50 mls/hr Q2H IV 06/02/24 09:30 06/02/24 13:29 Cancel Multi-Ingredient Ointment 1 applic BID TOP 06/03/24 10:00 06/09/24 22:26 1 APPLIC Insulin Glargine 5 units HS SC 06/03/24 22:00 06/09/24 22:29 5 UNITS Enoxaparin Sodium 30 mg DAILY SC 06/05/24 10:00 06/09/24 11:08 30 MG Furosemide 40 mg DAILY IV 06/07/24 10:00 06/09/24 12:30 40 MG Fluconazole 100 ml @ 100 mls/hr DAILY IV 06/06/24 10:00 06/09/24 12:30 100 MLS/HR Ondansetron HCl 4 mg Q6HPRN PRN IV 06/07/24 03:45 06/07/24 03:57 4 MG Meropenem 50 ml @ 17 mls/hr Q8HR IV 06/07/24 09:00 06/09/24 15:39 17 MLS/HR Vancomycin HCl 0 ml @ 0 mls/hr UD IV 06/08/24 09:15 Vancomycin HCl 250 ml @ 250 mls/hr Q12H IV 06/09/24 10:00 06/09/24 22:23 250 MLS/HR Quetiapine Fumarate 50 mg BID NG 06/09/24 10:00 06/09/24 22:25 50 MG Haloperidol Lactate 5 mg Q8HP PRN IM 06/09/24 10:45 06/09/24 11:56 5 MG objective Gen.: Patient lying in bed in no apparent distress. On supplemental oxygen. Head: Normocephalic, atraumatic. Eyes: EOMI/PERRLA. Ears: Normal hearing. Normal anatomy. Neck/trachea: Trachea midline, supple. Nose: Normal external anatomy. Mouth: Moist mucous membranes. Chest: Decreased air entry bilaterally. No wheezing or rhonchi. Cardiovascular: Positive S1, positive S2. Regular rate and rhythm. Abdomen: Positive bowel sounds in all 4 quadrants. Soft, non-tender, non- distended. : Deferred. Rectal: Deferred. Skin: Warm, dry. Intact. Extremities: 2+ radial pulses bilaterally. No lower extremity edema. Neuro: Awake, alert, altered. No gross motor or sensory deficits. Cranial nerves II through XII intact. Gait not assessed. laboratory and microbiology Laboratory Tests 06/09/24 03:00 Test 06/09/24 03:00 Range/Units Serum Glucose 68 L 74-106 mg/dL Assessment/Plan Impression: Acute on chronic hypoxic respiratory failure S/p cardiac arrest Shock Acute CHF exacerbation Cellulitis Chronic obstructive pulmonary disease Diabetes mellitus type II Obesity Events: Remains on 4 LPM NC Taper O2 as tolerated Patient desaturates when off oxygen. Patient is delirious. Off pressors, hemodynamically stable. Plan to obtain EEG Continue antibiotics - vancomycin Continue antifungals Incentive spirometry Wound care. Diet - puree w/ nectar thick liquids. Accu-Cheks, ISS. Monitor hemoglobin Head of bed elevation Aspiration precautions Plan for Micra pacemaker on Friday Cardiology recommendations appreciated Physical therapy Diurese as tolerated w/ Lasix Monitor renal function Monitor electrolytes. Supplement as necessary. Monitor ins and outs. Patient is stable for downgrade from the pulmonary standpoint. Labs and imaging reviewed. Rest of plan as noted below. Plan: S/p extubation on 06/06/24 Continue supplemental oxygen Titrate to keep sats above 92% Continue antibiotics. F/u cultures. Pressors as necessary for hemodynamic support Titrate to keep mean arterial pressure greater than 65 mmHg. Wound care Diurese as tolerated w/ Lasix Monitor renal function Monitor electrolytes. Supplement as necessary. Monitor ins and outs. Maintain euvolemia. Nephrology recommendations appreciated Accu-Cheks, ISS. Diet and lifestyle modifications for weight reduction Obesity - complicates all care GI prophylaxis. DVT prophylaxis. Prognosis: Guarded given patient's multiple co-morbidities. Condition: Critical Rest of plan per hospitalist and other consultants. A total of 35 minutes of critical care time was spent reviewing the patient record, examining the patient, making a diagnostic and therapeutic plan, discussing this plan with the medical personnel, following up on diagnostic studies and following the patient for clinical stability excluding any and all procedures. At least 50% of this time was spent in direct, [id number] contact. Thank you, Dr. Bhatt, for allowing me to participate in this patient's care. Further recommendations will depend on the patient's clinical course. Please do not hesitate to contact me if you have any questions or concerns. This medical document was created using an electronic medical record system with [employer] dictation system. Although these documentations are being carefully reviewed, there may still be some phonetic and typographical changes. The errors are purely typographical, due to imperfection on the software program, and do not reflect any compromise in the patient's medical care. Dietary Evaluation Review Recommendations by RD: Protein Supplementation Comments: 1) Lion is NOT approriate d/t kidney function 2) Consult nephrology d/t elevated renal panel 3) Initiate Glucerna tid d/t poor PO intake 4) Continue to monitor I&O, labs, and skin integrity Expected Outcomes/Goals: 1) appetite and labs to improve 2) wound to improve 3) f/u in 5 days Plan discussed with: Other (STEFFANY Contreras) Critical Care Time(min): 35 MIRIAM DERAS MD Jun 09, 2024 22:35
[2024-06-10] VITALS (13 sets, daily range): BP systolic 99–107; BP diastolic 51–54; PULSE 80–90; RESP 12–19; TEMP 97.5–98.7; O2SAT 92–98
[2024-06-10 06:24] LABS: Basophils # (auto) 0 10 ^3/uL (0-0.2); Basophils % (auto) 0.4 % (0.0-2.0); Eosinophils # (auto) 0.1 10 ^3/uL (0-0.8); Eosinophils % (auto) 1.2 % (0.0-7.0); Hematocrit 23.7 % (41.0-53.0); Hemoglobin 7.1 g/dL (13.5-17.5); Lymphocytes # (auto) 0.7 10 ^3/uL (0.4-5.4); Lymphocytes % (auto) 5.9 % (10.0-50.0); Mean Corpuscular Hemoglobin 22.7 pg (28.0-32.0); Mean Corpuscular Hgb Conc. 29.8 g/dL (32.0-36.0); Mean Corpuscular Volume 76.1 fL (80.0-100.0); Monocytes # (auto) 0.6 10 ^3/uL (0-1.3); Monocytes % (auto) 5.2 % (0.0-12.0); Neutrophils % (auto) 87.3 % (37.0-80.0); Nucleated Red Blood Cells % 0.1 %; Platelet Count (auto) 184 10^3/uL (140-450); Red Blood Cells 3.12 10^6/uL (4.5-5.90); Red Cell Distribution Width 24.6 % (11.8-14.3); White Blood Cell 11.4 10^3/uL (4.4-10.8)
[2024-06-10 06:39] LABS: Anion Gap 9 (5-15); Carbon Dioxide 27 mmol/L (20-31)
[2024-06-10 06:44] LABS: BUN/Creatinine Ratio 18.2 (10.0-20.0); Blood Urea Nitrogen 16 mg/dL (9-23); Glucose 90 mg/dL (74-106)
[2024-06-10 06:47] LABS: Calcium 8.2 mg/dL (8.7-10.4); Chloride 116 mmol/L (98-107); Phosphorus 2.1 mg/dL (2.4-5.1); Potassium 3.5 mmol/L (3.5-5.1); Sodium 152 mmol/L (136-145)
--- NOTE | 2024-06-10 08:24 | DVHPN2 ---
Assessment/Plan Assessment/Plan Progress note 74 yo M with COPD HFrEF IDDM preiously admitted for cellulitis and diabetic foot on home iv abx invanz admitted for ams and heart failure exacerbation. patient removed oxymizer and had cardiac arrest, 2 minutes downtime s/p intubation and pressors. no extubated, on o2 supp. had runs of vtach and bradycardia. seen by cardio, planned for PPM. seen today during rounds. pending ppm placement. hypernatremia, start d5w 1L, goal i/o net -500. for snf after ppm Physical exam alert, oriented to self coarse breath soudns L pupil coloboma s1 s2 rrr abdomen soft LE with alyssa bandage, cannot eval edema moving UE, on mittens labs ekg imaging telemetry reviewed assessment and plan acute on chronic hypoxic respiratory failure req mechanical ventilation distributive shock COPD group E with exacerbation acute on chronic systolic heart failure s/p cardiac arrest ICM CAD s/p MELISSA PAD s/p iliac stents ANIVAL VMN Afib on eliquis HTN HLD IDDM foot ulcers and celulitis on invanz at home HFrEF EF 35% gross hematuria 2/2 traumatic christina resolved sinus node dysfunction dementia? thrombocytopenia 2/2 linezolid, resolved hyponatremia seen by cardio, for pacemaker s/p dopamine drip c/w with nae, add vanc dc linezolid as platelet trending down MRSA swab maintain spo2 >90 hold anti htn c/w lasix maintain -1L monitor cr strict i o christina c/w therapeutic lovenox avoid BEERS medication delirium precaution speech eval done ss for placement after PPM d5w diet npo dvt ppx on AC Plan discussed with: Patient My Orders Orders - ARNIE ARREOLA MD Procedure Category Date Status Time Quetiapine Fumarate PHA 06/09/24 In Process Tablet (Seroquel Tab 10:00 Date of Service: Jun 10, 2024 Billing Provider: ARNIE ARREOLA MD Common Visit Codes: [id number] INP/OBS CARE(HIGH) ARNIE ARREOLA MD Jun 10, 2024 08:24
[2024-06-10] MEDS: POTASSIUM PHOSPHATE 44 MEQ in D5W 5% 250 ML IV ONE (12:00)
[2024-06-10] MEDS: D5W 5% 1,000 ML IV ONE (17:00)
--- NOTE | 2024-06-10 20:48 | DVHPN2 ---
Progress Note - Dictate Date Seen: Jun 10, 2024 Medical Necessity Reason Pt with a Central, PICC or Fol: Yes The following are medically ne: Christina Catheter Reason for christina catheter: Strict I&O Subjective Mr. Leon is a 74 years old right-handed gentleman with a history of hypertension, diabetes, coronary artery disease, heart attack, congestive heart failure, peripheral arterial disease, he was admitted to the [facility] on 05/27/2024 with a chief complaint of dizziness. I have seen and examined the patient, I have discussed with his nurse, he was better today, he is oriented to person, he knows that he is in the hospital, he knows year, cooperative UDS, 04/02/2023: Negative Urinalysis, 05/31/2024: UTI WBC/Hb/PLT/MCV, 06/07/2024: 11.6/8.5/147/76.6 Na, 05/27/24: 148, 05/28/2024: 147, 05/29/2024: 149, 06/02/2024: 151, 06/04/2024: 147, 06/06/2024: 146, 06/07/2024: 146 BUNs/CR, 05/27/2024: 47/1.71, 05/29/2024: 48/1.86, 06/01/2024: 66/1.75 06/04/2024: 43/1.36, 06/07/2024: 30/1.07 Liver function tests, 05/27/2024: Unremarkable TG/CHO L/LDL/HDL, 03/2023: 190/212/131/38, Vitamin B12, 05/31/2024: 1017 TSH, 04/03/2023: 1.81, 05/2024: 3.84 Chest x-ray, 06/01/2024: The heart appears prominent in size. Bilateral interstitial and alveolar airspace opacities have worsened. Endotracheal tube tip in satisfactory position. No sizable effusion or pneumothorax (S/P INTUBATION) CT head, 06/05/2024: 1. Generalized brain atrophy. 2. No acute intracranial hemorrhage, midline shift or mass effect. If symptoms persist, further evaluation with MRI is recommended. MRI head, 04/02/2023: No evidence of acute infarction, intracranial hemorrhage, mass effect or hydrocephalus MRI left foot, 04/05/2023: No definitive evidence of osteomyelitis. Subchondral cystic changes involving the dorsal surface of the third tarsometatarsal joint MRI right foot, 04/05/2023: Multilevel degenerative changes. No definitive evidence of osteomyelitis. Soft tissue edema or inflammatory/infectious changes along the plantar surface of the foot vital signs Vital Sign Date Time Temp Pulse Resp B/P (MAP) Pulse Ox O2 Delivery O2 Flow Rate FiO2 06/10/24 18:30 Nasal Cannula* 4 36 06/10/24 17:30 97.9 80 19 102/53 (69) 94 97.9 Total Intake and Output 06/09/24 06/09/24 06/10/24 15:00 23:00 07:00 Intake Total 364.4 ml 101 ml 400 ml Output Total 1100 ml 350 ml Balance 364.4 ml -999 ml 50 ml medications Current Medications Medications Dose Ordered Sig/Erik Route Start Time Stop Time Status Last Admin Dose Admin Atorvastatin Calcium 20 mg HS PO 05/28/24 22:00 06/09/24 22:25 20 MG Sodium Chloride 10 ml Q8HR IV 05/28/24 06:00 06/10/24 13:53 10 ML Diagnostic Test (Pha) 1 strip ACHS 05/28/24 07:00 06/10/24 17:13 1 STRIP Insulin Human Regular ACHS SC 05/28/24 07:00 06/08/24 06:28 2 UNITS Dextrose 50 ml UD PRN IV 05/27/24 23:00 Potassium Chloride 100 ml @ 50 mls/hr Q2H IV 06/02/24 09:30 06/02/24 13:29 Cancel Multi-Ingredient Ointment 1 applic BID TOP 06/03/24 10:00 06/10/24 10:00 1 APPLIC Insulin Glargine 5 units HS SC 06/03/24 22:00 06/09/24 22:29 5 UNITS Ondansetron HCl 4 mg Q6HPRN PRN IV 06/07/24 03:45 06/07/24 03:57 4 MG Quetiapine Fumarate 50 mg BID NG 06/09/24 10:00 06/10/24 10:26 50 MG Haloperidol Lactate 5 mg Q8HP PRN IM 06/09/24 10:45 06/09/24 11:56 5 MG Furosemide 40 mg DAILY PO 06/11/24 10:00 Pantoprazole Sodium 40 mg DAILY@0600 PO 06/11/24 06:00 Enoxaparin Sodium 40 mg DAILY SC 06/11/24 10:00 objective General: the patient is well developed and nourished. No acute distress. MENTAL STATUS: Subjective SPEECH, LANGUAGE, HIGHER CORTICAL FUNCTION: no aphasia or dysathria. CRANIAL NERVES: Left surgical pupil, left pupil is slightly bigger than the right side. EOMs full and conjugate. No ptosis, abnormal vascular dilatation or skin secretion in the left face. Facial sensation intact in all three divisions bilaterally. Mandibular strength intact. Facial muscles symmetrical and strength intact. SENSATION: Sensation to touch and pinprick is diminished in the lower extremities MOTOR: Normal tone in the upper and lower extremity. Normal muscle bulk. No fasciculations. No abnormal movements or posturing. Muscle strength of the major groups in the extremities is 5/5. REFLEXES: Deep tendon reflexes are symmetric diminished. No pathological reflexes. CEREBELLAR/COORDINATION: Deferred laboratory and microbiology Laboratory Tests 06/10/24 05:43 Test 06/10/24 05:43 Range/Units Serum Glucose 90 74-106 mg/dL Problem List Altered mental status Hypoxic encephalopathy Metabolic encephalopathy Pneumonia Hypoxic respiratory failure Peripheral neuropathy Peripheral arterial disease Chronic wounds Assessment/Plan Monitoring Supportive treatment I telemetry Haldol 5 mg IM Q 8 hours for agitation IV antibiotics Oxygen DVT prophylaxis GI prophylaxis More recommendation per clinical course This medical document was created using an electronic medical record system with [employer] dictation system. Although this document has been carefully reviewed, there may still be some phonetic and typographical errors. These areas are purely typographical due to imperfections of the software programs, and do not reflect any compromise in the patient's medical care. Prognosis poor Dietary Evaluation Review Recommendations by RD: Protein Supplementation Comments: 1) Lion is NOT approriate d/t kidney function 2) Consult nephrology d/t elevated renal panel 3) Initiate Glucerna tid d/t poor PO intake 4) Continue to monitor I&O, labs, and skin integrity Expected Outcomes/Goals: 1) appetite and labs to improve 2) wound to improve 3) f/u in 5 days Plan discussed with: Other CRISTIN CRAWFORD MD Jun 10, 2024 20:47
--- NOTE | 2024-06-10 21:37 | DVHPN2 ---
Progress Note - Dictate Date Seen: Jun 10, 2024 Medical Necessity Reason Pt with a Central, PICC or Fol: Yes The following are medically ne: Christina Catheter Reason for christina catheter: Strict I&O Subjective Patient seen and examined at bedside. Remains on supplemental oxygen Overnight events reviewed. vital signs Vital Sign Date Time Temp Pulse Resp B/P (MAP) Pulse Ox O2 Delivery O2 Flow Rate FiO2 06/10/24 18:30 Nasal Cannula* 4 36 06/10/24 17:30 97.9 80 19 102/53 (69) 94 97.9 Total Intake and Output 06/09/24 06/09/24 06/10/24 15:00 23:00 07:00 Intake Total 364.4 ml 101 ml 400 ml Output Total 1100 ml 350 ml Balance 364.4 ml -999 ml 50 ml medications Current Medications Medications Dose Ordered Sig/Erik Route Start Time Stop Time Status Last Admin Dose Admin Atorvastatin Calcium 20 mg HS PO 05/28/24 22:00 06/09/24 22:25 20 MG Sodium Chloride 10 ml Q8HR IV 05/28/24 06:00 06/10/24 13:53 10 ML Diagnostic Test (Pha) 1 strip ACHS 05/28/24 07:00 06/10/24 17:13 1 STRIP Insulin Human Regular ACHS SC 05/28/24 07:00 06/08/24 06:28 2 UNITS Dextrose 50 ml UD PRN IV 05/27/24 23:00 Potassium Chloride 100 ml @ 50 mls/hr Q2H IV 06/02/24 09:30 06/02/24 13:29 Cancel Multi-Ingredient Ointment 1 applic BID TOP 06/03/24 10:00 06/10/24 10:00 1 APPLIC Insulin Glargine 5 units HS SC 06/03/24 22:00 06/09/24 22:29 5 UNITS Ondansetron HCl 4 mg Q6HPRN PRN IV 06/07/24 03:45 06/07/24 03:57 4 MG Quetiapine Fumarate 50 mg BID NG 06/09/24 10:00 06/10/24 10:26 50 MG Haloperidol Lactate 5 mg Q8HP PRN IM 06/09/24 10:45 06/09/24 11:56 5 MG Furosemide 40 mg DAILY PO 06/11/24 10:00 Pantoprazole Sodium 40 mg DAILY@0600 PO 06/11/24 06:00 Enoxaparin Sodium 40 mg DAILY SC 06/11/24 10:00 objective Gen.: Patient lying in bed in no apparent distress. On supplemental oxygen. Head: Normocephalic, atraumatic. Eyes: EOMI/PERRLA. Ears: Normal hearing. Normal anatomy. Neck/trachea: Trachea midline, supple. Nose: Normal external anatomy. Mouth: Moist mucous membranes. Chest: Decreased air entry bilaterally. No wheezing or rhonchi. Cardiovascular: Positive S1, positive S2. Regular rate and rhythm. Abdomen: Positive bowel sounds in all 4 quadrants. Soft, non-tender, non- distended. : Deferred. Rectal: Deferred. Skin: Warm, dry. Intact. Extremities: 2+ radial pulses bilaterally. No lower extremity edema. Neuro: Awake, alert, altered. No gross motor or sensory deficits. Cranial nerves II through XII intact. Gait not assessed. laboratory and microbiology Laboratory Tests 06/10/24 05:43 Test 06/10/24 05:43 Range/Units Serum Glucose 90 74-106 mg/dL Assessment/Plan Impression: Acute on chronic hypoxic respiratory failure S/p cardiac arrest Shock Acute CHF exacerbation Cellulitis Chronic obstructive pulmonary disease Diabetes mellitus type II Obesity Events: Remains on 2 LPM NC Taper O2 as tolerated Patient desaturates when off oxygen. Sitter at bedside. Off pressors, hemodynamically stable. Continue antibiotics - vancomycin Continue antifungals Incentive spirometry Wound care. Diet - puree w/ nectar thick liquids. Accu-Cheks, ISS. Monitor hemoglobin Head of bed elevation Aspiration precautions Plan for Micra pacemaker on Friday Cardiology recommendations appreciated Physical therapy Diurese as tolerated w/ Lasix Monitor renal function Monitor electrolytes. Supplement as necessary. Potassium supplementation Monitor ins and outs. Labs and imaging reviewed. Rest of plan as noted below. Plan: S/p extubation on 06/06/24 Continue supplemental oxygen Titrate to keep sats above 92% Continue antibiotics. F/u cultures. Pressors as necessary for hemodynamic support Titrate to keep mean arterial pressure greater than 65 mmHg. Wound care Diurese as tolerated w/ Lasix Monitor renal function Monitor electrolytes. Supplement as necessary. Monitor ins and outs. Maintain euvolemia. Nephrology recommendations appreciated Accu-Cheks, ISS. Diet and lifestyle modifications for weight reduction Obesity - complicates all care GI prophylaxis. DVT prophylaxis. Prognosis: Guarded given patient's multiple co-morbidities. Condition: Critical Rest of plan per hospitalist and other consultants. A total of 35 minutes of critical care time was spent reviewing the patient record, examining the patient, making a diagnostic and therapeutic plan, discussing this plan with the medical personnel, following up on diagnostic studies and following the patient for clinical stability excluding any and all procedures. At least 50% of this time was spent in direct, [id number] contact. Thank you, Dr. Bhatt, for allowing me to participate in this patient's care. Further recommendations will depend on the patient's clinical course. Please do not hesitate to contact me if you have any questions or concerns. This medical document was created using an electronic medical record system with [employer] dictation system. Although these documentations are being carefully reviewed, there may still be some phonetic and typographical changes. The errors are purely typographical, due to imperfection on the software program, and do not reflect any compromise in the patient's medical care. Dietary Evaluation Review Recommendations by RD: Protein Supplementation Comments: 1) Lion is NOT approriate d/t kidney function 2) Consult nephrology d/t elevated renal panel 3) Initiate Glucerna tid d/t poor PO intake 4) Continue to monitor I&O, labs, and skin integrity Expected Outcomes/Goals: 1) appetite and labs to improve 2) wound to improve 3) f/u in 5 days Plan discussed with: Other (STEFFANY Mota) MIRIAM DERAS MD Jun 10, 2024 21:37
--- NOTE | 2024-06-10 23:42 | DVHPN2 ---
Progress Note - Dictate Date Seen: Jun 10, 2024 Medical Necessity Reason Pt with a Central, PICC or Fol: Yes The following are medically ne: Christina Catheter Reason for christina catheter: Strict I&O Subjective Patient was seen and evaluated in follow-up. Patient was downgraded to telemetry. Patient is A&O x1. Sitter is at bedside. Patient is pending PPM placement. WBC 11.4, HGB 7.1, HCT 23.7, NA 152, CL 116, CA 8.2. Telemetry reviewed. vital signs Vital Sign Date Time Temp Pulse Resp B/P (MAP) Pulse Ox O2 Delivery O2 Flow Rate FiO2 06/10/24 12:15 Nasal Cannula* 4 36 06/10/24 10:27 103/56 06/10/24 08:00 87 06/10/24 07:56 97.5 18 95 97.5 Total Intake and Output 06/09/24 06/09/24 06/10/24 15:00 23:00 07:00 Intake Total 364.4 ml 101 ml 400 ml Output Total 1100 ml 350 ml Balance 364.4 ml -999 ml 50 ml medications Current Medications Medications Dose Ordered Sig/Erik Route Start Time Stop Time Status Last Admin Dose Admin Atorvastatin Calcium 20 mg HS PO 05/28/24 22:00 06/09/24 22:25 20 MG Sodium Chloride 10 ml Q8HR IV 05/28/24 06:00 06/10/24 06:14 10 ML Diagnostic Test (Pha) 1 strip ACHS 05/28/24 07:00 06/10/24 11:30 1 STRIP Insulin Human Regular ACHS SC 05/28/24 07:00 06/08/24 06:28 2 UNITS Dextrose 50 ml UD PRN IV 05/27/24 23:00 Pantoprazole Sodium 40 mg DAILY IV 06/02/24 10:00 06/10/24 10:26 40 MG Potassium Chloride 100 ml @ 50 mls/hr Q2H IV 06/02/24 09:30 06/02/24 13:29 Cancel Multi-Ingredient Ointment 1 applic BID TOP 06/03/24 10:00 06/10/24 10:00 1 APPLIC Insulin Glargine 5 units HS SC 06/03/24 22:00 06/09/24 22:29 5 UNITS Enoxaparin Sodium 30 mg DAILY SC 06/05/24 10:00 06/10/24 10:27 30 MG Furosemide 40 mg DAILY IV 06/07/24 10:00 06/10/24 10:27 40 MG Ondansetron HCl 4 mg Q6HPRN PRN IV 06/07/24 03:45 06/07/24 03:57 4 MG Meropenem 50 ml @ 17 mls/hr Q8HR IV 06/07/24 09:00 06/10/24 06:14 17 MLS/HR Vancomycin HCl 0 ml @ 0 mls/hr UD IV 06/08/24 09:15 Vancomycin HCl 250 ml @ 250 mls/hr Q12H IV 06/09/24 10:00 06/10/24 10:24 250 MLS/HR Quetiapine Fumarate 50 mg BID NG 06/09/24 10:00 06/10/24 10:26 50 MG Haloperidol Lactate 5 mg Q8HP PRN IM 06/09/24 10:45 06/09/24 11:56 5 MG objective GENERAL: Awake, altered. LUNGS: Decreased breath sounds. CARDIOVASCULAR: Heart sounds are good. ABDOMEN: Soft. laboratory and microbiology Laboratory Tests 06/10/24 05:43 Test 06/10/24 05:43 Range/Units Serum Glucose 90 74-106 mg/dL Problem List Acute on chronic hypoxic respiratory failure. COPD with exacerbation. Acute on chronic systolic heart failure. CAD s/p MELISSA. PAD s/p iliac stents. ANIVAL VMN. A fib on Eliquis. HTN. HLD. IDDM. Foot ulcers and cellulitis. HFrEF EF 35%. Gross hematuria. Assessment/Plan Continued all current supportive medical care. Lipitor. DVT prophylactics. Diuretics with Lasix. IV antibiotics as ordered. Vasopressors for hemodynamic support. GI prophylactics. Additional plan as per the hospital course. Dietary Evaluation Review Recommendations by RD: Protein Supplementation Comments: 1) Lion is NOT approriate d/t kidney function 2) Consult nephrology d/t elevated renal panel 3) Initiate Glucerna tid d/t poor PO intake 4) Continue to monitor I&O, labs, and skin integrity Expected Outcomes/Goals: 1) appetite and labs to improve 2) wound to improve 3) f/u in 5 days Plan discussed with: HÉCTOR Nolasco MD Jun 10, 2024 13:16
[2024-06-11] VITALS (12 sets, daily range): BP systolic 95–118; BP diastolic 45–66; PULSE 0–96; RESP 0–19; TEMP 36.6; O2SAT 0–100
[2024-06-11] MEDS: PANTOPRAZOLE 40 MG TAB PO SCH (06:00)
[2024-06-11] MEDS: fentaNYL CITRATE 100 MCG/2 ML VL ONE (07:06)
[2024-06-11] MEDS: LIDOCAINE 2%HCL (LOCAL ANESTH.) INJ 20ML MDV ONE (07:07)
[2024-06-11] MEDS: MIDAZOLAM HCL 2MG/2ML 2ml VIAL (1mg/ml) ONE (07:07)
[2024-06-11] MEDS: HEPARIN IN NS 1000Units/500mL 2,000 ML ONE (07:07)
[2024-06-11 07:22] LABS: Basophils # (auto) 0 10 ^3/uL (0-0.2); Basophils % (auto) 0.5 % (0.0-2.0); Eosinophils # (auto) 0.2 10 ^3/uL (0-0.8); Eosinophils % (auto) 2.8 % (0.0-7.0); Hematocrit 23.9 % (41.0-53.0); Hemoglobin 7.1 g/dL (13.5-17.5); Mean Corpuscular Hemoglobin 22.4 pg (28.0-32.0); Mean Corpuscular Hgb Conc. 29.8 g/dL (32.0-36.0); Mean Corpuscular Volume 75.3 fL (80.0-100.0); Monocytes # (auto) 0.5 10 ^3/uL (0-1.3); Monocytes % (auto) 5.4 % (0.0-12.0); Neutrophils # (auto) 7.1 10 ^3/uL (1.6-8.6); Neutrophils % (auto) 80.3 % (37.0-80.0); Nucleated Red Blood Cells % 0.1 %; Platelet Count (auto) 201 10^3/uL (140-450); Red Blood Cells 3.18 10^6/uL (4.5-5.90); Red Cell Distribution Width 24.9 % (11.8-14.3); White Blood Cell 8.8 10^3/uL (4.4-10.8)
[2024-06-11 07:40] LABS: Anion Gap 6 (5-15); Carbon Dioxide 30 mmol/L (20-31)
[2024-06-11 07:46] LABS: BUN/Creatinine Ratio 17.1 (10.0-20.0); Blood Urea Nitrogen 14 mg/dL (9-23); Calcium 8.4 mg/dL (8.7-10.4); Chloride 112 mmol/L (98-107); Potassium 3.1 mmol/L (3.5-5.1); Sodium 148 mmol/L (136-145)
[2024-06-11 07:47] LABS: Glucose 124 mg/dL (74-106); Magnesium 1.9 mg/dL (1.6-2.6)
[2024-06-11] MEDS: VANCOMYCIN 1GM/250ML KIT 250 ML IV ONE (07:52)
[2024-06-11 07:53] LABS: Phosphorus 1.9 mg/dL (2.4-5.1)
[2024-06-11] MEDS: IODIXANOL 320MG/ML 100ML BTL IV ONE (08:01)
[2024-06-11] MEDS: HEPARIN SODIUM (PORCINE) 5000 UNITS/ML 1ML VIAL ONE (08:45)
--- NOTE | 2024-06-11 08:53 | DVHOP2 ---
Operative Report - 2 Report Details Date: 06/11/24 Preop Diagnosis: Sick sinus syndrome Postop Diagnosis: Successful placement of a micro pacemaker Surgeon: Soni Meléndez MD Scorekeeper: Dr. Rodriguez Anesthesiologist: Conscious sedation Anesthesia: Mac, Local Implant: Micra pacing device Consent: The patient was informed of the risks and benefits of the procedure. These include but are not limited to complications of anesthesia, postoperative infection, incomplete relief of symptoms, recurrence of symptoms, damage to blood vessels, nerves and tendons, deep venous thrombosis, pulmonary embolism and possible need for repeat surgery in the future. Complications: No complications Estimated Blood Loss: 5 cc Findings: Sick sinus syndrome Indications for Surgery: Sick sinus syndrome Name of Procedure Performed Permanent pacemaker implantation-micra device Procedure Details Procedure Details: Prior full informed consent obtained the patient was prepped and draped in usual fashion followed by placement of a six [place] sheath into the right femoral vein through which progressive dilatation occurred. He placed a 22 gauge myocardial device introducer sheath into the femoral vein and advanced it into the mid right atrial level. Used a Amplatz wire. We then removed the wire and the introducer device and placed a implantation catheter and after adequate capture and sensitivity thresholds and confirming the pacemaker in the mid septum we deployed the device successfully. We were able to obtain adequate capture and sensitivity thresholds. The device implanted is an MCA 2 AVR one serial number [id number] this was placed into the RV septum. Threshold was 17.3 with a pacing and P waves of 720. A pacing threshold of 0.75 volts at 0.24 milliseconds.0 The settings were lower rate of 60 VDD mode with a sensitivity of two and a pulse width of 0.24 and amplitude of 2.5. The patient tolerated the procedure well there were no complications. Condition Fair Disposition Still a Patient Date of Service: Jun 11, 2024 Billing Provider: SONI MELÉNDEZ Sr., MD Cardiology Common Codes: [id number] INP/OBS CARE (High) Card. Pacer Implants/Gen [id number] SING LEAD PACER (Micra pacemaker device insertion) SONI MELÉNDEZ Sr., MD Jun 11, 2024 08:53
--- NOTE | 2024-06-11 09:12 | ECG ---
[facility] Test Date: 2024-06-11 Test Time: 09:06:00 Pat Name: JON FRANKEL Department: Room: 0288T A Gender: M Group Underwriter: LEVI : 1950 Requested By: SONI MELÉNDEZ Order Number: [id number] Reading MD: Soni Meléndez Measurements Intervals [place] Rate: 70 P: 33 WV: 186 QRS: 69 QRSD: 106 T: 32 QT: 464 QTc: 501 Interpretive Statements Normal sinus rhythm Septal infarct , age undetermined Prolonged QT Electronically Signed On 06-12-2024 17:15:24 PDT by Soni Meléndez Please click the below link to view image of tracing.
--- NOTE | 2024-06-11 09:33 | DVH ---
CHEST RADIOGRAPH Indication: S/P PACEMAKER Technique: Single frontal view of the chest was obtained COMPARISON: XY CHEST PORTABLE on DOS: 06/07/24, XY CHEST PORTABLE on DOS: 06/05/24, XY CHEST PORTABLE o n DOS: 06/04/24, XY CHEST PORTABLE on DOS: 06/03/24, XY CHEST PORTABLE on DOS: 06/02/24 FINDINGS: Lines and Tubes: None Lungs: Multifocal airspace disease. Pleura: No effusion. No pneumothorax. Cardiomediastinal contours: Cardiomegaly Bones: Unremarkable IMPRESSION: Multifocal airspace disease.
[2024-06-11] MEDS: ENOXAPARIN SOD 40 MG/0.4 ML SYRINGE SC SCH (10:00)
[2024-06-11] MEDS: FUROSEMIDE 20 MG TAB PO SCH (10:00)
[2024-06-11] MEDS: NEUTRA-PHOS TABLET PO ONE (13:30)
--- NOTE | 2024-06-11 15:14 | DVHDS2 ---
Discharge Summary Date of Admission May 27, 2024 at 22:59 Date of Discharge: Jun 10, 2024 Labs/Diagnostic Data: Laboratory Results Test 06/11/24 10:56 06/11/24 06:55 06/09/24 03:00 06/07/24 10:00 POC Glucose 94 mg/dl (70-106) White Blood Count 8.8 10^3/uL (4.4-10.8) Red Blood Count 3.18 10^6/uL (4.5-5.90) Hemoglobin 7.1 g/dL (13.5-17.5) Hematocrit 23.9 % (41.0-53.0) Mean Corpuscular Volume 75.3 fL (80.0-100.0) Mean Corpuscular Hemoglobin 22.4 pg (28.0-32.0) Mean Corpuscular Hemoglobin Concent 29.8 g/dL (32.0-36.0) Red Cell Distribution Width 24.9 % (11.8-14.3) Platelet Count 201 10^3/uL (140-450) Mean Platelet Volume 7.9 fL (6.9-10.8) Neutrophils (%) (Auto) 80.3 % (37.0-80.0) Lymphocytes (%) (Auto) 11.0 % (10.0-50.0) Monocytes (%) (Auto) 5.4 % (0.0-12.0) Eosinophils (%) (Auto) 2.8 % (0.0-7.0) Basophils (%) (Auto) 0.5 % (0.0-2.0) Neutrophils # (Auto) 7.1 10 ^3/uL (1.6-8.6) Lymphocytes # (Auto) 1.0 10 ^3/uL (0.4-5.4) Monocytes # (Auto) 0.5 10 ^3/uL (0-1.3) Eosinophils # (Auto) 0.2 10 ^3/uL (0-0.8) Basophils # (Auto) 0 10 ^3/uL (0-0.2) Nucleated Red Blood Cells 0.1 % Sodium Level 148 mmol/L (136-145) Potassium Level 3.1 mmol/L (3.5-5.1) Chloride Level 112 mmol/L (98-107) Carbon Dioxide Level 30 mmol/L (20-31) Anion Gap 6 (5-15) Blood Urea Nitrogen 14 mg/dL (9-23) Creatinine 0.82 mg/dL (0.700-1.30) Glomerular Filtration Rate Calc 92 mL/min (>90) BUN/Creatinine Ratio 17.1 (10.0-20.0) Serum Glucose 124 mg/dL (74-106) Calcium Level 8.4 mg/dL (8.7-10.4) Phosphorus Level 1.9 mg/dL (2.4-5.1) Magnesium Level 1.9 mg/dL (1.6-2.6) Platelet Estimate Adequate Hypochromasia (manual) Slight Poikilocytosis (manual) Slight Anisocytosis (manual) Moderate Microcytosis Moderate Target Cells Few Ovalocytes Moderate Schistocytes Few Prothrombin Time 10.9 sec (9.3-11.8) Prothrombin Time INR 1.03 (0.9-1.15) Activated Partial Thromboplast Time 30.2 SEC (24.5-34.5) Test 06/06/24 11:12 06/06/24 07:04 06/04/24 03:15 06/02/24 03:05 Blood Gas Specimen Type Arterial Blood Gas Sample Site Right radial Blood Gas Patient Temperature 37.0 Arterial Blood Date Drawn [id number] Arterial Blood pH 7.402 (7.350-7.450) Arterial Blood Partial Pressure CO2 37.0 mmHg (35.0-48.0) Arterial Blood Partial Pressure O2 71.2 mmHg (83.0-108.0) Arterial Blood HCO3 22.5 mmol/L (21.0-28.0) Arterial Blood Oxygen Saturation 91.7 % (94.0-98.0) Arterial Blood Base Excess -1.9 mmol/L (-2.0-3.0) Arterial Blood Oxyhemoglobin 91.0 % (94.0-98.0) Arterial Blood Carboxyhemoglobin 0.6 % (0.5-1.5) Arterial Blood Methemoglobin 0.2 % (0.0-1.5) Kit Test Modified Blood Gas Total Hemoglobin 10.70 g/dL (13.5-17.5) Blood Gas Modality Vent - cpap Blood Gas Spontaneous Rate 11 FiO2 % 30.0 Blood Gas Spontaneous Tidal Volume 408 Blood Gas Inspiratory Pressure 16.0 Blood Gas Pressure Support 8 Blood Gas PEEP or CPAP 5.0 Bl Gas Inspiratory/Expiratory Ratio 1:4.0 Specimen Drawn By [facility] rt Blood Gas Set Respiration Rate 18.0 Blood Gas Tidal Volume 550.0 Tear Drop Cells Few Stomatocytes Few Hudson Cells Few Test 06/01/24 11:02 06/01/24 03:22 05/31/24 16:31 05/31/24 11:30 Lactic Acid Level 1.7 mmol/L (0.4-2.0) Total Bilirubin 0.6 mg/dL (0.2-1.0) Aspartate Amino Transferase (AST) 34 U/L (13-40) Alanine Aminotransferase (ALT) 23 U/L (7-40) Alkaline Phosphatase 120 U/L (46-116) Troponin I High Sensitivity 25 ng/L (</=54) Total Protein 5.6 g/dL (5.7-8.2) Albumin 2.9 g/dL (3.2-4.8) Vitamin B1 Level 97.3 nmol/L (66.5-200.0) Vitamin B12 Level 1017 pg/mL (211-911) Thyroid Stimulating Hormone (TSH) 3.84 uIU/mL (0.55-4.78) Treponema pallidum Antibody Non-reactive (Negative) HIV (1&2) Antibody Negative (Negative) Test 05/31/24 11:13 05/29/24 06:19 05/28/24 13:51 05/27/24 18:38 Urine Color Red (Yellow) Urine Clarity Cloudy (Clear) Urine pH 5.5 (5.0-9.0) Urine Specific [place] 1.007 (1.001-1.035) Urine Protein 2+ (Negative) Urine Ketones Negative (Negative) Urine Blood 3+ /uL (Negative) Urine Nitrite Negative (Negative) Urine Bilirubin Negative (Negative) Urine Urobilinogen Normal mg/dL (Negative) Urine Leukocyte Esterase 2+ /uL (Negative) Urine RBC 162 /hpf (0 - 3) Urine Microscopic WBC 29 /HPF (0-3) Urine Squamous Epithelial Cells None seen /hpf (<5) Urine Amorphous Crystals Few /hpf (None Seen) Urine Bacteria None seen /hpf (None Seen) Urine Mucus Few (None Seen) Urine Glucose 3+ mg/dL (Normal) Differential Total Cells Counted 100.0 (100) Neutrophils % (Manual) 86 (37.0-80.0) Band Neutrophils % (Manual) 2 Lymphocytes % (Manual) 10 (10.0-50.0) Monocytes % (Manual) 2 (0-12) Eosinophils % (Manual) 0 (0-7) Basophils % (Manual) 0 (0.0-2.0) Metamyelocytes % (manual) 0 Myelocytes % (Manual) 0 Promyelocytes % (Manual) 0 Blast Cells % (Manual) 0 Reactive Lymphocytes 0 Blood Gas Liter Flow 8.00 B-Type Natriuretic Peptide 1535.13 pg/mL (0-100) Other Laboratory Tests 06/11/24 06:55 Brief Hx & Hospital Course: 74 yo M with COPD HFrEF IDDM DEMENTIA preiously admitted for cellulitis and diabetic foot on home iv abx invanz admitted for ams and heart failure exacerbation. patient removed oxymizer and had cardiac arrest, 2 minutes downtime s/p intubation and pressors. while in the icu he continued to be diuresed, abx escalated to broad spectrum. patient was later extubated. had runs of vtach and bradycardia. seen by cardio, Patient had mycra placed today. stable to discharge. change medication to oral. Condition at Discharge: Fair Final Diagnosis/Problems List acute on chronic hypoxic respiratory failure req mechanical ventilation distributive shock COPD group E with exacerbation acute on chronic systolic heart failure s/p cardiac arrest ICM CAD s/p MELISSA PAD s/p iliac stents ANIVAL VMN Afib on eliquis HTN HLD IDDM foot ulcers and celulitis on invanz at home HFrEF EF 35% gross hematuria 2/2 traumatic christina resolved sinus node dysfunction dementia? thrombocytopenia 2/2 linezolid, resolved hyponatremia Discharge Disposition: Nursing Home Facility Discharge Instruct/Medications Diet: Consistent carbohydrate, Cardiac 2g Na,low cholest Activity: No Restrictions, As Tolerated 39 Discharge Statement: "Patient was advised to return to the ER or call 911 if any headaches, dizziness, shortness of breath, chest pain, abdominal pain, bleeding, fevers, or worsening of medical condition. Patient was counseled about treatment plan, medications, possible side effects, patientverbalized understanding. All questions were answered to the best of my ability. This discharge took greater then 30 minutes in planning, reviewing documentation, counseling the patient, and discussing with other team members." ASSESSMENT ASSESSMENT Assessment Successful placement of a micro pacemaker Date of Service: Jun 11, 2024 Billing Provider: ARNIE ARREOLA MD Common Visit Codes: 75446-AVY/OBS DISCH DAY >30min ARNIE ARREOLA MD Jun 11, 2024 15:14
--- NOTE | 2024-06-11 15:31 | DVHPN2 ---
Progress Note - Dictate Date Seen: Jun 11, 2024 Medical Necessity Reason Pt with a Central, PICC or Fol: Yes The following are medically ne: Christina Catheter Reason for christina catheter: Strict I&O Subjective Patient was seen and evaluated in follow up. Patient underwent successful placement of a micro pacemaker with Dr. Medhat I assisted with the procedure. The patient tolerated the procedure well there were no complications. HGB 7.1, HCT 23.9, NA 148, K 3.1, CL 112, CA 8.4. Chest x-ray showed multifocal airspace disease. Telemetry reviewed. vital signs Vital Sign Date Time Temp Pulse Resp B/P (MAP) Pulse Ox O2 Delivery O2 Flow Rate FiO2 06/11/24 11:41 Nasal Cannula* 4 36 06/11/24 10:00 71 14 102/57 (72) 98 06/11/24 05:00 97.7 97.7 Total Intake and Output 06/10/24 06/10/24 06/11/24 15:00 23:00 07:00 Intake Total 250 ml 50 ml 600 ml Output Total 600 ml 250 ml Balance 250 ml -550 ml 350 ml medications Current Medications Medications Dose Ordered Sig/Erik Route Start Time Stop Time Status Last Admin Dose Admin Atorvastatin Calcium 20 mg HS PO 05/28/24 22:00 06/10/24 22:26 20 MG Sodium Chloride 10 ml Q8HR IV 05/28/24 06:00 06/11/24 06:12 10 ML Diagnostic Test (Pha) 1 strip ACHS 05/28/24 07:00 06/11/24 11:00 1 STRIP Insulin Human Regular ACHS SC 05/28/24 07:00 06/11/24 06:12 2 UNITS Dextrose 50 ml UD PRN IV 05/27/24 23:00 Potassium Chloride 100 ml @ 50 mls/hr Q2H IV 06/02/24 09:30 06/02/24 13:29 Cancel Multi-Ingredient Ointment 1 applic BID TOP 06/03/24 10:00 06/10/24 22:27 1 APPLIC Insulin Glargine 5 units HS SC 06/03/24 22:00 06/10/24 22:00 5 UNITS Ondansetron HCl 4 mg Q6HPRN PRN IV 06/07/24 03:45 06/07/24 03:57 4 MG Quetiapine Fumarate 50 mg BID NG 06/09/24 10:00 06/10/24 22:26 50 MG Haloperidol Lactate 5 mg Q8HP PRN IM 06/09/24 10:45 06/09/24 11:56 5 MG Furosemide 40 mg DAILY PO 06/11/24 10:00 Pantoprazole Sodium 40 mg DAILY@0600 PO 06/11/24 06:00 Enoxaparin Sodium 40 mg DAILY SC 06/11/24 10:00 objective GENERAL: Awake, altered. LUNGS: Decreased breath sounds. CARDIOVASCULAR: Heart sounds are good. ABDOMEN: Soft. laboratory and microbiology Laboratory Tests 06/11/24 06:55 Test 06/11/24 06:55 Range/Units Serum Glucose 124 H 74-106 mg/dL Problem List Acute on chronic hypoxic respiratory failure. COPD with exacerbation. Acute on chronic systolic heart failure. CAD s/p MELISSA. PAD s/p iliac stents. ANIVAL VMN. A fib on Eliquis. HTN. HLD. IDDM. Foot ulcers and cellulitis. HFrEF EF 35%. Gross hematuria. Assessment/Plan Continued all current supportive medical care. Lipitor. DVT prophylactics. Diuretics with Lasix. IV antibiotics as ordered. Vasopressors for hemodynamic support. GI prophylactics. Additional plan as per the hospital course. Dietary Evaluation Review Recommendations by RD: Protein Supplementation Comments: 1) Lion is NOT approriate d/t kidney function 2) Consult nephrology d/t elevated renal panel 3) Initiate Glucerna tid d/t poor PO intake 4) Continue to monitor I&O, labs, and skin integrity Expected Outcomes/Goals: 1) appetite and labs to improve 2) wound to improve 3) f/u in 5 days Plan discussed with: Patient HÉCTOR MARION MD Jun 11, 2024 13:01
--- NOTE | 2024-06-11 22:52 | DVHPN2 ---
Progress Note - Dictate Date Seen: Jun 11, 2024 Medical Necessity Reason Pt with a Central, PICC or Fol: Yes The following are medically ne: Christina Catheter Reason for christina catheter: Strict I&O Subjective Patient seen and examined at bedside. Remains on supplemental oxygen Overnight events reviewed. vital signs Vital Sign Date Time Temp Pulse Resp B/P (MAP) Pulse Ox O2 Delivery O2 Flow Rate FiO2 06/11/24 17:07 97.9 96 19 118/66 (83) 97 97.9 06/11/24 16:14 Nasal Cannula* 4 36 Total Intake and Output 06/10/24 06/10/24 06/11/24 15:00 23:00 07:00 Intake Total 250 ml 50 ml 600 ml Output Total 600 ml 250 ml Balance 250 ml -550 ml 350 ml medications Current Medications Medications Dose Ordered Sig/Erik Route Start Time Stop Time Status Last Admin Dose Admin Potassium Chloride 100 ml @ 50 mls/hr Q2H IV 06/02/24 09:30 06/02/24 13:29 Cancel objective Gen.: Patient lying in bed in no apparent distress. On supplemental oxygen. Head: Normocephalic, atraumatic. Eyes: EOMI/PERRLA. Ears: Normal hearing. Normal anatomy. Neck/trachea: Trachea midline, supple. Nose: Normal external anatomy. Mouth: Moist mucous membranes. Chest: Decreased air entry bilaterally. No wheezing or rhonchi. Cardiovascular: Positive S1, positive S2. Regular rate and rhythm. Abdomen: Positive bowel sounds in all 4 quadrants. Soft, non-tender, non- distended. : Deferred. Rectal: Deferred. Skin: Warm, dry. Intact. Extremities: 2+ radial pulses bilaterally. No lower extremity edema. Neuro: Awake, alert, altered. No gross motor or sensory deficits. Cranial nerves II through XII intact. Gait not assessed. laboratory and microbiology Laboratory Tests 06/11/24 06:55 Test 06/11/24 06:55 Range/Units Serum Glucose 124 H 74-106 mg/dL Assessment/Plan Impression: Acute on chronic hypoxic respiratory failure S/p cardiac arrest Shock Acute CHF exacerbation Cellulitis Chronic obstructive pulmonary disease Diabetes mellitus type II Obesity Events: Remains on 4 LPM NC Taper O2 as tolerated Patient desaturates when off oxygen. Patient underwent successful placement of Micra pacemaker with Dr. Meléndez Cardiology recommendations appreciated Continue antibiotics - vancomycin Incentive spirometry Wound care. Diet - puree w/ nectar thick liquids. Monitor hemoglobin Head of bed elevation Aspiration precautions Physical therapy Patient is stable for discharge from the pulmonary standpoint. Going to [facility] facility Disposition per hospitalist Labs and imaging reviewed. Rest of plan as noted below. Plan: S/p extubation on 06/06/24 Continue supplemental oxygen Titrate to keep sats above 92% Continue antibiotics. F/u cultures. Pressors as necessary for hemodynamic support Titrate to keep mean arterial pressure greater than 65 mmHg. Wound care Monitor renal function Monitor electrolytes. Supplement as necessary. Monitor ins and outs. Maintain euvolemia. Nephrology recommendations appreciated Accu-Cheks, ISS PRN. Diet and lifestyle modifications for weight reduction Obesity - complicates all care GI prophylaxis. DVT prophylaxis. Prognosis: Guarded given patient's multiple co-morbidities. Rest of plan per hospitalist and other consultants. Thank you, Dr. Bhatt, for allowing me to participate in this patient's care. Further recommendations will depend on the patient's clinical course. Please do not hesitate to contact me if you have any questions or concerns. This medical document was created using an electronic medical record system with [employer] dictation system. Although these documentations are being carefully reviewed, there may still be some phonetic and typographical changes. The errors are purely typographical, due to imperfection on the software program, and do not reflect any compromise in the patient's medical care. Dietary Evaluation Review Recommendations by RD: Protein Supplementation Comments: 1) Lion is NOT approriate d/t kidney function 2) Consult nephrology d/t elevated renal panel 3) Initiate Glucerna tid d/t poor PO intake 4) Continue to monitor I&O, labs, and skin integrity Expected Outcomes/Goals: 1) appetite and labs to improve 2) wound to improve 3) f/u in 5 days Plan discussed with: Patient, Other (STEFFANY Mota) MIRIAM DERAS MD Jun 11, 2024 22:52
== END 2024-06-11 18:20 | DRG 853 ==
LOC: EDBD 18:14 → EDUNIT# 18:14 → ER 18:14 → OVERFLOW 22:59 → TELE-EAST 05-28 13:14 → ICU WEST 06-01 03:20 → TELE-WESTW 06-09 18:15
PROVIDERS: ADMIT Student in an Organized Health Care Education/Training Program; ATTEND Student in an Organized Health Care Education/Training Program
PROC: 5A1955Z Respiratory Ventilation, Greater than 96 Consecutive Hours (ICD-10-PCS; 2024-06-01)
PROC: 5A12012 Performance of Cardiac Output, Single, Manual (ICD-10-PCS; 2024-06-01)
PROC: 0BH17EZ Insertion of Endotracheal Airway into Trachea, Via Natural or Artificial Opening (ICD-10-PCS; 2024-06-01)
PROC: 02HV33Z Insertion of Infusion Device into Superior Vena Cava, Percutaneous Approach (ICD-10-PCS; 2024-06-02)
PROC: 02HK3NZ Insertion of Intracardiac Pacemaker into Right Ventricle, Percutaneous Approach (ICD-10-PCS; principal; 2024-06-11)
DX: A41.9 Sepsis, unspecified organism (principal); Z00.6 Encounter for examination for normal comparison and control in clinical research program; G93.41 Metabolic encephalopathy; R65.21 Severe sepsis with septic shock; I50.23 Acute on chronic systolic (congestive) heart failure; J18.9 Pneumonia, unspecified organism; J96.21 Acute and chronic respiratory failure with hypoxia; N17.0 Acute kidney failure with tubular necrosis; I46.9 Cardiac arrest, cause unspecified; L03.115 Cellulitis of right lower limb; J44.1 Chronic obstructive pulmonary disease with (acute) exacerbation; E87.0 Hyperosmolality and hypernatremia; E87.3 Alkalosis; J44.0 Chronic obstructive pulmonary disease with (acute) lower respiratory infection; I13.0 Hypertensive heart and chronic kidney disease with heart failure and stage 1 through stage 4 chronic kidney disease, or unspecified chronic kidney disease; E87.1 Hypo-osmolality and hyponatremia; I47.20 Ventricular tachycardia, unspecified; L03.116 Cellulitis of left lower limb; E11.621 Type 2 diabetes mellitus with foot ulcer; E11.22 Type 2 diabetes mellitus with diabetic chronic kidney disease; E66.9 Obesity, unspecified; E78.5 Hyperlipidemia, unspecified; I25.10 Atherosclerotic heart disease of native coronary artery without angina pectoris; I48.91 Unspecified atrial fibrillation; K21.9 Gastro-esophageal reflux disease without esophagitis; E11.40 Type 2 diabetes mellitus with diabetic neuropathy, unspecified; F17.200 Nicotine dependence, unspecified, uncomplicated; L97.529 Non-pressure chronic ulcer of other part of left foot with unspecified severity; L97.519 Non-pressure chronic ulcer of other part of right foot with unspecified severity; I70.0 Atherosclerosis of aorta; E11.51 Type 2 diabetes mellitus with diabetic peripheral angiopathy without gangrene; I49.5 Sick sinus syndrome; F03.90 Unspecified dementia, unspecified severity, without behavioral disturbance, psychotic disturbance, mood disturbance, and anxiety; R00.1 Bradycardia, unspecified; E87.6 Hypokalemia; N18.32 Chronic kidney disease, stage 3b; T36.8X5A Adverse effect of other systemic antibiotics, initial encounter; Z79.01 Long term (current) use of anticoagulants; Z88.0 Allergy status to penicillin; Z79.84 Long term (current) use of oral hypoglycemic drugs; Z79.4 Long term (current) use of insulin; Z79.899 Other long term (current) drug therapy; I25.2 Old myocardial infarction; Z82.49 Family history of ischemic heart disease and other diseases of the circulatory system; Z95.5 Presence of coronary angioplasty implant and graft; Z95.1 Presence of aortocoronary bypass graft; Z99.81 Dependence on supplemental oxygen; Y92.89 Other specified places as the place of occurrence of the external cause; Z68.31 Body mass index [BMI] 31.0-31.9, adult; D69.59 Other secondary thrombocytopenia
CPT/HCPCS: 33274; 36415; 36556; 36600; 70450; 71045; 80048; 80053; 81001; 82607; 82805; 82962; 83605; 83735; 83880; 84100; 84132; 84425; 84443; 84484; 85007; 85025; 85027; 85610; 85730; 86703; 86780; 86850; 86900; 86901; 87040; 87070; 87077; 87081; 87205; 92610; 92950; 93005; 93306; 94002; 94003; 94640; 96374; 99152; A4565; C1894; G0378; J1450; J1815; J2185; J2250; J2405; J2470; J2704; J3480; J7060; Q9967

== ENCOUNTER 2024-06-12 09:13 | Inpatient (IN) | payer MEDICARE, OTHER ==
[~2024-06-12] VITALS: Ht 177.8 cm; Wt 88.6 kg
[~2024-06-12 09:13] MED LIST changes: -AML5T PO; -APIX5TAB PO; -ATOR40TA52 PO; -DULA1INJ SC; -FURO40TA4 PO; -INSU100I70 SC; -LACT10PA2 PO; -LEVA3NEB IN; -LINA5TAB PO; -MAGN400T40 PO; -METF-489 PO; -POTA-36 PO; -PRED20TA2 PO; -UMEC1AER IN
--- NOTE | 2024-06-12 10:05 | ED.PDOC ---
History of Present Illness HPI Comments 74 year old male brought in by EMS presents to the ED with a chief complaint of fall onset today (06/12/24). Per EMS, patient is from [facility], was found around 06:00 on the ground by staff, EMS was called. Patient denies any fall, states he was feeling tired and decided to lay on the ground. Patient also states he has a cardiac procedure scheduled with Dr. Rodriguez today. PMHx CHF, COPD, HTN, ID, DM, anemia, GERD, CKF, CAD. Denies any fall, injury, LOC, chest pain, shortness of breath, headache, blurry vision, nausea, vomiting, diarrhea. No other symptoms or modifying factors present at this time. Chief Complaint: Fall Injury Time Seen by MD: 09:21 Primary Care Provider: JODEE Reviewed Notes: Medications, Allergies Allergies: Coded Allergies: Penicillins (Verified Allergy, Unknown, 04/01/23) Home Meds Reported Medications Prednisone (Prednisone) 10 Mg Tab, 1 TAB PO DAILY for 30 Days, #30 05/31/24 Gabapentin (Gabapentin) 300 Mg Cap, 1 CAP PO TID for 30 Days, #90 05/31/24 Pantoprazole Sodium Sesquihydr (Pantoprazole Sodium Dr) 40 Mg Tab, 1 TAB PO DAILY for 30 Days, #30 05/31/24 Senna (Senna-Time) 8.6 Mg Tab, 1 TAB PO BID PRN for FOR CONSTIPATION for 50 Days, #100 05/31/24 Albuterol Sulfate (Albuterol Sulfate Hfa) 108 Mcg/Act Aer, 2 PUFF IN Q4HR PRN for 30 Days, #17 05/31/24 Potassium Chloride (Klor-Con 10) 10 Meq Tab, 1 TAB PO DAILY for 30 Days, #30 05/31/24 Metoprolol Succinate (Metoprolol Succinate Er) 25 Mg Tab, 0.5 TAB PO DAILY for 30 Days, #15 05/31/24 Metformin Hydrochloride (Metformin Hcl) 1,000 Mg Tab, 1 TAB PO BID for 30 Days, #60 05/31/24 Magnesium Oxide (mg Supplement (Magnesium-Oxide) 400 Mg Tab, 1 TAB PO DAILY for 30 Days, #30 05/31/24 Furosemide (Furosemide 80 mg) 1 Tab Tab, 1 TAB PO BID for 30 Days, #60 05/31/24 Empagliflozin (Jardiance) 10 Mg Tab, 1 TAB PO QAM for 30 Days, #30 05/31/24 Atorvastatin Calcium (Lipitor) 40 Mg Tab, 1 TAB PO DAILY for 30 Days, #30 05/31/24 Brimonidine Tartrate (Brimonidine Tartrate) 0.2 % Daria, 1 DROP OP Q8HR for 30 Days, #10 3 Refills INSTILL 1 DROP INTO AFFECTED EYE EVERY 8 HOURS. 11/24/23 Clopidogrel Bisulfate (CLOPIDOGREL) 75 Mg Tab, 1 TAB PO DAILY for 30 Days, #30 11/24/23 Information Source: Patient, Emergency Med Personnel Mode of Arrival: EMS Severity: Moderate Timing: Hours Duration: Since onset Prehospital treatment: None Past Medical History PAST MEDICAL HISTORY: Anemia, CAD, CHF, CKF, COPD, DM, GERD, HTN, ID Surgical History: PTCA Family History Family History: Reviewed,noncontributory to illness Social History Smoker: Non-Smoker Alcohol: Denies ETOH Use Drugs: Denies Drug Use Lives In: [facility] Constitutional: denies: chills, diaphoresis, fatigue, fever, malaise, sweats, weakness, others EENTM: denies: blurred vision, double vision, ear bleeding, ear discharge, ear drainage, ear pain, ear ringing, eye pain, eye redness, hearing loss, mouth pain, mouth swelling, nasal discharge, nose bleeding, nose congestion, nose pain, photophobia, tearing, throat pain, throat swelling, voice changes, others Respiratory: denies: cough, hemoptysis, orthopnea, SOB at rest, shortness of breath, SOB with excertion, stridor, wheezing, others Cardiovascular: denies: chest pain, dizzy spells, diaphoresis, Dyspnea on exertion, edema, irregular heart beat, left arm pain, lightheadedness, palpitations, PND, syncope, others Gastrointestinal: denies: abdomen distended, abdominal pain, blood streaked bowels, constipated, diarrhea, dysphagia, difficulty swallowing, hematemesis, melena, nausea, poor appetite, poor fluid intake, rectal bleeding, rectal pain, vomiting, others Genitourinary: denies: burning, dysuria, flank pain, frequency, hematuria, incontinence, penile discharge, penile sore, pain, testicle pain, testicle swelling, urgency, others Neurological: denies: dizziness, fainting, headache, left sided numbness, left sided weakness, numbness, paresthesia, pre-existing deficit, right sided numbness, right sided weakness, seizure, speech problems, tingling, tremors, weakness, others Musculoskeletal: denies: back pain, gout, joint pain, joint swelling, muscle pain, muscle stiffness, neck pain, others Integumetry: denies: bruises, change in color, change in hair/nails, dryness, laceration, lesions, lumps, rash, wounds, others Allergic/Immunocompromised: denies: Difficulty Healing, Frequent Infections, Hives, Itching, others Hematologic/Lymphatic: denies: anemia, blood clots, easy bleeding, easy bruising, swollen glands, others Endocrine: denies: excessive hunger, excessive sweating, excessive thirst, excessive urination, flushing, intolerance to cold, intolerance to heat, unexplained weight gain, unexplained weight loss, others Psychiatric: denies: anxiety, bipolar disorder, depression, hopeless, panic disorder, schizophrenia, sleepless, suicidal, others All Other Systems: Reviewed and Negative Physical Exam General Appearance: No Apparent Distress, Normal HEENT: Normal ENT Inspection, Pharynx Normal, TMs Normal Neck: Full Range of Motion, Non-Tender, Normal, Normal Inspection Respiratory: Chest Non-Tender, Lungs Clear, No Accessory Muscle Use, No Respiratory Distress, Normal Breath Sounds Cardiovascular: No Edema, No JVD, No Murmur, No Gallop, Normal Peripheral Pulses, Regular Rate/Rhythm Breast Exam: Deferred Gastrointestinal: No Organomegaly, Non Tender, No Pulsatile Mass, Normal Bowel Sounds, Soft Genitalia: Deferred Pelvic: Deferred Rectal: Deferred Extremities: Other (RT great toe, 2nd toe amputation, stasis dermatitis, declined removal of dressing on bilateral legs) Musculoskeletal : Apperance: Normal Neurologic: Alert, director of food and beverage services II-XII nml as Tested, No Motor Deficits, Normal Affect, Normal Mood, No Sensory Deficits Cerebellar Function: Normal Reflexes: Normal Skin: Wounds (old, various stages abrasions noted ), Other (stasis dermatitis) Lymphatic: No Adenopathy Was a procedure done? Was a procedure done?: No Differential Dx Considerations may include: syncope, near syncope, mechanical falling, generalized weakness, hypoglycemia, hypotension, acs, failure to thrive, cva, tia, seizure, intracranial bleed X-Ray, Labs, Meds, VS Vital Signs Date Time Temp Pulse Resp B/P (MAP) Pulse Ox O2 Delivery O2 Flow Rate FiO2 06/12/24 09:24 97.7 90 14 108/56 (73) 91 97.7 Lab Test 06/12/24 11:10 06/12/24 10:07 Range/Units Troponin I High Sensitivity Pending 827 *H </=54 ng/L White Blood Count 9.5 4.4-10.8 10^3/uL Red Blood Count 3.09 L 4.5-5.90 10^6/uL Hemoglobin 7.1 L 13.5-17.5 g/dL Hematocrit 23.2 L 41.0-53.0 % Mean Corpuscular Volume 75.1 L 80.0-100.0 fL Mean Corpuscular Hemoglobin 23.0 L 28.0-32.0 pg Mean Corpuscular Hemoglobin Concent 30.6 L 32.0-36.0 g/dL Red Cell Distribution Width 24.8 H 11.8-14.3 % Platelet Count 272 140-450 10^3/uL Mean Platelet Volume 7.9 6.9-10.8 fL Neutrophils (%) (Auto) 81.5 H 37.0-80.0 % Lymphocytes (%) (Auto) 10.0 10.0-50.0 % Monocytes (%) (Auto) 6.8 0.0-12.0 % Eosinophils (%) (Auto) 1.0 0.0-7.0 % Basophils (%) (Auto) 0.7 0.0-2.0 % Neutrophils # (Auto) 7.7 1.6-8.6 10 ^3/uL Lymphocytes # (Auto) 0.9 0.4-5.4 10 ^3/uL Monocytes # (Auto) 0.6 0-1.3 10 ^3/uL Eosinophils # (Auto) 0.1 0-0.8 10 ^3/uL Basophils # (Auto) 0.1 0-0.2 10 ^3/uL Nucleated Red Blood Cells 0.1 % Platelet Estimate Adequate Hypochromasia (manual) Moderate Poikilocytosis (manual) Slight Anisocytosis (manual) Moderate Microcytosis Slight Ovalocytes Few Stomatocytes Few Schistocytes Few Sodium Level 145 136-145 mmol/L Potassium Level 3.5 3.5-5.1 mmol/L Chloride Level 109 H 98-107 mmol/L Carbon Dioxide Level 27 20-31 mmol/L Anion Gap 9 5-15 Blood Urea Nitrogen 21 9-23 mg/dL Creatinine 1.34 H 0.700-1.30 mg/dL Glomerular Filtration Rate Calc 55 >90 mL/min BUN/Creatinine Ratio 15.7 10.0-20.0 Serum Glucose 183 H 74-106 mg/dL Calcium Level 8.1 L 8.7-10.4 mg/dL Total Bilirubin 0.5 0.2-1.0 mg/dL Aspartate Amino Transferase (AST) 22 13-40 U/L Alanine Aminotransferase (ALT) 16 7-40 U/L Alkaline Phosphatase 86 46-116 U/L Total Protein 6.1 5.7-8.2 g/dL Albumin 3.1 L 3.2-4.8 g/dL [place] [id number] DIAGNOSTIC IMAGING Diagnostic Imaging Report : [id number] Signed PATIENT: JON FRANKEL ACCT: [id number] UNIT: [id number] : 1950 LOC: ER ROOM / BED: / AGE / SEX: 74 / M ADM STATUS: REG ER SERVICE [id number] ORDERING PHYSICIAN: ILIANA CLAY MD PROCEDURE(s): CXRP - CHEST PORTABLE REASON: syncope ORDER NUMBER(s): [id number], ACCESSION NUMBER(s): [id number] XY CHEST PORTABLE, HISTORY: syncope COMPARISON: XY CHEST PORTABLE on DOS: 06/11/24, XY CHEST PORTABLE on DOS: 06/07/24, XY CHEST PORTABLE on DOS: 06/05/24 XY CHEST PORTABLE on DOS: 06/11/24, XY CHEST PORTABLE on DOS: 06/07/24, XY CHEST PORTABLE on DOS: 06/05/24 TECHNICAL DATA: 1 view of the chest was obtained. FINDINGS: Lines and tubes: None Cardiomediastinal silhouette: Enlarged Pulmonary vasculature: prominent Lung expansion: normal Lung airspace: normal Lung interstitium: prominent Pleura: normal Pneumothorax: no Bones: Unremarkable Other: no IMPRESSION: Cardiomegaly with pulmonary edema. ATED BY: MCKAY COVARRUBIAS MD DICTATED DATE/TIME: 06/12/241044 SIGNED BY: MCKAY COVARRUBIAS MD SIGNED DATE/TIME: 06/12/241044 CC: [place] [id number] Ph: [phone] DIAGNOSTIC IMAGING Diagnostic Imaging Report : [id number] Signed PATIENT: JON FRANKEL ACCT: [id number] UNIT: [id number] : 1950 LOC: ER ROOM / BED: / AGE / SEX: 74 / M ADM STATUS: REG ER SERVICE 0956 ORDERING PHYSICIAN: ILIANA CLAY MD PROCEDURE(s): HWOCT - HEAD WITHOUT CONTRAST REASON: confused, fall ORDER NUMBER(s): [id number], ACCESSION NUMBER(s): [id number] CT HEAD WITHOUT CONTRAST INDICATION: confused, fall EXAM DATE: 06/12/2024 10:24 AM COMPARISON: CT HEAD WITHOUT CONTRAST on DOS: 06/05/24, CT HEAD WITHOUT CONTRAST on DOS: 05/27/24 RADIATION DOSE: CTDIvol: 32.54 mGy, DLP: 679.17 mGy*cm PROCEDURE: CT scans of the head were obtained from the vertex to the skull base. Sagittal and coronal reconstructions were provided. All CT scans at this medical facility are performed using dose modulation techniques as appropriate to a performed exam including the following: Automated exposure control was utilized; adjustment of the MA and/or KV according to patient size; and use of iterative reconstruction technique. FINDINGS: There is sulcal and ventricular prominence. The brainshows normal morphology and lazo-white matter differentiation, without intracranial hemorrhage, extra-axial fluid collection, mass effect or acute large vessel infarct. The ventricles are normal in size. The basal cisterns are patent. The skull and visible facial bones are intact. The paranasal sinuses, mastoid air cells and middle ear cavities are well-aerated. The soft tissues of the scalp are unremarkable. IMPRESSION: No acute intracranial abnormality. ATED BY: MCKAY COVARRUBIAS MD DICTATED DATE/TIME: 06/12/24 105 SIGNED BY: MCKAY COVARRUBIAS MD SIGNED DATE/TIME: 06/12/24 1055 CC: Time of 1ST Reevaluation: 09:51 Reevaluation 1ST: Unchanged Time of 2ND Reevaluation: 11:32 Reevaluation 2ND: Improved Patient Education/Counseling: Diagnosis, Treatment, Prognosis, Need For Follow Up Family Education/Counseling: No Family Present Additional Information The following tests were ordered, and results were reviewed by me: CBC, CMP, TROP -x3, EKG -x3, XY CHEST, CT HEAD WO CONTRAST, UA Additional Information was gathered from interviewing the following independent historians: EMS I reviewed and agreed with the following test results read by other providers: XY CHEST, CT HEAD WO CONTRAST I discussed treatment and results with medical personnel and: Patient pt is certain that Dr Rodriguez was suppose to perform a cardiac procedure today. I consulted Dr Rodriguez, who informed me that a procedure was done yesterday, however, pt did have an episode which he was found down today. facility staff felt pt either fell or had syncope, however, pt's story is also conflicting. he reports that he just felt weak and laid down on the floor. if pt did have a cardiac procedure yesterday, his trop elevation may have been due to this. however, i cannot ascertain that this is the cause based on pt's condition, it is unlikely that he is ambulatory,. he has bilateral lower extremity wounds. syncope cannot be excluded. his troponin is elevated. head ct and c spine are unremarkable. he will be admitted for possible syncope, generalized weakness, and elevated troponin Departure 1 Departure Time of Disposition: 11:34 Impression: Primary Impression: Generalized weakness Additional Impressions: Syncope Elevated troponin Disposition: ADMITTED INPATIENT Admit to: Tele Condition: Serious Discharged With: Self Critical Care Note Critical Care Time?: Yes (1 hr-critical care time only) Critical care comment: Due to concerns for patients condition deteriorating, the care required my highest level of attention and readiness to intervene. I assessed the patient, reviewed the medical records, ordered the appropriate tests and treatments, then reassessed for results and responsiveness. I communicated with medical personnel and consultants and formulated a plan of care. Total critical care time excludes any procedures Stability Stability form required: No I personally scribed for ILIANA CLAY MD ([email or web address]) on 06/12/24 at 10:05. Electronically submitted by Idalia Doll ([email or web address]). I personally scribed for ILIANA CLAY MD ([facility]) on 06/12/24 at 10:18. Electronically submitted by Idalia Doll ([email or web address]). I personally scribed for ILIANA CLAY MD ([facility]) on 06/12/24 at 10:52. Electronically submitted by Idalia Doll ([email or web address]). I personally scribed for ILIANA CLAY MD ([facility]) on 06/12/24 at 11:01. Electronically submitted by Idalia Doll ([email or web address]). ILIANA CLAY MD Jun 12, 2024 10:05
[2024-06-12 10:28] LABS: Basophils # (auto) 0.1 10 ^3/uL (0-0.2); Eosinophils # (auto) 0.1 10 ^3/uL (0-0.8); Lymphocytes # (auto) 0.9 10 ^3/uL (0.4-5.4); Nucleated Red Blood Cells % 0.1 %
[2024-06-12 10:38] LABS: Basophils % (auto) 0.7 % (0.0-2.0); Hematocrit 23.2 % (41.0-53.0); Hemoglobin 7.1 g/dL (13.5-17.5); Mean Corpuscular Hgb Conc. 30.6 g/dL (32.0-36.0); Mean Corpuscular Volume 75.1 fL (80.0-100.0); Monocytes # (auto) 0.6 10 ^3/uL (0-1.3); Monocytes % (auto) 6.8 % (0.0-12.0); Neutrophils # (auto) 7.7 10 ^3/uL (1.6-8.6); Neutrophils % (auto) 81.5 % (37.0-80.0); Platelet Count (auto) 272 10^3/uL (140-450); Red Blood Cells 3.09 10^6/uL (4.5-5.90); Red Cell Distribution Width 24.8 % (11.8-14.3); White Blood Cell 9.5 10^3/uL (4.4-10.8)
[2024-06-12 10:45] VITALS: PULSE 89; RESP 17; O2SAT 93
--- NOTE | 2024-06-12 10:47 | DVH ---
XY CHEST PORTABLE, HISTORY: syncope COMPARISON: XY CHEST PORTABLE on DOS: 06/11/24, XY CHEST PORTABLE on DOS: 06/07/24, XY CHEST PORTABLE o n DOS: 06/05/24 XY CHEST PORTABLE on DOS: 06/11/24, XY CHEST PORTABLE on DOS: 06/07/24, XY CHEST PORTABLE on DOS: TECHNICAL DATA: 1 view of the chest was obtained. FINDINGS: Lines and tubes: None Cardiomediastinal silhouette: Enlarged Pulmonary vasculature: prominent Lung expansion: normal Lung airspace: normal Lung interstitium: prominent Pleura: normal Pneumothorax: no Bones: Unremarkable Other: no IMPRESSION: Cardiomegaly with pulmonary edema.
[2024-06-12 10:49] LABS: Alanine Aminotransferase 16 U/L (7-40); Alkaline Phosphatase 86 U/L (46-116); Anion Gap 9 (5-15); Aspartate Aminotransferase 22 U/L (13-40); BUN/Creatinine Ratio 15.7 (10.0-20.0); Blood Urea Nitrogen 21 mg/dL (9-23); Carbon Dioxide 27 mmol/L (20-31); Potassium 3.5 mmol/L (3.5-5.1); Total Protein 6.1 g/dL (5.7-8.2)
[2024-06-12 10:50] LABS: Bilirubin, Total 0.5 mg/dL (0.2-1.0)
[2024-06-12 10:55] LABS: Anisocytosis Moderate; Hypochromia Moderate; Platelet Estimate Adequate
[2024-06-12 10:56] LABS: Ovalocytes FEW; Stomatocytes Few
--- NOTE | 2024-06-12 10:57 | DVH ---
CT HEAD WITHOUT CONTRAST INDICATION: confused, fall EXAM DATE: 06/12/2024 10:24 AM COMPARISON: CT HEAD WITHOUT CONTRAST on DOS: 06/05/24, CT HEAD WITHOUT CONTRAST on DOS: 05/27/24 RADIATION DOSE: CTDIvol: 32.54 mGy, DLP: 679.17 mGy*cm PROCEDURE: CT scans of the head were obtained from the vertex to the skull base. Sagittal and coronal reconstructions were provided. All CT scans at this medical facility are performed using dose modulation techniques as appropriate t o a performed exam including the following: Automated exposure control was utilized; adjustment of th e MA and/or KV according to patient size; and use of iterative reconstruction technique. FINDINGS: There is sulcal and ventricular prominence. The brainshows normal morphology and lazo-whi te matter differentiation, without intracranial hemorrhage, extra-axial fluid collection, mass effect or acute large vessel infarct. The ventricles are normal in size. The basal cisterns are patent. The skull and visible facial bones are intact. The paranasal sinuses, mastoid air cells and middle ear c avities are well-aerated. The soft tissues of the scalp are unremarkable. IMPRESSION: No acute intracranial abnormality.
[2024-06-12 10:59] LABS: Chloride 109 mmol/L (98-107); Glucose 183 mg/dL (74-106); Sodium 145 mmol/L (136-145)
[2024-06-12 11:00] LABS: Albumin 3.1 g/dL (3.2-4.8); Calcium 8.1 mg/dL (8.7-10.4)
[2024-06-12] MEDS: ASPirin 325 MG TAB PO ONE (12:28)
[2024-06-12] MEDS ORDERED: DEXTROSE (50%) 50ML SYRG IV PRN (15:00)
[2024-06-12] MEDS ORDERED: ACETAMINOPHEN 325 MG TAB PO PRN (15:00)
[2024-06-12] MEDS ORDERED: TEMAZEPAM 15 MG CAP PO PRN (15:00)
[2024-06-12] MEDS ORDERED: MORPHINE SULFATE INJ 2 MG/ml SYRG IV PRN (15:00)
[2024-06-12] MEDS ORDERED: ONDANSETRON HCL 4 MG/2 ML VIAL IV PRN (15:00)
[2024-06-12] MEDS ORDERED: ALBUTEROL SULF HFA 90MCG INH 200DOSE IN PRN (15:00)
[2024-06-12] MEDS ORDERED: DOCUSATE SOD 100 MG CAP PO PRN (15:00)
[2024-06-12] MEDS ORDERED: HYDROcodone-ACET 5/325MG TAB PO PRN (15:00)
[2024-06-12] MEDS ORDERED: NITROGLYCERIN 0.4 MG SL TAB SL PRN (15:00)
--- NOTE | 2024-06-12 15:04 | DVHHP2 ---
History of Present Illness 74 y/o male patient presents with c/o fall. Patient was brought in from [facility] where he was found on the floor by staff. Patient states he was scheduled for cardiac procedure with Dr. Rodriguez today. While in the emergency department the patient was evaluated by the provider, As per provider: Labs, vital signs, and imagining monitored. Patient will be admitted for further evaluation and treatment. I discussed admission with the patient/family and is in agreement to treatment plan Allergies: Coded Allergies: Penicillins (Verified Allergy, Unknown, 04/01/23) Home Meds Reported Medications Prednisone (Prednisone) 10 Mg Tab, 1 TAB PO DAILY for 30 Days, #30 05/31/24 Gabapentin (Gabapentin) 300 Mg Cap, 1 CAP PO TID for 30 Days, #90 05/31/24 Pantoprazole Sodium Sesquihydr (Pantoprazole Sodium Dr) 40 Mg Tab, 1 TAB PO DAILY for 30 Days, #30 05/31/24 Senna (Senna-Time) 8.6 Mg Tab, 1 TAB PO BID PRN for FOR CONSTIPATION for 50 Days, #100 05/31/24 Albuterol Sulfate (Albuterol Sulfate Hfa) 108 Mcg/Act Aer, 2 PUFF IN Q4HR PRN for 30 Days, #17 25 Potassium Chloride (Klor-Con 10) 10 Meq Tab, 1 TAB PO DAILY for 30 Days, #30 25 Metoprolol Succinate (Metoprolol Succinate Er) 25 Mg Tab, 0.5 TAB PO DAILY for 30 Days, #15 25 Metformin Hydrochloride (Metformin Hcl) 1,000 Mg Tab, 1 TAB PO BID for 30 Days, #60 25 Magnesium Oxide (mg Supplement (Magnesium-Oxide) 400 Mg Tab, 1 TAB PO DAILY for 30 Days, #30 25 Furosemide (Furosemide 80 mg) 1 Tab Tab, 1 TAB PO BID for 30 Days, #60 25 Empagliflozin (Jardiance) 10 Mg Tab, 1 TAB PO QAM for 30 Days, #30 25 Atorvastatin Calcium (Lipitor) 40 Mg Tab, 1 TAB PO DAILY for 30 Days, #30 25 Brimonidine Tartrate (Brimonidine Tartrate) 0.2 % Daria, 1 DROP OP Q8HR for 30 Days, #10 3 Refills INSTILL 1 DROP INTO AFFECTED EYE EVERY 8 HOURS. 11/24/23 Clopidogrel Bisulfate (CLOPIDOGREL) 75 Mg Tab, 1 TAB PO DAILY for 30 Days, #30 11/24/23 Current Medications Current Medications Medications (Trade) Dose Ordered Sig/Erik Route PRN Reason Start Time Stop Time Status Last Admin Acetaminophen/ Hydrocodone Bitart (Knippa 5/325MG Tab) 1 tab Q4HP PRN PO MODERATE PAIN (4-6 PAIN SCALE) 06/12/24 15:00 Temazepam (Restoril) 15 mg QHSP PRN PO FOR INSOMNIA 06/12/24 15:00 Ondansetron HCl (Zofran) 4 mg Q4HP PRN IV NAUSEA / VOMITING 06/12/24 15:00 Docusate Sodium (Colace Capsule) 100 mg BIDPRN PRN PO FOR CONSTIPATION 06/12/24 15:00 Zinc Sulfate 220 mg DAILY PO 06/13/24 10:00 Ascorbic Acid (Vitamin C Tablet) 500 mg BID PO 06/12/24 22:00 Multivitamins (Mvi Tab) 1 tab DAILY PO 06/13/24 10:00 Acetaminophen (Tylenol Tablet) 650 mg Q6HP PRN PO PAIN SCALE 1-3 OR TEMP>100.4 06/12/24 15:00 Nitroglycerin (Ntrostat Sublingual) 0.4 mg Q5MINP PRN SL FOR CHEST PAIN 06/12/24 15:00 Morphine Sulfate 2 mg Q30M PRN IV FOR CHEST PAIN 06/12/24 15:00 Diagnostic Test (Pha) (Accu-Chek Comfort Curve T) 1 strip ACHS 06/12/24 17:00 06/12/24 18:44 Insulin Human Regular (InsuLIN R) HS SC 06/12/24 22:00 Insulin Human Regular (InsuLIN R) AC SC 06/12/24 17:00 06/12/24 18:44 Dextrose 50 ml UD PRN IV Blood Sugar LESS THAN 60 06/12/24 15:00 Albuterol (Ventolin Hfa) 108 mcg Q4HP PRN IN SHORTNESS OF BREATH 06/12/24 15:00 06/12/24 15:15 DC Brimonidine Tartrate (ALPHAGAN 0.2% OPTH Soln) 1 drop Q8HR OP 06/12/24 22:00 Clopidogrel Bisulfate (Plavix) 75 mg DAILY PO 06/13/24 10:00 Empaglifozin (Jardiance) 10 mg QAM PO 06/13/24 07:00 Gabapentin (Neurontin Capsule) 300 mg TID PO 06/12/24 22:00 Pantoprazole Sodium (Protonix Tablet) 40 mg DAILY PO 06/13/24 10:00 Atorvastatin Calcium (Lipitor) 40 mg HS PO 06/12/24 22:00 Furosemide (Lasix Tablet) 40 mg BIDD PO 06/12/24 18:00 Magnesium Oxide (Mag-Ox Tablet) 400 mg DAILY PO 06/13/24 10:00 Metformin HCl (Glucophage) 1,000 mg BIDWM PO 06/12/24 18:00 Patient Own Medication 0.5 tab DAILY PO 06/13/24 10:00 Albuterol (Ventolin Medneb) 2.5 mg Q4HPRN PRN NEB SHORTNESS OF BREATH 06/12/24 15:15 Lorazepam (Ativan Inj) 0.5 mg Q6HP PRN IV ANXIETY 06/12/24 20:00 06/12/24 20:19 Review of Systems Constitutional: denies chills, denies fever, denies malaise Eyes: denies eye pain, denies vision change ENT: denies ear pain, denies headache, denies nasal congestion, denies painful swallowing, denies voice change Cardiovascular: denies chest pain, denies edema, denies orthopnea, denies palpitations, denies paroxysmal nocturnal dyspnea Respiratory: denies cough, denies shortness of breath Gastrointestinal: denies constipation, denies diarrhea, denies nausea, denies vomiting Genitourinary: denies dysuria, denies frequent urination, denies urethral discharge Musculoskeletal: denies back pain, denies joint pain, denies muscle pain Skin: denies bruising, denies itching, denies rash Neurological: denies focal weakness, denies headache, denies sensory changes Psychiatric: denies anxiety, denies depression Endocrine: denies polydipsia, denies polyuria Hematologic/Lymphatic: denies easy bleeding, denies easy bruising, denies enlarged lymph nodes Allergic/Immunologic: denies allergy, denies hives Vital Signs Vital Signs Date Time Temp Pulse Resp B/P (MAP) Pulse Ox O2 Delivery O2 Flow Rate FiO2 06/12/24 20:26 89 06/12/24 19:30 97.7 18 120/65 (83) 100 97.7 06/12/24 19:30 Nasal Cannula* 2 28 Physical Exam General Appearance: alert, no distress HEENT: EOMI, PERRLA, normal external inspect of ears, no icterus, no nasal drainage Neck: no carotid bruit, no jugular venous distention (JVD), no lymphadenopathy Chest: normal thorax Respiratory: clear to auscultation, normal air movement Cardiovascular: regular rate and rhythm, no diastolic murmur, no jugular venous distention (JVD), no rub, no systolic murmur Abdominal: soft, no hepatomegaly, no mass, no splenomegaly, no tenderness Genitourinary: grossly normal external Musculoskeletal: no joint tenderness, no swelling Extremities: normal pulses, no calf tenderness, no clubbing, no cyanosis, no edema Skin: no bruising, no jaundice, no rash Neurological: alert, No focal deficit Results Labs Test 06/12/24 18:39 06/12/24 11:10 06/12/24 10:07 06/12/24 00:00 Range/Units POC Glucose 158 H 70-106 mg/dl Troponin I High Sensitivity 777 *H </=54 ng/L White Blood Count 9.5 4.4-10.8 10^3/uL Red Blood Count 3.09 L 4.5-5.90 10^6/uL Hemoglobin 7.1 L 13.5-17.5 g/dL Hematocrit 23.2 L 41.0-53.0 % Mean Corpuscular Volume 75.1 L 80.0-100.0 fL Mean Corpuscular Hemoglobin 23.0 L 28.0-32.0 pg Mean Corpuscular Hemoglobin Concent 30.6 L 32.0-36.0 g/dL Red Cell Distribution Width 24.8 H 11.8-14.3 % Platelet Count 272 140-450 10^3/uL Mean Platelet Volume 7.9 6.9-10.8 fL Neutrophils (%) (Auto) 81.5 H 37.0-80.0 % Lymphocytes (%) (Auto) 10.0 10.0-50.0 % Monocytes (%) (Auto) 6.8 0.0-12.0 % Eosinophils (%) (Auto) 1.0 0.0-7.0 % Basophils (%) (Auto) 0.7 0.0-2.0 % Neutrophils # (Auto) 7.7 1.6-8.6 10 ^3/uL Lymphocytes # (Auto) 0.9 0.4-5.4 10 ^3/uL Monocytes # (Auto) 0.6 0-1.3 10 ^3/uL Eosinophils # (Auto) 0.1 0-0.8 10 ^3/uL Basophils # (Auto) 0.1 0-0.2 10 ^3/uL Nucleated Red Blood Cells 0.1 % Platelet Estimate Adequate Hypochromasia (manual) Moderate Poikilocytosis (manual) Slight Anisocytosis (manual) Moderate Microcytosis Slight Ovalocytes Few Stomatocytes Few Schistocytes Few Sodium Level 145 136-145 mmol/L Potassium Level 3.5 3.5-5.1 mmol/L Chloride Level 109 H 98-107 mmol/L Carbon Dioxide Level 27 20-31 mmol/L Anion Gap 9 5-15 Blood Urea Nitrogen 21 9-23 mg/dL Creatinine 1.34 H 0.700-1.30 mg/dL Glomerular Filtration Rate Calc 55 >90 mL/min BUN/Creatinine Ratio 15.7 10.0-20.0 Serum Glucose 183 H 74-106 mg/dL Calcium Level 8.1 L 8.7-10.4 mg/dL Total Bilirubin 0.5 0.2-1.0 mg/dL Aspartate Amino Transferase (AST) 22 13-40 U/L Alanine Aminotransferase (ALT) 16 7-40 U/L Alkaline Phosphatase 86 46-116 U/L Total Protein 6.1 5.7-8.2 g/dL Albumin 3.1 L 3.2-4.8 g/dL Urine Color Yellow Yellow Urine Clarity Turbid H Clear Urine pH 5.0 5.0-9.0 Urine Specific Lorida 1.024 1.001-1.035 Urine Protein 1+ H Negative Urine Ketones Negative Negative Urine Blood 2+ H Negative /uL Urine Nitrite Negative Negative Urine Bilirubin Negative Negative Urine Urobilinogen 2 H Negative mg/dL Urine Leukocyte Esterase 3+ Negative /uL Urine RBC 132 0 - 3 /hpf Urine WBC Clumps Present None Seen /hpf Urine Microscopic WBC 76 H 0-3 /HPF Urine Squamous Epithelial Cells Few <5 /hpf Urine Bacteria Mod H None Seen /hpf Urine Hyaline Casts Mod 0 - 2 /lpf Urine Mucus Few None Seen Urine Sperm Present None Seen /hpf Urine Glucose Trace Normal mg/dL Plan 1. Anemia of chronic disease Monitor, daily labs 2. PAD s/p iliac stent Monitor 3. Elevated troponin Monitor, cardiology consult, trend troponin, monitor EKG 4. COPD Monitor, medications 5. GERD Monitor, PPI 6. CAD s/p MELISSA Monitor 7. Acute on chronic systolic CHF Monitor, cardiology consult, diuretics 8. Hx cardiac arrest Monitor 9. HLD Monitor, medications 10. S/p micra placement Monitor 11. Diabetic foot ulcer Monitor, wound care consult 12. DM II with hyperglycemia Monitor, insulin ss Plan discussed with: Patient, Other NIRMAL NGO NP Jun 12, 2024 15:03
[2024-06-12] MEDS ORDERED: ALBUTEROL SULF 2.5 MG/0.5ML(0.5%) NEB SOLN NEB PRN (15:15)
[2024-06-12] MEDS: LORazepam 2MG/ML-1ML VIAL IM ONE (15:23)
[2024-06-12 15:40] VITALS: BP 113/54; PULSE 94; RESP 20; TEMP 98.1; O2SAT 93
--- NOTE | 2024-06-12 18:38 | DVHINCON2 ---
Date of service: Jun 12, 2024 Referring Physician Marcella Reason for Consultation Elevated troponin History of Present Illness This is a 74 year old male with a PMH of CHF, COPD, HTN, ME, DM, anemia, GERD, CKF, CAD who was brought in by EMS from [facility] due to ALOC today. Per EMS, [facility] nursing staff found on the ground and altered early this morning. Patient denies falling and states he was feeling tired and decided to lay on the ground. Patient was recently admitted to [facility] on 05/27 and was discharged yesterday 06/11. Patient also underwent placement of a micro pacemaker with Dr. Meléndez. HGB 7.1, HCT 23.2, CL 109, [employer] 1.34, Troponin 827 > 777. Chest x-ray shows cardio megaly with pulmonary edema. CT head showed no acute intracranial abnormality. Patient was admitted to the hospital. I am asked to consult on this patient. Allergies: Coded Allergies: Penicillins (Verified Allergy, Unknown, 04/01/23) Home Meds Reported Medications Prednisone (Prednisone) 10 Mg Tab, 1 TAB PO DAILY for 30 Days, #30 05/31/24 Gabapentin (Gabapentin) 300 Mg Cap, 1 CAP PO TID for 30 Days, #90 05/31/24 Pantoprazole Sodium Sesquihydr (Pantoprazole Sodium Dr) 40 Mg Tab, 1 TAB PO DAILY for 30 Days, #30 05/31/24 Senna (Senna-Time) 8.6 Mg Tab, 1 TAB PO BID PRN for FOR CONSTIPATION for 50 Days, #100 05/31/24 Albuterol Sulfate (Albuterol Sulfate Hfa) 108 Mcg/Act Aer, 2 PUFF IN Q4HR PRN for 30 Days, #17 05/31/24 Potassium Chloride (Klor-Con 10) 10 Meq Tab, 1 TAB PO DAILY for 30 Days, #30 05/31/24 Metoprolol Succinate (Metoprolol Succinate Er) 25 Mg Tab, 0.5 TAB PO DAILY for 30 Days, #15 05/31/24 Metformin Hydrochloride (Metformin Hcl) 1,000 Mg Tab, 1 TAB PO BID for 30 Days, #60 05/31/24 Magnesium Oxide (mg Supplement (Magnesium-Oxide) 400 Mg Tab, 1 TAB PO DAILY for 30 Days, #30 05/31/24 Furosemide (Furosemide 80 mg) 1 Tab Tab, 1 TAB PO BID for 30 Days, #60 05/31/24 Empagliflozin (Jardiance) 10 Mg Tab, 1 TAB PO QAM for 30 Days, #30 05/31/24 Atorvastatin Calcium (Lipitor) 40 Mg Tab, 1 TAB PO DAILY for 30 Days, #30 05/31/24 Brimonidine Tartrate (Brimonidine Tartrate) 0.2 % Adria, 1 DROP OP Q8HR for 30 Days, #10 3 Refills INSTILL 1 DROP INTO AFFECTED EYE EVERY 8 HOURS. 11/24/23 Clopidogrel Bisulfate (CLOPIDOGREL) 75 Mg Tab, 1 TAB PO DAILY for 30 Days, #30 11/24/23 Current Medications Current Medications Medications (Trade) Dose Ordered Sig/Erik Route PRN Reason Start Time Stop Time Status Last Admin Acetaminophen/ Hydrocodone Bitart (Normanna 5/325MG Tab) 1 tab Q4HP PRN PO MODERATE PAIN (4-6 PAIN SCALE) 06/12/24 15:00 UNV Temazepam (Restoril) 15 mg QHSP PRN PO FOR INSOMNIA 06/12/24 15:00 UNV Ondansetron HCl (Zofran) 4 mg Q4HP PRN IV NAUSEA / VOMITING 06/12/24 15:00 UNV Docusate Sodium (Colace Capsule) 100 mg BIDPRN PRN PO FOR CONSTIPATION 06/12/24 15:00 UNV Zinc Sulfate 220 mg DAILY PO 06/13/24 10:00 UNV Ascorbic Acid (Vitamin C Tablet) 500 mg BID PO 06/12/24 22:00 UNV Multivitamins (Mvi Tab) 1 tab DAILY PO 06/13/24 10:00 UNV Acetaminophen (Tylenol Tablet) 650 mg Q6HP PRN PO PAIN SCALE 1-3 OR TEMP>100.4 06/12/24 15:00 UNV Nitroglycerin (Ntrostat Sublingual) 0.4 mg Q5MINP PRN SL FOR CHEST PAIN 06/12/24 15:00 UNV Morphine Sulfate 2 mg Q30M PRN IV FOR CHEST PAIN 06/12/24 15:00 UNV Diagnostic Test (Pha) (Accu-Chek Comfort Curve T) 1 strip ACHS 06/12/24 17:00 UNV Insulin Human Regular (InsuLIN R) HS SC 06/12/24 22:00 UNV Insulin Human Regular (InsuLIN R) AC SC 06/12/24 17:00 UNV Dextrose 50 ml UD PRN IV Blood Sugar LESS THAN 60 06/12/24 15:00 UNV Albuterol (Ventolin Hfa) 108 mcg Q4HP PRN IN SHORTNESS OF BREATH 06/12/24 15:00 06/12/24 15:15 DC Brimonidine Tartrate (ALPHAGAN 0.2% OPTH Soln) 1 drop Q8HR OP 06/12/24 22:00 UNV Clopidogrel Bisulfate (Plavix) 75 mg DAILY PO 06/13/24 10:00 UNV Empaglifozin (Jardiance) 10 mg QAM PO 06/13/24 07:00 UNV Gabapentin (Neurontin Capsule) 300 mg TID PO 06/12/24 22:00 UNV Pantoprazole Sodium (Protonix Tablet) 40 mg DAILY PO 06/13/24 10:00 UNV Patient Own Medication 1 tab DAILY PO 06/13/24 10:00 UNV Patient Own Medication 1 tab BID PO 06/12/24 22:00 UNV Patient Own Medication 1 tab DAILY PO 06/13/24 10:00 UNV Patient Own Medication 1 tab BID PO 06/12/24 22:00 UNV Patient Own Medication 0.5 tab DAILY PO 06/13/24 10:00 UNV Albuterol (Ventolin Medneb) 2.5 mg Q4HPRN PRN NEB SHORTNESS OF BREATH 06/12/24 15:15 UNV Review of Systems Constitutional: denies: chills, diaphoresis, fatigue, fever, malaise, sweats, weakness, others EENTM: denies: blurred vision, double vision, ear bleeding, ear discharge, ear drainage, ear pain, ear ringing, eye pain, eye redness, hearing loss, mouth pain, mouth swelling, nasal discharge, nose bleeding, nose congestion, nose pain, photophobia, tearing, throat pain, throat swelling, voice changes, others Respiratory: denies: cough, hemoptysis, orthopnea, SOB at rest, shortness of breath, SOB with excertion, stridor, wheezing, others Cardiovascular: denies: chest pain, dizzy spells, diaphoresis, Dyspnea on exertion, edema, irregular heart beat, left arm pain, lightheadedness, palpitations, PND, syncope, others Gastrointestinal: denies: abdomen distended, abdominal pain, blood streaked bowels, constipated, diarrhea, dysphagia, difficulty swallowing, hematemesis, melena, nausea, poor appetite, poor fluid intake, rectal bleeding, rectal pain, vomiting, others Genitourinary: denies: burning, dysuria, flank pain, frequency, hematuria, incontinence, penile discharge, penile sore, pain, testicle pain, testicle swelling, urgency, others Neurological: denies: dizziness, fainting, headache, left sided numbness, left sided weakness, numbness, paresthesia, pre-existing deficit, right sided numbness, right sided weakness, seizure, speech problems, tingling, tremors, weakness, others Musculoskeletal: denies: back pain, gout, joint pain, joint swelling, muscle pain, muscle stiffness, neck pain, others Integumetry: denies: bruises, change in color, change in hair/nails, dryness, laceration, lesions, lumps, rash, wounds, others Allergic/Immunocompromised: denies: Difficulty Healing, Frequent Infections, Hives, Itching, others Hematologic/Lymphatic: denies: anemia, blood clots, easy bleeding, easy bruising, swollen glands, others Endocrine: denies: excessive hunger, excessive sweating, excessive thirst, excessive urination, flushing, intolerance to cold, intolerance to heat, unexplained weight gain, unexplained weight loss, others Psychiatric: denies: anxiety, bipolar disorder, depression, hopeless, panic disorder, schizophrenia, sleepless, suicidal, others All Other Systems: Reviewed and Negative Vital Signs Vital Signs Date Time Temp Pulse Resp B/P (MAP) Pulse Ox O2 Delivery O2 Flow Rate FiO2 06/12/24 15:40 98.1 94 20 113/54 93 2.0 28 98.1 06/12/24 10:45 Nasal Cannula* Physical Exam GENERAL: Awake, alert, oriented. LUNGS: Clear. CARDIOVASCULAR: Heart sounds are good. ABDOMEN: Soft. EXT: Right great toe, 2nd toe amputation, stasis dermatitis, declined removal of dressing on bilateral legs. SKIN: Old wounds various stages abrasions noted. Stasis dermatitis Labs/Diagnostic Data Labs Test 06/12/24 11:10 06/12/24 10:07 Range/Units Troponin I High Sensitivity 777 *H </=54 ng/L White Blood Count 9.5 4.4-10.8 10^3/uL Red Blood Count 3.09 L 4.5-5.90 10^6/uL Hemoglobin 7.1 L 13.5-17.5 g/dL Hematocrit 23.2 L 41.0-53.0 % Mean Corpuscular Volume 75.1 L 80.0-100.0 fL Mean Corpuscular Hemoglobin 23.0 L 28.0-32.0 pg Mean Corpuscular Hemoglobin Concent 30.6 L 32.0-36.0 g/dL Red Cell Distribution Width 24.8 H 11.8-14.3 % Platelet Count 272 140-450 10^3/uL Mean Platelet Volume 7.9 6.9-10.8 fL Neutrophils (%) (Auto) 81.5 H 37.0-80.0 % Lymphocytes (%) (Auto) 10.0 10.0-50.0 % Monocytes (%) (Auto) 6.8 0.0-12.0 % Eosinophils (%) (Auto) 1.0 0.0-7.0 % Basophils (%) (Auto) 0.7 0.0-2.0 % Neutrophils # (Auto) 7.7 1.6-8.6 10 ^3/uL Lymphocytes # (Auto) 0.9 0.4-5.4 10 ^3/uL Monocytes # (Auto) 0.6 0-1.3 10 ^3/uL Eosinophils # (Auto) 0.1 0-0.8 10 ^3/uL Basophils # (Auto) 0.1 0-0.2 10 ^3/uL Nucleated Red Blood Cells 0.1 % Platelet Estimate Adequate Hypochromasia (manual) Moderate Poikilocytosis (manual) Slight Anisocytosis (manual) Moderate Microcytosis Slight Ovalocytes Few Stomatocytes Few Schistocytes Few Sodium Level 145 136-145 mmol/L Potassium Level 3.5 3.5-5.1 mmol/L Chloride Level 109 H 98-107 mmol/L Carbon Dioxide Level 27 20-31 mmol/L Anion Gap 9 5-15 Blood Urea Nitrogen 21 9-23 mg/dL Creatinine 1.34 H 0.700-1.30 mg/dL Glomerular Filtration Rate Calc 55 >90 mL/min BUN/Creatinine Ratio 15.7 10.0-20.0 Serum Glucose 183 H 74-106 mg/dL Calcium Level 8.1 L 8.7-10.4 mg/dL Total Bilirubin 0.5 0.2-1.0 mg/dL Aspartate Amino Transferase (AST) 22 13-40 U/L Alanine Aminotransferase (ALT) 16 7-40 U/L Alkaline Phosphatase 86 46-116 U/L Total Protein 6.1 5.7-8.2 g/dL Albumin 3.1 L 3.2-4.8 g/dL Assessment Elevated troponin. Recent micro PPM placement. Generalized weakness. Fall. COPD. Acute on chronic systolic heart failure. CAD s/p MELISSA. PAD s/p iliac stents. A fib on Eliquis. HTN. HLD. IDDM. HFrEF EF 35%. Plan/Recommendation I agree with your ongoing assessment and care of plan. Telemetry reviewed. Morphine and Normanna for pain management. Lipitor, Plavix. Diuretics with Lasix. GI prophylactics. Additional plan as per the hospital course. A total of 45 minutes was spent reviewing the patient record, examining the patient, making a diagnostic and therapeutic plan, discussing this plan with medical personnel, following up on diagnostic studies and following the patient for clinical stability excluding any and all procedures. At least 50% of this time was spent in direct, [id number] contact. Plan discussed with: Patient HÉCTOR MARION MD Jun 12, 2024 16:07
[2024-06-12] MEDS: ACCU-CHEK COMFORT CURVE STRIP VI SCH (18:44)
[2024-06-12] MEDS: InsuLIN REG 1unit/0.01ml Soln (100units/ml) SC SCH ×2 (18:44→22:44)
[2024-06-12] MEDS: metFORMIN HYDROCHLORIDE 500 MG TAB PO SCH (19:21)
[2024-06-12] MEDS: FUROSEMIDE 40 MG TAB PO SCH (19:22)
[2024-06-12 19:42] LABS: Urine Bacteria MOD /hpf (None Seen); Urine Blood 2+ /uL (Negative); Urine Clarity Turbid (Clear); Urine Color Yellow (Yellow); Urine Hyaline Cast MOD /lpf (0 - 2); Urine Mucus FEW (None Seen); Urine Protein, UAD 1+ (Negative); Urine Specific Gravity 1.024 (1.001-1.035); Urine Sperm PRESENT /hpf (None Seen); Urine Squamous Epithelial Cell FEW /hpf (<5); Urine Urobilinogen 2 mg/dL (Negative); Urine WBC 76 /HPF (0-3); Urine WBC Clumps PRESENT /hpf (None Seen)
[2024-06-12] MEDS: LORazepam 2MG/ML-1ML VIAL IV PRN (20:19)
[2024-06-12 21:50] VITALS: O2SAT 95
[2024-06-12] MEDS: GABAPENTIN 300 MG CAP PO SCH (22:42)
[2024-06-12] MEDS: ASCORBIC ACID 500 MG TAB PO SCH (22:42)
[2024-06-12] MEDS: ATORVASTATIN 20 MG TAB PO SCH (22:42)
[2024-06-12] MEDS: BRIMONIDINE 0.2% OPTH Soln 5ml OP SCH (22:50)
[2024-06-13] VITALS (9 sets, daily range): BP systolic 117–124; BP diastolic 61–73; PULSE 72–80; RESP 11–17; TEMP 97.6–98.3; O2SAT 97–100
[2024-06-13 04:04] LABS: Basophils # (auto) 0.1 10 ^3/uL (0-0.2); Basophils % (auto) 0.7 % (0.0-2.0); Eosinophils # (auto) 0.1 10 ^3/uL (0-0.8); Eosinophils % (auto) 1.4 % (0.0-7.0); Hematocrit 20.6 % (41.0-53.0); Lymphocytes # (auto) 1.1 10 ^3/uL (0.4-5.4); Lymphocytes % (auto) 12.9 % (10.0-50.0); Mean Corpuscular Hemoglobin 23.5 pg (28.0-32.0); Mean Corpuscular Hgb Conc. 31.3 g/dL (32.0-36.0); Mean Corpuscular Volume 75.1 fL (80.0-100.0); Monocytes # (auto) 0.7 10 ^3/uL (0-1.3); Monocytes % (auto) 7.7 % (0.0-12.0); Neutrophils # (auto) 6.6 10 ^3/uL (1.6-8.6); Neutrophils % (auto) 77.3 % (37.0-80.0); Nucleated Red Blood Cells % 0.2 %; Platelet Count (auto) 326 10^3/uL (140-450); Red Blood Cells 2.74 10^6/uL (4.5-5.90); Red Cell Distribution Width 24.5 % (11.8-14.3); White Blood Cell 8.5 10^3/uL (4.4-10.8)
[2024-06-13 04:05] LABS: Hemoglobin 6.4 g/dL (13.5-17.5)
[2024-06-13 04:33] LABS: Alanine Aminotransferase 14 U/L (7-40); Alkaline Phosphatase 85 U/L (46-116); Aspartate Aminotransferase 18 U/L (13-40); BUN/Creatinine Ratio 19.3 (10.0-20.0); Blood Urea Nitrogen 22 mg/dL (9-23); Total Protein 6.1 g/dL (5.7-8.2)
[2024-06-13 04:39] LABS: Albumin 3.1 g/dL (3.2-4.8); Calcium 8.2 mg/dL (8.7-10.4); Chloride 109 mmol/L (98-107); Glucose 147 mg/dL (74-106); Potassium 3.4 mmol/L (3.5-5.1); Sodium 148 mmol/L (136-145)
[2024-06-13 04:46] LABS: Anion Gap 11 (5-15); Carbon Dioxide 28 mmol/L (20-31)
[2024-06-13 05:07] LABS: Bilirubin, Total 0.4 mg/dL (0.2-1.0)
[2024-06-13] MEDS: EMPAGLIFLOZIN 10 MG TAB PO SCH (06:39)
[2024-06-13] MEDS: FERROUS SULFATE 325mg EC TAB PO SCH (08:00)
[2024-06-13] MEDS: MEROPENEM 2GM/ 250ML 250 ML IV SCH (08:08)
[2024-06-13 09:19] LABS: Basophils # (auto) 0.1 10 ^3/uL (0-0.2); Eosinophils # (auto) 0.2 10 ^3/uL (0-0.8); Eosinophils % (auto) 2.1 % (0.0-7.0); Lymphocytes # (auto) 0.9 10 ^3/uL (0.4-5.4); Nucleated Red Blood Cells % 0.2 %
[2024-06-13 09:20] LABS: Basophils % (auto) 0.9 % (0.0-2.0); Hematocrit 22.8 % (41.0-53.0); Hemoglobin 7.2 g/dL (13.5-17.5); Lymphocytes % (auto) 11.7 % (10.0-50.0); Mean Corpuscular Hemoglobin 24.3 pg (28.0-32.0); Mean Corpuscular Hgb Conc. 31.3 g/dL (32.0-36.0); Mean Corpuscular Volume 77.5 fL (80.0-100.0); Monocytes # (auto) 0.5 10 ^3/uL (0-1.3); Monocytes % (auto) 7.1 % (0.0-12.0); Neutrophils % (auto) 78.2 % (37.0-80.0); Platelet Count (auto) 302 10^3/uL (140-450); Red Blood Cells 2.95 10^6/uL (4.5-5.90); White Blood Cell 7.7 10^3/uL (4.4-10.8)
[2024-06-13 09:26] LABS: Red Cell Distribution Width 23.5 % (11.8-14.3)
[2024-06-13 09:27] LABS: Alanine Aminotransferase 15 U/L (7-40); Alkaline Phosphatase 82 U/L (46-116); Anion Gap 10 (5-15); Aspartate Aminotransferase 23 U/L (13-40); BUN/Creatinine Ratio 20.6 (10.0-20.0); Bilirubin, Total 0.6 mg/dL (0.2-1.0); Blood Urea Nitrogen 20 mg/dL (9-23); Carbon Dioxide 28 mmol/L (20-31); Total Protein 5.9 g/dL (5.7-8.2)
[2024-06-13 09:31] LABS: Albumin 3.1 g/dL (3.2-4.8); Calcium 8.2 mg/dL (8.7-10.4); Chloride 110 mmol/L (98-107); Glucose 136 mg/dL (74-106); Potassium 2.8 mmol/L (3.5-5.1); Sodium 148 mmol/L (136-145)
[2024-06-13] MEDS: ZINC SULFATE 220mg CAP or TAB PO SCH (10:00)
[2024-06-13] MEDS: MULTIPLE VITAMIN TAB PO SCH (10:00)
[2024-06-13] MEDS: PANTOPRAZOLE 40 MG TAB PO SCH (10:00)
[2024-06-13] MEDS: CLOPIDOGREL BISULFATE 75 MG TAB PO SCH (10:00)
[2024-06-13] MEDS: MAGNESIUM OXIDE 400 MG TAB PO SCH (10:00)
[2024-06-13] MEDS: IRON SUCROSE COMPLEX 110 ML IV SCH (12:06)
--- NOTE | 2024-06-13 12:37 | DVHPN2 ---
Progress Note - Dictate vital signs Vital Sign Date Time Temp Pulse Resp B/P (MAP) Pulse Ox O2 Delivery O2 Flow Rate FiO2 06/13/24 12:00 76 16 106/53 (70) 98 06/13/24 08:30 Nasal Cannula 2.0 06/13/24 08:30 28 06/13/24 07:30 97.9 97.9 Total Intake and Output 06/12/24 06/12/24 06/13/24 15:00 23:00 07:00 Output Total 600 ml Balance -600 ml medications Current Medications Medications Dose Ordered Sig/Erik Route Start Time Stop Time Status Last Admin Dose Admin Acetaminophen/ Hydrocodone Bitart 1 tab Q4HP PRN PO 06/12/24 15:00 Temazepam 15 mg QHSP PRN PO 06/12/24 15:00 Ondansetron HCl 4 mg Q4HP PRN IV 06/12/24 15:00 Docusate Sodium 100 mg BIDPRN PRN PO 06/12/24 15:00 Zinc Sulfate 220 mg DAILY PO 06/13/24 10:00 Ascorbic Acid 500 mg BID PO 06/12/24 22:00 06/12/24 22:42 500 MG Multivitamins 1 tab DAILY PO 06/13/24 10:00 Acetaminophen 650 mg Q6HP PRN PO 06/12/24 15:00 Nitroglycerin 0.4 mg Q5MINP PRN SL 06/12/24 15:00 Morphine Sulfate 2 mg Q30M PRN IV 06/12/24 15:00 Diagnostic Test (Pha) 1 strip ACHS 06/12/24 17:00 06/13/24 11:33 1 STRIP Insulin Human Regular HS SC 06/12/24 22:00 06/12/24 22:44 2 UNITS Insulin Human Regular AC SC 06/12/24 17:00 06/12/24 18:44 2 UNITS Dextrose 50 ml UD PRN IV 06/12/24 15:00 Brimonidine Tartrate 1 drop Q8HR OP 06/12/24 22:00 Clopidogrel Bisulfate 75 mg DAILY PO 06/13/24 10:00 Empaglifozin 10 mg QAM PO 06/13/24 07:00 Gabapentin 300 mg TID PO 06/12/24 22:00 06/12/24 22:42 300 MG Pantoprazole Sodium 40 mg DAILY PO 06/13/24 10:00 Atorvastatin Calcium 40 mg HS PO 06/12/24 22:00 06/12/24 22:42 40 MG Furosemide 40 mg BIDD PO 06/12/24 18:00 Magnesium Oxide 400 mg DAILY PO 06/13/24 10:00 Metformin HCl 1,000 mg BIDWM PO 06/12/24 18:00 Patient Own Medication 0.5 tab DAILY PO 06/13/24 10:00 Albuterol 2.5 mg Q4HPRN PRN NEB 06/12/24 15:15 Lorazepam 0.5 mg Q6HP PRN IV 06/12/24 20:00 06/13/24 12:30 0.5 MG Ferrous Sulfate 325 mg BIDWM PO 06/13/24 08:00 Meropenem 250 ml @ 83.3 mls/hr Q8HR IV 06/13/24 06:00 06/13/24 08:08 83.3 MLS/HR Iron Sucrose 110 ml @ 110 mls/hr DAILY@1200 IV 06/13/24 12:00 06/17/24 12:59 06/13/24 12:06 110 MLS/HR Potassium Chloride 100 ml @ 50 mls/hr Q2H IV 06/13/24 12:45 06/13/24 16:44 UNV laboratory and microbiology Laboratory Tests 06/13/24 08:55 Test 06/13/24 08:55 Range/Units Serum Glucose 136 H 74-106 mg/dL CC Plasma Assessment Blood Product Administration S: [id number] NIRMAL NGO NP Jun 13, 2024 12:37
--- NOTE | 2024-06-13 12:40 | DVHPN2 ---
Progress Note - Dictate Date Seen: Jun 13, 2024 Medical Necessity Reason Pt with a Central, PICC or Fol: No vital signs Vital Sign Date Time Temp Pulse Resp B/P (MAP) Pulse Ox O2 Delivery O2 Flow Rate FiO2 06/13/24 12:00 76 16 106/53 (70) 98 06/13/24 08:30 Nasal Cannula 2.0 06/13/24 08:30 28 06/13/24 07:30 97.9 97.9 Total Intake and Output 06/12/24 06/12/24 06/13/24 15:00 23:00 07:00 Output Total 600 ml Balance -600 ml medications Current Medications Medications Dose Ordered Sig/Erik Route Start Time Stop Time Status Last Admin Dose Admin Acetaminophen/ Hydrocodone Bitart 1 tab Q4HP PRN PO 06/12/24 15:00 Temazepam 15 mg QHSP PRN PO 06/12/24 15:00 Ondansetron HCl 4 mg Q4HP PRN IV 06/12/24 15:00 Docusate Sodium 100 mg BIDPRN PRN PO 06/12/24 15:00 Zinc Sulfate 220 mg DAILY PO 06/13/24 10:00 Ascorbic Acid 500 mg BID PO 06/12/24 22:00 06/12/24 22:42 500 MG Multivitamins 1 tab DAILY PO 06/13/24 10:00 Acetaminophen 650 mg Q6HP PRN PO 06/12/24 15:00 Nitroglycerin 0.4 mg Q5MINP PRN SL 06/12/24 15:00 Morphine Sulfate 2 mg Q30M PRN IV 06/12/24 15:00 Diagnostic Test (Pha) 1 strip ACHS 06/12/24 17:00 06/13/24 11:33 1 STRIP Insulin Human Regular HS SC 06/12/24 22:00 06/12/24 22:44 2 UNITS Insulin Human Regular AC SC 06/12/24 17:00 06/12/24 18:44 2 UNITS Dextrose 50 ml UD PRN IV 06/12/24 15:00 Brimonidine Tartrate 1 drop Q8HR OP 06/12/24 22:00 Clopidogrel Bisulfate 75 mg DAILY PO 06/13/24 10:00 Empaglifozin 10 mg QAM PO 06/13/24 07:00 Gabapentin 300 mg TID PO 06/12/24 22:00 06/12/24 22:42 300 MG Pantoprazole Sodium 40 mg DAILY PO 06/13/24 10:00 Atorvastatin Calcium 40 mg HS PO 06/12/24 22:00 06/12/24 22:42 40 MG Furosemide 40 mg BIDD PO 06/12/24 18:00 Magnesium Oxide 400 mg DAILY PO 06/13/24 10:00 Metformin HCl 1,000 mg BIDWM PO 06/12/24 18:00 Patient Own Medication 0.5 tab DAILY PO 06/13/24 10:00 Albuterol 2.5 mg Q4HPRN PRN NEB 06/12/24 15:15 Lorazepam 0.5 mg Q6HP PRN IV 06/12/24 20:00 06/13/24 12:30 0.5 MG Ferrous Sulfate 325 mg BIDWM PO 06/13/24 08:00 Meropenem 250 ml @ 83.3 mls/hr Q8HR IV 06/13/24 06:00 06/13/24 08:08 83.3 MLS/HR Iron Sucrose 110 ml @ 110 mls/hr DAILY@1200 IV 06/13/24 12:00 06/17/24 12:59 06/13/24 12:06 110 MLS/HR Potassium Chloride 100 ml @ 50 mls/hr Q2H IV 06/13/24 12:45 06/13/24 16:44 UNV objective General Appearance: alert, no distress HEENT: EOMI, PERRLA, normal external inspect of ears, no icterus, no nasal drainage Neck: no carotid bruit, no jugular venous distention (JVD), no lymphadenopathy Chest: normal thorax Respiratory: clear to auscultation, normal air movement Cardiovascular: regular rate and rhythm, no diastolic murmur, no jugular venous distention (JVD), no rub, no systolic murmur Abdominal: soft, no hepatomegaly, no mass, no splenomegaly, no tenderness Genitourinary: grossly normal external Musculoskeletal: no joint tenderness, no swelling Extremities: normal pulses, no calf tenderness, no clubbing, no cyanosis, no edema Skin: no bruising, no jaundice, no rash Neurological: alert, No focal deficit laboratory and microbiology Laboratory Tests 06/13/24 08:55 Test 06/13/24 08:55 Range/Units Serum Glucose 136 H 74-106 mg/dL Problem List 1. Anemia of chronic disease Monitor, daily labs 2. PAD s/p iliac stent Monitor 3. Elevated troponin Monitor, cardiology consult, trend troponin, monitor EKG 4. COPD Monitor, medications 5. GERD Monitor, PPI 6. CAD s/p MELISSA Monitor 7. Acute on chronic systolic CHF Monitor, cardiology consult, diuretics 8. Hx cardiac arrest Monitor 9. HLD Monitor, medications 10. S/p micra placement Monitor 11. Diabetic foot ulcer Monitor, wound care consult 12. DM II with hyperglycemia Monitor, insulin ss Assessment/Plan Subjective: Patient is A and O times one. Objective: Patient was recently discharged on 06/11/2024 status post cardiac arrest. Patient had a MICRA placed by cardiology. Patient has possible underlying dementia. Mentation is at baseline. Potassium is 2.8. Patient has been seen by cardiology and they have cleared patient for discharge. Patient has downtrending troponin levels. Elevated troponin levels are related to recent cardiac procedure. Plan: fitness services manager consult. MT planning back to [facility]. Transfer of care to Doctor Chandra. Continue home medications. Monitor daily labs. Hemoglobin is 7.1 and stable. Continue IV iron infusion. Plan discussed with: Patient, Other CC Plasma Assessment Blood Product Administration S: [id number] NIRMAL NGO NP Jun 13, 2024 12:40
[2024-06-13] MEDS: SODIUM CHL 0.9% 100 ML IV SCH (13:37)
[2024-06-13] MEDS: POTASSIUM CHL 20MEQ/50ML 50 ML IV SCH (13:37)
--- NOTE | 2024-06-13 22:19 | DVHPN2 ---
Progress Note - Dictate Date Seen: Jun 13, 2024 Medical Necessity Reason Pt with a Central, PICC or Fol: No Subjective Patient was seen and evaluated in follow-up. Patient is awake and confused. HE is on 2 LPM NC. Sitter at bedside as patient was pulling at lines. HGB 7.2, HCT 22.8, NA 148, K 2.8, CL 110, CA 8.2. Patient receiving IV Iron. Telemetry reviewed. vital signs Vital Sign Date Time Temp Pulse Resp B/P (MAP) Pulse Ox O2 Delivery O2 Flow Rate FiO2 06/13/24 12:00 76 16 106/53 (70) 98 06/13/24 08:30 Nasal Cannula 2.0 06/13/24 08:30 28 06/13/24 07:30 97.9 97.9 Total Intake and Output 06/12/24 06/12/24 06/13/24 15:00 23:00 07:00 Output Total 600 ml Balance -600 ml medications Current Medications Medications Dose Ordered Sig/Erik Route Start Time Stop Time Status Last Admin Dose Admin Acetaminophen/ Hydrocodone Bitart 1 tab Q4HP PRN PO 06/12/24 15:00 Temazepam 15 mg QHSP PRN PO 06/12/24 15:00 Ondansetron HCl 4 mg Q4HP PRN IV 06/12/24 15:00 Docusate Sodium 100 mg BIDPRN PRN PO 06/12/24 15:00 Zinc Sulfate 220 mg DAILY PO 06/13/24 10:00 Ascorbic Acid 500 mg BID PO 06/12/24 22:00 06/12/24 22:42 500 MG Multivitamins 1 tab DAILY PO 06/13/24 10:00 Acetaminophen 650 mg Q6HP PRN PO 06/12/24 15:00 Nitroglycerin 0.4 mg Q5MINP PRN SL 06/12/24 15:00 Morphine Sulfate 2 mg Q30M PRN IV 06/12/24 15:00 Diagnostic Test (Pha) 1 strip ACHS 06/12/24 17:00 06/13/24 11:33 1 STRIP Insulin Human Regular HS SC 06/12/24 22:00 06/12/24 22:44 2 UNITS Insulin Human Regular AC SC 06/12/24 17:00 06/12/24 18:44 2 UNITS Dextrose 50 ml UD PRN IV 06/12/24 15:00 Brimonidine Tartrate 1 drop Q8HR OP 06/12/24 22:00 Clopidogrel Bisulfate 75 mg DAILY PO 06/13/24 10:00 Empaglifozin 10 mg QAM PO 06/13/24 07:00 Gabapentin 300 mg TID PO 06/12/24 22:00 06/12/24 22:42 300 MG Pantoprazole Sodium 40 mg DAILY PO 06/13/24 10:00 Atorvastatin Calcium 40 mg HS PO 06/12/24 22:00 06/12/24 22:42 40 MG Furosemide 40 mg BIDD PO 06/12/24 18:00 Magnesium Oxide 400 mg DAILY PO 06/13/24 10:00 Metformin HCl 1,000 mg BIDWM PO 06/12/24 18:00 Patient Own Medication 0.5 tab DAILY PO 06/13/24 10:00 Albuterol 2.5 mg Q4HPRN PRN NEB 06/12/24 15:15 Lorazepam 0.5 mg Q6HP PRN IV 06/12/24 20:00 06/13/24 12:30 0.5 MG Ferrous Sulfate 325 mg BIDWM PO 06/13/24 08:00 Meropenem 250 ml @ 83.3 mls/hr Q8HR IV 06/13/24 06:00 06/13/24 08:08 83.3 MLS/HR Iron Sucrose 110 ml @ 110 mls/hr DAILY@1200 IV 06/13/24 12:00 06/17/24 12:59 06/13/24 12:06 110 MLS/HR Potassium Chloride 100 ml @ 50 mls/hr Q2H IV 06/13/24 12:45 06/13/24 16:44 UNV objective GENERAL: Awake, altered. LUNGS: Clear. CARDIOVASCULAR: Heart sounds are good. ABDOMEN: Soft. EXT: Right great toe, 2nd toe amputation, stasis dermatitis. SKIN: Old wounds various stages abrasions noted. laboratory and microbiology Laboratory Tests 06/13/24 08:55 Test 06/13/24 08:55 Range/Units Serum Glucose 136 H 74-106 mg/dL Problem List Elevated troponin. Recent micro PPM placement. Generalized weakness. Fall. COPD. Acute on chronic systolic heart failure. CAD s/p MELISSA. PAD s/p iliac stents. A fib on Eliquis. HTN. HLD. IDDM. HFrEF EF 35%. UTI. Assessment/Plan Continued all current supportive medical care. Morphine and Emmett for pain management. Lipitor, Plavix. Diuretics with Lasix. GI prophylactics. IV antibiotics with Meropenem. Additional plan as per the hospital course. Plan discussed with: Other CC Plasma Assessment Blood Product Administration S: [id number] HÉCTOR MARION MD Jun 13, 2024 13:05
[2024-06-14 05:00] VITALS: BP 111/66; PULSE 76; RESP 17; TEMP 97.9; O2SAT 92
[2024-06-14] MEDS: MEROPENEM 1GM IVPB 100 ML IV ONE (06:24)
[2024-06-14 08:00] VITALS: PULSE 85; RESP 16
[2024-06-14] MEDS ORDERED: fentaNYL Drip 2500mCg/250mlNS 250 ML IV ONE (09:05)
[2024-06-14] MEDS ORDERED: MIDAZOLAM DRIP 50 mg/50mL 0 ML IV ONE (09:06)
[2024-06-14] MEDS ORDERED: NOREPINEPHRINE 8 MG/250ML KIT 250 ML IV ONE (09:06)
[2024-06-14] MEDS ORDERED: NOREPINEPHRINE 8 MG/250ML KIT 250 ML IV SCH (09:15)
[2024-06-14] MEDS ORDERED: MIDAZOLAM DRIP 50 mg/50mL 50 ML IV SCH (09:15)
[2024-06-14] MEDS ORDERED: fentaNYL Drip 2500mCg/250mlNS 250 ML IV SCH (09:15)
--- NOTE | 2024-06-14 09:57 | DVHNC2 ---
Central Line Recorder of insertion practice: Pharmacy Technician Trainee Occupation of color television console monitor: Other (Resident) Indication: Hypotension Room prepared for procedure: Yes Pharmacy Technician Trainee performed hand hygien: Yes Maximal sterile barrier precau: Mask/Eye shield, Sterile gown, Cap, Sterlie gloves, Large sterlie drape Skin Preparation: Providine iodine Insertion site: Right, Internal jugular Central line catheter type: Oeu-zuximoyi-yia dialysis Number of lumens: 2 UTO Consent yes Notes Patient in acute cardiopulmonary arrest ROSC achieved and the central line was put into the right IJ vein and fixed. Patient again went into a cardiopulmonary arrest and ROSC was not able to be achieved. Patient Date of Service: Jun 14, 2024 Billing Provider: ARNIE ARREOLA MD Common Visit Codes: PROCEDURE ONLY Procedure Codes: [id number] NON-TUNNEL CV CATH NATA NIEVES RESIDENT Jun 14, 2024 09:57 ARNIE ARREOLA MD Jun 14, 2024 10:06
--- NOTE | 2024-06-14 10:16 | DVHDS2 ---
Summary Date of Admission Jun 12, 2024 at 14:58 Date and Time of Expiration: Jun 14, 2024 09:38 Reason for Admission: Fall Labs/Diagnostic Data: Laboratory Results Test 06/14/24 05:04 06/13/24 08:55 06/12/24 11:10 06/12/24 10:07 POC Glucose 106 mg/dl (70-106) White Blood Count 7.7 10^3/uL (4.4-10.8) Red Blood Count 2.95 10^6/uL (4.5-5.90) Hemoglobin 7.2 g/dL (13.5-17.5) Hematocrit 22.8 % (41.0-53.0) Mean Corpuscular Volume 77.5 fL (80.0-100.0) Mean Corpuscular Hemoglobin 24.3 pg (28.0-32.0) Mean Corpuscular Hemoglobin Concent 31.3 g/dL (32.0-36.0) Red Cell Distribution Width 23.5 % (11.8-14.3) Platelet Count 302 10^3/uL (140-450) Mean Platelet Volume 7.4 fL (6.9-10.8) Neutrophils (%) (Auto) 78.2 % (37.0-80.0) Lymphocytes (%) (Auto) 11.7 % (10.0-50.0) Monocytes (%) (Auto) 7.1 % (0.0-12.0) Eosinophils (%) (Auto) 2.1 % (0.0-7.0) Basophils (%) (Auto) 0.9 % (0.0-2.0) Neutrophils # (Auto) 6.0 10 ^3/uL (1.6-8.6) Lymphocytes # (Auto) 0.9 10 ^3/uL (0.4-5.4) Monocytes # (Auto) 0.5 10 ^3/uL (0-1.3) Eosinophils # (Auto) 0.2 10 ^3/uL (0-0.8) Basophils # (Auto) 0.1 10 ^3/uL (0-0.2) Nucleated Red Blood Cells 0.2 % Sodium Level 148 mmol/L (136-145) Potassium Level 2.8 mmol/L (3.5-5.1) Chloride Level 110 mmol/L (98-107) Carbon Dioxide Level 28 mmol/L (20-31) Anion Gap 10 (5-15) Blood Urea Nitrogen 20 mg/dL (9-23) Creatinine 0.97 mg/dL (0.700-1.30) Glomerular Filtration Rate Calc 81 mL/min (>90) BUN/Creatinine Ratio 20.6 (10.0-20.0) Serum Glucose 136 mg/dL (74-106) Calcium Level 8.2 mg/dL (8.7-10.4) Total Bilirubin 0.6 mg/dL (0.2-1.0) Aspartate Amino Transferase (AST) 23 U/L (13-40) Alanine Aminotransferase (ALT) 15 U/L (7-40) Alkaline Phosphatase 82 U/L (46-116) Total Protein 5.9 g/dL (5.7-8.2) Albumin 3.1 g/dL (3.2-4.8) Troponin I High Sensitivity 777 ng/L (</=54) Platelet Estimate Adequate Hypochromasia (manual) Moderate Poikilocytosis (manual) Slight Anisocytosis (manual) Moderate Microcytosis Slight Ovalocytes Few Stomatocytes Few Schistocytes Few Test 06/12/24 00:00 Urine Color Yellow (Yellow) Urine Clarity Turbid (Clear) Urine pH 5.0 (5.0-9.0) Urine Specific [place] 1.024 (1.001-1.035) Urine Protein 1+ (Negative) Urine Ketones Negative (Negative) Urine Blood 2+ /uL (Negative) Urine Nitrite Negative (Negative) Urine Bilirubin Negative (Negative) Urine Urobilinogen 2 mg/dL (Negative) Urine Leukocyte Esterase 3+ /uL (Negative) Urine RBC 132 /hpf (0 - 3) Urine WBC Clumps Present /hpf (None Seen) Urine Microscopic WBC 76 /HPF (0-3) Urine Squamous Epithelial Cells Few /hpf (<5) Urine Bacteria Mod /hpf (None Seen) Urine Hyaline Casts Mod /lpf (0 - 2) Urine Mucus Few (None Seen) Urine Sperm Present /hpf (None Seen) Urine Glucose Trace mg/dL (Normal) Other Laboratory Tests 06/13/24 08:55 Brief Hx & Hospital Course: 74 y/o male patient presented with c/o fall. Patient was brought in from [facility] where he was found on the floor by staff. Patient states he was scheduled for cardiac procedure with Dr. Rodriguez today. Patient was admitted for further evaluation and treatment. Patient had a head CT which was unremarkable, a chest x-ray demonstrated cardiomegaly with pulmonary edema. He was started on diuretics. Patient was recently discharged on 06/11/2024 status post cardiac arrest. Patient had a MICRA placed by cardiology. Patient has possible underlying dementia. Mentation was at baseline. Potassium was 2.8. Patient has downtrending troponin levels. On June 14, 2024 around 8:40 a.m. in the code blue was called, patient was not responding, not breathing, no pulse was noticed, chest compressions were started, epinephrine was given. Vascular access was secured, airway was secured, we continue ACLS protocol. We administered calcium chloride, bicarbonate, magnesium, epinephrine every 3 minutes. He has been patient was shocked multiple times as we appreciated ventricular fibrillation, patient was given amiodarone and lidocaine. We got ROSC around minute 24, however after couple of minutes patient went back into asystole, chest compressions were restarted and we continued ACLS. However, after our interventions patient is still remained on PEA. Time of was called at 9:38. We updated the patient's family members on the status. Case was discussed with Dr. Bhatt Consults/Reason for consult Cardiology was consulted due to elevated troponins Operations or Procedures [place] [address] Ph: [phone] DIAGNOSTIC IMAGING Diagnostic Imaging Report : [id number] Signed PATIENT: JON FRANKEL ACCT: [id number] UNIT: [id number] : 1950 LOC: ER ROOM / BED: / AGE / SEX: 74 / M ADM STATUS: REG ER SERVICE [id number] ORDERING PHYSICIAN: ILIANA CLAY MD PROCEDURE(s): CXRP - CHEST PORTABLE REASON: syncope ORDER NUMBER(s): [id number], ACCESSION NUMBER(s): [id number] XY CHEST PORTABLE, HISTORY: syncope COMPARISON: XY CHEST PORTABLE on DOS: 06/11/24, XY CHEST PORTABLE on DOS: 06/07/24, XY CHEST PORTABLE on DOS: 06/05/24 XY CHEST PORTABLE on DOS: 06/11/24, XY CHEST PORTABLE on DOS: 06/07/24, XY CHEST PORTABLE on DOS: 06/05/24 TECHNICAL DATA: 1 view of the chest was obtained. FINDINGS: Lines and tubes: None Cardiomediastinal silhouette: Enlarged Pulmonary vasculature: prominent Lung expansion: normal Lung airspace: normal Lung interstitium: prominent Pleura: normal Pneumothorax: no Bones: Unremarkable Other: no IMPRESSION: Cardiomegaly with pulmonary edema. ATED BY: MCKAY COVARRUBIAS MD DICTATED DATE/TIME: 06/12/241044 SIGNED BY: MCKAY COVARRUBIAS MD SIGNED DATE/TIME: 06/12/241044 CC: [place] [address] Ph: [phone] DIAGNOSTIC IMAGING Diagnostic Imaging Report : [id number] Signed PATIENT: JON FRANKEL ACCT: [id number] UNIT: [id number] : 1950 LOC: ER ROOM / BED: / AGE / SEX: 74 / M ADM STATUS: REG ER SERVICE 0956 ORDERING PHYSICIAN: ILIANA CLAY MD PROCEDURE(s): HWOCT - HEAD WITHOUT CONTRAST REASON: confused, fall ORDER NUMBER(s): [id number], ACCESSION NUMBER(s): [id number] CT HEAD WITHOUT CONTRAST INDICATION: confused, fall EXAM DATE: 06/12/2024 10:24 AM COMPARISON: CT HEAD WITHOUT CONTRAST on DOS: 06/05/24, CT HEAD WITHOUT CONTRAST on DOS: 05/27/24 RADIATION DOSE: CTDIvol: 32.54 mGy, DLP: 679.17 mGy*cm PROCEDURE: CT scans of the head were obtained from the vertex to the skull base. Sagittal and coronal reconstructions were provided. All CT scans at this medical facility are performed using dose modulation techniques as appropriate to a performed exam including the following: Automated exposure control was utilized; adjustment of the MA and/or KV according to patient size; and use of iterative reconstruction technique. FINDINGS: There is sulcal and ventricular prominence. The brainshows normal morphology and lazo-white matter differentiation, without intracranial hemorrhage, extra-axial fluid collection, mass effect or acute large vessel infarct. The ventricles are normal in size. The basal cisterns are patent. The skull and visible facial bones are intact. The paranasal sinuses, mastoid air cells and middle ear cavities are well-aerated. The soft tissues of the scalp are unremarkable. IMPRESSION: No acute intracranial abnormality. ATED BY: MCKAY COVARRUBIAS MD DICTATED DATE/TIME: 06/12/24 105 SIGNED BY: MCKAY COVARRUBIAS MD SIGNED DATE/TIME: 06/12/241054 CC: Final Diagnosis/Problems List Cardiac arrest Acute hypoxic respiratory failure Acute on chronic systolic CHF CAD s/p MELISSA Discharge Disposition: at [facility] Date of Service: Jun 14, 2024 Billing Provider: ARNIE BHATT MD Common Visit Codes: [id number] CARE 30-74 MIN YAQUELIN SEN RESIDENT Jun 14, 2024 10:16 ARNIE BHATT MD Jun 14, 2024 12:10
--- NOTE | 2024-06-14 11:26 | RESUS ---
CODE BLUE ASSESSSMENT History of Events History of Events: SEE PRIMARY RN NOTE PRIOR TO CODE PATIENT WAS UNRESPONSIVE/AGONALLY BREATHING IN WHICH RAPID RESPONSE WAS CALLED THEN PATIENT LOST PULSE AND CODE BLUE WAS CALLED CPR INITIATED. Initial Information Date: Jun 14, 2024 Time: 08:34 [place] Arrest[place] Witnessed: Yes CPR started initial time: 08:34 CPR started by whom: Hospital Staff Type of arrest: Cardiac, Respiratory, Adult, Witnessed Spontaneous Respirations: No Pulse Present: No Monitoring: ECG, Pulse Oximetry, Capnography, Telemetry Crash Cart Opened and Supplies: Yes Airway Ventilation Breathing at Onset: Agonal Time of first Assisted Ventila: 08:34 Artificial Ventilation: Bag/Mask Intubation Time: 08:35 Intubation Size: 8.0 cuffed Intubated by: DAX ADAMS Intubation Attempts: 1 Intubated orally: Yes Tube secured at: 24 CO2 indicator used: Yes Confirmation: Auscultation, Exhaled CO2 Suctioning (Oral/Tracheal): Yes Circulation Circulation #1: Time: 08:35 Pulse Rate (adult): 0 Blood Pressure Systolic: 0 Blood Pressure Diastolic: 0 Circulation Comment: PEA Circulation #2: Time: 08:37 Pulse Rate (adult): 0 Blood Pressure Systolic: 0 Blood Pressure Diastolic: 0 Circulation Comment: PEA Circulation #3: Time: 08:39 Pulse Rate (adult): 0 Blood Pressure Systolic: 0 Blood Pressure Diastolic: 0 Circulation Comment: VFIB SHOCKED AT 120 JOULES Circulation #4: Time: 08:41 Pulse Rate (adult): 0 Blood Pressure Systolic: 0 Blood Pressure Diastolic: 0 Circulation Comment: VFIB SHOCKED AT 150 JOULES Circulation #5: Time: 08:43 Pulse Rate (adult): 0 Blood Pressure Systolic: 0 Blood Pressure Diastolic: 0 Circulation Comment: VFIB SHOCKED AT 200 JOULES Circulation #6: Time: 08:45 Pulse Rate (adult): 0 Blood Pressure Systolic: 0 Blood Pressure Diastolic: 0 Circulation Comment: PEA Circulation #7: Time: 08:47 Pulse Rate (adult): 0 Blood Pressure Systolic: 0 Blood Pressure Diastolic: 0 Circulation Comment: VFIB SHOCKED AT 200 JOULES Circulation #8: Time: 08:49 Pulse Rate (adult): 0 Blood Pressure Systolic: 0 Blood Pressure Diastolic: 0 Circulation Comment: VFIB SHOCKED AT 200 JOULES Circulation #9: Time: 08:51 Pulse Rate (adult): 0 Blood Pressure Systolic: 0 Blood Pressure Diastolic: 0 Circulation Comment: PEA Circulation #10: Time: 08:53 Pulse Rate (adult): 0 Blood Pressure Systolic: 0 Blood Pressure Diastolic: 0 Circulation Comment: PEA Circulation #11: Time: 08:55 Pulse Rate (adult): 0 Blood Pressure Systolic: 0 Blood Pressure Diastolic: 0 Circulation Comment: PEA Circulation #12: Time: 08:57 Pulse Rate (adult): 0 Blood Pressure Systolic: 0 Blood Pressure Diastolic: 0 Circulation Comment: VFIB SHOCKED AT 200 JOULES Circulation #13: Time: 08:59 Pulse Rate (adult): 0 Blood Pressure Systolic: 0 Blood Pressure Diastolic: 0 Circulation Comment: PEA Circulation #14: Time: 09:01 Pulse Rate (adult): 0 Blood Pressure Systolic: 0 Blood Pressure Diastolic: 0 Circulation Comment: PEA Circulation #15: Time: 09:03 Pulse Rate (adult): 63 Blood Pressure Systolic: 122 Blood Pressure Diastolic: 72 Circulation Comment: ROSC, LEVOPHED ORDERED AND STARTED Circulation #16: Time: 09:24 Pulse Rate (adult): 0 Blood Pressure Systolic: 0 Blood Pressure Diastolic: 0 Circulation Comment: PEA, PATIENT LOST PULSE Circulation #17: Time: 09:26 Pulse Rate (adult): 0 Blood Pressure Systolic: 0 Blood Pressure Diastolic: 0 Circulation Comment: VFIB SHOCKED AT 200 JOULES Circulation #18: Time: 09:28 Pulse Rate (adult): 0 Blood Pressure Systolic: 0 Blood Pressure Diastolic: 0 Circulation Comment: PEA Circulation #19: Time: 09:29 Pulse Rate (adult): 0 Blood Pressure Systolic: 0 Blood Pressure Diastolic: 0 Circulation Comment: TIME OF Defibrillation Defbrillation : Time Defibrillator Applied: 08:34 Compressions: Manual Comment SEE CIRCULATION FOR DEFIB TIMES/JOULES Procedure - IV Procedure - IV : Comment IV PREVIOUSLY INSERTED, DR NIEVES ATTEMPTED TLC DURING CODE AND OBTAINED ACCESS TO RIGHT IJ Medications & Response Medications and Responses #1: Medication Time: 09:34 ADULT Medications Given ADULT: Epinephrine 1 mg Route of Administration: IV Medications and Responses #2: Medication Time: 08:36 ADULT Medications Given ADULT: Sodium Bacarbinate 50 meq Route of Administration: IV Medications and Responses #3: Medication Time: 08:37 ADULT Medications Given ADULT: Epinephrine 1 mg, Calcium Chloride 10 mL Medications and Responses #4: Medication Time: 08:39 ADULT Medications Given ADULT: Magnesium Sulfate 2 gm Route of Administration: IV Medications and Responses #5: Medication Time: 08:41 ADULT Medications Given ADULT: Epinephrine 1 mg Route of Administration: IV Medications and Responses #6: Medication Time: 08:42 ADULT Medications Given ADULT: Amiodarone 150 mg Route of Administration: IV Medications and Responses #7: Medication Time: 08:45 ADULT Medications Given ADULT: Epinephrine 1 mg Route of Administration: IV Medications and Responses #8: Medication Time: 08:47 ADULT Medications Given ADULT: Amiodarone 150 mg Route of Administration: IV Medications and Responses #9: Medication Time: 08:49 ADULT Medications Given ADULT: Epinephrine 1 mg Route of Administration: IV Medications and Responses #10: Medication Time: 08:53 ADULT Medications Given ADULT: Epinephrine 1 mg, Lidocaine 100 mg/amp (70MG GIVEN PER DR ORDER) Route of Administration: IV Medications and Responses #11: Medication Time: 08:57 ADULT Medications Given ADULT: Epinephrine 1 mg Route of Administration: IV Medications and Responses #12: Medication Time: 09:01 ADULT Medications Given ADULT: Epinephrine 1 mg Route of Administration: IV Medications and Responses #13: Medication Time: 09:24 ADULT Medications Given ADULT: Epinephrine 1 mg, Sodium Bacarbinate 50 meq Route of Administration: IV Medications and Responses #14: Medication Time: 09:28 ADULT Medications Given ADULT: Epinephrine 1 mg Route of Administration: IV Pacing Pacer Pads Applied and Pacing: Yes Reason for Pacing: BRADYCARDIA, SBP 80'S POST ROSC PACING INITIATED Procedure - NG/OG Tube Procedure - NG/OG Tube : Type of gastric tube placed: OG Time gastric tube placed: 09:10 Gastric Tube Location: Oral GI Tube Secured: Yes NG Tube Patency/Placement: Patent, Auscultated, Positive Placement NG/OG tube inserted by: ROGER RN Nurses Notes [place] Coma Scale Eye Opening: None (1) [place] Coma Scale Verbal: None (1) [place] Coma Scale Motor: None (1) Pupil Reaction: Non Reactive Bedside Blood Glucose: 117 EKG Rhythm: PEA Time Code Ended Time Code Ended: 09:29 Post Arrest Status: Outcome of code: Unsuccessful Patient pronounced by: DR ARREOLA/DR GREEN Time patient pronounced: 09:29 Family notified: Yes (FAMILY CALLED UPON CODE BLUE THEN ARRIVED WHEN TOD WAS CALLED) Attending called: Yes Code Team Present: DR ARREOLA, DR GREEN-RESIDENT, DR NIEVES, ROGER SURVEY DATA TECHNICIAN, CAROLYN PROCESSING ASSISTANT CHARGE, RADHA PROCESSING ASSISTANT RESOURCE, KELSEY PIG HANDLER, KEVIN PIG HANDLER, OSWALDO RN PRIMARY, DAX RT, ELI REVELES, [facility] NURSING STUDENTS Roger Rivas Jun 14, 2024 11:26 ARNIE ARREOLA MD Jun 14, 2024 12:11
[2024-06-14] MEDS ORDERED: AMIODARONE HCL (50 MG/ ML) 3 ML VIAL IV ONE (12:44)
--- NOTE | 2024-06-14 23:05 | DVHPN2 ---
Progress Note - Dictate Date Seen: Jun 14, 2024 Medical Necessity Reason Pt with a Central, PICC or Fol: No Subjective Patient was seen and evaluated in follow up. This morning, at approx. 8:40 a.m. a code blue was called. Patient was not responding, not breathing, no pulse was noticed, chest compressions were started, epinephrine was given. Vascular access was secured, airway was secured. Received CPR per ACLS protocol. Patient received calcium chloride, bicarbonate, magnesium, epinephrine every 3 minutes. He had been shocked multiple times as we appreciated ventricular fibrillation, patient was given amiodarone and lidocaine. ROSC achieved around minute 24, however after couple of minutes patient went back into asystole, chest compressions were restarted and we continued ACLS. However, after our interventions patient still remained on PEA. Time of was called at 9:38. Telemetry reviewed. vital signs Vital Sign Date Time Temp Pulse Resp B/P (MAP) Pulse Ox O2 Delivery O2 Flow Rate FiO2 06/14/24 11:30 0 06/14/24 08:00 16 Nasal Cannula* 4 36 06/14/24 05:08 111/66 06/14/24 05:00 97.9 92 97.9 Total Intake and Output 06/13/24 06/13/24 06/14/24 15:00 23:00 07:00 Intake Total 850 ml 250 ml 250 ml Output Total 0 ml Balance 850 ml 250 ml 250 ml medications Current Medications Medications Dose Ordered Sig/Erik Route Start Time Stop Time Status Last Admin Dose Admin Norepinephrine Bitartrate 250 ml @ 3.75 mls/hr Q24H IV 06/14/24 09:15 Cancel Midazolam HCl 50 ml @ 1 mls/hr Q24H IV 06/14/24 09:15 Cancel Fentanyl Citrate 250 ml @ 2.5 mls/hr Q24H IV 06/14/24 09:15 Cancel objective GENERAL: Awake, altered. LUNGS: Clear. CARDIOVASCULAR: Heart sounds are good. ABDOMEN: Soft. EXT: Right great toe, 2nd toe amputation, stasis dermatitis. SKIN: Old wounds various stages abrasions noted. laboratory and microbiology Laboratory Tests 06/13/24 08:55 Test 06/13/24 08:55 Range/Units Serum Glucose 136 H 74-106 mg/dL Problem List Elevated troponin. Recent micro PPM placement. Generalized weakness. Fall. COPD. Acute on chronic systolic heart failure. CAD s/p MELISSA. PAD s/p iliac stents. A fib on Eliquis. HTN. HLD. IDDM. HFrEF EF 35%. UTI. Assessment/Plan Continued all current supportive medical care. Morphine and [place] for pain management. Lipitor, Plavix. Diuretics with Lasix. GI prophylactics. IV antibiotics with Meropenem. Additional plan as per the hospital course. Plan discussed with: Other CC Plasma Assessment Blood Product Administration S: 04:35 HÉCTOR MARION MD Jun 14, 2024 23:05
== END 2024-06-14 16:55 | DRG 291 ==
LOC: ER 09:13 → EDUNIT# 09:13 → EDBD 09:13 → OVERFLOW 14:58 → SUATTDRO 15:04 → TELE-EAST 06-13 18:18
PROVIDERS: ADMIT Student in an Organized Health Care Education/Training Program; ATTEND Student in an Organized Health Care Education/Training Program
PROC: 30233N1 Transfusion of Nonautologous Red Blood Cells into Peripheral Vein, Percutaneous Approach (ICD-10-PCS; 2024-06-13)
PROC: 05HM33Z Insertion of Infusion Device into Right Internal Jugular Vein, Percutaneous Approach (ICD-10-PCS; principal; 2024-06-14)
PROC: 5A12012 Performance of Cardiac Output, Single, Manual (ICD-10-PCS; 2024-06-14)
DX: I11.0 Hypertensive heart disease with heart failure (principal); I50.23 Acute on chronic systolic (congestive) heart failure; J96.01 Acute respiratory failure with hypoxia; N39.0 Urinary tract infection, site not specified; D63.8 Anemia in other chronic diseases classified elsewhere; I46.9 Cardiac arrest, cause unspecified; I25.10 Atherosclerotic heart disease of native coronary artery without angina pectoris; I48.91 Unspecified atrial fibrillation; J44.9 Chronic obstructive pulmonary disease, unspecified; I49.01 Ventricular fibrillation; K21.9 Gastro-esophageal reflux disease without esophagitis; E78.5 Hyperlipidemia, unspecified; E11.65 Type 2 diabetes mellitus with hyperglycemia; Z79.4 Long term (current) use of insulin; Z88.0 Allergy status to penicillin; Z95.5 Presence of coronary angioplasty implant and graft; Z79.01 Long term (current) use of anticoagulants; Z79.84 Long term (current) use of oral hypoglycemic drugs; Z86.74 Personal history of sudden cardiac arrest
CPT/HCPCS: 31500; 36415; 36556; 36600; 70450; 71045; 80053; 81001; 82805; 82962; 84484; 85025; 86850; 86900; 86901; 86920; 87081; 87086; 92950; 96361; 96368; 96372; 96374; 96375; 99291; G0378; J1756; J1815; J2185